=== PATIENT | male | born 1955 | race Caucasian/White ===

== ENCOUNTER 2018-12-16 01:04 | Emergency (ER) | payer BC, SELFPAY ==
[2018-12-16 01:05] VITALS: BP 200/102; PULSE 87; RESP 15; TEMP 36.6; O2SAT 98; BMI 44.2
--- NOTE | 2018-12-16 01:08 | ED.RN ---
CALLED FOR EKG PER RN REQUEST, UNABLE TO PRINT OLD EKGS FOR
--- NOTE | 2018-12-16 01:25 | EKG12_ITS ---
Test Reason : CP Blood Pressure : / mmHG Vent. Rate : 088 BPM Atrial Rate : 088 BPM P-R Int : 162 ms QRS Dur : 090 ms QT Int : 354 ms P-R-T Axes : 050 036 023 degrees QTc Int : 428 ms Normal sinus rhythm Normal ECG Confirmed by ARACELY WILDER, BRITTANY ([id number]), production editor PAIGE STAPLES ([id number] on 12/19/2018 8:17:08 AM Referred By: SHERRY Confirmed By:BRITTANY JESSICA MD
--- NOTE | 2018-12-16 01:25 | RAD_ITS ---
STUDY: X-RAY CHEST REASON FOR EXAM: Male, 63 years old. Chest pain TECHNIQUE: Frontal view COMPARISON: None. FINDINGS: There is suboptimal inspiration. There is discoid atelectasis at the RIGHT lung base. There are mild fibrotic changes. There are NO infiltrates, effusions or pneumothoraces. Normal size heart. Normal mediastinum and franchesca. Normal visualized pulmonary arteries. Normal visualized aortic arch and descending thoracic aorta. Normal visualized thoracic spine. Normal visualized ribs, clavicles, and shoulders. There is no demonstrated abnormality of the visualized soft tissue structures of the upper abdomen. RAD/Chest PA and Lateral IMPRESSION: There is suboptimal inspiration. There is discoid atelectasis at the RIGHT lung base. There are mild fibrotic changes. There are NO infiltrates, effusions or pneumothoraces. Normal size heart. Electronically Signed: Cem Pozo MD at 2:10 EST , Service support ,
[2018-12-16 01:26] VITALS: O2SAT 98
--- NOTE | 2018-12-16 01:27 | ED.DCSUM_ITS ---
- ER Visit Summary Date of Service: 12/16/18 Chief Complaint: [] Chest pain History of Present Illness: The patient is a 63 M emplaning of chest pain for the last 4-1/2 hours. Gradual onset continuous dull heaviness. It is gone currently. He felt little bit short of breath when he laid down to go to bed. He used some Tums with no relief earlier tonight. He had a stress test 15 years ago that was normal. He also had a heart cath in the past that was normal. These were remote however greater than 10 years ago. He does have chronic hypertension on no treatment currently. His blood pressure was 147 systolic at home. Cardiovascular risk factors are only hypertension. Physical Examination: [] Vital signs reviewed General: Well-nourished well-developed Head: Normocephalic atraumatic Eyes: Pupils equal round and reactive to light extraocular movements intact ENT: TMs clear no hemotympanum no trauma Neck: Nontender full range of motion Cardiovascular: Regular rate rhythm no murmurs normal S1-S2 Respiratory: No distress clear to auscultation bilaterally chest nontender Abdomen: Soft nontender nondistended normal bowel sounds no masses Back: Nontender no CVA tenderness Extremities: Nontender active range of motion ?4 extremities no trauma Skin: Normal color no trauma Neuro alert oriented cranial nerves II through XII intact normal strength sensation reflexes Test Results: [] Emergency Department Course and Treatment: [] EKG showed sinus rhythm at a rate of 88. T wave inversion in inferior lead III only. Otherwise nothing acute. Patient given oral aspirin. Lab work and chest x-ray obtained. CBC chemistries troponin negative. Chest x-ray shows right basilar base atelectasis only. Mediastinum normal. Reevaluation he pain-free resting comfortably. I offered admission with a stress test and he declined. I offered a delta troponin at 2 hours and he felt this is unnecessary. His heart score is 2. His blood pressure came down 137 systolic. His RADHA risk score is 0. Patient is comfo rtable following up and he is low risk therefore he will be discharged to do so. He understands if this worsens in any way he should return. I do not think he needs a CT angios chest. I do not think he has had a aortic dissection or PE. Treatment Plan: [] Disposition: [] Impression: [] Chest pain This note was generated with Dragon dictation software. It may contain incorrect words, spelling, and punctuation that were not noted in review of the chart prior to signing ED Disposition - Plan for ED Patient: Referrals: Bharat Mcmanus III, MD [Primary Care Provider] -
[2018-12-16 01:31] LABS: Absolute Lymphocyte Count 3.35 X10^3/ul (0.83-4.51); Absolute Neutrophil Count 3.7 X10^3/uL (2.0-7.7); Basophil# 0.03 X10^3/uL; Basophil% 0.4 % (0-1); Eosinophil# 0.27 X10^3/uL; Eosinophils% 3.4 % (0-5); Hematocrit 45.1 % (40-54); Hemoglobin 15.4 g/dl (13.0-16.5); Lymphocyte # 3.35 X10^3/ul (4.0); Lymphocyte % 42.6 % (19-41); Mean Corp Hgb Conc 34.1 g/gl (32-36); Mean Corpuscular Hgb 29.2 pg (27.0-32.0); Mean Corpuscular Volume 85.4 fL (80-94); Mean Platelet Vol. 9.5 fl (6.2-12.0); Monocyte# 0.53 X10^3/uL; Monocyte% 6.7 % (0-10); Neutrophil # 3.67 X10^3/uL (2.7-7.7); Neutrophil % 46.6 % (47-70); Platelet Count 209 K/mm3 (150-450); RBC Distribution Width CV 13.1 % (11.6-14.6); RBC Distribution Width SD 40.7 fl (35.1-43.9); Red Blood Count 5.28 M/mm3 (4.6-6.2); White Blood Count 7.9 K/mm3 (4.4-11.0)
[2018-12-16 01:32] LABS: POSITIVE COUNT NO; POSITIVE DIFFERENTIAL NO; POSITIVE MORPHOLOGY NO
[2018-12-16 01:44] LABS: Anion Gap 5 (5-15); BUN 17 mg/dL (7-18); BUN/Creat Ratio 14.7 RATIO (10-20); Calcium,Total 9.1 mg/dL (8.5-10.1); Chloride 106 mmol/L (98-107); Creatinine, Serum 1.16 mg/dL (0.70-1.30); EST Glomerular Filtration Rate 68 mL/min (>60); Est Glom Filt Rate - Afr Amer 82 mL/min (>60); Estimated Creatinine Clearance 68.18 ml/min; Glucose 106 mg/dL (74-106); Potassium 3.8 mmol/L (3.5-5.1); Sodium Level 140 mmol/L (136-145)
[2018-12-16 01:52] VITALS: BP 144/86; PULSE 76; RESP 17; O2SAT 93
[2018-12-16] MEDS: Aspirin 81 MG TAB.CHEW 324 MG PO (01:53)
[2018-12-16 02:25] VITALS: BP 144/87; PULSE 80; RESP 12; O2SAT 93
--- NOTE | 2018-12-16 02:31 | ED.DEP ---
ED Disposition - Plan for ED Patient: Disposition: Home or Assisted Living Instructions: ED Chest Pain NonCardiac Referrals: Bharat Mcmanus III, MD [Primary Care Provider] -
[2018-12-16 02:43] VITALS: BP 165/82; PULSE 70; RESP 15; O2SAT 98
--- NOTE | 2018-12-16 02:44 | ED.RN ---
PT GIVEN WRITTEN AND VERBAL DISCHARGE INSTRUCTIONS. PT VERBALIZES UNDERSTANDING AND DENIES ANY FURTHER QUESTIONS. PT IV D/C AND COVERED WITH 2X2 GAUZE AND PAPER TAPE. PT DRESSES SELF AND AMBULATES OUT OF DEPT WITH SPOUSE. PT TO RETURN TO ED FOR ANY NEW OR WORSENED SX. PT TO FOLLOW UP WITH PCP.
== END 2018-12-16 02:45 | disposition home or self-care (01) ==
PROVIDERS: Emergency Provider Emergency Medicine; Family Provider Family Medicine; PCP Family Medicine
DX: R07.9 Chest pain, unspecified (principal); I10 Essential (primary) hypertension; R06.02 Shortness of breath; E66.9 Obesity, unspecified
CPT/HCPCS: 71046; 80048; 84484; 85025; 93005; 99285; A4216

== ENCOUNTER → 2019-04-27 09:58 | Outpatient (CLI) | payer BC, SELFPAY ==
--- NOTE | 2019-04-27 10:19 | EKG12_ITS ---
Test Reason : PRE-OP Blood Pressure : / mmHG Vent. Rate : 066 BPM Atrial Rate : 066 BPM P-R Int : 164 ms QRS Dur : 088 ms QT Int : 388 ms P-R-T Axes : 061 036 028 degrees QTc Int : 406 ms Normal sinus rhythm Normal ECG Confirmed by ARACELY WILDER, BRITTANY ([id number]), index editor SEVERO PARSONS ([id number]) on 04/28/2019 7:48:52 AM Referred By: Rajinder Becerra Confirmed By:BRITTANY JESSICA MD
[2019-04-27 10:47] LABS: Hematocrit 45.9 % (40-54); Hemoglobin 15.4 g/dl (13.0-16.5); Mean Corp Hgb Conc 33.6 g/gl (32-36); Mean Corpuscular Hgb 28.1 pg (27.0-32.0); Mean Corpuscular Volume 83.6 fL (80-94); Platelet Count 228 K/mm3 (150-450); RBC Distribution Width CV 13.3 % (11.6-14.6); RBC Distribution Width SD 40.7 fl (35.1-43.9); Red Blood Count 5.49 M/mm3 (4.6-6.2); White Blood Count 6.6 K/mm3 (4.4-11.0)
[2019-04-27 10:49] LABS: Scan Indicated on CBC? Y/N NO
[2019-04-27 11:03] LABS: Anion Gap 5 (5-15); BUN 19 mg/dL (7-18); BUN/Creat Ratio 17.6 RATIO (10-20); Calcium,Total 9.1 mg/dL (8.5-10.1); Chloride 105 mmol/L (98-107); Creatinine, Serum 1.08 mg/dL (0.70-1.30); EST Glomerular Filtration Rate 73 mL/min (>60); Est Glom Filt Rate - Afr Amer 89 mL/min (>60); Glucose 109 mg/dL (74-106); Potassium 3.9 mmol/L (3.5-5.1); Sodium Level 139 mmol/L (136-145)
== END ==
PROVIDERS: Family Provider Family Medicine; PCP Family Medicine; Referring Provider Physician Assistant Surgical; Visit Provider Physician Assistant Surgical
DX: Z01.810 Encounter for preprocedural cardiovascular examination (principal); Z01.818 Encounter for other preprocedural examination
CPT/HCPCS: 36415; 80048; 85027; 93005

== ENCOUNTER 2019-05-13 06:26 | Day surgery (SDC) | payer BC, SELFPAY ==
[2019-05-13] VITALS (7 sets, daily range): BP systolic 123–150; BP diastolic 71–95; PULSE 71–82; RESP 16; TEMP 36.5–36.9; O2SAT 93–97; BMI 42.5
[2019-05-13] MEDS: Epinephrine (1 mg/ml) 1 MG/ML VIAL (07:26)
--- NOTE | 2019-05-13 08:40 | PCM.OPRPT ---
Report of Operation Date of Procedure: 05/13/19 Pre-Operative Diagnosis: 1. Right knee medial meniscus tear. 2. Right knee chondromalacia. 3. Right knee lateral meniscus tear Post-Operative Diagnosis: 1. Right knee medial meniscus tear. 2. Right knee chondromalacia. 3. Right knee medial plica Surgery/Procedure Performed:: Arthroscopic right knee partial medial meniscectomy, right knee medial compartment chondroplasty. Right knee plica resection Description of Surgical Findings:: Lateral meniscus was probed and visualized was not able to identify the appropriate tear the tissue looked healthy. There was a large medial plica which required debridement once the plica was removed striations were noted on the distal femur. laboratory equipment installer: None Type of Anesthesia:: General Anesthesiologist: Malik Kwon Special Medications: 600 mg clindamycin Estimated Blood Loss (mL): 10 Fluids Replaced: 500 mL crystalloid Description of Procedure: On the date of the procedure, the patient's R lower extremity was marked in the preoperative area. Patient was brought back to the operating room where they were transferred to the bed. Anesthesia assumed control of the C-spine airway and administered anesthetic. All bony prominences were identified and well-padded and the R leg was placed in the arthroscopic leg navarro. The contralateral leg was then draped over the bed and well-padded. There was padding underneath both sciatic nerves. The foot of the bed was then dropped and the R leg was prepped in a sterile fashion. The surgeon then scrubbed. Upon reentering the room, the operative leg was draped in a standard orthopedic fashion. A timeout was called, everyone agreed upon the side, the site, the procedure to be performed, patient's identity and antibiotics given. Incisions were marked out for the medial and lateral infrapatellar portals. Esmarch bandage was then used to exsanguinate the leg and tourniquet was placed at 250 mmHg. At this time, the lateral portal incision was made in a vertical fashion. The trocar was placed into the joint. The camera was then placed and the patellofemoral joint was visualized. The patella did appear to have grade 3 chondral changes. The trochlea appeared to have grade 4 especially over the medial facet chondral changes. We then directed our attention to the medial gutter where there was no foreign body. Then directed our attention to the medial joint compartment. There were grade 3 chondral changes on the medial distal femur, grade 3 chondral changes on the medial tibial plateau. The medial meniscus had large complex tear of the posterior horn and body extending to the anterior half. The medial portal was then placed under direct visualization using a spinal needle an 11 blade scalpel. Once this was done a probe was placed in the joint and the meniscus was probed finding large complex tear which pulled into the joint. We also noted cartilage fibrillation on the distal femur and proximal tibia. The biters and maria r were then used sequentially to debriding get rid of any free edges that could be a source of pain and catching in the meniscus tear. Shaver was also used to debride free cartilage flaps performing her chondroplasty and smoothing out the roughened surfaces. Once we felt medial meniscus tear was adequately debrided, we again visualized the joint and noted the meniscus tear was adequately debrided. Attention was then turned towards the notch where the anterior cruciate ligament was intact. PCL was visualized and appeared intact. Attention was then directed towards the lateral compartment where the lateral distal femur had grade 2 chondral changes, the lateral proximal tibia had grade 2 chondral changes. The lateral meniscus carefully visualized. There was some inner fraying but with a probe was placed in the joint cannot appreciated sizable or appreciable cleavage tear these may have been intrasubstance changes. Based on intraoperative findings we elected not to proceed with any more aggressive meniscectomy.. We then directed our attention to the lateral gutter, which was visualized and no free bodies were noted. Attention was once again directed to the patellofemoral joint where the plica was once again visualized. Shaver was placed in the joint and the plica was resected. Once a plica was resected we could clearly see the striations and grade 4 medial facet of the trochlea chondral changes. At this time the wound was copiously irrigated out with normal saline with epinephrine. The wound was closed with 4-0 nylon. Xeroform was placed over the incision. Sterile dressing was placed. Compressive dressing was placed. Tourniquet was let down. For that there was then placed up. Patient was awakened by anesthesia patient was transferred to the PACU for recovery in stable condition. Postoperative plan: Patient will be made weight-bear as tolerated. Return to activities as tolerated. He will come to the office in 2 weeks for postoperative wound check and suture removal. If he is doing well that time he can follow-up as needed. - Complications NONE - Admit VTE Documentation VTE Present on Admission: No VTE Mechan Device Prophylaxis: SCD's, Thigh High SAMI Hose VTE Pharm Prophylaxis ordered?: Yes
== END 2019-05-13 10:59 | disposition home or self-care (01) ==
LOC: SDC 06:26 → AC 06:29
PROVIDERS: Family Provider Family Medicine; PCP Family Medicine; Referring Provider Specialist; Visit Provider Specialist
PROC: (CPT 29870; principal; 2019-05-13 07:40)
DX: S83.231A Complex tear of medial meniscus, current injury, right knee, initial encounter (principal); S83.281A Other tear of lateral meniscus, current injury, right knee, initial encounter; M94.261 Chondromalacia, right knee; M67.51 Plica syndrome, right knee; M17.0 Bilateral primary osteoarthritis of knee; W17.89XA Other fall from one level to another, initial encounter; Y93.9 Activity, unspecified; Y92.9 Unspecified place or not applicable; Y99.9 Unspecified external cause status; I10 Essential (primary) hypertension
CPT/HCPCS: 29881; 64447; J7120; J2405

== ENCOUNTER → 2023-09-23 | Outpatient (CLI) | payer MEDICARE, BC, SELFPAY ==
--- NOTE | 2023-09-23 15:44 | MRI_ITS ---
STUDY: MRI ORBITS WITH AND WITHOUT CONTRAST REASON FOR EXAM: Male, 68 years old. OPTIC ATROPHY LEFT EYE, COMPRESSIVE OPTIC TRACT LESION - TECHNIQUE: Standardized fat and water weighted pulse sequences were obtained in all 3 orthogonal planes, pre-and post contrast administration. IV 27cc clariscan was administered for the contrast portion of the examination. COMPARISON: None. FINDINGS: Normal bilateral globes. Normal bilateral optic nerve sheath complexes and optic nerves. Normal bilateral intraconal and extraconal spaces. Normal bilateral extraocular muscles. Normal optic chiasm and post-chiasmatic tracts. Normal sella turcica, pituitary gland, infundibular stalk, and hypothalamus. Normal bilateral cavernous sinuses. Normal tectal plate and pineal gland. Normal flow voids within the major intracranial circulation suggesting patency by spin echo criteria. Normal size of the ventricles and extra-axial spaces for the patient''s age. Minimal periventricular white matter disease most likely is chronic small vessel ischemia without evidence for mass effect or restricted diffusion. Normal bilateral basal ganglia. Normal thalami. There is no extra-axial fluid accumulation. Normal midbrain, damari and medulla. Normal cerebellum. Normal basal cisterns. MRI/Orbit Face Neck W/WO Contrast IMPRESSION: Minimal periventricular white matter ischemic changes without evidence for acute infarct. Normal orbits Electronically Signed: Ricki Jeff MD at 17:40 EST ,
[2023-09-23 16:13] LABS: EGFR FINGERSTICK > 60.0000 mL/min (>60)
== END | disposition home or self-care (01) ==
LOC: MRI 15:24
PROVIDERS: PCP Nurse Practitioner Family; Visit Provider Ophthalmology
DX: H47.212 Primary optic atrophy, left eye (principal)
CPT/HCPCS: 70543; A9575

== ENCOUNTER 2025-10-19 19:48 | Emergency (ER) | payer MEDICARE, BC, SELFPAY ==
[2025-10-19] VITALS (7 sets, daily range): BP systolic 158–211; BP diastolic 74–89; PULSE 74–79; RESP 18–20; TEMP 36.6; O2SAT 96–99; BMI 46.3
--- NOTE | 2025-10-19 20:34 | EKG12_ITS ---
Test Reason : DYSRHYTHMIA Blood Pressure : */* mmHG Vent. Rate : 78 BPM Atrial Rate : 78 BPM P-R Int : 166 ms QRS Dur : 144 ms QT Int : 386 ms P-R-T Axes : 61 33 43 degrees QTcB Int : 440 ms Normal sinus rhythm Right bundle branch block Abnormal ECG Confirmed by Casey Martinez ([id number]), digital editor LETICIA RAINES ([id number]) on 10/20/2025 10:26:45 AM Referred By: JOLENE Confirmed By: Casey Martinez
[2025-10-19 20:51] LABS: Hematocrit 43.8 % (40-54); Hemoglobin 14.5 g/dL (13.0-16.5); Immature Granulocytes Count 0.010 X10^3/uL (0.0-0.0); Mean Corp Hgb Conc 33.1 g/dL (32-36); Mean Corpuscular Volume 86.1 fL (80-94); Mean Platelet Vol. 9.7 fl (6.2-12.0); NRBC Flagged by Analyzer 0 % (0-5); Platelet Count 196 K/mm3 (150-450); RBC Distribution Width CV 12.7 % (11.6-14.6); RBC Distribution Width SD 39.8 fl (35.1-43.9); Red Blood Count 5.09 M/mm3 (4.6-6.2); White Blood Count 7.9 K/mm3 (4.4-11.0)
--- NOTE | 2025-10-19 20:51 | RAD_ITS ---
PROCEDURE: CHEST PA AND LATERAL 10/19/2025 REASON FOR EXAM: SOB TECHNIQUE: Procedure Code: RADCXR Modality: DX Procedure: CHEST PA AND LATERAL COMPARISON: None. FINDINGS: Lungs/Pleura: No appreciable focal consolidation, pneumothorax, or pleural effusion. Heart/Mediastinum: Mildly enlarged. No significant vascular congestion. Bones/Soft tissues: Mild degenerative changes of the spine. Left humeral head prosthesis. RAD/Chest PA and Lateral IMPRESSION: Mild cardiomegaly. No acute pulmonary disease. Reading Location: [id number]
[2025-10-19 21:07] LABS: Anion Gap 9 (5-15); BUN 14 mg/dL (4-19); BUN/Creat Ratio 12.3 RATIO (10-20); Calcium,Total 9.0 mg/dL (7.6-11.0); Carbon Dioxide 24.8 mmol/L (21.0-32.0); Chloride 105 mmol/L (98-108); Estimated Creatinine Clearance 91.79 ml/min (50-250); Glucose 136 mg/dL (70-99); Potassium 4.0 mmol/L (3.3-5.1)
--- OUTSIDE RECORDS SUMMARY | 2025-10-19 21:11 | XMS RPT_ITS | CCD ---
Author Organization [facility] Care Team Providers Care Chrome Tanner Name Role Phone Miguelito WILDER, Jose Daniel Ross Unavailable Marietta KAMARA MD, Bharat A Primary Care Provider Marialuisa vailable Marietta KAMARA MD, Frank A Primary Care Provider Marialuisa vailable [facility] AUTHORIZATION MANAGER.Cy SALMERON Primary Care Provider Junaid Belle Unavailable [facility] CHAU, Cy Primary Care Unavailable Junaid Belle Attending Unavailable Trill AUTHORIZATION MANAGER.Cy SALMERON Primary Care Provider Junaid Belle MD Unavailable [phone] LI, ANG Attending Unavailable TRILL, CY C Primary Care Unavailable TRILL, CY C Primary Care Unavailable DENY VEGA Referring Unavailable TRILL, CY C Primary Care Unavailable LI, ANG Attending Unavailable TRILL, CY C Primary Care Unavailable LI, ANG Attending Unavailable TRILL, CY C Primary Care Unavailable LI, ANG Attending Unavailable TRILL, CY C Primary Care Unavailable LI, ANG Attending Unavailable LI, ANG Referring Unavailable TRILL, CY C Primary Care Unavailable TRILL, CY C Referring Unavailable TRILL, CY C Primary Care Unavailable LI, ANG Attending Unavailable LI, ANG Referring Unavailable TRILL, CY C Primary Care Unavailable LI, ANG Attending Unavailable TRILL, CY C Primary Care Unavailable LI, ANG Attending Unavailable TRILL, CY C Primary Care Unavailable LI, ANG Attending Unavailable LI, ANG Referring Unavailable TRILL, CY C Primary Care Unavailable TRILL, CY C Primary Care Unavailable LI, ANG Referring Unavailable TRILL, CY C Primary Care Unavailable TRILL, CY C Primary Care Unavailable LI, ANG Admitting Unavailable LI, ANG Attending Unavailable TRILL, CY C Primary Care Unavailable TRILL, CY C Attending Unavailable TRILL, CY C Referring Unavailable CY NIXON Primary Care Unavailable GLYNN KIMA MELECIO Attending Unavailable CY NIXON Referring Unavailable CY NIXON Primary Care Unavailable CY NIXON Attending Unavailable CY NIXON Primary Care Unavailable CY NIXON Primary Care Unavailable Allergies Allergy Classification Reported Allergen(s) Allergy Type Date of Onset Reaction(s) Facility (1 source) Penicillin G Drug Allergy 0 [facility] Work Phone: (8 sources) Penicillins; Translations: [PENICILLINS] Propensity to adverse reactions 7 [facility] Work Phone: (20 sources) Penicillins Propensity to adverse reactions 7 [facility] Work Phone: (2 sources) Etodolac Drug Allergy 2 Intolerance [facility] (1 source) Penicillins Allergy to substance 9 [facility] (1 source) Etodolac Drug Allergy 2 [facility] Repository (1 source) Penicillins Drug allergy (disorder) 9 [facility] Repository (6 sources) Penicillins Propensity to adverse reactions 7 [facility] Work Phone: Medications Current Medications Medication Drug Class(es) Dates Sig (Normalized) Sig (Original) benoxinate hydrochloride 4 mg/ml / fluorescein sodium 3 mg/ml ophthalmic solution (11 sources) Diagnostic Dye Start: 02-01-2025 End: 02-01-2025 fluorescein-benoxi bhavin 0.3-0.4 % 1 Drop (FLURESS) Start: 02-01-2025 End: 02-01-2025 1 Drop, BOTH EYES, DIRECT ED, Starting on Sat02/01/25 at 1100, Until Sat02/01/25 at 2259, Administer for applanation tonometry. In the event of a Fluress shortage, administer [place]-Fluor 1 drop into both eyes as directed for applanation tonometry Start: 01-18-2025 End: 01-18-2025 fluorescein-benoxinate 0.3-0 .4 % 1 Drop (FLURESS) Start: 12-14-2024 End: 12-15-2024 fluorescein-benoxinate 0.3-0 .4 % 1 Drop (FLURESS) Start: 11-16-2024 End: 11-17-2024 fluorescein-benoxinate 0.3-0 .4 % 1 Drop (FLURESS) Start: 11-16-2024 End: 11-17-2024 1 Drop, BOTH EYES, DIRECT ED, Starting on Sat11/16/24 at 1430, Until Sat11/17/24 at 0229, Administer for applanation tonometry. In the event of a Fluress shortage, administer [place]-Fluor 1 drop into both eyes as directed for applanation tonometry, [facility] MED ORDERS Start: 09-14-2024 End: 09-15-2024 fluorescein-benoxinate 0.3-0 .4 % 1 Drop (FLURESS) Start: 09-14-2024 End: 09-15-2024 1 Drop, BOTH EYES, DIRECT ED, Starting on Sat09/14/24 at 1230, Until Sat09/15/24 at 0029, Administer for applanation tonometry. In the event of a Fluress shortage, administer 1 drop of [place]-Fluor into both eyes as directed for applanation tonometry., OPHT CLINIC MED ORDERS Start: 03-16-2024 End: 03-17-2024 fluorescein-benoxinate 0.3-0 .4 % 1 Drop (FLURESS) Start: 01-20-2024 End: 01-20-2024 fluorescein-benoxinate 0.3-0 .4 % 1 Drop (FLURESS) Start: 12-23-2023 End: 12-23-2023 fluorescein-benoxinate 0.3-0 .4 % 1 Drop (FLURESS) benzonatate 100 mg oral capsule (2 sources) Non-narcotic Antitussive Start: 06-25-2024 End: 07-02-2024 take 1 capsule by mouth every eight hours as needed benzonatate (TESSALON PERLE) 100 mg capsule Take 1 capsule by mouth three times a day as needed for cough for up to 7 days. 21 capsule 06/25/2024 07/02/2024 Active brimonidine tartrate 2 mg/ml ophthalmic solution (20 sources) alpha-Adrenergic Agonist Start: 08-21-2024 End: 06-03-2025 take 1 drop(s) into the eye(s) twice daily brimonidine (ALPHAGAN) 0.2 % ophthalmic solution Use 1 drop in both eyes two times a day. 30 mL 11 06/03/2025 Active Start: 01-20-2024 End: 08-07-2024 take 1 drop(s) into the eye(s) twice daily brimonidine (ALPHAGAN) 0.2 % ophthalmic solution Use 1 Drop in both eyes two times a day. 30 mL 06/01/2024 08/07/2024 Discontinued Start: 09-23-2023 End: 01-20-2024 brimonidine (ALPHAGAN) 0.2 % ophthalmic solution Comment on above: Use 1 Drop in both e yes two times a day. dorzolamide 20 mg/ml / timolol 5 mg/ml ophthalmic solution (20 sources) Carbonic Anhydrase Inhibitor, beta-Adrenergic Jameel Start: 01-20-2024 End: 02-22-2025 take 1 drop(s) into the eye(s) twice daily dorzolamide-timolol (COSOPT) 22.3-6.8 mg/mL ophthalmic solution Use 1 drop in the left eye two times a day. 30 mL 02/22/2025 Active Start: 09-13-2023 End: 01-20-2024 dorzolamide-timolol (COSOPT) 22.3-6.8 mg/mL ophthalmic solution Comment on above: Use 1 Drop in both e yes two times a day. fluvastatin 20 mg oral capsule (20 sources) HMG-CoA Reductase Inhibitor Start: 02-09-20 24 End: 08-02-20 25 take 1 capsule by mouth once daily at bedtime fluvastatin (LESCOL) 20 mg capsule Indications: Hyperlipidemia LDL goal Take 1 capsule by mouth daily at bedtime. 90 capsule 3 08/07/2024 08/02/2025 Active Comment on above: Take 1 capsule by mo [facility] daily at bedtime. Clfpqlto-Cxyg-Goy6-C -Jeremy-Bosw (1 source) Start: 05-11-20 19 Eayubfvz-Vzoj-Xqn7-C- Jeremy-Bosw Active 2 EACH PO DAILY May 10, 2019 11:00pm ibuprofen 200 mg oral tablet (20 sources) Nonsteroidal Anti-inflammatory Drug take 1 tablet by mouth every six hours as needed ibuprofen (MOTRIN) 200 mg tablet Take 200 mg by mouth every 6 hours as needed. Active Comment on above: Take 200 mg by mouth every 6 hours as needed. Inhalational Spacing Device (2 sources) Start: 06-25-20 End: 06-25-20 Inhalational Spacing Device 1 Device one time only for 1 dose. 1 Each 06/25/2024 06/25/2024 Active latanoprost 0.05 mg/ml ophthalmic solution (20 sources) Prostaglandin Analog Start: 12-30-19 End: 02-23-20 take 1 drop(s) into the eye(s) once daily at bedtime latanoprost (XALATAN) 0.005 % ophthalmic solution Use 1 drop in both eyes daily at bedtime. 5 mL 11 02/22/2025 Active Comment on above: Use 1 Drop in both e yes daily at bedtime. lisinopril 20 mg oral tablet (20 sources) Angiotensin Converting Enzyme Inhibitor Start: 10-01-20 End: 08-28-20 take 1 tablet by mouth once daily lisinopril (ZESTRIL) 20 mg tablet Indications: Primary hypertension Take 1 tablet by mouth once daily. 90 tablet 3 09/02/2024 08/28/2025 Active Start: 06-24-2020 End: 02-29-2024 take 1 tablet by mouth once daily lisinopril (ZESTRIL) 10 mg tablet Indications: Primary hypertension Take 1 tablet by mouth once daily. 90 tablet 1 09/02/2023 02/29/2024 Active Comment on above: Take 1 tablet by selwyn once daily. phenylephrine hydrochloride 25 mg/ml ophthalmic solution (4 sources) alpha-1 Adrenergic Agonist Start: 09-14-2024 End: 09-15-2024 PHENYLephrine 2.5 % 1 Drop (AK-DILATE, HANNAH-SYNEPHRINE) Start: 09-14-2024 End: 09-15-2024 1 Drop, BOTH EYES, DIRECT ED, Starting on 09/14/24 at 1230, Until Sat09/15/24 at 0029, Administer for dilation PROTECT FROM LIGHT, OPHT CLINIC MED ORDERS Start: 01-20-2024 End: 01-20-2024 PHENYLephrine 2.5 % 1 Drop ( AK-DILATE, HANNAH-SYNEPHRINE) Start: 12-13-2023 End: 12-14-2023 PHENYLephrine 2.5 % 1 Drop ( AK-DILATE, HANNAH-SYNEPHRINE) polyethylene glycol 3350 [id number] mg / potassium chloride 2970 mg / sodium bicarbonate 6740 mg / sodium chloride 5860 mg / sodium sulfate 42903 mg powder for oral solution (1 source) Osmotic Laxative Start: 03-09-2025 End: 03-09-2025 peg 3350-Electrolytes (GOLYTELY) 236-22.74-6.74 -5.86 gram suspension Indications: Encounter for colorectal cancer screening Take 4,000 mL by mouth one time only for 1 dose. Refer to printed prep instructions from your provider. 4000 mL 03/09/2025 03/09/2025 Active proparacaine hydrochloride 5 mg/ml ophthalmic solution (6 sources) Local Anesthetic Start: 01-18-2025 End: 01-18-2025 proparacaine 0.5 % 1 Drop (ALCAINE) Start: 12-14-2024 End: 12-15-2024 proparacaine 0.5 % 1 Drop (A LCAINE) Start: 11-16-2024 End: 11-17-2024 proparacaine 0.5 % 1 Drop (A LCAINE) Start: 11-16-2024 End: 11-17-2024 1 Drop, BOTH EYES, DIRECT ED, Starting on Sat11/16/24 at 1430, Until Sat11/17/24 at 0229, Administer for pneumo tonometry, tonopen tonometry, or pachymetry. In the event of a proparacaine shortage, administer tetracaine 0.5% ophthalmic drops 1 drop in both eyes as directed for pneumo tonometry, tonopen tonometry, or pachymetry, OPHT CLINIC MED ORDERS Start: 09-14-2024 End: 09-15-2024 proparacaine 0.5 % 1 Drop (A LCAINE) Start: 03-16-2024 End: 03-17-2024 proparacaine 0.5 % 1 Drop (A LCAINE) tamsulosin hydrochloride 0.4 mg oral capsule (20 sources) alpha-Adrenergic Jameel Start: 02-05-2024 End: 08-07-2025 take 1 capsule by mouth once daily at bedtime tamsulosin (FLOMAX) 0.4 mg Indications: Benign prostatic hyperplasia with weak urinary stream Take 1 capsule by mouth daily at bedtime. 90 capsule 3 08/07/2024 08/07/2025 Active Comment on above: Take 1 capsule by [facility] daily at bedtime. tropicamide 10 mg/ml ophthalmic solution (5 sources) Anticholinergic Start: 09-14-2024 End: 09-15-2024 tropicamide 1 % 1 Drop (MYDRIACYL) Start: 09-14-2024 End: 09-15-2024 1 Drop, BOTH EYES, DIRECT ED, Starting on Sat09/14/24 at 1230, Until Sat09/15/24 at 0029, Administer for dilation, OPHT CLINIC MED ORDERS Start: 03-16-2024 End: 03-17-2024 tropicamide 1 % 1 Drop (MYDR IACYL) Start: 01-20-2024 End: 01-20-2024 tropicamide 1 % 1 Drop (MYDR IACYL) Start: 12-13-2023 End: 12-14-2023 tropicamide 1 % 1 Drop (MYDR IACYL) Completed/Discontinued Medications Medication Drug Class(es) Dates Sig (Normalized) Sig (Original) Acetaminophen (2 sources) End: 06-19-2022 acetaminophen (TYLENOL ARTHRITIS ORAL) Take by mouth as needed. 0 06/19/2022 Discontinued acetaminophen (T YLENOL ARTHRITIS ORAL) Take by mouth as needed. 0 Active Comment on above: Take by mouth as nee ded. [id number] 200 actuat albuterol 0.09 mg/actuat metered dose inhaler (4 sources) beta2-Adrenergic Agonist Start: 06-25-20 End: 08-23-20 take 2 puff(s) by inhalation every six hours as needed for wheezing albuterol HFA (PROVENTIL HFA, VENTOLIN HFA) 90 mcg/actuation inhaler Inhale 2 Puffs as instructed every 6 hours as needed for wheezing/shortness of breath. 8 g 06/25/2024 08/23/2024 Discontinued atorvastatin 20 mg oral tablet (2 sources) HMG-CoA Reductase Inhibitor Start: 09-08-20 take 1 tablet by mouth once daily atorvastatin (LIPITOR) 20 mg tablet Take 1 tablet by mouth once daily. 90 tablet 3 09/08/2023 Active Comment on above: Take 1 tablet by selwyn th once daily. bimatoprost 0.1 mg/ml ophthalmic solution (20 sources) Prostaglandin Analog Start: 01-31-20 End: 08-07-20 LUMIGAN 0.01 % drop ophthalmic drops 01/31/2024 08/07/2024 Discontinued Start: 12-23-2023 End: 01-20-2024 take 1 drop(s) into the eye(s) once daily at bedtime bimatoprost (LUMIGAN) 0.01 % drop ophthalmic drops Indications: Chronic angle-closure glaucoma of left eye, severe stage , Chronic angle-closure glaucoma of right eye, moderate stage , Nuclear senile cataract of both eyes Use 1 Drop in both eyes daily at bedtime. 5 mL 11 12/23/2023 01/20/2024 Discontinued (Course of therapy completed) Comment on above: Use 1 Drop in both e yes daily at bedtime. ciprofloxacin 3 mg/ml ophthalmic solution (14 sources) Quinolone Antimicrobial Start: 11-16-19 End: 01-19-20 take 1 drop(s) into the eye(s) four times daily ciprofloxacin HCl (CILOXAN) 0.3 % ophthalmic solution Use 1 Drop in the left eye four times daily. 15 mL 1 12/04/2024 01/18/2025 Discontinued (Course of therapy completed) prednisoLONE acetate 10 mg/ml ophthalmic suspension (20 sources) Corticosteroid Start: 11-16-19 End: 02-23-20 prednisoLONE acetate (PRED FORTE) 1 % ophthalmic suspension Use 1 Drop in the left eye four times daily. For use AFTER surgery. 10 mL 1 11/16/2024 02/22/2025 Discontinued (Course of therapy completed) Start: 11-11-2023 End: 08-07-2024 prednisoLONE acetate (PRED F ORTE) 1 % ophthalmic suspension Use 1 Drop in the right eye four times daily. For use AFTER surgery. 10 mL 1 01/20/2024 08/07/2024 Discontinued Start: 09-05-2023 prednisoLONE a cetate (PRED FORTE) 1 % ophthalmic suspension Comment on above: Use 1 Drop in the le ft eye four times daily. For use AFTER surgery. Use 1 Drop in the ri ght eye four times daily. For use AFTER surgery. rosuvastatin calcium 5 mg oral tablet (6 sources) HMG-CoA Reductase Inhibitor Start: 3 End: 4 take 2 tablets by mouth every week rosuvastatin (CRESTOR) 5 mg tablet Indications: Hyperlipidemia LDL goal Take 2 tablets by mouth one time a week. 0 10/07/2023 02/05/2024 Discontinued (Side Effects) Start: 10-01-2023 End: 10-07-2023 take 1 tablet by mouth once daily at bedtime rosuvastatin (CRESTOR) 5 mg tablet Indications: Hyperlipidemia LDL goal Take 1 tablet by mouth daily at bedtime. 30 tablet 5 10/01/2023 10/07/2023 Discontinued Comment on above: Take 2 tablets by mo uth one time a week. Take 1 tablet by selwyn th daily at bedtime. Problems Active Problems Problem Classification Problem Date Documented Da te Episodic/Chronic Blindness and vision defects (1 source) Blurring of visual image; Translations: [Other visual disturbances] Episodic Cataract (3 sources) Nuclear senile cataract; Translations: [Age-related nuclear cataract, bilateral] 12-23-2023 Chronic Conduction disorders (2 sources) EKG: right bundle branch block; Translations: [Unspecified right bundle-branch block] 02-05-2024 Chronic Disorders of lipid metabolism (20 sources) Hyperlipidemia; Translations: [Hyperlipidemia, unspecified] Onset: 08-20-2016 08-20-2016 Chronic Essential hypertension (20 sources) Benign essential hypertension; Translations: [Essential (primary) hypertension] Onset: 08-17-2008 Resolved: 10-01-2023 Chronic Glaucoma (20 sources) Angle-closure glaucoma; Translations: [Chronic angle-closure glaucoma, left eye, severe stage] Onset: 02-22-2025 12-13-2023 Chronic Hyperplasia of prostate (20 sources) Weak urinary stream due to benign prostatic hypertrophy; Translations: [Benign prostatic hyperplasia with lower urinary tract symptoms] Onset: 02-05-2024 02-05-2024 Chronic Immunizations and screening for infectious disease (1 source) Encounter for immunization; Translations: [Encounter for immunization] Onset: 08-09-2025 Episodic Joint disorders and dislocations; trauma-related (20 sources) Derangement of right knee; Translations: [Unspecified internal derangement of right knee] Onset: 08-22-2022 09-08-2023 Chronic Osteoarthritis (20 sources) Primary osteoarthritis, left shoulder; Translations: [Osteoarthrosis, localized, primary, shoulder region] Onset: 04-21-2020 04-21-2020 Chronic Other aftercare (11 sources) Surgical follow-up; Translations: [Encounter for follow-up examination after completed treatment for conditions other than malignant neoplasm] 12-13-2023 Episodic Other and unspecified benign neoplasm (3 sources) History of polyp of colon; Translations: [History of colonic polyps] 02-05-2025 Episodic Other connective tissue disease (1 source) History of operative procedure on shoulder; Translations: [Presence of left artificial shoulder joint] Onset: 06-24-2020 06-24-2020 Chronic Other connective tissue disease (1 source) Pain in bilateral legs; Translations: [Pain in right leg] 09-28-2023 Episodic Other connective tissue disease (1 source) Myalgia caused by statin; Translations: [Myalgia, unspecified site] 10-07-2023 Episodic Other connective tissue disease (3 sources) Pain in finger of right hand; Translations: [Pain in right finger(s)] 10-02-2024 Episodic Other eye disorders (1 source) Primary optic atrophy, left eye; Translations: [Primary optic atrophy, left eye] Onset: 09-30-2023 Chronic Other injuries and conditions due to external causes (1 source) Injury of finger of right hand; Translations: [Unspecified injury of right wrist, hand and finger(s), subsequent encounter] 02-05-2025 Episodic Other lower respiratory disease (2 sources) Cough; Translations: [Subacute cough] 06-25-2024 Episodic Other nutritional; endocrine; and metabolic disorders (20 sources) Metabolic syndrome X; Translations: [Metabolic syndrome] Onset: 08-17-2008 08-17-2008 Chronic Other nutritional; endocrine; and metabolic disorders (20 sources) Body mass index 40+ - severely obese; Translations: [Morbid (severe) obesity due to excess calories] Onset: 12-13-2023 12-13-2023 Chronic Other nutritional; endocrine; and metabolic disorders (1 source) Dysmetabolic syndrome X; Translations: [Dysmetabolic syndrome X] Onset: 08-17-2008 Chronic Other screening for suspected conditions (not mental disorders or infectious disease) (20 sources) Patient encounter status; Translations: [Encounter for screening for malignant neoplasm of colon] Onset: 06-02-2012 06-02-2012 Episodic Unclassified (1 source) Obesity, Class III, BMI 40-49.9 (morbid obesity) (HCC); Translations: [Obesity, Class III, BMI 40-49.9 (morbid obesity) (HCC)] Onset: 12-13-2023 Unclassified (1 source) History of colonic polyps; Translations: [History of colonic polyps] Onset: 02-05-2025 Past or Other Problems Problem Classification Problem Date Documented Date Episodic/Chronic Diabetes mellitus without complication (20 sources) Impaired fasting glycemia; Translations: [Impaired fasting glucose] Onset: 08-20-2016 05-26-2020 Episodic Genitourinary symptoms and ill-defined conditions (2 sources) Increased frequency of urination; Translations: [Frequency of micturition] Onset: 02-05-2024 09-02-2023 Episodic Other aftercare (1 source) Encounter for follow-up examination after completed treatment for conditions other than malignant neoplasm; Translations: [Postoperative follow-up] Onset: 12-04-2024 Episodic Other and unspecified benign neoplasm (20 sources) Benign neoplasm of colon; Translations: [Benign neoplasm of colon, unspecified] Onset: 06-24-2012 06-24-2012 Episodic Other connective tissue disease (2 sources) Pain in right finger(s); Translations: [Finger pain, right] Onset: 10-03-2024 Episodic Other injuries and conditions due to external causes (1 source) Unspecified injury of right wrist, hand and finger(s), subsequent encounter; Translations: [Injury of finger of right hand, subsequent encounter] Onset: 02-05-2025 Episodic Other nutritional; endocrine; and metabolic disorders (20 sources) Morbid obesity; Translations: [Morbid (severe) obesity due to excess calories] Onset: 08-20-2016 Resolved: 06-12-2017 06-12-2017 Chronic Residual codes; unclassified (20 sources) History of operative procedure on shoulder; Translations: [Other specified postprocedural states] Onset: 06-24-2020 09-02-2023 Episodic Unclassified (1 source) Problem Unclassified (2 sources) Patient encounter status 02-05-2025 Results Test Name Value Interpretation Reference Range [facility] Nurse Visit (KAYC) CECILERICKI ([id number]) 1955 M Date Time Provider Department 09/06/25 10:20 AM NURSE EVERETTE WOODRUFF During your visit today, we recorded the following information about you: Pulse Blood pressure 77/minute 122/74 Jordyn Chaparro MA 09/08/2025 7:32 AM Signed Patient was here for BP check. He confirmed his medication BP: 128/74 HR: 77 A refill request has been sent back but he needs a rx of tamulosin MARIA ELENA Linn Kristin C, APRN.FAVIOLA 09/08/2025 7:32 AM Signed BP looks great, thank you! Rx for Flomax was sent. Cy Nixon APRN.FAVIOLA Allergies As of Date: 09/06/2025 Noted Allergy Reaction PENICILLINS 07/04/2007 4 - Hives Date Reviewed: 09/03/2025 Reviewed by: Cy Nixon APRN.SCALE ATTENDANT - Fully Assessed Primary Visit Diagnosis:Primary hypertension [I10] Prescriptions as of 09/08/2025 - tamsulosin (FLOMAX) 0.4 mg TAKE ONE CAPSULE BY MOUTH AT BEDTIME - prednisoLONE acetate (PRED FORTE) 1 % ophthalmic suspension Use 1 drop in the left eye four times daily. For use AFTER surgery. - fluvastatin (LESCOL) 20 mg capsule Take 1 capsule by mouth daily at bedtime. - brimonidine (ALPHAGAN) 0.2 % ophthalmic solution Use 1 drop in both eyes two times a day. - latanoprost (XALATAN) 0.005 % ophthalmic solution Use 1 drop in both eyes daily at bedtime. - dorzolamide-timolol (COSOPT) 22.3-6.8 mg/mL ophthalmic solution Use 1 drop in the left eye two times a day. - lisinopril (ZESTRIL) 20 mg tablet Take 1 tablet by mouth once daily. - ibuprofen (MOTRIN) 200 mg tablet Take 200 mg by mouth every 6 hours as needed. Meds Comments as of 06/02/2012: Taking no meds 06/02/2012 Problem List As Of Date 09/06/2025 Noted Resolved Essential hypertension, benign [I10] 08/17/2008 10/01/2023 DYSMETABOLIC SYNDROME X [E88.810] 08/17/2008 Special screening for malignant neoplasms, colo*06/02/2012 Benign neoplasm of colon [D12.6] 06/24/2012 Hyperlipidemia LDL goal <130 [E78.5] 08/20/2016 Impaired fasting glucose [R73.01] 08/20/2016 Morbid obesity due to excess calories (HCC) [E6*08/20/2016 06/12/2017 Arthritis of shoulder [M19.019] 05/26/2020 History of left shoulder replacement [Z96.612] 06/24/2020 Diagnosed: 09/02/2023 Unspecified internal derangement of right knee *08/22/2022 Diagnosed: 09/08/2023 Prediabetes [R73.03] 09/08/2023 Primary hypertension [I10] 10/01/2023 Pre-operative examination [Z01.818] 11/29/2023 Obesity, Class III, BMI >= 40 [E66.813] 12/13/2023 Benign prostatic hyperplasia with weak urinary *02/05/2024 Encounter Status:Closed by JORDYN CHAPARRO on 09/08/25 [facility] HISTORY PHYSICALon HISTORY PHYSICAL HNO ID: [id number] Author: CHEYENNE ETIENNE APRN.FAVIOLA Service: ? Author Type: Nurse Practitioner Type: H&P Filed: 08/30/2025 14:06 Note Text: [facility] HISTORY AND PHYSICAL EXAMINATION SERVICE DATE: 08/30/2025 SERVICE TIME: 2:06 PM PRIMARY CARE PHYSICIAN: Cy Nixon APRN.SCALE ATTENDANT Assessment Patient has the following medical conditions which may affect jaquan-operative course: 1. Primary hypertension (I10) - Controlled on lisinopril; no recent headaches, dizziness, or chest pain reported. - Compliant on lisinopril as prescribed. Last 3 Encounter BP Readings: Date: BP: 08/30/2025 148/70 08/09/2025 150/82 03/09/2025 134/80 2. Hyperlipidemia LDL goal <130 (E78.5) - On fluvastatin; no history of coronary artery disease or myocardial infarction. - Compliant on fluvastatin as prescribed. 3. Benign prostatic hyperplasia with weak urinary stream (N40.1) - Managed with Flomax. - Compliant on Flomax as prescribed. 4. Prediabetes (R73.03) - Most recent HbA1c this year was 5.7%. - Patient not currently on any medications. Patient is diet-controlled. 5. Obesity, Class III, BMI 40-49.9 (morbid obesity) (HCC) (E66.813) 6. Dysmetabolic syndrome X (E88.810) - Body mass index is 44.19 kg/m?. ANESTHESIA FINDINGS: Intubation History: No history of difficult intubation. No abnormal airway history Significant Anesthesia Considerations: none Airway History: No history of difficult airway No abnormal airway history Blake Activity Status Index: METS: Walk indoors, such as around the house (1.75 METs) Do light work around the house, such as dusting or washing dishes (2.70 METs) Take care of self; that is eating, dressing, bathing, using the toilet (2.75 METs) Walk a block or two on level ground (2.75 METs) Do moderate work around the house, such as vacuuming, sweeping floors, or carrying in groceries (3.50 METs) Climb a flight of stairs or walk up a hill (5.50 METs) DASI Score: 18.95 Patient denies any chest pain or undue shortness of breath with the above physical activity. Clinical Frailty Scale: 3. Well, with treated comorbid disease STOP-Bang Score: Has or is being treated for high blood pressure BMI greater than 35 kg/m2 Patient over 50 years old Has a large neck Male patient Denies snoring loudly Denies feeling tired, fatigued, or sleepy during the daytime Has not been observed to stop breathing or choking/gasping during sleep STOP-Bang Score: 5 I - PHYSICAL EVALUATION AIRWAY Patient intubated: No. Tracheostomy tube not present Mallampati: II. TM distance: >3 FB. Neck ROM: full ROM without neurological symptoms. Mouth openin FB. Short neck: yes. Thick neck: no Vazquez present: no Microretrognathia/Mi cronagthia/Recessed Chin: No DENTAL Dental findings: teeth intact. II - ANESTHESIA PLAN Anesthetic plan additional comments: *PACC/TCI - anesthesia choice. Informed Consent Prepared for Surgery: optimally prepared for surgery. CONSULTS: Patient does not require consults for optimization at this time Planned Anesthetic: anesthesia choice The Following Tests/Procedures Have Been Initiated: No orders of the defined types were placed in this encounter. REASON FOR VISIT: Ricki Huber is a 70 year old male who is scheduled for Procedure(s): CILIARY BODY DESTRUCTION VIA CYCLOPHOTOCOAGULATIO N, TRANSSCLERAL (Left) at the request of Dr. Steven Blancas for consultation. My final recommendation will be communicated back to the requesting physician by way of shared medical record or letter. Subjective The patient has the following: COVID-19 Immunization Status Upcoming Covid-19 Vaccine () Postponed until 08/09/2026 08/09/2025 Postponed until 08/09/2026 by Perla Magaña MA (Declined at this time) 08/07/2024 Postponed until 08/07/2025 by Perla Magaña MA (Declined at this time) 09/02/2023 Postponed until 09/02/2024 by Denisse Calero MA (Declined at this time) Only the first 3 history entries have been loaded, but more history exists. CHIEF COMPLAINT: pre op HPI: Mi is a 70-year-old male with HTN, HLD, BPH, and left eye glaucoma presenting for a preoperative evaluation. Ricki reports distorted vision in his left eye due to glaucoma and is currently using Cosopt, Xalatan, Alphagan, and Pred Forte eye drops as prescribed by Dr. Blancas. REVIEW OF SYSTEMS: General: No weight loss, malaise or fevers. Neurological: Negative for: delirium, dementia, headaches, impaired sensorium, peripheral neuropathy, seizures, TIA and strokes. Respiratory: Denies any shortness of breath, chest pain, wheezing, or cough. Negative for: asthma, bronchitis, COPD, current cough, bronchodilator used daily for the last 3 months, dyspnea, home oxygen, orthopnea, pneumonia within 6 weeks, tobacco use, URI < 2 weeks and obstructive sleep apnea. Cardiovascular: Vinicio (more content not included)... Normal [facility] CNOVon 08-09-2025 CNOV Office Visit ([facility]) RICKI HUBER ([id number]) 1955 M Date Time Provider Department 08/09/25 11:00 AM CY NIXON During your visit today, we recorded the following information about you: Temperature Pulse Blood pressure Weight 98 degrees 74/minute 150/82 142.9 kg Height 1.753 m Cy Nixon APRN.SCALE ATTENDANT 09/03/2025 10:26 PM Signed Subjective The patient consented to the use of [employer] software for draft documentation of the visit consistent with [facility]?s Notice of Privacy Practices. HPI Yuniel is a 70-year-old male with a history of HTN and HLD, presenting for follow-up. Yuniel reports consistent adherence to his antihypertensive medication, lisinopril 20 mg daily. He has not taken his fluvastatin for the past 2 days due to a lack of refills. He denies experiencing myalgias. He occasionally monitors his BP at home but has not done so recently due to being busy. He reports a recent BP reading of 170/76 mmHg taken by a nurse prior to the visit. He consumed his last cup of coffee around 0900 today. He reports intermittent episodes of feeling weird for a few minutes, which are not associated with pain and resolve spontaneously. He underwent an echocardiogram approximately 1 year ago, which was reported as normal. He has not followed up with a director of diversity and inclusion since then. He denies experiencing chest pain or dyspnea. Yuniel reports frustration with his weight management efforts. Despite consuming salads and chicken for 2-3 days, he has not observed significant weight loss. He has been trying to reduce his intake of bread and red meat, consuming the latter only a couple of days a week. He acknowledges the need for longer-term dietary changes but finds it challenging due to a busy schedule and the monotony of eating the same foods repeatedly. He has not been able to incorporate regular walking into his routine due to time constraints. He also reports ongoing issues with his eyes, noting increased redness and the presence of a little brown spot that moves around. He is scheduled to see Dr. Andersen, an steel turner, next Saturday. I reviewed past medical, surgical, social, and family histories today and updated chart. Allergies, chronic medications, and supplements were also reviewed. 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 Belle/Dr. Zelaya Primary hypertension PAST SURGICAL HISTORY Procedure Laterality Date COLSC FLX W/REMOVAL LESION BY HOT BX FORCEPS 07/13/2016 hyperplastic- 5 year follow up DENTAL SURGERY HX 2018 top implant GONIOTOMY Left 12/13/2023 HEART CATHETERIZATION 11/04/2003 raina PAST SURGICAL HISTORY OF x 2 Left knee surgery REMV CATARACT EXTRACAP,INSERT LENS Left 12/13/2023 phacoemulsification KDB REMV CATARACT EXTRACAP,INSERT LENS Right 02/28/2024 GONIOTOMY - Right with Steven Blancas MD on 02/28/2024 REPAIR UMBILICAL HERNIA 11/13/2012 SHOULDER SURGERY HX Left 2019 total replacement ALLERGIES Penicillins MEDICATIONS brimonidine (ALPHAGAN) 0.2 % ophthalmic solution Use 1 drop in both eyes two times a day. latanoprost (XALATAN) 0.005 % ophthalmic solution Use 1 drop in both eyes daily at bedtime. dorzolamide-timolol (COSOPT) 22.3-6.8 mg/mL ophthalmic solution Use 1 drop in the left eye two times a day. lisinopril (ZESTRIL) 20 mg tablet Take 1 tablet by mouth once daily. tamsulosin (FLOMAX) 0.4 mg Take 1 capsule by mouth daily at bedtime. ibuprofen (MOTRIN) 200 mg tablet Take 200 mg by mouth every 6 hours as needed. prednisoLONE acetate (PRED FORTE) 1 % ophthalmic suspension Use 1 drop in the left eye four times daily. For use AFTER surgery. fluvastatin (LESCOL) 20 mg capsule Take 1 capsule by mouth daily at bedtime. FAMILY HISTORY Problem Relation Age of Onset Heart Mother on mom's side not sure who COPD Mother from COPD age 82 Diabetes Mother on mom's side not sure who Hypertension Father 84 Heart Failure Father Anesthesia Problems Father ponv, mental status change SOCIAL HISTORY[1] Review of Systems Eyes: (+) eye redness, (+) visual floater Cardiovascular: (-) chest pain Musculoskeletal: (-) myalgias Objective BP 150/82 Pulse 74 Temp 98 Ht 5' 9 (1.75m) Wt 315 lb (142.9kg) SpO2 94% BMI 46.50 kg/(m2). Physical Exam Constitutional: General: He is not in acute distress. Appearance: Normal appearance. HENT: Head: Normocephalic and atraumatic. Mouth/Throat: Lips: Roundup. Eyes: General: Lids are normal. Extraocular Movements: Extraocular movements intact. Conjunctiva/sclera: Conjunctivae normal. Pupils: Pupils are equal. Cardiovascular: Rate and Rhythm: Normal rate and regular rhythm. Heart sounds: Normal heart sounds. No murmur heard. Pulmonary: Effort: Pulmonary effort is normal. No respiratory distress. Breath sounds: (more content not included)... [facility] RICKI HUBER ([id number]) 1955 M Date Time Provider Department 03/09/25 3:30 PM SERENITY KIM During your visit today, we recorded the following information about you: Temperature Pulse Blood pressure Weight 98.4 degrees 66/minute 134/80 142 kg Height 1.753 m Serenity Kim MD 03/09/2025 3:29 PM Signed HISTORY AND PHYSICAL Ricki Huber 1955 REFERRING PHYSICIAN: Cy Nixon APRN.* CHIEF COMPLAINT: consult colon cancer screening HPI: The patient is a 70 year old male referred for endoscopy. Ricki presents for screening for colon cancer via colonoscopy. He last had a colonoscopy in 2016 - no adenomatous polyps noted. Colonoscopy in 2011 revealed tubular adenoma. The patient denies blood in stools, denies abdominal pain, and denies changes in bowel habits. The patient notes no colon cancer in immediate family. . 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 Belle/Dr. Zelaya Primary hypertension PAST SURGICAL HISTORY Procedure Laterality Date COLSC FLX W/REMOVAL LESION BY HOT BX FORCEPS 07/13/2016 hyperplastic- 5 year follow up DENTAL SURGERY HX 2018 top implant GONIOTOMY Left 12/13/2023 HEART CATHETERIZATION 11/04/2003 raina PAST SURGICAL HISTORY OF x 2 Left knee surgery REMV CATARACT EXTRACAP,INSERT LENS Left 12/13/2023 phacoemulsification KDB REMV CATARACT EXTRACAP,INSERT LENS Right 02/28/2024 GONIOTOMY - Right with Stevne Blancas MD on 02/28/2024 REPAIR UMBILICAL HERNIA 11/13/2012 SHOULDER SURGERY HX Left 2019 total replacement Current Outpatient Medications Medication Sig latanoprost (XALATAN) 0.005 % ophthalmic solution Use 1 drop in both eyes daily at bedtime. dorzolamide-timolol (COSOPT) 22.3-6.8 mg/mL ophthalmic solution Use 1 drop in the left eye two times a day. brimonidine (ALPHAGAN) 0.2 % ophthalmic solution Use 1 drop in both eyes two times a day. lisinopril (ZESTRIL) 20 mg tablet Take 1 tablet by mouth once daily. fluvastatin (LESCOL) 20 mg capsule Take 1 capsule by mouth daily at bedtime. tamsulosin (FLOMAX) 0.4 mg Take 1 capsule by mouth daily at bedtime. ibuprofen (MOTRIN) 200 mg tablet Take 200 mg by mouth every 6 hours as needed. No current facility-administere d medications for this visit. ALLERGIES: Penicillins PERSONAL HISTORY: Social History Tobacco Use Smoking status: Former Current packs/day: 1.50 Average packs/day: 1.5 packs/day for 10.0 years (15.0 ttl pk-yrs) Types: Cigarettes Smokeless tobacco: Former Tobacco comments: quit 1998 aftyer smoking off and on for seveeral years Vaping Use Vaping status: Never Used Substance Use Topics Alcohol use: Yes Comment: 1-2 week Drug use: No FAMILY HISTORY Problem Relation Age of Onset Heart Mother on mom's side not sure who COPD Mother from COPD age 82 Diabetes Mother on mom's side not sure who Hypertension Father 84 Heart Failure Father REVIEW OF SYSTEMS: General - denies fevers HEENT - denies trauma/infections Resp - denies coughing up blood, denies breathing difficulties Cardiac - denies chest pain GI - see HPI - denies blood in urine, had kidney stone Endocrine - denies diabetes MS -- had left shoulder lsurgery Psych - denies hallucinations PHYSICAL EXAMINATION: General: The patient is 70 year old male, well nourished, well hydrated in no acute distress. The patient is oriented to time, place, and person. VITALS: Blood pressure 134/80, pulse 66, temperature 36.9 ?C (98.4 ?F), height 175.3 cm (5' 9), weight (!) 142 kg (313 lb), SpO2 96%. Body mass index is 46.22 kg/m?. Head: Normal cephalic, atraumatic Eyes: pupils are equally round, sclera are clear/anicteric Neck is supple with no tracheal deviation Cardiac: normal heart sounds, regular Respiratory: Normal respiratory excursion and pattern. Abdominal exam: benign Extremities: no clubbing, cyanosis or edema. Neuro: non focal Psych: normal mood The sensitive examination was discussed with the Patient or Patient's Authorized Pararescue Manager. As applicable, any other physician, advance practice provider, medical student, or other health professional student that will be observing or involved in the sensitive examination for educational or training purposes was discussed with the Patient or Authorized Pararescue Manager. The Patient or Authorized Pararescue Manager has agreed to proceed with the sensitive examination. (Sensitive examination includes inspection and/or palpation of the breasts, pelvis, prostate and anorectal regions) Assessment IMPRESSION: screening for colon cancer PLAN: I have discussed the above with the patient. I have offered colonoscopy , possible biopsies I have explained the procedure to the patient. I have counseled the patient as to the risks of the procedure, (more content not included)... Normal [facility] 02-05-2025 [facility] HU[facility] ([id number]) 1955 M Date Time Provider Department 02/05/25 11:00 AM CY NIXON During your visit today, we recorded the following information about you: Temperature Pulse Blood pressure Weight 98.1 degrees 65/minute 126/82 137.4 kg Height 1.753 m Cy Nixon APRN.CNP 02/05/2025 8:41 PM Signed Ricki Huber is a 70 year old male here for a Medicare wellness visit. Medicare Health Risk Assessment General Health Fair Exercise: Minutes/Day 20 min Exercise: Days/Week 5 days Alcohol: Daily Use 2-3 times a week Alcohol: Drinks/Day 1 or 2 Alcohol: 6 or more drinks Never Feel off balance No Concerns: Teeth/Dentures No Concerns: Sexual function No Troubled by feelings None of the above Frequency: Eating healthy diet More than half the days ADLs requiring help None of the above Safety precautions in home/vehicle No Smoke, vape, chews tobacco No Difficulty hearing No Difficulty seeing No Current Providers Specialists: I have reviewed specialist-related care of the patient in the medical record. Current care team: Patient Care Team: Cy Nixon APRN.CNP as PCP - General (Family Medicine) Junaid Belle MD as Referring (Ophthalmology) Medical/Family history review Reviewed and updated problem list, medical/surgical/fam breanne/social history, medications, and allergies. Opioid use review Opioid Medications (last 90 days) No data to display Anxiety/Depression screening Recommendation: no further intervention at this time Cognitive screening Mini Cog Score: 5 Cognitive screening reviewed and No further action needed (score 3-5). Functional Observation Was the patient's Timed Up AND Go test unsteady or >= 12 seconds? 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 Belle/Dr. Zelaya Primary hypertension PAST SURGICAL HISTORY Procedure Laterality Date COLSC FLX W/REMOVAL LESION BY HOT BX FORCEPS 07/13/2016 hyperplastic- 5 year follow up DENTAL SURGERY HX 2018 top implant GONIOTOMY Left 12/13/2023 HEART CATHETERIZATION 11/04/2003 [place] PAST SURGICAL HISTORY OF x 2 Left knee surgery REMV CATARACT EXTRACAP,INSERT LENS Left 12/13/2023 phacoemulsification KDB REMV CATARACT EXTRACAP,INSERT LENS Right 02/28/2024 GONIOTOMY - Right with Steven Blancas MD on 02/28/2024 REPAIR UMBILICAL HERNIA 11/13/2012 SHOULDER SURGERY HX Left 2019 total replacement ALLERGIES Penicillins MEDICATIONS dorzolamide-timolol (COSOPT) 22.3-6.8 mg/mL ophthalmic solution Use 1 Drop in the left eye two times a day. brimonidine (ALPHAGAN) 0.2 % ophthalmic solution Use 1 Drop in the right eye two times a day. latanoprost (XALATAN) 0.005 % ophthalmic solution Use 1 Drop in both eyes daily at bedtime. prednisoLONE acetate (PRED FORTE) 1 % ophthalmic suspension Use 1 Drop in the left eye four times daily. For use AFTER surgery. (Patient taking differently: Use 1 drop in the left eye two times a day. For use AFTER surgery.) lisinopril (ZESTRIL) 20 mg tablet Take 1 tablet by mouth once daily. fluvastatin (LESCOL) 20 mg capsule Take 1 capsule by mouth daily at bedtime. tamsulosin (FLOMAX) 0.4 mg Take 1 capsule by mouth daily at bedtime. ibuprofen (MOTRIN) 200 mg tablet Take 200 mg by mouth every 6 hours as needed. FAMILY HISTORY Problem Relation Age of Onset Heart Mother on mom's side not sure who COPD Mother from COPD age 82 Diabetes Mother on mom's side not sure who Hypertension Father 84 Heart Failure Father Social History Tobacco Use Smoking status: Former Current packs/day: 1.50 Average packs/day: 1.5 packs/day for 10.0 years (15.0 ttl pk-yrs) Types: Cigarettes Smokeless tobacco: Former Tobacco comments: quit 1998 aftyer smoking off and on for seveeral years Vaping Use Vaping status: Never Used Substance Use Topics Alcohol use: Yes Comment: 1-2 week Drug use: No Measurements BP 126/82 Pulse 65 Temp 36.7 ?C (98.1 ?F) Ht 175.3 cm (5' 9) Wt (!) 137.4 kg (303 lb) SpO2 96% BMI 44.75 kg/m? Vision Screening: Follows with optometry/ophthalmol ogy Assessment/Plan Medicare annual wellness visit, subsequent (Z00.00) - Counseled on healthy diet and regular exercise - Fall avoidance information provided - Personalized prevention plan provided Additional Concerns The following concerns were also discussed with the patient: Dealing with a lot of eye issues - left eye surgery Had a stent placed Has a brown spot in vision Seeing Dr Blancas Eye drops keep changed Decrased peripheral vision (more content not included)... Normal [facility] CBC panel Auto (Bld)on 01-28 Erythrocyte distribution width (RBC) [Ratio] 13.2 % Normal 11.5-15.0 [facility] Comment on above: Order Comment: Speci men Type: BLOOD SPECIMENOrdering Facility: [facility] Address: [address] [place] [address] Performed By: #### 5 8410-2 ####[facility] [id number] [place] [address] [place] Hematocrit (Bld) [Volume fraction] 47.8 % Normal 39.0-51.0 [facility] Comment on above: Order Comment: Speci men Type: BLOOD SPECIMENOrdering Facility: [facility] Address: [address] [place] [address] Performed By: #### 5 8410-2 ####[facility] [id number] [place] [address] [place] Hemoglobin (Bld) [Mass/Vol] 15.6 g/dL Normal 13.0-17.0 [facility] Comment on above: Order Comment: Speci men Type: BLOOD SPECIMENOrdering Facility: [facility] Address: [address] [place] [address] Performed By: #### 5 8410-2 ####[facility] [id number] [place] [address] [place] MCH (RBC) [Entitic mass] 28.1 pg Normal 26.0-34.0 [facility] Comment on above: Order Comment: Speci men Type: BLOOD SPECIMENOrdering Facility: [facility] Address: [address] [place] [address] Performed By: #### 5 8410-2 ####[facility] [id number] [place] [address] [place] MCHC (RBC) [Mass/Vol] 32.6 g/dL Normal 30.5-36.0 [facility] Comment on above: Order Comment: Speci men Type: BLOOD SPECIMENOrdering Facility: [facility] Address: [address] [place] [address] Performed By: #### 5 8410-2 ####[facility] [id number] [place] [address] [place] MCV (RBC) [Entitic vol] 86.1 fL Normal 80.0-100.0 [facility] Comment on above: Order Comment: Speci men Type: BLOOD SPECIMENOrdering Facility: [facility] Address: [address] [place] [address] Performed By: #### 5 8410-2 ####[facility] [id number] [place] [address] [place] Nucleated RBC (Bld) [#/Vol] 10*3/uL Normal <0.01 [facility] Comment on above: Order Comment: Speci men Type: BLOOD SPECIMENOrdering Facility: [facility] Address: [address] [place] [address] Performed By: #### 5 8410-2 ####[facility] [id number] [id number] [address] [place] Platelet mean volume (Bld) [Entitic vol] 9.9 fL Normal 9.0-12.7 [facility] Comment on above: Order Comment: Speci men Type: BLOOD SPECIMENOrdering Facility: [facility] Address: [address] [place] [address] Performed By: #### 5 8410-2 ####[facility] [id number] [place] [address] [place] Platelets (Bld) [#/Vol] 248 10*3/uL Normal 150-400 [facility] Comment on above: Order Comment: Speci men Type: BLOOD SPECIMENOrdering Facility: [facility] Address: [address] [place] [address] Performed By: #### 5 8410-2 ####[facility] [id number] [place] [address] [place] RBC (Bld) [#/Vol] 5.55 10*6/uL Normal 4.20-6.00 [facility] Comment on above: Order Comment: Speci men Type: BLOOD SPECIMENOrdering Facility: [facility] Address: [address] [place] [address] Performed By: #### 5 8410-2 ####[facility] LABCL[facility] [id number] [place] [id number] [place] WBC (Bld) [#/Vol] 6.86 10*3/uL Normal 3.70-11.00 [facility] Comment on above: Order Comment: Speci men Type: BLOOD SPECIMENOrdering Facility: [facility] Address: [address] [place] [address] Performed By: #### 5 8410-2 ####[facility] LABCL[facility] [id number] [address] [address] [place] Comprehensive metabolic 2000 panelon 01-28-2025 Albumin [Mass/Vol] 4.1 g/dL Normal 3.9-4.9 [facility] Comment on above: Order Comment: Speci men Type: BLOOD SPECIMENOrdering Facility: [facility] Address: [address] [place] [address] Performed By: #### 2 4323-8 ####[facility] [id number] [place] [address] [place]#### 91621-8 ####[facility]ORY[facility] [id number] [place] [address] [place] [facility] LABCLIA [id number] [place] [id number] [place] ALP [Catalytic activity/Vol] 74 U/L Normal 38-113 [facility] Comment on above: Order Comment: Speci men Type: BLOOD SPECIMENOrdering Facility: [facility] Address: [address] [place] [address] Performed By: #### 2 4323-8 ####[facility]ORY[facility] [id number] [place] [address] [place]#### 54419-3 ####[facility]ORY[facility] [id number] [place] [address] [place] [facility] LABCLIA [id number] [place] [address] [place] ALT [Catalytic activity/Vol] 16 U/L Normal 10-54 [facility] Comment on above: Order Comment: Speci men Type: BLOOD SPECIMENOrdering Facility: [facility] Address: [address] [place] [id number] Performed By: #### 2 4323-8 ####[facility] [id number] [place] [address] [place]#### 56317-3 ####[facility]ORY[facility] [id number] [place] [id number] [place] [facility] LABCLIA [id number] [place] [id number] [place] Anion gap [Moles/Vol] 8 mmol/L Normal 8-15 [facility] Comment on above: Order Comment: Speci men Type: BLOOD SPECIMENOrdering Facility: [facility] Address: [address] [place] [address] Performed By: #### 2 4323-8 ####[facility] [id number] [place] [address] [place]#### 14796-5 ####[facility] [id number] [address] LABCLIA [id number] [place] [address] [place] AST [Catalytic activity/Vol] 18 U/L Normal 14-40 [facility] Comment on above: Order Comment: Speci men Type: BLOOD SPECIMENOrdering Facility: [facility] Address: [address] [place] [address] Performed By: #### 2 4323-8 ####[facility] LABORATORYCLIA [id number] [place] [address] [place]#### 82504-5 ####[facility] LABORATORYCLIA [id number] [address] LABCLIA [id number] [place] [address] [place] Bilirubin [Mass/Vol] 0.5 mg/dL Normal 0.2-1.3 [facility] Comment on above: Order Comment: Speci men Type: BLOOD SPECIMENOrdering Facility: [facility] Address: [address] [place] [address] Performed By: #### 2 4323-8 ####[facility] LABORATORYCLIA [id number] [place] [address] [place]#### 63720-4 ####[facility] LABORATORYCLIA [id number] [address] LABCLIA [id number] [address] [address] [place] Calcium [Mass/Vol] 9.3 mg/dL Normal 8.5-10.2 [facility] Comment on above: Order Comment: Speci men Type: BLOOD SPECIMENOrdering Facility: [facility] Address: [address] [place] [id number] Performed By: #### 2 4323-8 ####[facility] LABORATORYCLIA [id number] [place] [address] [place]#### 60280-0 ####[facility] LABORATORYCLIA [id number] [place] [address] [place] [facility] LABCLIA [id number] [place] [address] [place] Chloride [Moles/Vol] 101 mmol/L Normal 98-107 [facility] Comment on above: Order Comment: Speci men Type: BLOOD SPECIMENOrdering Facility: [facility] Address: [address] [place] [place] [id number] Performed By: #### 2 4323-8 ####[facility] LABORATORYCLIA [id number] [place] [address] [place]#### 50184-9 ####[facility] LABORATORYCLIA [id number] [place] [address] [place] [facility] LABCLIA [id number] [place] [id number] [place] CO2 [Moles/Vol] 28 mmol/L Normal 22-30 [facility] Comment on above: Order Comment: Speci men Type: BLOOD SPECIMENOrdering Facility: [facility] Address: [address] [place] [place] [id number] Performed By: #### 2 4323-8 ####[facility] LABORATORYCLIA [id number] [place] [address] [place]#### 60084-1 ####[facility] LABORATORYCLIA [id number] [place] [address] LABCLIA [id number] [place] [address] [place] Creatinine [Mass/Vol] 1.02 mg/dL Normal 0.73-1.22 [facility] Comment on above: Order Comment: Speci men Type: BLOOD SPECIMENOrdering Facility: [facility] Address: [address] [place] [address] Performed By: #### 2 4323-8 ####[facility] LABORATORYCLIA [id number] [address] [place]#### 69261-3 ####[facility] LABORATORYCLIA [id number] [address] LABCLIA [id number] [address] STATES [facility] Creatinine and Glomerular filtration rate.predicted panel (S/P/Bld) 80 mL/min/1.73m??? Normal >=60 [facility] Comment on above: Order Comment: Speci men Type: BLOOD SPECIMENOrdering Facility: [facility] Address: [address] [place] [address] Result Comment: Bertha mated Glomerular Filtration Rate (eGFR) is calculated using the 2020 CKD-EPI creatinine equation. This equation utilizes serum creatinine, sex, and age as parameters. The creatinine assay has traceable calibration to isotope dilution-mass spectrometry. Refer to KDIGO guidelines for clinical interpretation. In patients with unstable renal function, e.g. those with acute kidney injury, the eGFR may not accurately reflect actual GFR. Performed By: #### 2 4323-8 ####[facility] LABORATORYCLIA [id number] [place] [address] [place]#### 67915-3 ####[facility] LABORATORYCLIA [id number] [address] LABCLIA [id number] [place] [address] [place] Glucose [Mass/Vol] 128 mg/dL High 74-99 [facility] Comment on above: Order Comment: Chance jefferson Type: BLOOD SPECIMENOrdering Facility: [facility] Address: [address] [place] [address] Result Comment: The [place] Diabetes Association (ADA) provides guidance for cutoff values for fasting glucose and random glucose. The ADA defines fasting as no caloric intake for at least 8 hours. Fasting plasma glucose results between 100 to 125 mg/dL indicate increased risk for diabetes (prediabetes). Fasting plasma glucose results greater than or equal to 126 mg/dL meet the criteria for diagnosis of diabetes. In the absence of unequivocal hyperglycemia, results should be confirmed by repeat testing. In a patient with classic symptoms of hyperglycemia or hyperglycemic crisis, random plasma glucose results greater than or equal to 200 mg/dL meet the criteria for diagnosis of diabetes. Reference: Standards of Medical Care in Diabetes 2016, Spanish Diabetes Association. Diabetes Care. 2016.39(Suppl 1). Performed By: #### 2 4323-8 ####[facility] LABORATORYCLIA [id number] [place] [address] [place]#### 36646-6 ####[facility] LABORATORYCLIA [id number] [address] STATES [facility] LABCLIA [id number] [place] [address] [place] Potassium [Moles/Vol] 4.7 mmol/L Normal 3.7-5.1 [facility] Comment on above: Order Comment: Lindseyreina jefferson Type: BLOOD SPECIMENOrdering Facility: [facility] Address: [address] [place] [id number] Performed By: #### 2 4323-8 ####[facility] LABORATORYCLIA [id number] [place] [address] [place]#### 35050-9 ####[facility] LABORATORYCLIA [id number] [address] STATES [facility] LABCLIA [id number] [place] [address] [place] Protein [Mass/Vol] 6.8 g/dL Normal 6.3-8.0 [facility] Comment on above: Order Comment: Speci men Type: BLOOD SPECIMENOrdering Facility: [facility] Address: [address] [place] [address] Performed By: #### 2 4323-8 ####[facility] LABORATORYCLIA [id number] [place] [address] [place]#### 34669-3 ####[facility] LABORATORYCLIA [id number] [address] LABCLIA [id number] [place] [address] [place] Sodium [Moles/Vol] 137 mmol/L Normal 136-144 [facility] Comment on above: Order Comment: Speci men Type: BLOOD SPECIMENOrdering Facility: [facility] Address: [address] [place] [address] Performed By: #### 2 4323-8 ####[facility] LABORATORYCLIA [id number] [place] [address] [place]#### 94064-4 ####[facility] LABORATORYCLIA [id number] [address] LABCLIA [id number] [place] [address] [place] Urea nitrogen [Mass/Vol] 16 mg/dL Normal 9-24 [facility] Comment on above: Order Comment: Speci men Type: BLOOD SPECIMENOrdering Facility: [facility] Address: [address] [place] [address] Performed By: #### 2 4323-8 ####[facility] LABORATORYCLIA [id number] [place] [address] [place]#### 06166-6 ####[facility] LABORATORYCLIA [id number] [place] [id number] [place] [facility] LABCLIA [id number] [address] OF [facility] HbA1c (Bld)on 01-28-2025 Average glucose Estimated from glycated hemoglobin (Bld) [Mass/Vol] 117 mg/dL Normal [facility] Comment on above: Order Comment: Chance jefferson Type: BLOOD SPECIMENOrdering Facility: [facility] Address: [address] [place] [address] Result Comment: eAG: (Estimated average glucose) is a calculated value from HgbA1c and is used equipment sales representative of the average blood glucose level in the last 2-3 month period. Performed By: #### 5 5454-3 ####[facility] LABCLIA [id number] [address] HbA1c (Bld) [Mass fraction] 5.7 % High 4.3-5.6 [facility] Comment on above: Order Comment: Chance jefferson Type: BLOOD SPECIMENOrdering Facility: [facility] Address: [address] [place] [address] Result Comment: Amer [place] Diabetes Association guidelines indicate that patients with HgbA1c in the range 5.7-6.4% are at increased risk for development of diabetes, and intervention by lifestyle modification may be beneficial. HgbA1c greater or equal to 6.5% is considered diagnostic of diabetes. Performed By: #### 5 5454-3 ####[facility] LABCLIA [id number] [address] [place] Lipid 1996 panelon 5 Cholesterol [Mass/Vol] 169 mg/dL Normal <200 [facility] Comment on above: Order Comment: Chance jefferson Type: BLOOD SPECIMENOrdering Facility: [facility] Address: [address] [place] [address] Result Comment: <200 mg/dL, Desirable 200-239 mg/dL, Borderline high >239 mg/dL, High Performed By: #### 2 4323-8 ####[facility] LABORATORYCLIA [id number] [address] [place]#### 97[address]-7 ####[facility] LABORATORYCLIA [id number] [address] LABCLIA [id number] [facility] [address] [place] Cholesterol in HDL [Mass/Vol] 50 mg/dL Normal >39 [facility] Comment on above: Order Comment: Speci men Type: BLOOD SPECIMENOrdering Facility: [facility] Address: [address] [place] [address] Result Comment: 40-5 9 mg/dL, Acceptable >59 mg/dL, High: Negative risk factor for coronary heart disease <40 mg/dL, Low: Positive risk factor for coronary heart disease Performed By: #### 2 4323-8 ####[facility] LABORATORYCLIA [id number] [place] [address] [place]#### 48006-4 ####[facility] LABORATORYCLIA [id number] [address] LABCLIA [id number] [facility] [place] [address] [place] Cholesterol in LDL [Mass/Vol] 103 mg/dL High <100 [facility] Comment on above: Order Comment: Speci men Type: BLOOD SPECIMENOrdering Facility: [facility] Address: [address] [place] [address] Result Comment: <100 mg/dL, Optimal 100-129 mg/dL, Near optimal/above optimal 130-159 mg/dL, Borderline high 160-189 mg/dL, High >189 mg/dL, Very high Secondary prevention optimal LDL Cholesterol levels are recommended to be < 70 mg/dL Performed By: #### 2 4323-8 ####[facility] LABORATORYCLIA [id number] [place] [address] [place]#### 70453-7 ####[facility] LABORATORYCLIA [id number] [address] LABCLIA [id number] [facility] [place] [place] [address] [place] Cholesterol in LDL/Cholesterol in HDL [Mass ratio] 2.06 {ratio} Normal <2.54 [facility] Comment on above: Order Comment: Speci men Type: BLOOD SPECIMENOrdering Facility: [facility] Address: [address] [place] [address] Result Comment: Keesha godinez: 1. National Cholesterol Education Program ATP III Guideline At-A-Glance Quick Desk Reference: National Heart, Lung, and Blood [place]. National Institutes of Health. 2001: NIH Publication No. 01-3305. 2. An International Atherosclerosis Society position paper: global recommendations for the management of dyslipidemia: executive summary, Atherosclerosis. 2014: 232(2):410-413. Performed By: #### 2 4323-8 ####[facility] LABORATORYCLIA [id number] [address]#### 632[address]-0 ####[facility] LABORATORYCLIA [id number] [address] LABCLIA [id number] [address] STATES [facility] Cholesterol in VLDL [Mass/Vol] 16 mg/dL Normal <30 [facility] Comment on above: Order Comment: Speci men Type: BLOOD SPECIMENOrdering Facility: [facility] Address: [address] [place] [address] Performed By: #### 2 4323-8 ####[facility] LABORATORYCLIA [id number] [place] [address] [place]#### 95848-2 ####[facility] LABORATORYCLIA [id number] [place] [address] [facility] LABCLIA [id number] [address] [place] Cholesterol non HDL [Mass/Vol] 119 mg/dL Normal <130 [facility] Comment on above: Order Comment: Speci men Type: BLOOD SPECIMENOrdering Facility: [facility] Address: [address] [place] [address] Result Comment: <130 mg/dL, Optimal 130-159 mg/dL, Near optimal/above optimal 160-189 mg/dL, Borderline high 190-219 mg/dL, High >219 mg/dL, Very high Secondary prevention optimal non HDL Cholesterol levels are recommended to be <100 mg/dL Performed By: #### 2 4323-8 ####[facility] LABORATORYCLIA [id number] [place] [address] [place]#### 26868-8 ####[facility] LABORATORYCLIA [id number] [address] LABCLIA [id number] [place] [address] [place] Cholesterol.total/Chol esterol in HDL [Mass ratio] 3.38 {ratio} Normal <5.10 [facility] Comment on above: Order Comment: Speci men Type: BLOOD SPECIMENOrdering Facility: [facility] Address: [address] [place] [address] Performed By: #### 2 4323-8 ####[facility] LABORATORYCLIA [id number] [place] [address] [place]#### 43752-0 ####[facility] LABORATORYCLIA [id number] [address] LABCLIA [id number] [address] [place] FASTING TIME 13 hrs Normal [facility] Comment on above: Order Comment: Speci men Type: BLOOD SPECIMENOrdering Facility: [facility] Address: [address] [place] [id number] Performed By: #### 2 4323-8 ####[facility] LABORATORYCLIA [id number] [place] [address] [place]#### 64229-4 ####[facility] LABORATORYCLIA [id number] [address] LABCLIA [id number] [address] Triglyceride [Mass/Vol] 80 mg/dL Normal <150 [facility] Comment on above: Order Comment: Speci men Type: BLOOD SPECIMENOrdering Facility: [facility] Address: [address] [place] [address] Result Comment: <150 mg/dL, Normal 150-199 mg/dL, Borderline high 200-499 mg/dL, High >499 mg/dL, Very high Performed By: #### 2 4323-8 ####[facility] LABORATORYCLIA [id number] [address]#### 790[address]-3 ####[facility] LABORATORYCLIA [id number] [address] LABCLIA [id number] [address] [place] Cassy 01-25-2025 [place] Telephone (KACY) RICKI HUBER ([id number]) 1955 M Date Time Provider Department 01/25/25 CY NIXON During your visit today, we recorded the following information about you: Cy Nixon APRN.CNP 01/25/2025 5:33 PM Signed ----- Message from Cy Nixon APRN.SCALE ATTENDANT sent at 08/10/2024 12:49 PM EDT ----- Due for labs Cy Nixon APRN.CNP 01/25/2025 5:35 PM Signed Please remind patient he is due for labs. SIVAN Peters Julie, MA 01/25/2025 5:40 PM Signed Patient is informed Jordyn Chaparro MA Allergies As of Date: 01/25/2025 Noted Allergy Reaction PENICILLINS 07/04/2007 4 - Hives Date Reviewed: 01/18/2025 Reviewed by: Shruthi Cooley OA - Fully Assessed Reason for Visit: Reminder To Have Labs Drawn [3878] Primary Visit Diagnosis:Primary hypertension [I10] Other Visit Diagnoses:Hyperlipid emia LDL goal <130 [E78.5] Prediabetes [R73.03] Order(s):COMPREHENSI VE METABOLIC PANEL [SQCMP] Order #: [id number] FUTURE COMPLETE BLOOD COUNT [SQCBC] Order #: [id number] FUTURE HEMOGLOBIN A1C [QENNQ4Q] Order #: [id number] FUTURE LIPID PANEL, FASTING [SQLIPB] Order #: [id number] FUTURE Prescriptions as of 01/25/2025 - dorzolamide-timolol (COSOPT) 22.3-6.8 mg/mL ophthalmic solution Use 1 Drop in the left eye two times a day. - brimonidine (ALPHAGAN) 0.2 % ophthalmic solution Use 1 Drop in the right eye two times a day. - latanoprost (XALATAN) 0.005 % ophthalmic solution Use 1 Drop in both eyes daily at bedtime. - prednisoLONE acetate (PRED FORTE) 1 % ophthalmic suspension Use 1 Drop in the left eye four times daily. For use AFTER surgery. - lisinopril (ZESTRIL) 20 mg tablet Take 1 tablet by mouth once daily. - fluvastatin (LESCOL) 20 mg capsule Take 1 capsule by mouth daily at bedtime. - tamsulosin (FLOMAX) 0.4 mg Take 1 capsule by mouth daily at bedtime. - ibuprofen (MOTRIN) 200 mg tablet Take 200 mg by mouth every 6 hours as needed. Meds Comments as of 06/02/2012: Taking no meds 06/02/2012 Problem List As Of Date 01/25/2025 Noted Resolved Essential hypertension, benign [I10] 08/17/2008 10/01/2023 DYSMETABOLIC SYNDROME X [E88.810] 08/17/2008 Special screening for malignant neoplasms, colo*06/02/2012 Benign neoplasm of colon [D12.6] 06/24/2012 Hyperlipidemia LDL goal <130 [E78.5] 08/20/2016 Impaired fasting glucose [R73.01] 08/20/2016 Morbid obesity due to excess calories (HCC) [E6*08/20/2016 06/12/2017 Arthritis of shoulder [M19.019] 05/26/2020 History of left shoulder replacement [Z96.612] 06/24/2020 Diagnosed: 09/02/2023 Unspecified internal derangement of right knee *08/22/2022 Diagnosed: 09/08/2023 Prediabetes [R73.03] 09/08/2023 Primary hypertension [I10] 10/01/2023 Pre-operative examination [Z01.818] 11/29/2023 Obesity, Class III, BMI >= 40 [E66.01] 12/13/2023 Benign prostatic hyperplasia with weak urinary *02/05/2024 Encounter Status:Closed by JORDYN CHAPARRO on 01/25/25 [facility] 12-30-2024 [facility] Telephone ([facility]) RICKI HUBER ([id number]) 1955 M Date Time Provider Department 12/30/24 LEDY KUHN [facility] During your visit today, we recorded the following information about you: Allergies As of Date: 12/30/2024 Noted Allergy Reaction PENICILLINS 07/04/2007 4 - Hives Date Reviewed: 12/14/2024 Reviewed by: Shruthi Cooley, OA - Fully Assessed Prescriptions as of 12/30/2024 - prednisoLONE acetate (PRED FORTE) 1 % ophthalmic suspension Use 1 Drop in the left eye four times daily. - ciprofloxacin HCl (CILOXAN) 0.3 % ophthalmic solution Use 1 Drop in the left eye four times daily. - prednisoLONE acetate (PRED FORTE) 1 % ophthalmic suspension Use 1 Drop in the left eye four times daily. For use AFTER surgery. - ciprofloxacin HCl (CILOXAN) 0.3 % ophthalmic solution Use 1 Drop in the left eye four times daily. AFTER surgery - brimonidine (ALPHAGAN) 0.2 % ophthalmic solution Use 1 Drop in both eyes two times a day. - dorzolamide-timolol (COSOPT) 22.3-6.8 mg/mL ophthalmic solution Use 1 Drop in both eyes two times a day. - lisinopril (ZESTRIL) 20 mg tablet Take 1 tablet by mouth once daily. - fluvastatin (LESCOL) 20 mg capsule Take 1 capsule by mouth daily at bedtime. - tamsulosin (FLOMAX) 0.4 mg Take 1 capsule by mouth daily at bedtime. - latanoprost (XALATAN) 0.005 % ophthalmic solution Use 1 Drop in both eyes daily at bedtime. - ibuprofen (MOTRIN) 200 mg tablet Take 200 mg by mouth every 6 hours as needed. 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 Author Type: Anesthesiologist Type: Anesthesia Postprocedure Evaluation Filed: 12/04/2024 14:23 Note Text: POST ANESTHESIA EVALUATION NOTE : 1955 Procedure Summary Date: 12/04/24 Room / Location: [address] Anesthesia Start: 1141 Anesthesia Stop: 1216 Procedure: AQUEOUS SHUNT TO EXTRAOCULAR EQUATORIAL PLATE RESERVOIR EXTERNAL APPROACH W/GRAFT (Left: Eye) Diagnosis: Chronic angle-closure glaucoma of left eye, severe stage (Chronic angle-closure glaucoma of left eye, severe stage [H40.2223]) Surgeons: Steven Blancas MD Responsible Provider: Aries Isaacs MD Anesthesia Type: MAC ASA Status: 3 Anesthesia Type: MAC Last Vitals Vitals Value Taken Time BP 139/65 12/04/24 1241 Temp 36.7 ?C (98.1 ?F) 12/04/24 1216 Pulse 76 12/04/24 1239 Resp 14 12/04/24 1226 SpO2 93 % 12/04/24 1237 Vitals shown include unfiled device data. Post Anesthesia Patient Status Patient Evaluation: bedside. Anticipated Disposition: phase 2 then home. Neurological Status: aware and responsive. Pulmonary Status: breathing comfortably on room air Airway Control: returned to baseline unsupported. Cardiovascular Status: stable. Pain Management: satisfactory to patient - multimodal analgesia pain management approach Postoperative Hydration: acceptable. Intraoperative Events: no significant anesthesia events Post Operative Nausea/Vomiting Status: no significant post operative nausea or vomiting Recommendation: continue current plan of care. Anesthesia Observations No notable events were associated with this procedure. Documented by Jeannine Horne APRN.HORSE RIDING COACH OR INSTRUCTOR 12/04/2024 12:41 PM EST SIGNATURE: Sara Henriquez MD PATIENT NAME: Ricki Huber DATE: December 04, 2024 TIME: 2:23 PM CSN: [id number] Normal [facility] ANES PRE-OPon 12-04-2024 ANES PRE-OP HNO ID: [id number] Author: ARIES ISAACS MD Service: ? Author Type: Anesthesiologist Type: Anesthesia Preprocedure Evaluation Filed: 12/04/2024 11:57 Note Text: ANESTHESIOLOGY DAY OF SURGERY NOTE : 1955 Procedure Information Anesthesia Start Date/Time: 12/04/24 1141 Procedure: AQUEOUS SHUNT TO EXTRAOCULAR EQUATORIAL PLATE RESERVOIR EXTERNAL APPROACH W/GRAFT (Left: Eye) Location: [place] [address] / [facility] [place] Surgeons: Steven Blancas MD Estimated body mass index is 42.58 kg/m? as calculated from the following: Height as of 11/25/24: 179.1 cm (5' 10.5). Weight as of 11/25/24: 136.5 kg (301 lb). Most recent hematocrit and potassium results: HCT 48.6 09/04/2023 Potassium 4.6 05/06/2024 Relevant Problems CARDIO (+) Primary hypertension Other (+) Arthritis of shoulder I - PHYSICAL EVALUATION AIRWAY Patient intubated: No. Tracheostomy tube not present Mallampati: III. TM distance: >3 FB. Neck ROM: full ROM without neurological symptoms. Mouth opening: adequate. Short neck: no. Thick neck: no II - ANESTHESIA PLAN ASA Score: 3 Anesthetic Plan: MAC NPO Status: adequate Beta Jameel Monitoring Plan Monitoring plan: standard ASA. Post Procedure Analgesic Plan Postoperative analgesic plan: per surgical service. Informed Consent Anesthetic risks, benefits, alternatives, personnel and consent discussed: yes. Patient / Responsible Alliance Party agrees to proceed: yes Patient / Surrogate agrees to blood products: blood products not planned DNR status not reviewed with patient and/or family prior to surgery. Significant changes in the patient condition since the History and Physical, not otherwise documented in primary service progress note: no. Potential Anesthesia issues that may suggest increased risk of complications or contraindication to planned procedure: surgical field avoidance. field avoidance. The anesthetic will be complicated due to field avoidance because the surgical procedure will be around the airway (head, neck, or shoulder girdle). There will be no direct access to the patient's airway therefore increasing the technical difficulty. Vitals Value Taken Time BP 194/86 12/04/24 1028 Pulse 79 12/04/24 1028 Resp 16 12/04/24 1028 Temp 36.4 ?C (97.5 ?F) 12/04/24 1028 SpO2 95 % 12/04/24 1028 Facility-Administere d Medications as of 12/04/2024 Medication Dose Route Frequency lactated ringers iv infusion 30 mL/hr INTRAVENOUS CONTINUOUS [COMPLETED] lidocaine 4% 1 Drop ophthalmic solution (XYLOCAINE) 1 Drop LEFT EYE q 5 MIN [COMPLETED] tropicamide 0.5% - cyclopentolate 0.5% - PHENYLephrine 2.5% ophthalmic syringe 1 Drop LEFT EYE q 5 MIN acetaminophen 650 mg tab(s) (TYLENOL) 650 mg ORAL PRN Povidone-Iodine 5 % ophth soln (BETADINE) X (OR/PROCEDURE) PRN lidocaine-bupivacain e 10-3.75 mg/mL retrobulbar injection X (OR/PROCEDURE) PRN balanced salt (BSS) X (OR/PROCEDURE) PRN sodium hyaluronate 10 mg/mL injection X (OR/PROCEDURE) PRN Outpatient Medications as of 12/04/2024 Medication Sig lisinopril (ZESTRIL) 20 mg tablet Take 1 tablet by mouth once daily. brimonidine (ALPHAGAN) 0.2 % ophthalmic solution Use 1 Drop in both eyes two times a day. dorzolamide-timolol (COSOPT) 22.3-6.8 mg/mL ophthalmic solution Use 1 Drop in both eyes two times a day. fluvastatin (LESCOL) 20 mg capsule Take 1 capsule by mouth daily at bedtime. tamsulosin (FLOMAX) 0.4 mg Take 1 capsule by mouth daily at bedtime. latanoprost (XALATAN) 0.005 % ophthalmic solution Use 1 Drop in both eyes daily at bedtime. ibuprofen (MOTRIN) 200 mg tablet Take 200 mg by mouth every 6 hours as needed. I have interviewed and examined the patient. I have reviewed the medical record and/or the pre-anesthesia evaluation, pertinent labs, and test results. This contains updated information obtained within 48 hours of Surgery/Procedure. SIGNATURE: Omar Garcia MD PATIENT NAME: Ricki Huber DATE: December 04, 2024 TIME: 11:56 AM CSN: [id number] [facility] OPERATIVE NOon 12-04-2024 OPERATIVE NO HNO ID: [id number] Author: STEVEN BLANCAS MD Service: Ophthalmology Author Type: Physician Type: Operative Report Filed: 12/04/2024 12:13 Note Text: OPERATIVE REPORT NAME: Ricki Huber LOG ID: [id number] SURGERY DATE: 12/04/2024 INCISION/PROCEDURE START TIME: 11:48 AM INCISION CLOSE/PROCEDURE END TIME: 12:11 PM Surgeons and Role: * Steven Blancas MD - Primary OPERATION: 1. ClearPath 250-mm glaucoma implant with scleral graft, left eye. ANESTHESIA: MAC, with peribulbar injection of equal parts 2% lidocaine and 0.75% bupivacaine. PREOPERATIVE DIAGNOSIS: severe stage chronic angle closure glaucoma, left eye. POSTOPERATIVE DIAGNOSIS: Same OPERATIVE INDICATIONS: The patient has uncontrolled glaucoma OPERATIVE PROCEDURE: The patient was brought to the operating room and placed on the operating table in the supine position. Monitored intravenous anesthesia was administered by the anesthesia team. Topical tetracaine was instilled to the operative eye. The patient was prepped and draped in the usual fashion. A wire lid speculum was inserted and the microscope was positioned. The scope was turned to facilitate superior approach of tube implant. A 7-0 silk suture was placed through the stroma of the superior cornea and used for downward traction of the eye. Peritomy was made at the limbus using Barak scissors and carried circumferentially for about 3 clock-hours. A subconjunctival and peribulbar injection of 2% lidocaine with 0.75% bupivacaine was given. The superior temporal quadrant was then opened up using Bolanos tenotomy scissors. At this point, the implant was then inspected and flushed, and tube was secured using a 7-0 vicryl ligature placed approximately 2 mm anterior to the plate of the device. Occlusion was then verified with BSS on a cannula. The implant was then brought onto the field. Muscle hooks were used to place the wings of implant underneath the lateral and superior rectus muscles. The eyelets were then sutured to the sclera using 2 interrupted 7-0 silk sutures 7-9 mm posterior to the limbus. Attention was then turned to the tube which was trimmed to length using iris scissors to create a long bevel. The anterior conjunctiva was then dissected off the sclera bluntly. Hemostasis was achieved using cautery. The intended sclerostomy site was cauterized. Using a 23-gauge needle, a tunneled scleral tract was then initiated approximately 3-4 mm posterior to the limbus and then the anterior chamber was entered. The tube was then introduced into the eye using the tube introducer. The tube was placed into the eye without cornea touch. The Supersharp blade was then used to place three venting slits in the tube. The patch graft was then placed over the tube and sutured down with two interrupted vicryl sutures. Tenons and conjunctiva were pulled over the patch graft. Two winged 7-0 vicryl sutures were used for conjunctiva closure. All wounds were tested at the end of procedure and found to be watertight. The anterior chamber was noted to be formed. A subconjunctival injection of dexamethasone and cefazolin was made inferiorly. The traction suture was then removed from the eye. Atropine and erythromycin ointment were applied. The eyelid speculum was removed and the drapes were carefully removed. The eye was patched and shielded. The patient tolerated the procedure well. There were no complications. Postoperative care and discharge medication counseling was discussed with the patient prior to discharge. IMPLANTABLE DEVICES: Implant Name Type Inv. Item Serial No. Manager Mortgage Lot No. LRB No. Used Action Model No. GRAFT TUTOPLAST SCLERA .8X.5CM SOFT TISSUE LOW PROFILE PROCESSED STERILE - [id number] Graft GRAFT TUTOPLAST SCLERA .8X.5CM SOFT TISSUE LOW PROFILE PROCESSED STERILE [id number] Watchwith [id number] Left 1 Implanted [id number] AHMED CLEARPATH VALVELESS GLAUCOMA DRAINAGE DEVICE 250MM2 Implant [id number] Left 1 Implanted [id number] ESTIMATED BLOOD LOSS: Minimal COMPLICATIONS: None DRAINS: None SPECIMENS: None No qualified resident/fellow was available. Steven Blancas M.D. Normal [facility] HISTORY PHYSICALon HISTORY PHYSICAL HNO ID: [id number] Author: DOLLY DESOUZA APRN.FAVIOLA Service: ? Author Type: Nurse Practitioner Type: H&P Filed: 11/25/2024 14:06 Note Text: [facility] HISTORY AND PHYSICAL EXAMINATION SERVICE DATE: 11/25/2024 SERVICE TIME: 2:05 PM PRIMARY CARE PHYSICIAN: Cy Nixon APRN.SCALE ATTENDANT Assessment Patient has the following medical conditions which may affect jaquan-operative course: Hyperlipidemia LDL goal <130 Assessment: c/w statin Primary hypertension Assessment: controlled on rx Last 14 BP Last 14 Encounter BP Readings: Date: BP: 11/25/2024 140/78 11/20/2024 142/72 10/02/2024 160/78 08/07/2024 126/74 06/25/2024 165/95[took BP meds 45 mins ago[ 05/05/2024 110/76 02/28/2024 152/78 02/05/2024 126/74 01/20/2024 133/68 12/13/2023 202/92 11/29/2023 138/84 11/11/2023 127/64 11/06/2023 126/78 10/01/2023 148/78 Benign prostatic hyperplasia with weak urinary stream Assessment: controlled on rx Impaired fasting glucose Assessment: diet controlled Hemoglobin A1C (%) Date Value 09/04/2023 5.9 05/26/2020 5.9 ] History of left shoulder replacement Assessment: hx Obesity, Class III, BMI >= 40 Assessment: Body mass index is 42.58 kg/m?. Blake Activity Status Index: METS: Climb a flight of stairs or walk up a hill (5.50 METs) DASI Score: 5.5 Patient denies any chest pain or undue shortness of breath with the above physical activity. Clinical Frailty Scale: 3. Well, with treated comorbid disease STOP-Bang Score: Snores loudly Has or is being treated for high blood pressure BMI greater than 35 kg/m2 Patient over 50 years old Has a large neck Male patient Denies feeling tired, fatigued, or sleepy during the daytime Has not been observed to stop breathing or choking/gasping during sleep STOP-Bang Score: 6 [id number] Score: Age: 65-74 Sex: male CHF history: No Hypertension history: Yes Stroke/TIA/thromboem bolism history: No Vascular disease history: No Diabetes history: No [id number] Score: 2 ARISCAT Score: Age: 51-80 Preoperative SpO2: 91-95% Respiratory infection in the last month: No Preoperative anemia: No Surgical incision: peripheral Duration of surgery: <2 hrs Emergency procedure: No ARISCAT Score: 11 ANESTHESIA FINDINGS: Intubation History: No history of difficult intubation Significant Anesthesia Considerations: none Airway History: No history of difficult airway I - PHYSICAL EVALUATION AIRWAY Patient intubated: No. Tracheostomy tube not present Mallampati: II. TM distance: >3 FB. Neck ROM: full ROM without neurological symptoms. Mouth opening: adequate. Short neck: no. Thick neck: yes Vazquez present: no Lip Bite Test: I Microretrognathia/Mi cronagthia/Recessed Chin: No DENTAL Dental findings: teeth intact. Dentures, upper: complete. Additional comments: Upper plate implanted. II - ANESTHESIA PLAN Anesthetic Plan: other Beta Jameel Monitoring Plan Post Procedure Analgesic Plan Prepared for Surgery: optimally prepared for surgery. CONSULTS: Patient does not require consults for optimization at this time Planned Anesthetic: other anesthesia choice The Following Tests/Procedures Have Been Initiated: No orders of the defined types were placed in this encounter. REASON FOR VISIT: Ricki Huber is a 69 year old male who is scheduled for Procedure(s): AQUEOUS SHUNT TO EXTRAOCULAR EQUATORIAL PLATE RESERVOIR EXTERNAL APPROACH W/GRAFT (Left) at the request of @[email or web address]@ for consultation. My final recommendation will be communicated back to the requesting physician by way of shared medical record or letter. Subjective The patient has the following: COVID-19 Immunization Status Postponed - Covid-19 Vaccine () Postponed until 08/07/2025 08/07/2024 Postponed until 08/07/2025 by Perla Magaña MA (Declined at this time) 09/02/2023 Postponed until 09/02/2024 by Denisse Calero MA (Declined at this time) 11/12/2022 Imm Admin: COVID-19 vaccine, age 12+ yr, bivalent (MODERNA) Only the first 3 history entries have been loaded, but more history exists. CHIEF COMPLAINT: Pre-op exam HPI: Ricki Huber is a 69 year old seen for PAC due to scheduled above surgery because of severe glaucoma. REVIEW OF SYSTEMS: General: No weight loss, malaise or fevers. Neurological: No history of TIA's, stroke, TRACTOR DISTRIBUTOR tumor, impaired sensorium, hemiplegia, paraplegia or quadraplegia. No neurological symptoms or problems. Respiratory: +former smoker 1.5ppd/15 years Positive for: URI < 2 weeks. Negative for: asthma, COPD, current cough, dyspnea, pneumonia within 6 weeks, tobacco use and obstructive sleep apnea. Cardiovascular: Positive for: hyperlipidemia (on rx) and hypertension (on rx) Negative for: abdominal aortic aneurysm, AICD/PPM, angina, anticoagulation therapy, arrhythmia, atrial fibrillatio (more content not included)... Normal [facility] HISTORY PHYSICALon HISTORY PHYSICAL HNO ID: [id number] Author: DOLLY DESOUZA APRN.SCALE ATTENDANT Service: ? Author Type: Nurse Practitioner Type: H&P Filed: 11/23/2024 11:47 Note Text: Appt cancelled. Pt with states he likely has food poisoning for the last 2 1/2 days. Nausea, vomiting, diarrhea and sweating (feverish/chills). Pt appears acutely ill but not in distress. Reviewed with pt recommended eval/tx at a local [facility]. Pt verbalized understanding. Normal [facility] CNPNon 10-03-2024 [facility]ICKI [facility] ([id number]) 1955 M Date Time Provider Department 10/03/24 DONNA LIANG [facility] During your visit today, we recorded the following information about you: Donna Liang APRN.[facility] 10/03/2024 8:34 AM Signed Please call patient let him know that x-ray was normal. No fractures were noted. Patient does not have to meliza tape his finger anymore. Give it a couple weeks and follow-up with PCP if symptoms are not improved. Marie Melara MA 10/03/2024 8:46 AM Signed Left message for pt to call back. MARIA ELENA Cabrera Ashley 10/03/2024 9:03 AM Signed Patient returned missed call and received the provider's message and voiced understanding. Allergies As of Date: 10/03/2024 Noted Allergy Reaction PENICILLINS 07/04/2007 4 - Hives Date Reviewed: 10/02/2024 Reviewed by: Jeannine Frederick MA - Fully Assessed Reason for Visit: Results [95] Prescriptions as of 10/03/2024 - brimonidine (ALPHAGAN) 0.2 % ophthalmic solution Use 1 Drop in both eyes two times a day. - dorzolamide-timolol (COSOPT) 22.3-6.8 mg/mL ophthalmic solution Use 1 Drop in both eyes two times a day. - lisinopril (ZESTRIL) 20 mg tablet Take 1 tablet by mouth once daily. - fluvastatin (LESCOL) 20 mg capsule Take 1 capsule by mouth daily at bedtime. - tamsulosin (FLOMAX) 0.4 mg Take 1 capsule by mouth daily at bedtime. - latanoprost (XALATAN) 0.005 % ophthalmic solution Use 1 Drop in both eyes daily at bedtime. - ibuprofen (MOTRIN) 200 mg tablet Take 200 mg by mouth every 6 hours as needed. 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] 05/26/2020 History of shoulder surgery [Z98.890] 06/24/2020 Diagnosed: 09/02/2023 Unspecified internal derangement of right knee *08/22/2022 Diagnosed: 09/08/2023 Prediabetes [R73.03] 09/08/2023 Primary hypertension [I10] 10/01/2023 Pre-operative examination [Z01.818] 11/29/2023 Obesity, Class III, BMI >= 40 [E66.01] 12/13/2023 Benign prostatic hyperplasia with weak urinary *02/05/2024 Encounter Status:Closed by NIKKI COX on 10/03/24 Normal [facility] XR DIGIT 3V FRONTAL/LAT/OBL RTon 10-03-2024 XR DIGIT 3V FRONTAL/LAT/OBL RT * * *Final Report* * * DATE OF EXAM: Oct 03 2024 8:16AM WOX [id number] - XR DIGIT 3V FRONTAL/LAT/OBL RT / PROCEDURE REASON: Finger pain, right * * * * Physician Interpretation * * * * EXAMINATION: XR DIGIT 3V FRONTAL/LAT/OBL RT PATIENT/TECHNOLOGIST PROVIDED HISTORY: fell yesterday pain in right 5th finger CLINICAL INFORMATION: 69 years old Male with Finger pain, right TECHNIQUE: XR DIGIT 3V FRONTAL/LAT/OBL RT Laterality: RIGHT Number of different views (projections): 3 COMPARISON: None RESULT: No acute fracture or dislocation. Mild degenerative change 5th DIP joint with tiny corticated ossific density radial aspect of the joint likely due to degenerative change. IMPRESSION: No acute osseous abnormality. [employer]: NATALIE Transcribe Date/Time: Oct 03 2024 8:25A Dictated by : LUCIA CLARKE DO This examination was interpreted and the report reviewed and electronically signed by: LUCIA CLARKE DO on Oct 03 2024 8:27AM EST [id number] Normal [facility] XR Finger - right AP and Lat eral and obliqueon 10-03-2024 IMPRESSION: No acute osseous abnormality. [employer]: NATALIE Transcribe Date/Time: Oct 03 2024 8:25A Dictated by : LUCIA CLARKE DO This examination was interpreted and the report reviewed and electronically signed by: LUCIA CLARKE DO on Oct 03 2024 8:27AM EST DIVISION OF RADIOLOGY * * *Final Report* * * DATE OF EXAM: Oct 03 2024 8:16AM WOX [id number] - XR DIGIT 3V FRONTAL/LAT/OBL RT / PROCEDURE REASON: Finger pain, right * * * * Physician Interpretation * * * * EXAMINATION: XR DIGIT 3V FRONTAL/LAT/OBL RT PATIENT/TECHNOLOGIST PROVIDED HISTORY: fell yesterday pain in right 5th finger CLINICAL INFORMATION: 69 years old Male with Finger pain, right TECHNIQUE: XR DIGIT 3V FRONTAL/LAT/OBL RT Laterality: RIGHT Number of different views (projections): 3 COMPARISON: None RESULT: No acute fracture or dislocation. Mild degenerative change 5th DIP joint with tiny corticated ossific density radial aspect of the joint likely due to degenerative change. DIVISION OF RADIOLOGY Provider, [facility] [place] - 10/03/2024 * * *Final Report* * * DATE OF EXAM: Oct 03 2024 8:16AM WOX [id number] - XR DIGIT 3V FRONTAL/LAT/OBL RT / PROCEDURE REASON: Finger pain, right * * * * Physician Interpretation * * * * EXAMINATION: XR DIGIT 3V FRONTAL/LAT/OBL RT PATIENT/TECHNOLOGIST PROVIDED HISTORY: fell yesterday pain in right 5th finger CLINICAL INFORMATION: 69 years old Male with Finger pain, right TECHNIQUE: XR DIGIT 3V FRONTAL/LAT/OBL RT Laterality: RIGHT Number of different views (projections): 3 COMPARISON: None RESULT: No acute fracture or dislocation. Mild degenerative change 5th DIP joint with tiny corticated ossific density radial aspect of the joint likely due to degenerative change. IMPRESSION IMPRESSION: No acute osseous abnormality. [employer]: PSCB Transcribe Date/Time: Oct 03 2024 8:25A Dictated by : LUCIA CLARKE DO This examination was interpreted and the report reviewed and electronically signed by: LUCIA CLARKE DO on Oct 03 2024 8:27AM EST [facility] Radiology Study observation (narrative) [facility] XR Finger - right AP and Lat eral and obliqueOrdered By: [facility]cf Provider on 10-03-2024 [facility] CNOVon 10-02-2024 CNOV Office Visit (WSTR) RICKI HUBER ([id number]) 1955 M Date Time Provider Department 10/02/24 6:00 PM DENY VEGA [facility] During your visit today, we recorded the following information about you: Temperature Pulse Respiration Blood pressure 98.4 degrees 72/minute 16/minute 160/78 Weight 136.1 kg Deny Vega MD 10/02/2024 6:32 PM Signed Patient presents with: Hand Injury: Right HPI: Right fifth finger injury: Duration: slipped and fell this evening and caught his 5th finger away from the hand Location: right fifth finger flexed without being able to extend again a couple times Character: minimal pain. Associated: finger weakness Pertinent negatives: Denies numbness MEDICATIONS: brimonidine (ALPHAGAN) 0.2 % ophthalmic solution Use 1 Drop in both eyes two times a day. dorzolamide-timolol (COSOPT) 22.3-6.8 mg/mL ophthalmic solution Use 1 Drop in both eyes two times a day. lisinopril (ZESTRIL) 20 mg tablet Take 1 tablet by mouth once daily. fluvastatin (LESCOL) 20 mg capsule Take 1 capsule by mouth daily at bedtime. tamsulosin (FLOMAX) 0.4 mg Take 1 capsule by mouth daily at bedtime. latanoprost (XALATAN) 0.005 % ophthalmic solution Use 1 Drop in both eyes daily at bedtime. ibuprofen (MOTRIN) 200 mg tablet Take 200 mg by mouth every 6 hours as needed. ALLERGIES: ALLERGIES Allergen Reactions Penicillins Hives VITALS: BP 160/78 Pulse 72 Temp 36.9 ?C (98.4 ?F) (Left Tympanic) Resp 16 Wt (!) 136.1 kg (300 lb 0.7 oz) SpO2 96% BMI 44.31 kg/m? PHYSICAL EXAM: GEN: pleasant, alert, no acute distress FINGER: right 5th. Trace edema at the PIP joint. Normal active flexion and extension. Painful but full strength against resistance at DIP, PIP, and MCP joints. Tender proximal phalange. Non-tender still phalange, middle phalange, metacarpals, and other fingers. ASSESSMENT/PLAN: 1. Finger pain, right - ICD9: 729.5, ICD10: M79.644 Possible 5th finger proximal phalange fracture. Extensor tendons intact on exam. - XR DIGIT GENERAL 3V FRONTAL/LAT/OBL RIGHT tomorrow. Meliza taped for splinting. Deny Vega MD Allergies As of Date: 10/02/2024 Noted Allergy Reaction PENICILLINS 07/04/2007 4 - Hives Date Reviewed: 10/02/2024 Reviewed by: Jeannine Frederick MA - Fully Assessed Reason for Visit: Hand Injury [1974] Cmt: Right Primary Visit Diagnosis:Finger pain, right [M79.644] Order(s):XR DIGIT GENERAL 3V FRONTAL/LAT/OBL RIGHT [[id number]] Order #: [id number] FUTURE Prescriptions as of 10/02/2024 - brimonidine (ALPHAGAN) 0.2 % ophthalmic solution Use 1 Drop in both eyes two times a day. - dorzolamide-timolol (COSOPT) 22.3-6.8 mg/mL ophthalmic solution Use 1 Drop in both eyes two times a day. - lisinopril (ZESTRIL) 20 mg tablet Take 1 tablet by mouth once daily. - fluvastatin (LESCOL) 20 mg capsule Take 1 capsule by mouth daily at bedtime. - tamsulosin (FLOMAX) 0.4 mg Take 1 capsule by mouth daily at bedtime. - latanoprost (XALATAN) 0.005 % ophthalmic solution Use 1 Drop in both eyes daily at bedtime. - ibuprofen (MOTRIN) 200 mg tablet Take 200 mg by mouth every 6 hours as needed. 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] 05/26/2020 History of shoulder surgery [Z98.890] 06/24/2020 Diagnosed: 09/02/2023 Unspecified internal derangement of right knee *08/22/2022 Diagnosed: 09/08/2023 Prediabetes [R73.03] 09/08/2023 Primary hypertension [I10] 10/01/2023 Pre-operative examination [Z01.818] 11/29/2023 Obesity, Class III, BMI >= 40 [E66.01] 12/13/2023 Benign prostatic hyperplasia with weak urinary *02/05/2024 Level of Service: OFFICE/OUTPATIENT ESTABLISHED LOW [facility] 20 MIN [[id number]] Encounter Status:Closed by DENY VEGA on 10/02/24 Normal [facility] OCT OPTIC NERVE CIRRUS OU (B OTH EYES)on 09-14-2024 [facility] Radiology Study observation (narrative) [facility] XR Chest PA and Lateralon IMPRESSION: Lines, tubes, and devices: None. Lungs and pleura: Low lung volumes. Prominence of the lung markings in the perihilar and infrahilar regions may be secondary to vascular crowding and atelectasis. No apparent consolidation. No pleural effusion or pneumothorax. Cardiomediastinal silhouette: Stable cardiomediastinal silhouette. Bones and soft tissues: Partially visualized LEFT shoulder arthroplasty. Degenerative changes in the thoracic spine. [employer]: NATALIE Transcribe Date/Time: Jun 25 2024 12:51P Dictated by : LUCIA CLARKE DO This examination was interpreted and the report reviewed and electronically signed by: LUCIA CLARKE DO on Jun 25 2024 12:53PM [facility] DIVISION OF RADIOLOGY * * *Final Report* * * DATE OF EXAM: Jun 25 2024 12:22PM WOX [id number] - XR CHEST 2V FRONTAL/LAT / PROCEDURE REASON: Subacute cough * * * * Physician Interpretation * * * * EXAMINATION: CHEST RADIOGRAPH (2 VIEW FRONTAL & LATERAL) PATIENT/TECHNOLOGIST PROVIDED HISTORY: cough for 3 weeks CLINICAL HISTORY: 69 years old Male with Subacute cough MQ: [id number] EXAM DATE/TIME: 06/25/2024 12:22 PM COMPARISON: Chest radiograph(s) dated 02/05/2024 RESULT/ DIVISION OF RADIOLOGY Provider, [facility] [place] - 06/25/2024 * * *Final Report* * * DATE OF EXAM: Jun 25 2024 12:22PM WOX [id number] - XR CHEST 2V FRONTAL/LAT / PROCEDURE REASON: Subacute cough * * * * Physician Interpretation * * * * EXAMINATION: CHEST RADIOGRAPH (2 VIEW FRONTAL & LATERAL) PATIENT/TECHNOLOGIST PROVIDED HISTORY: cough for 3 weeks CLINICAL HISTORY: 69 years old Male with Subacute cough MQ: XC2_6 EXAM DATE/TIME: 06/25/2024 12:22 PM COMPARISON: Chest radiograph(s) dated 02/05/2024 RESULT/ IMPRESSION IMPRESSION: Lines, tubes, and devices: None. Lungs and pleura: Low lung volumes. Prominence of the lung markings in the perihilar and infrahilar regions may be secondary to vascular crowding and atelectasis. No apparent consolidation. No pleural effusion or pneumothorax. Cardiomediastinal silhouette: Stable cardiomediastinal silhouette. Bones and soft tissues: Partially visualized LEFT shoulder arthroplasty. Degenerative changes in the thoracic spine. [employer]: PSCB Transcribe Date/Time: Jun 25 2024 12:51P Dictated by : LUCIA CLARKE DO This examination was interpreted and the report reviewed and electronically signed by: LUCIA CLARKE DO on Jun 25 2024 12:53PM EST [facility] Radiology Study observation (narrative) [facility] XR Chest PA and LateralOrder ed By: Ccf Provider on 06-25-2024 [facility] OCT MACULA CIRRUS OU (BOTH E YES)on 03-16-2024 [facility] Radiology Study observation (narrative) [facility] Basophil percentageOrdered B y: Junaid Belle on 09-23-2023 Creatinine [Mass/Vol] 1.0 mg/dL 0.70-1.30 [facility] CREATININE FINGERSTICKon Creatinine [Mass/Vol] 1.0 mg/dL Normal 0.70-1.30 [facility] Comment on above: Performed By: #### L 9100.0200 #### [facility] [address] [place], [place], [id number] EGFR WB > 60.0000 Normal >60 [facility] Comment on above: Performed By: #### L 9100.0200 #### [facility] [address] [place], [place], [id number] No Panel InformationOrdered By: Junaid Belle on 09-23-2023 Bedside Estimated GFR (eGFR) > 60.0000 mL/min >60 [facility] Orbit Face Neck W/WO Contras ton 09-23-2023 Orbit Face Neck W/WO Contrast [facility] [place] [address] Orbit Face Neck W/WO Contrast MR#: [id number] Acct: [id number] Name: RICKI HUBER Rep #: [id number] : [id number] M 68 From: Ricki Jeff MD PCP: Cy Nixon NP-C Status: REG CLI Study: Orbit Face Neck W/WO Contrast Date of Exam: Exam# [id number] Ordering Dr: Junaid Belle MD [id number] STUDY: MRI ORBITS WITH AND WITHOUT CONTRAST REASON FOR EXAM: Male, 68 years old. OPTIC ATROPHY LEFT EYE, COMPRESSIVE OPTIC TRACT LESION - TECHNIQUE: Standardized fat and water weighted pulse sequences were obtained in all 3 orthogonal planes, pre-and post contrast administration. IV 27cc clariscan was administered for the contrast portion of the examination. COMPARISON: None. FINDINGS: Normal bilateral globes. Normal bilateral optic nerve sheath complexes and optic nerves. Normal bilateral intraconal and extraconal spaces. Normal bilateral extraocular muscles. Normal optic chiasm and post-chiasmatic tracts. Normal sella turcica, pituitary gland, infundibular stalk, and hypothalamus. Normal bilateral cavernous sinuses. Normal tectal plate and pineal gland. Normal flow voids within the major intracranial circulation suggesting patency by spin echo criteria. Normal size of the ventricles and extra-axial spaces for the patient''s age. Minimal periventricular white matter disease most likely is chronic small vessel ischemia without evidence for mass effect or restricted diffusion. Normal bilateral basal ganglia. Normal thalami. There is no extra-axial fluid accumulation. Normal midbrain, damari and medulla. Normal cerebellum. Normal basal cisterns. MRI/Orbit Face Neck W/WO Contrast IMPRESSION: Minimal periventricular white matter ischemic changes without evidence for acute infarct. Normal orbits Electronically Signed: Ricki Jeff MD at 17:40 EST , CC: YEFRI Nixon; Dr. Junaid Belle MD [employer]: Signed Normal [facility] CBC panel Auto (Bld)on 09-04 Erythrocyte distribution width (RBC) [Ratio] 12.6 % 11.5 - 15.0 % [facility] Hematocrit (Bld) [Volume fraction] 48.6 % 39.0 - 51.0 % [facility] Hemoglobin (Bld) [Mass/Vol] 15.9 g/dL 13.0 - 17.0 g/dL [facility] MCH (RBC) [Entitic mass] 28.3 pg 26.0 - 34.0 pg [facility] MCHC (RBC) [Mass/Vol] 32.7 g/dL 30.5 - 36.0 g/dL [facility] MCV (RBC) [Entitic vol] 86.5 fL 80.0 - 100.0 fL [facility] Nucleated RBC (Bld) [#/Vol] <0.01 k/uL [facility] Platelet mean volume (Bld) [Entitic vol] 9.7 fL 9.0 - 12.7 fL [facility] Platelets (Bld) [#/Vol] 220 10*3/uL 150 - 400 k/uL [facility] RBC (Bld) [#/Vol] 5.62 10*6/uL 4.20 - 6.0 0 m/uL [facility] WBC (Bld) [#/Vol] 7.31 10*3/uL 3.70 - 11. 00 k/uL [facility] Comprehensive metabolic 2000 panelon 09-04-2023 Albumin [Mass/Vol] 4.3 g/dL 3.9 - 4.9 g/dL [facility] ALP [Catalytic activity/Vol] 81 U/L 38 - 113 U/L [facility] ALT [Catalytic activity/Vol] 17 U/L 10 - 54 U/L [facility] Anion gap [Moles/Vol] 9 mmol/L 9 - 18 mmol/L [facility] AST [Catalytic activity/Vol] 16 U/L 14 - 40 U/L [facility] Bilirubin [Mass/Vol] 0.6 mg/dL 0.2 - 1 .3 mg/dL [facility] Calcium [Mass/Vol] 9.4 mg/dL 8.5 - 10. 2 mg/dL [facility] Chloride [Moles/Vol] 101 mmol/L 97 - 10 5 mmol/L [facility] CO2 [Moles/Vol] 27 mmol/L 22 - 30 mmol/L [facility] Creatinine [Mass/Vol] 1.04 mg/dL 0.73 - 1.22 mg/dL [facility] Estimated Glomerular Filtration Rate 79 mL/min/1.73m >=60 mL/min/1.73m [facility] Glucose [Mass/Vol] 126 mg/dL High 74 - 99 mg/dL [facility] Potassium [Moles/Vol] 4.3 mmol/L 3.7 - 5.1 mmol/L [facility] Protein [Mass/Vol] 7.1 g/dL 6.3 - 8.0 g/dL [facility] Sodium [Moles/Vol] 137 mmol/L 136 - 144 mmol/L [facility] Urea nitrogen [Mass/Vol] 18 mg/dL 9 - 24 mg/dL [facility] HbA1c (Bld)on 09-04-2023 Average glucose Estimated from glycated hemoglobin (Bld) [Mass/Vol] 123 mg/dL [facility] HbA1c (Bld) [Mass fraction] 5.9 % High 4.3 - 5.6 % [facility] Lipid 1996 panelon 3 Cholesterol [Mass/Vol] 209 mg/dL High <200 mg/dL [facility] Cholesterol in HDL [Mass/Vol] 49 mg/dL >39 mg/dL [facility] Cholesterol in LDL [Mass/Vol] 138 mg/dL High <100 mg/dL [facility] Cholesterol in LDL/Cholesterol in HDL [Mass ratio] 2.82 {ratio} High <2.54 [facility] Cholesterol in VLDL [Mass/Vol] 22 mg/dL <30 mg/dL [facility] Cholesterol non HDL [Mass/Vol] 160 mg/dL High <130 mg/dL [facility] Cholesterol.total/Chol esterol in HDL [Mass ratio] 4.27 {ratio} <5.10 [facility] Fasting Time 13 hrs [facility] Triglyceride [Mass/Vol] 108 mg/dL <150 mg/dL [facility] PSA/PROSTSPECAG SCRNon 09-04 Prostate specific Ag [Mass/Vol] 1.04 ng/mL <2.60 ng/mL [facility] TSH BLDon 09-04-2023 TSH Qn 1.440 m[IU]/L 0.270 - 4.200 mIU/L [facility] UA DIP, URINE (POC)on 2022 BILIRUBIN UA (POCT) Negative Negative [facility] CLARITY UA (POCT) Clear [facility] COLOR UA (POCT) Yellow [facility] GLUCOSE UA (POCT) Negative Negative mg/dL [facility] Hemoglobin Ql (U) Negative Negative [facility] KETONE UA (POCT) Negative Negative mg/dL [facility] LEUKOCYTES UA (POCT) Negative Negative [facility] NITRITE UA (POCT) Negative Negative [facility] PH UA (POCT) 5.0 4.5 - 8.0 [facility] Protein Ql (U) Negative Negative mg/dL [facility] SPECIFIC GRAVITY UA (POCT) 1.015 1.005 - 1.030 [facility] UROBILINOGEN UA (POCT) 0.2 E.U./dL Bia l E.U./dL [facility] Clinical Lists Update: Prelo ad Extendedon 01-02-2022 Tobacco smoking status Tobacco smoking status Invalid Interpretation Code [facility] Work Phone: Clinical Summary: Luciano recinos 01-02-2022 MC75 OP Visit Invalid Interpretation Code [facility] Work Phone: Clinical Summary: Scanned Hi story Summaryon 01-02-2022 adl form etoh alcohol performance beer Invalid Interpretation Code [facility] Work Phone: Beta HCG ( test) Ql (U) 1 time per year Invalid Interpretation Code [facility] Work Phone: brother(s) of patient alive or I do not have any brothers. My brother(s)' health history is unknown. Invalid Interpretation Code [facility] Work Phone: cause of , mother copd Invalid Interpretation Code [facility] Work Phone: consumes three or more drinks of alcohol (beer, wine, liquor) daily or almost daily less than 1 drink per day Invalid Interpretation Code [facility] Work Phone: Data entered by patient exercise frequency 6 days per week Invalid Interpretation Code [facility] Work Phone: Data entered by patient exercise type walking Invalid Interpretation Code [facility] Work Phone: data entered by patient, alcohol (ethanol or ETOH) use Yes Invalid Interpretation Code [facility] Work Phone: Data entered by patient, allergy list Penicillin I don't have any Environmental Allergies I don't have any Food Allergies Invalid Interpretation Code [facility] Work Phone: data entered by patient, drug (of abuse) use No Invalid Interpretation Code [facility] Work Phone: data entered by patient, Employer Name retired Invalid Interpretation Code [facility] Work Phone: data entered by patient, exercise history Yes Invalid Interpretation Code [facility] Work Phone: data entered by patient, father's medical history Difficulty with anesthesia Heart disease High blood pressure Invalid Interpretation Code [facility] Work Phone: Data entered by patient, history of past surgeries Shoulder replacement - total Invalid Interpretation Code [facility] Work Phone: Data entered by patient, medication list [id number] Invalid Interpretation Code [facility] Work Phone: data entered by patient, mother's medical history COPD Invalid Interpretation Code [facility] Work Phone: data entered by patient, past medical history High blood pressure Invalid Interpretation Code [facility] Work Phone: data entered by patient, social history, current smoker former smoker Invalid Interpretation Code [facility] Work Phone: data entered by patient, social history, former smoker 1995 Invalid Interpretation Code [facility] Work Phone: data entered by patient, social history, marital status Invalid Interpretation Code [facility] Work Phone: father of patient is alive or Alive Invalid Interpretation Code [facility] Work Phone: Housing Type: apartment, house, snf, trailer, none house Invalid Interpretation Code [facility] Work Phone: housing unit size (asthma environmental history, housing) (from single family to don't know) 2 floors Invalid Interpretation Code [facility] Work Phone: mother of patient is alive or Invalid Interpretation Code [facility] Work Phone: Number of dependent children No Invalid Interpretation Code [facility] Work Phone: sister of patient(s) alive or I do not have any sisters. My sister(s)' health history is unknown. Invalid Interpretation Code [facility] Work Phone: ECG B/O MEDICARE ONLY W/INTE RP [facility] Vital Signs Date Time Vital Sign Value Performing Clinician Facility 03-09-2025 15:02-040 Body height 175.3 cm Serenity Kim MD Work Phone: [facility] 03-09-2025 15:020400 Body mass index (BMI) [Ratio] 46.22 kg/m2 Serenity Kim MD Work Phone: [facility] 03-09-2025 [id number] Body temperature 98.4 [degF] Serenity Kim MD Work Phone: [facility] 03-09-2025 15:02-0400 Body weight 141.98 kg Serenity Kim MD Work Phone: [facility] 03-09-2025 15:02-0400 Diastolic blood pressure 80 mm[Hg] Serenity Kim MD Work Phone: [facility] 03-09-2025 15:02-0400 Heart rate 66 /min Serenity Kim MD Work Phone: [facility] 03-09-2025 15:02-0400 SaO2% (BldA) [Mass fraction] 96 % Serenity Kim MD Work Phone: [facility] 03-09-2025 15:02-0400 Systolic blood pressure 134 mm[Hg] Serenity Kim MD Work Phone: [facility] 02-05-2025 10:49-0400 Body height 175.3 cm Cy Tricheyanne AUTHORIZATION MANAGER.SCALE ATTENDANT Work Phone: [facility] 02-05-2025 10:49-0400 Body mass index (BMI) [Ratio] 44.75 kg/m2 Cy Trill AUTHORIZATION MANAGER.SCALE ATTENDANT Work Phone: [facility] 02-05-2025 10:49-0400 Body temperature 98.1 [degF] Cy Trill AUTHORIZATION MANAGER.SCALE ATTENDANT Work Phone: [facility] 02-05-2025 10:49-0400 Body weight 137.44 kg Cy Trill AUTHORIZATION MANAGER.SCALE ATTENDANT Work Phone: [facility] 02-05-2025 10:49-0400 Diastolic blood pressure 82 mm[Hg] Cy Trill AUTHORIZATION MANAGER.SCALE ATTENDANT Work Phone: [facility] 02-05-2025 10:49-0400 Heart rate 65 /min Cy Trill AUTHORIZATION MANAGER.SCALE ATTENDANT Work Phone: [facility] 02-05-2025 10:49-0400 SaO2% (BldA) [Mass fraction] 96 % Cy Trill AUTHORIZATION MANAGER.SCALE ATTENDANT Work Phone: [facility] 02-05-2025 10:49-0400 Systolic blood pressure 126 mm[Hg] Cy Duke FINNEGAN Work Phone: [facility] 11-25-2024 13:47-0500 Body height 179.1 cm Pacc 1 Work Phone: [facility] 11-25-2024 13:47-0500 Body mass index (BMI) [Ratio] 42.58 kg/m2 Pacc 1 Work Phone: [facility] 11-25-2024 13:47-0500 Body temperature 98.1 [degF] Pacc 1 Work Phone: [facility] 11-25-2024 13:47-0500 Body weight 136.53 kg Pacc 1 Work Phone: [facility] 11-25-2024 13:47-0500 Diastolic blood pressure 78 mm[Hg] Pacc 1 Work Phone: [facility] 11-25-2024 13:47-0500 Heart rate 82 /min Pacc 1 Work Phone: [facility] 11-25-2024 13:47-0500 Respiratory rate 14 /min Pacc 1 Work Phone: [facility] 11-25-2024 13:47-0500 SaO2% (BldA) [Mass fraction] 95 % Pacc 1 Work Phone: [facility] 11-25-2024 13:47-0500 Systolic blood pressure 140 mm[Hg] Pacc 1 Work Phone: [facility] 10-02-2024 18:04-0500 Body mass index (BMI) [Ratio] 44.31 kg/m2 Deny Vega MD Work Phone: [facility] 10-02-2024 18:04-0500 Body temperature 98.4 [degF] Deny Vega MD Work Phone: [facility] 10-02-2024 18:04-0500 Body weight 136.1 kg Deny Vega MD Work Phone: [facility] 10-02-2024 18:04-0500 Diastolic blood pressure 78 mm[Hg] Deny Vega MD Work Phone: [facility] 10-02-2024 18:04-0500 Heart rate 72 /min Deny Vega MD Work Phone: [facility] 10-02-2024 18:04-0500 Respiratory rate 16 /min Deny Vega MD Work Phone: [facility] 10-02-2024 18:04-0500 SaO2% (BldA) [Mass fraction] 96 % Deny Vega MD Work Phone: [facility] 10-02-2024 18:04-0500 Systolic blood pressure 160 mm[Hg] Deny Vega MD Work Phone: [facility] 08-07-2024 10:54-0400 Body height 175.3 cm Cy Nixon APRN.SCALE ATTENDANT Work Phone: [facility] 08-07-2024 10:54-0400 Body mass index (BMI) [Ratio] 42.53 kg/m2 Cy Nixon APRN.SCALE ATTENDANT Work Phone: [facility] 08-07-2024 10:54-0400 Body temperature 98.4 [degF] Cy Nixon APRN.SCALE ATTENDANT Work Phone: [facility] 08-07-2024 10:54-0400 Body weight 130.64 kg Cy Nixon APRN.SCALE ATTENDANT Work Phone: [facility] 08-07-2024 10:54-0400 Diastolic blood pressure 74 mm[Hg] Cy Nixon APRN.SCALE ATTENDANT Work Phone: [facility] 08-07-2024 10:54-0400 Heart rate 79 /min Cy Nixon APRN.SCALE ATTENDANT Work Phone: [facility] 08-07-2024 10:54-0400 SaO2% (BldA) [Mass fraction] 98 % Cy Nixon APRN.SCALE ATTENDANT Work Phone: [facility] 08-07-2024 10:54-0400 Systolic blood pressure 126 mm[Hg] Cy Nixon AUTHORIZATION MANAGER.SCALE ATTENDANT Work Phone: [facility] 06-25-2024 12:05-0400 Body mass index (BMI) [Ratio] 43.63 kg/m2 Ricki Martínez AUTHORIZATION MANAGER.SCALE ATTENDANT Work Phone: [facility] 06-25-2024 12:05-0400 Body temperature 98.2 [degF] Ricki Martínez AUTHORIZATION MANAGER.SCALE ATTENDANT Work Phone: [facility] 06-25-2024 12:05-0400 Body weight 134 kg Ricki Martínez AUTHORIZATION MANAGER.SCALE ATTENDANT Work Phone: [facility] 06-25-2024 12:05-0400 Diastolic blood pressure 95 mm[Hg] Ricki Martínez AUTHORIZATION MANAGER.SCALE ATTENDANT Work Phone: [facility] Comment on above: took BP meds 45 mins ago 06-25-2024 12:05-0400 Heart rate 73 /min Ricki Martínez AUTHORIZATION MANAGER.SCALE ATTENDANT Work Phone: [facility] 06-25-2024 12:05-0400 Respiratory rate 20 /min Ricki Martínez AUTHORIZATION MANAGER.SCALE ATTENDANT Work Phone: [facility] 06-25-2024 12:05-0400 SaO2% (BldA) [Mass fraction] 95 % Ricki Martínez AUTHORIZATION MANAGER.SCALE ATTENDANT Work Phone: [facility] 06-25-2024 12:05-0400 Systolic blood pressure 165 mm[Hg] Ricki Martínez AUTHORIZATION MANAGER.SCALE ATTENDANT Work Phone: [facility] Comment on above: took BP meds 45 mins ago 05-05-2024 10:15-0400 Body height 175.3 cm Cy Nixon AUTHORIZATION MANAGER.SCALE ATTENDANT Work Phone: [facility] 05-05-2024 10:15-0400 Body mass index (BMI) [Ratio] 43.86 kg/m2 Cy Nixon AUTHORIZATION MANAGER.SCALE ATTENDANT Work Phone: [facility] 05-05-2024 10:15-0400 Body temperature 97.9 [degF] Cy Trill AUTHORIZATION MANAGER.SCALE ATTENDANT Work Phone: [facility] 05-05-2024 10:15-0400 Body weight 134.72 kg Cy Trill AUTHORIZATION MANAGER.SCALE ATTENDANT Work Phone: [facility] 05-05-2024 10:15-0400 Diastolic blood pressure 76 mm[Hg] Cy Trill AUTHORIZATION MANAGER.SCALE ATTENDANT Work Phone: [facility] 05-05-2024 10:15-0400 Heart rate 74 /min Cy Trill AUTHORIZATION MANAGER.SCALE ATTENDANT Work Phone: [facility] 05-05-2024 10:15-0400 SaO2% (BldA) [Mass fraction] 95 % Cy Trill AUTHORIZATION MANAGER.SCALE ATTENDANT Work Phone: [facility] 05-05-2024 10:15-0400 Systolic blood pressure 110 mm[Hg] Cy Trill AUTHORIZATION MANAGER.SCALE ATTENDANT Work Phone: [facility] 02-05-2024 13:25-0400 Diastolic blood pressure 74 mm[Hg] Cy Trill AUTHORIZATION MANAGER.SCALE ATTENDANT Work Phone: [facility] 02-05-2024 13:25-0400 Systolic blood pressure 126 mm[Hg] Cy Trill AUTHORIZATION MANAGER.SCALE ATTENDANT Work Phone: [facility] 02-05-2024 12:52-0400 Body height 175.3 cm Cy Trill AUTHORIZATION MANAGER.SCALE ATTENDANT Work Phone: [facility] 02-05-2024 12:52-0400 Body temperature 98.01 [degF] Cy Trill AUTHORIZATION MANAGER.SCALE ATTENDANT Work Phone: [facility] 02-05-2024 12:52-0400 Body weight 132.45 kg Cy Trill AUTHORIZATION MANAGER.SCALE ATTENDANT Work Phone: [facility] 02-05-2024 12:52-0400 Heart rate 72 /min Cy Trill AUTHORIZATION MANAGER.SCALE ATTENDANT Work Phone: [facility] 02-05-2024 12:52-0400 SaO2% (BldA) [Mass fraction] 94 % Cy Trill AUTHORIZATION MANAGER.SCALE ATTENDANT Work Phone: [facility] 09-02-2023 15:41-0400 Diastolic blood pressure 86 mm[Hg] Cy Trill AUTHORIZATION MANAGER.SCALE ATTENDANT Work Phone: [facility] 09-02-2023 15:41-0400 Systolic blood pressure 152 mm[Hg] Cy Trill AUTHORIZATION MANAGER.SCALE ATTENDANT Work Phone: [facility] 09-02-2023 15:14-0400 Body height 175.3 cm Cy Trill AUTHORIZATION MANAGER.SCALE ATTENDANT Work Phone: [facility] 09-02-2023 15:14-0400 Body temperature 97.9 [degF] Cy Trill AUTHORIZATION MANAGER.SCALE ATTENDANT Work Phone: [facility] 09-02-2023 15:14-0400 Body weight 142.43 kg Cy Trill AUTHORIZATION MANAGER.SCALE ATTENDANT Work Phone: [facility] 09-02-2023 15:14-0400 Heart rate 72 /min Cy Trill AUTHORIZATION MANAGER.SCALE ATTENDANT Work Phone: [facility] 09-02-2023 15:14-0400 Respiratory rate 18 /min Cy Trill AUTHORIZATION MANAGER.SCALE ATTENDANT Work Phone: [facility] [facility] 09-02-2023 15:14-0400 SaO2% (BldA) [Mass fraction] 97 % Cy Trill AUTHORIZATION MANAGER.SCALE ATTENDANT Work Phone: [facility] 06-19-2022 11:28-0400 Diastolic blood pressure 80 mm[Hg] Jeanette Older AUTHORIZATION MANAGER.SCALE ATTENDANT Work Phone: [facility] 06-19-2022 11:28-0400 Systolic blood pressure 138 mm[Hg] Jeanette Older AUTHORIZATION MANAGER.SCALE ATTENDANT Work Phone: [facility] 06-19-2022 11:17-0400 Body weight 131.54 kg Jeanette Older AUTHORIZATION MANAGER.SCALE ATTENDANT Work Phone: [facility] 06-19-2022 11:17-0400 Heart rate 80 /min Jeanette Older AUTHORIZATION MANAGER.SCALE ATTENDANT Work Phone: [facility] 06-19-2022 11:17-0400 Respiratory rate 18 /min Jeanette Older AUTHORIZATION MANAGER.SCALE ATTENDANT Work Phone: [facility] NEGATED: Highlighted [id number] 13:47-0500 Body height 177.8 cm Chayo Melody AT [facility] Work Phone: NEGATED: Highlighted [id number] 13:47-0500 Body height 178 cm Chayo Alexensky AT [facility] Work Phone: NEGATED: Highlighted [id number] 13:47-0500 Body mass index (BMI) [Ratio] 44.35 kg/m2 Chayora Oliver AT [facility] Work Phone: NEGATED: Highlighted [id number] 13:47-0500 Body weight 139.71 kg Chayo Alexensky AT [facility] Work Phone: NEGATED: Highlighted [id number] 13:47-0500 Body weight 140 kg Chayo Alexensky AT [facility] Work Phone: Encounters Encounter Date Encounter Type Care Provider Facility Start: 09-06-2025 End: 09-06-2025 ambulatory CY NIXON Facility:[facility] Start: 08-30-2025 End: 08-30-2025 ambulatory STEVEN BLANCAS Facility:[facility] Start: 08-16-2025 End: 08-16-2025 ambulatory STEVEN BLANCAS Facility:[facility] Start: 08-09-2025 End: 08-09-2025 ambulatory CY C TRICHEYANNE Facility:[facility] Start: 06-03-2025 End: 06-03-2025 Jamie Blancas MD Work Phone: Ophthalmology Comment on above: Refill Request Start: 03-09-2025 End: 03-09-2025 Patient encounter procedure Serenity Kim MD Work Phone: General Surgery Comment on above: Encounter for colore ctal cancer screening; History of colonic polyps Start: 03-09-2025 End: 03-09-2025 ambulatory SERENITY KIM Facility:[facility] Start: 02-22-2025 End: 02-22-2025 Patient encounter procedure Steven Blancas MD Work Phone: Ophthalmology Comment on above: 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, severe stage (Primary Dx); Chronic angle-closure glaucoma of right eye, moderate stage; Postoperative follow-up Start: 02-22-2025 End: 02-22-2025 ambulatory STEVEN BLANCAS Facility:[facility] Start: 02-05-2025 End: 04-07-2025 Follow-up encounter Cy Nixon APRN.SCALE ATTENDANT Work Phone: [facility] Start: 02-05-2025 End: 02-05-2025 ambulatory CY NIXON Facility:[facility] Start: 02-05-2025 End: 02-05-2025 Patient encounter procedure Cy Nixon AUTHORIZATION MANAGER.SCALE ATTENDANT Work Phone: [facility] Comment on above: Medicare annual well ness visit, subsequent (Primary Dx); Injury of finger of right hand, subsequent encounter; Finger pain, right; Primary hypertension; Hyperlipidemia LDL goal <130; Encounter for colorectal cancer screening; History of colonic polyps Start: 02-01-2025 End: 02-01-2025 ambulatory STEVEN BLANCAS Facility:[facility] Start: 02-01-2025 End: 02-01-2025 Patient encounter procedure Steven Blancas MD Work Phone: Ophthalmology Comment on above: Postoperative follow -up (Primary Dx) Start: 01-28-2025 End: 01-28-2025 ambulatory CY NIXON Facility:[facility] Start: 01-25-2025 End: 01-25-2025 Telephone encounter Cy Nixon APRN.SCALE ATTENDANT Work Phone: [facility] Comment on above: Reminder To Have Lab s Drawn Start: 01-18-2025 End: 01-18-2025 Patient encounter procedure Steven Blancas MD Work Phone: Ophthalmology Comment on above: Postoperative follow -up (Primary Dx); Chronic angle-closure glaucoma of left eye, severe stage Start: 01-18-2025 End: 01-18-2025 ambulatory ANG LI Facility:[facility] Start: 01-04-2025 End: 01-04-2025 ambulatory ANG LI Facility:[facility] Start: 01-04-2025 End: 01-04-2025 Patient encounter procedure Steven Blancas MD Work Phone: Ophthalmology Comment on above: Postoperative follow -up (Primary Dx); Chronic angle-closure glaucoma of left eye, severe stage; Chronic angle-closure glaucoma of right eye, moderate stage Start: 12-30-2024 End: 12-30-2024 Telephone encounter Ledy Kuhn MD Work Phone: Ophthalmology Comment on above: Refill Request Start: 12-14-2024 End: 12-14-2024 ambulatory STEVEN LI Facility:[facility] Start: 12-14-2024 End: 12-14-2024 Patient encounter procedure Steven Blancas MD Work Phone: Ophthalmology Comment on above: Postoperative follow -up (Primary Dx) Start: 12-04-2024 End: 12-04-2024 Patient encounter procedure Steven Blancas MD Work Phone: Ophthalmology Comment on above: Postoperative follow -up (Primary Dx) Start: 12-04-2024 End: 12-04-2024 ambulatory ANG LI Facility:[facility] Start: 12-04-2024 End: 12-04-2024 ambulatory ANG LI Facility:[facility] Start: 11-25-2024 End: 11-25-2024 Admission to establishment Pac [facility] 1 Work Phone: Pre Anesthesia Start: 11-25-2024 End: 11-25-2024 ambulatory CY NIXON Facility:[facility] Start: 11-25-2024 End: 01-22-2025 Anesthesia consultation Pac [place] 1 Work Phone: Pre Anesthesia Comment on above: Hyperlipidemia LDL g oal <130 (Primary Dx); Primary hypertension; Benign prostatic hyperplasia with weak urinary stream; Impaired fasting glucose; History of left shoulder replacement; Obesity, Class III, BMI >= 40 Start: 11-20-2024 ambulatory CY NIXON Facilit y:[facility] Start: 11-16-2024 End: 11-16-2024 ambulatory STEVEN BLANCAS Facility:[facility] Start: 11-16-2024 End: 11-16-2024 Patient encounter procedure Steven Blancas MD Work Phone: Ophthalmology Comment on above: 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, severe stage; Chronic angle-closure glaucoma of right eye, moderate stage Start: 10-03-2024 End: 10-03-2024 Telephone encounter Donna Liang APRN.SCALE ATTENDANT Work Phone: [facility] Comment on above: Results Start: 10-03-2024 End: 10-03-2024 ambulatory DENY VEGA Facility:[facility] Start: 10-03-2024 End: 10-03-2024 Subsequent hospital visit by physician Xr [facility] Work Phone: Radiology Comment on above: Finger pain, right [ M79.644] Start: 10-02-2024 End: 10-02-2024 ambulatory CY NIXON Facility:[facility] Start: 10-02-2024 End: 10-02-2024 Office outpatient visit 15 minutes Deny Vega MD Work Phone: [facility] Comment on above: Finger pain, right ( Primary Dx) Start: 09-14-2024 End: 09-14-2024 ambulatory STEVEN BLANCAS Facility:[facility] Start: 09-14-2024 End: 09-14-2024 Patient encounter procedure Steven Blancas MD Work Phone: Ophthalmology Comment on above: 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, severe stage; Chronic angle-closure glaucoma of right eye, moderate stage Start: 09-02-2024 End: 09-02-2024 Refill Cy Nixon APRN.SCALE ATTENDANT Work Phone: [facility] Comment on above: Refill Request Start: 08-07-2024 End: 08-07-2024 Patient encounter procedure Cy Nixon APRN.SCALE ATTENDANT Work Phone: [facility] Comment on above: Primary hypertension (Primary Dx); Hyperlipidemia LDL goal <130; Benign prostatic hyperplasia with weak urinary stream Start: 07-27-2024 End: 07-28-2024 E-mail encounter from caregiver Beny Middleton MD Work Phone: Cardiology Start: 07-27-2024 End: 07-28-2024 Patient encounter procedure Beny Middleton MD Work Phone: Cardiology Comment on above: Appointment Cancella tion Request Start: 06-25-2024 End: 06-25-2024 Telephone encounter Ricki Martínez APRN.CNP Work Phone: [facility] Comment on above: Results Start: 06-25-2024 End: 06-25-2024 Subsequent hospital visit by physician Xr [facility] Work Phone: Radiology Comment on above: Subacute cough [R05. 2] Start: 06-25-2024 End: 06-25-2024 Office outpatient visit 15 minutes Ricki Martínez APRN.CNP Work Phone: [facility] Comment on above: Subacute cough (Prim caesar Dx) Start: 06-01-2024 Refill Steven Blancas MD Work Phone: Ophthalmology Comment on above: Refill Request Start: 05-11-2024 Telephone encounter Cy Nixon APRN.SCALE ATTENDANT Work Phone: [facility] Comment on above: Results Start: 05-05-2024 End: 05-05-2024 Patient encounter procedure Cy Nixon APRN.SCALE ATTENDANT Work Phone: [facility] Comment on above: Primary hypertension (Primary Dx); Hyperlipidemia LDL goal <130; Prediabetes; Abnormal electrocardiogram (ECG) (EKG); Benign prostatic hyperplasia with weak urinary stream Start: 03-16-2024 End: 03-16-2024 Patient encounter procedure Steven Blancas MD Work Phone: Ophthalmology Comment on above: Postoperative follow -up (Primary Dx); Chronic angle-closure glaucoma of left eye, severe stage; Chronic angle-closure glaucoma of right eye, moderate stage Start: 03-13-2024 Telephone encounter Steven Blancas MD Work Phone: Ophthalmology Comment on above: Patient Question Start: 03-09-2024 Telephone encounter Cy Nixon APRN.SCALE ATTENDANT Work Phone: [facility] Comment on above: Lab Orders Start: 03-02-2024 Refill Cy meyer AUTHORIZATION MANAGER.SCALE ATTENDANT Work Phone: [facility] Comment on above: Refill Request Start: 02-28-2024 End: 02-28-2024 Patient encounter procedure Steven Blancas MD Work Phone: Ophthalmology Comment on above: Postoperative follow -up (Primary Dx); Chronic angle-closure glaucoma of left eye, severe stage; Chronic angle-closure glaucoma of right eye, moderate stage Start: 02-26-2024 Telephone encounter Cy Nixon APRN.SCALE ATTENDANT Work Phone: [facility] Comment on above: Results Start: 02-09-2024 Telephone encounter Cy Nixon APRN.SCALE ATTENDANT Work Phone: [facility] Comment on above: Results (Labs) Start: 02-07-2024 Telephone encounter Cy Nixon APRN.SCALE ATTENDANT Work Phone: [facility] Comment on above: Results Start: 02-05-2024 End: 02-05-2024 Subsequent hospital visit by physician [facility] Comment on above: Right bundle branch block (RBBB) on electrocardiogram (ECG) [I45.10] Start: 02-05-2024 End: 02-05-2024 Patient encounter procedure Cy Nixon APRN.SCALE ATTENDANT Work Phone: [facility] Comment on above: Primary hypertension (Primary Dx); Hyperlipidemia LDL goal <130; Prediabetes; Obesity, Class III, BMI 40-49.9 (morbid obesity) (HCC); Benign prostatic hyperplasia with weak urinary stream; Right bundle branch block (RBBB) on electrocardiogram (ECG); Abnormal electrocardiogram (ECG) (EKG); Nuclear sclerosis of right eye Start: 01-20-2024 End: 01-20-2024 Patient encounter procedure Steven Blancas MD Work Phone: Ophthalmology Comment on above: Postoperative follow -up (Primary Dx); Nuclear sclerosis of right eye; Residual stage of angle-closure glaucoma of right eye Start: 12-23-2023 End: 12-23-2023 Patient encounter procedure Steven Blancas MD Work Phone: Ophthalmology Comment on above: Postoperative follow -up (Primary Dx); Chronic angle-closure glaucoma of left eye, severe stage; Chronic angle-closure glaucoma of right eye, moderate stage; Nuclear senile cataract of both eyes Start: 12-13-2023 End: 12-13-2023 Patient encounter procedure Steven Blancas MD Work Phone: Ophthalmology Comment on above: Postoperative follow -up (Primary Dx); Chronic angle-closure glaucoma of left eye, severe stage; Chronic angle-closure glaucoma of right eye, moderate stage Start: 11-29-2023 Preprocedural examin ation done Steven Blancas MD Work Phone: [facility] Work Phone: Start: 10-06-2023 ambulatory Cy meyer AUTHORIZATION MANAGER.SCALE ATTENDANT Work Phone: [facility] Comment on above: Crestor Start: 09-28-2023 End: 09-28-2023 Patient encounter procedure Amado Solis AUTHORIZATION MANAGER.SCALE ATTENDANT Work Phone: [facility] Comment on above: Pain in both lower e xtremities (Primary Dx) Start: 09-23-2023 End: 09-23-2023 Patient encounter procedure [facility] Work Phone: Start: 09-23-2023 End: 09-23-2023 ambulatory Cy Nixon OPERATIONS MANAGER ASSISTANT [facility] Work Phone: Start: 09-08-2023 Telephone encounter Cymala Nixon APRN.CNP Work Phone: [facility] Comment on above: Results (Labs) Start: 09-04-2023 Telephone encounter Perla Magaña MA [facility] Comment on above: Results Start: 09-02-2023 End: 09-02-2023 Patient encounter procedure Cy Nixon APRN.SCALE ATTENDANT Work Phone: [facility] Comment on above: Primary hypertension (Primary Dx); Hyperlipidemia LDL goal <130; Impaired fasting glucose; Screening for prostate cancer; Urinary frequency; Encounter for immunization Start: 06-19-2022 End: 06-19-2022 Patient encounter procedure Jeanette Agustin EVANS.SCALE ATTENDANT Work Phone: [facility] Comment on above: Essential hypertensi on, benign (Primary Dx); Blurred vision; Hyperlipidemia LDL goal <130; Screening for prostate cancer; Impaired fasting glucose Start: 01-22-2022 Refill Andre Gordon APRN.CNP, [facility] Work Phone: [facility] Comment on above: Refill Request Procedures Date Procedure Procedure Detail Performing Clinician Start: 01-28-2025 Lipid 1996 panel - S dave or Plasma Steven Blancas MD Work Phone: Start: 10-03-2024 Radex fingr minimum 2 views Deny Vega MD Work Phone: Start: 09-14-2024 Computerized ophthal kunal imaging optic nerve Steven Blancas MD Work Phone: Start: 06-25-2024 Radiologic exam ches t 2 views Ricki Martínez APRN.SCALE ATTENDANT Work Phone: Start: 05-06-2024 Lipid 1996 panel - S dave or Plasma Cy Nixon APRN.SCALE ATTENDANT Work Phone: Start: 03-16-2024 Computerized ophthal kunal imaging retina Steven Blancas MD Work Phone: Start: 02-06-2024 Lipid 1996 panel - S dave or Plasma Cy Nixon APRN.SCALE ATTENDANT Work Phone: Start: 02-05-2024 ECG B/O MEDICARE ONL Y W/INTERP Cy Nixon AUTHORIZATION MANAGER.SCALE ATTENDANT Work Phone: Start: 09-23-2023 MRI of orbit, face a nd neck with contrast Start: 09-04-2023 Lipid 1996 panel - S dave or Plasma Perla Magaña MARIA ELENA Start: 09-02-2023 Urnls dip stick/tabl et rgnt auto w/o microscopy Cy Nixon AUTHORIZATION MANAGER.SCALE ATTENDANT Work Phone: Start: 09-02-2023 INFLUENZA VACCINE, P RSV FREE, AGE 65+ YR, HIGH DOSE, QUADRIVALENT (FLUZONE HIGH-DOSE) Cy Nixon AUTHORIZATION MANAGER.SCALE ATTENDANT Work Phone: Start: 06-16-2022 Adult depression screening assessment Jeanette Older AUTHORIZATION MANAGER.SCALE ATTENDANT Work Phone: Start: 01-02-2022 End: 01-02-2022 Arthrocentesis aspir&/inj major jt/bursa w/o us Jose Daniel Farley MD Work Phone: Start: 01-02-2022 End: 01-02-2022 BP scrn no perf at interval Jose Daniel Farley MD Work Phone: Start: 01-02-2022 End: 01-02-2022 Calc BMI abv up austin f/u Jose Daniel Farley MD Work Phone: Start: 01-02-2022 End: 01-02-2022 Current tobacco non-user cad cap copd pv dm Jose Daniel Farley MD Work Phone: Start: 01-02-2022 End: 01-02-2022 Docrev cur meds by elig clin Jose Daniel Farley MD Work Phone: Start: 01-02-2022 End: 01-02-2022 Pain doc pos and plan Jose Daniel Farley MD Work Phone: Start: 01-02-2022 End: 01-02-2022 Patient encounter procedure Jose Daniel Farley MD Work Phone: Start: 01-02-2022 End: 01-02-2022 Triamcinolone acet inj NOS Jose Daniel Farley MD Work Phone: Start: 12-21-2020 Adult depression screening assessment Andre Gordon APRN.FAVIOLA, DNP Work Phone: Start: 06-24-2020 H/O: artificial joint History of left shoulder replacement Pacc 1 Work Phone: Start: 07-13-2016 Colonoscopy Andre ellison APRN.CNP, DNP Work Phone: H/O: artificial joint History of left shoulder replacement [facility] 1 Work Phone: NEGATED: Highlighted rowStart: 01-02-2022 End: 01-02-2022 Documentation of current medications Chayo Oliver AT Plan of Treatment Date Care Activity Detail Author Start: 01-28-2030 Lipid panel Lipid Screening [facility] Start: 05-06-2029 Lipid panel Lipid Screening [facility] Start: 02-05-2029 Lipid panel Lipid Screening [facility] Start: 09-04-2028 Lipid 1996 panel - Serum or Plasma Lipid Screening [facility] Start: 09-04-2028 Lipid panel Lipid Screening [facility] Start: 09-04-2028 Prostate Cancer Screening Discussion Prostate Cancer Screening Discussion [facility] Start: 09-04-2028 Prostate specific antigen measurement Prostate Cancer Screening Discussion [facility] Start: 01-29-2028 Diabetes Screening Diabetes Screening [facility] Start: 05-06-2027 Diabetes Screening Diabetes Screening [facility] Start: 02-05-2027 Diabetes Screening Diabetes Screening [facility] Start: 09-04-2026 Diabetes Screening Diabetes Screening [facility] Start: 03-09-2026 End: 08-16-2026 OCT OPTIC NERVE CIRRUS OU (BOTH EYES) OCT OPTIC NERVE CIRRUS OU (BOTH EYES) [facility] Imaging Routine Chronic angle-closure glaucoma of left eye, severe stage Chronic angle-closure glaucoma of right eye, moderate stage Expected: 03/09/2026, Expires: 08/16/2026 [facility] Work Phone: Comment on above: Expected: 03/09/2026, Expires: Start: 02-05-2026 Annual PCP Team Chronic Disease Visit Annual PCP Team Chronic Disease Visit [facility] Start: 02-05-2026 Medicare Annual Wellness Visit Medicare Annual Wellness Visit [facility] Start: 02-05-2026 RSV Vaccine (1 - Risk 60-74 years 1-dose series) RSV Vaccine (1 - Risk 60-74 years 1-dose series) [facility] Comment on above: Postponed from 2016 (Declined at t his time) Start: 02-05-2026 Shingrix Vaccine (2 of 3) Shingrix Vaccine (2 of 3) [facility] Comment on above: Postponed from 02/06/2017 (Declined at t his time) Start: 02-05-2026 Urine microalbumin profile DTaP,Tdap,Td Vaccine (3 - Td or Tdap) [facility] Comment on above: Postponed from 05/20/2022 (Declined at t his time) Start: 11-03-2025 Advance Directive Discussion Advance Directive Discussion [facility] Comment on above: Postponed from 11/04/2024 (Declined at t his time) Start: 08-16-2025 End: 08-16-2025 Patient encounter procedure 08/16/2025 2:30 PM EDT Office Visit [facility] [address] [place] [address] Steven Blancas MD [address] [place] [address] [facility] [address] [address] Return in about 6 months (around 08/24/2025) for OCT OU. Ophthalmology Comment on above: Return in about 6 months (around 025) for OCT OU. Start: 08-09-2025 End: 08-09-2025 Patient encounter procedure 08/09/2025 11:00 AM EDT Office Visit [facility] [address] [place] [address] Cy Nixon, AUTHORIZATION MANAGER.[facility] [address] [place] [address] 6 mon hyertension, cholesterol [facility] Comment on above: 6 mon hyertension, cholesterol Start: 08-07-2025 Annual PCP Team Chronic Disease Visit Annual PCP Team Chronic Disease Visit [facility] Start: 08-07-2025 Anxiety Screening Anxiety Screening [facility] Comment on above: Postponed from 01/16/1974 (Declined at t his time) Start: 08-07-2025 BP Controlled (<130/80) BP Controlled (<130/80) [facility] Start: 08-07-2025 Covid-19 Vaccine ( season) Covid-19 Vaccine () [facility] Comment on above: Postponed from 07/05/2024 (Declined at t his time) Start: 07-05-2025 Influenza vaccination [facility] Start: 05-26-2025 LIPID SCREEN LIPID SCREEN [facility] Start: 05-26-2025 PROSTATE CANCER SCREENING DISCUSSION PROSTATE CANCER SCREENING DISCUSSION [facility] Start: 05-05-2025 Annual PCP Team Chronic Disease Visit Annual PCP Team Chronic Disease Visit [facility] Start: 05-05-2025 BP Controlled (<130/80) BP Controlled (<130/80) [facility] Start: 05-03-2025 Influenza vaccination Influenza Vaccine (#1) [facility] Comment on above: Postponed from 07/05/2024 (Declined at t his time) Start: 03-31-2025 End: 09-07-2025 OCT OPTIC NERVE CIRRUS OU (BOTH EYES) OCT OPTIC NERVE CIRRUS OU (BOTH EYES) [facility] Imaging Routine Chronic angle-closure glaucoma of left eye, severe stage Chronic angle-closure glaucoma of right eye, moderate stage Expected: 03/31/2025, Expires: 09/07/2025 [facility] Work Phone: Comment on above: Expected: 03/31/2025, Expires: Start: 03-09-2025 End: 03-09-2025 Patient encounter procedure 03/09/2025 3:30 PM EDT Office Visit General Surgery [address] [place], [place] [id number] Serenity Kim MD [address] [place] [id number] colon cancer screening General Surgery Comment on above: colon cancer screening Start: 02-22-2025 End: 02-22-2025 Patient encounter procedure 02/22/2025 11:30 AM EDT Office Visit [facility] [address] [place] [address] Steven Blancas MD [address] [place] [address] Follow-up disposition: Return in about 3 weeks (around 02/22/2025). Ophthalmology Comment on above: Follow-up disposition: Return in about 3 weeks (around 02/22/2025). Start: 02-05-2025 End: 02-05-2025 Patient encounter procedure 02/05/2025 11:00 AM EDT Office Visit [facility] [address] [place], [place] [id number] Cy Nixon APRN.SCALE ATTENDANT [address] [place] [address] well adult exam [facility] Comment on above: well adult exam Start: 02-04-2025 Annual PCP Team Chronic Disease Visit Annual PCP Team Chronic Disease Visit [facility] Start: 02-04-2025 BP Controlled (<130/80) BP Controlled (<130/80) [facility] Start: 02-01-2025 End: 02-01-2025 Patient encounter procedure 02/01/2025 10:30 AM EDT Office Visit [facility] [address] [place] [address] Steven Blancas MD [address] [place] [address] ok to add per Dr[address] Blancas Ophthalmology Comment on above: ok to add per Dr. Blancas Start: 01-28-2025 End: 01-28-2025 ambulatory 01/28/2025 8:00 AM EDT Results Only [facility], [facility] Draw Station [address] [facility] [place] [address] [facility] Draw Station Start: 01-25-2025 End: 08-23-2025 CBC panel - Blood by Automated count COMPLETE BLOOD COUNT Lab Routine Primary hypertension Hyperlipidemia LDL goal <130 Expected: 01/25/2025, Expires: 08/23/2025 [facility] Comment on above: Expected: 01/25/2025, Expires: Start: 01-25-2025 End: 08-23-2025 Comprehensive metabolic 2000 panel - Serum or Plasma COMPREHENSIVE METABOLIC PANEL Lab Routine Primary hypertension Hyperlipidemia LDL goal <130 Expected: 01/25/2025, Expires: 08/23/2025 [facility] Work Phone: Comment on above: Expected: 01/25/2025, Expires: Start: 01-25-2025 End: 08-23-2025 Hemoglobin A1c in Blood HEMOGLOBIN A1C Lab Routine Prediabetes Expected: 01/25/2025, Expires: 08/23/2025 [facility] Comment on above: Expected: 01/25/2025, Expires: Start: 01-25-2025 End: 04-26-2025 Lipid 1996 panel - Serum or Plasma LIPID PANEL, FASTING Lab Routine Primary hypertension Hyperlipidemia LDL goal <130 Expected: 01/25/2025, Expires: 04/26/2025 [facility] Comment on above: Expected: 01/25/2025, Expires: Start: 01-04-2025 End: 01-04-2025 Patient encounter procedure 01/04/2025 2:15 PM EST Office Visit [facility] [address] [place] [address] Steven Blancas MD [address] [place] [id number] 1 month po Ophthalmology Comment on above: 1 month po Start: 12-14-2024 End: 12-14-2024 Patient encounter procedure 12/14/2024 2:15 PM EST Office Visit [facility] [address] [place] [address] Steven Blancas MD [address] [place] [address] 1 week po Ophthalmology Comment on above: 1 week po Start: 12-04-2024 End: 12-04-2024 Admission to same day surgery center 12/04/2024 10:47 AM EST - 12/04/2024 11:49 AM EST Surgery Ophthalmology [address] [address] Steven Blancas MD [address] [place] [address] AQUEOUS SHUNT TO EXTRAOCULAR EQUATORIAL PLATE RESERVOIR EXTERNAL APPROACH W/GRAFT Ophthalmology Comment on above: AQUEOUS SHUNT TO EXTRAOCULAR EQUATORIAL PLATE RESERVOIR EXTERNAL APPROACH W/GRAFT Start: 12-04-2024 End: 12-04-2024 Aqueous shunt extraoc equat plate rsvr w/graft [facility] Start: 12-04-2024 Subsequent hospital visit by physician 12/04/2024 10:47 AM EST Hospital Encounter Ophthalmology [address] [address] Steven Blancas MD [address] [place] [address] Chronic angle-closure glaucoma of left eye, severe stage [H40.2223] Ophthalmology Comment on above: Chronic angle-closure glaucoma of left e ye, severe stage [H40.2223] Start: 11-16-2024 End: 11-16-2024 Patient encounter procedure 11/16/2024 1:45 PM EST Office Visit [facility] [address] [place] [address] Steven Blancas MD [address] [place] [address] Follow-up disposition: Return in about 2 months (around 11/14/2024). Ophthalmology Comment on above: Follow-up disposition: Return in about 2 months (around 11/14/2024). Start: 11-06-2024 Annual PCP Team Chronic Disease Visit Annual PCP Team Chronic Disease Visit [facility] Start: 11-04-2024 Advance Directive Discussion Advance Directive Discussion [facility] Start: 11-03-2024 Advance Directive Discussion Advance Directive Discussion [facility] Comment on above: Postponed from 11/04/2023 (Declined at t his time) Start: 11-03-2024 Behavioral Health Screening Behavioral Health Screening [facility] Comment on above: Postponed from 11/04/2023 (Declined at t his time) Start: 11-03-2024 Depression Assessment Depression Assessment [facility] Comment on above: Postponed from 11/04/2023 (Declined at t his time) Start: 10-01-2024 Annual PCP Team Chronic Disease Visit Annual PCP Team Chronic Disease Visit [facility] Start: 09-14-2024 End: 09-14-2024 Patient encounter procedure 09/14/2024 12:30 PM EST Office Visit [facility] [address] [place] [address] Steven Blancas MD [address] [place] [address] Return in about 6 months (around 09/16/2024) for OCT OU. Ophthalmology Comment on above: Return in about 6 months (around 024) for OCT OU. Start: 09-02-2024 Annual PCP Team Chronic Disease Visit Annual PCP Team Chronic Disease Visit [facility] Start: 09-02-2024 Covid-19 Vaccine (2022- season) Covid-19 Vaccine ( season) [facility] Comment on above: Postponed from 07/05/2023 (Declined at t his time) Start: 09-02-2024 Depression Assessment Depression Assessment [facility] Comment on above: Postponed from 11/04/2022 (Postponed To Appropriate Date) Start: 09-02-2024 RSV Vaccine (1 - 1-dose 60+ series) RSV Vaccine (1 - 1-dose 60+ series) [facility] Comment on above: Postponed from 2016 (Declined at t his time) Start: 09-02-2024 RSV Vaccine (1 - Risk 60-74 years 1-dose series) RSV Vaccine (1 - Risk 60-74 years 1-dose series) [facility] Comment on above: Postponed from 2016 (Declined at t his time) Start: 09-02-2024 Shingrix Vaccine (2 of 3) Shingrix Vaccine (2 of 3) [facility] Comment on above: Postponed from 02/06/2017 (Declined at t his time) Start: 09-02-2024 Urine microalbumin profile DTaP,Tdap,Td Vaccine (3 - Td or Tdap) [facility] Comment on above: Postponed from 05/20/2022 (Declined at t his time) Start: 08-07-2024 End: 08-07-2024 Patient encounter procedure 08/07/2024 11:00 AM EDT Office Visit [facility] [address] [place] [address] Cy Nixon APRN.[facility] [address] [place], [place] [id number] 3 mth f/u htn and cholesterol [facility] Comment on above: 3 mth f/u htn and cholesterol Start: 08-03-2024 End: 08-03-2024 Patient encounter procedure 08/03/2024 9:40 AM EDT Office Visit Cardiology [address] [place] [address] Beny Middleton MD [address] [facility] [place], [place] [id number] Right bundle branch block (RBBB) on electrocardiogram (ECG) [I45.10] Cardiology Comment on above: Right bundle branch block (RBBB) on elec trocardiogram (ECG) [I45.10] Start: 07-05-2024 Covid-19 Vaccine ( season) Covid-19 Vaccine ( season) [facility] Start: 07-05-2024 Covid-19 Vaccine ( season) Covid-19 Vaccine ( season) [facility] Start: 07-05-2024 Influenza vaccination Influenza Vaccine (#1) [facility] Start: 05-06-2024 End: 05-06-2024 ambulatory 05/06/2024 8:45 AM EDT Results Only [facility] Draw Station [address] [place] [address] [facility] Draw Station Start: 05-05-2024 End: 12-01-2024 Comprehensive metabolic 2000 panel - Serum or Plasma COMPREHENSIVE METABOLIC PANEL Lab Routine Hyperlipidemia LDL goal <130 Expected: 05/05/2024, Expires: 12/01/2024 [facility] Work Phone: Comment on above: Expected: 05/05/2024, Expires: Start: 05-05-2024 End: 12-01-2024 Lipid 1996 panel - Serum or Plasma LIPID PANEL BASIC Lab Routine Hyperlipidemia LDL goal <130 Expected: 05/05/2024, Expires: 12/01/2024 [facility] Comment on above: Expected: 05/05/2024, Expires: Start: 05-05-2024 End: 05-05-2024 Patient encounter procedure 05/05/2024 10:20 AM EDT Office Visit [facility] [address] [place] [address] Cy Nixon, AUTHORIZATION MANAGER.[facility] [address] [place] [address] 3 mo follow up Hypertension [facility] Comment on above: 3 mo follow up Hypertension Start: 04-06-2024 End: 04-06-2024 Patient encounter procedure 04/06/2024 2:30 PM EDT Office Visit [facility] [address] [place] [address] Steven Blancas MD [address] [place] [address] 1 month po Ophthalmology Comment on above: 1 month po Start: 02-28-2024 End: 02-28-2024 Patient encounter procedure 02/28/2024 3:45 PM EDT Office Visit [facility] [address] [address] Steven Blancas MD [address] [place] [address] same day po Ophthalmology Comment on above: same day po Start: 02-28-2024 End: 02-28-2024 Admission to same day surgery center 02/28/2024 1:02 PM EDT - 02/28/2024 1:41 PM EDT Surgery Ophthalmology [address] [address] Steven Blancas MD [address] [place] [address] GONIOTOMY Ophthalmology Comment on above: GONIOTOMY Start: 02-28-2024 End: 02-28-2024 Goniotomy GONIOTOMY Nuclear sclerosis of right eye Residual stage of angle-closure glaucoma of right eye 02/28/2024 1:02 PM EDT [facility] Start: 02-28-2024 End: 02-28-2024 Oph bmtry prtl coher intrfrmtry io lens pwr josesito OPHTHALMIC BIOMETRY BY PARTIAL COHERENCE INTERFEROMETRY W/INTRAOCULAR LENS POWER CALCULATION Nuclear sclerosis of right eye Residual stage of angle-closure glaucoma of right eye 02/28/2024 1:02 PM EDT [facility] Start: 02-28-2024 Subsequent hospital visit by physician 02/28/2024 1:02 PM EDT Hospital Encounter Ophthalmology [address] [address] Steven Blancas MD [address] [place] [address] Nuclear sclerosis of right eye [H25.11] Ophthalmology Comment on above: Nuclear sclerosis of right eye [H25.11] Start: 02-28-2024 End: 02-28-2024 Xcapsl ctrc rmvl insj io lens prosth w/o ecp PHACOEMULSIFICATION CATARACT IMPLANT INTRAOCULAR LENS W/O ENDOSCOPIC CYCLOPHOTOCOAGULATION Nuclear sclerosis of right eye Residual stage of angle-closure glaucoma of right eye 02/28/2024 1:02 PM EDT [facility] Start: 02-28-2024 End: 02-28-2024 Goniotomy GONIOTOMY Nuclear sclerosis of right eye Residual stage of angle-closure glaucoma of right eye 02/28/2024 11:46 AM EDT [facility] Start: 02-28-2024 End: 02-28-2024 Oph bmtry prtl coher intrfrmtry io lens pwr josesito OPHTHALMIC BIOMETRY BY PARTIAL COHERENCE INTERFEROMETRY W/INTRAOCULAR LENS POWER CALCULATION Nuclear sclerosis of right eye Residual stage of angle-closure glaucoma of right eye 02/28/2024 11:46 AM EDT [facility] Start: 02-28-2024 End: 02-28-2024 Xcapsl ctrc rmvl insj io lens prosth w/o ecp PHACOEMULSIFICATION CATARACT IMPLANT INTRAOCULAR LENS W/O ENDOSCOPIC CYCLOPHOTOCOAGULATION Nuclear sclerosis of right eye Residual stage of angle-closure glaucoma of right eye 02/28/2024 11:46 AM EDT [facility] Start: 02-05-2024 End: 09-02-2024 Basic metabolic 2000 panel - Serum or Plasma BASIC METABOLIC PNL Lab Routine Primary hypertension Expected: 02/05/2024, Expires: 09/02/2024 [facility] Work Phone: Comment on above: Expected: 02/05/2024, Expires: Start: 02-05-2024 End: 09-02-2024 Lipid 1996 panel - Serum or Plasma LIPID PANEL BASIC Lab Routine Hyperlipidemia LDL goal <130 Expected: 02/05/2024, Expires: 09/02/2024 [facility] Work Phone: Comment on above: Expected: 02/05/2024, Expires: Start: 11-03-2023 Advance Directive Discussion Advance Directive Discussion [facility] Comment on above: Postponed from 11/04/2022 (Declined at t his time) Start: 06-19-2023 ANNUAL PCP TEAM CHRONIC DISEASE VISIT ANNUAL PCP TEAM CHRONIC DISEASE VISIT [facility] Start: 06-16-2023 Adult depression screening assessment DEPRESSION SCREENING [facility] Start: 05-26-2023 DIABETES SCREEN DIABETES SCREEN [facility] Start: 11-04-2022 Advance Directive Discussion Advance Directive Discussion [facility] Start: 07-05-2022 Influenza vaccination INFLUENZA (#1) [facility] Start: 06-19-2022 End: 08-19-2022 Comprehensive metabolic 2000 panel - Serum or Plasma COMP METABOLIC PANEL Lab Routine Essential hypertension, benign Expected: 06/19/2022, Expires: 08/19/2022 [facility] Work Phone: Comment on above: Expected: 06/19/2022, Expires: 2 Start: 06-19-2022 End: 08-19-2022 Hemoglobin A1c in Blood HGB A1C Lab Routine Impaired fasting glucose Expected: 06/19/2022, Expires: 08/19/2022 [facility] Work Phone: Comment on above: Expected: 06/19/2022, Expires: 2 Start: 06-19-2022 End: 08-19-2022 Lipid 1996 panel - Serum or Plasma LIPID PANEL BASIC Lab Routine Essential hypertension, benign Hyperlipidemia LDL goal <130 Expected: 06/19/2022, Expires: 08/19/2022 [facility] Work Phone: Comment on above: Expected: 06/19/2022, Expires: 2 Start: 06-19-2022 End: 08-19-2022 PSA/PROSTSPECAG SCRN PSA/PROSTSPECAG SCRN Lab Routine Screening for prostate cancer Expected: 06/19/2022, Expires: 08/19/2022 [facility] Work Phone: Comment on above: Expected: 06/19/2022, Expires: 2 Start: 06-15-2022 End: 06-15-2022 Patient encounter procedure Appointment [facility] Work Phone: Start: 05-20-2022 Urine microalbumin profile [facility] Start: 01-02-2022 End: 01-02-2022 Patient encounter procedure Appointment [facility] Work Phone: Start: 12-22-2021 ANNUAL PCP TEAM CHRONIC DISEASE VISIT ANNUAL PCP TEAM CHRONIC DISEASE VISIT [facility] Start: 12-21-2021 Adult depression screening assessment DEPRESSION SCREENING [facility] Start: 11-04-2021 ADVANCE DIRECTIVE DISCUSSION ADVANCE DIRECTIVE DISCUSSION [facility] Start: 07-13-2021 Colonoscopy COLONOSCOPY [facility] Start: 07-13-2021 COLORECTAL CANCER SCREENING COLORECTAL CANCER SCREENING [facility] Start: 07-13-2021 Screening for malignant neoplasm of colon [facility] Start: 07-05-2021 Influenza vaccination INFLUENZA (#1) [facility] Start: 01-16-2021 PNEUMOCOCCAL: 65+ (1 - PCV) PNEUMOCOCCAL: 65+ (1 - PCV) [facility] Start: 01-16-2021 PNEUMOVAX AGE 65 AND OVER WITH 5YR LOOKBACK (#1) PNEUMOVAX AGE 65 AND OVER WITH 5YR LOOKBACK (#1) [facility] Start: 02-06-2017 SHINGRIX VACCINE (2 of 3) SHINGRIX VACCINE (2 of 3) [facility] Start: 2016 RSV Vaccine (1 - Risk 60-74 years 1-dose series) RSV Vaccine (1 - Risk 60-74 years 1-dose series) [facility] Start: 01-16-2001 COLOGUARD (FIT-DNA) COLOGUARD (FIT-DNA) [facility] Start: 01-16-[address] COLONOGRAPHY [facility] Start: 01-16-2001 FECAL OCCULT BLOOD FECAL OCCULT BLOOD [facility] Start: 01-16-2001 Screening for malignant neoplasm of colon [facility] Start: 01-16-2001 SIGMOIDOSCOPY SIGMOIDOSCOPY [facility] Start: 01-16-1974 Anxiety Screening Anxiety Screening [facility] Start: 01-16-1974 BP CONTROLLED (<130/80) BP CONTROLLED (<130/80) [facility] Start: 01-16-1974 Depression Screening Depression Screening [facility] Start: 01-16-1961 COVID-19 VACCINE (1) COVID-19 VACCINE (1) [facility] Start: 1955 ABDOMINAL AORTIC ANEURYSM SCREENING ABDOMINAL AORTIC ANEURYSM SCREENING [facility] Start: 1955 Abdominal aortic aneurysm screening Abdominal Aortic Aneurysm Screening [facility] Aqueous shunt extrao c equat plate rsvr w/graft AQUEOUS SHUNT TO EXTRAOCULAR EQUATORIAL PLATE RESERVOIR EXTERNAL APPROACH W/GRAFT Chronic angle-closure glaucoma of left eye, severe stage [facility] End: 09-02-2024 ECG COMPLETE ECG COMPLETE ECG Routine Primary hypertension 1 Occurrences starting 09/02/2023 until 09/02/2024 [facility] Work Phone: Comment on above: 1 Occurrences starting 09/02/2023 until 09/02/2024 End: 02-04-2025 Echocardiography ECHO Cardiology Routine Right bundle branch block (RBBB) on electrocardiogram (ECG) Abnormal electrocardiogram (ECG) (EKG) 1 Occurrences starting 02/05/2024 until 02/04/2025 [facility] Work Phone: Comment on above: 1 Occurrences starting 02/05/2024 until 02/04/2025 Im adm prq id subq/i m njxs 1 vaccine IMADM PRQ ID SUBQ/IM NJXS 1 VACC Immunization/Injection Routine Encounter for immunization Ordered: 09/02/2023 [facility] Work Phone: Comment on above: Ordered: 09/02/2023 End: 03-09-2026 Screening colonoscopy COLONOSCOPY SCREENING Endoscopy Routine Encounter for colorectal cancer screening 1 Occurrences starting 03/09/2025 until 03/09/2026 [facility] Work Phone: Comment on above: 1 Occurrences starting 03/09/2025 until 03/09/2026 UA DIP, URINE (POC) UA DIP, URIN E (POC) Lab Routine Urinary frequency Ordered: 09/02/2023 [facility] Work Phone: Comment on above: Ordered: 09/02/2023 VISUAL FIELD 24-2 OU (BOTH EYES) VISUAL FIELD 24-2 OU (BOTH EYES) [facility] Imaging Routine Chronic angle-closure glaucoma of left eye, severe stage 11/16/2024 3:17 PM EST [facility] Work Phone: End: 03-06-2025 XR Chest PA and Lateral XR CHEST 2V FRONTAL/LAT Radiology Routine Right bundle branch block (RBBB) on electrocardiogram (ECG) 1 Occurrences starting 02/05/2024 until 03/06/2025 [facility] Work Phone: Comment on above: 1 Occurrences starting 02/05/2024 until 03/06/2025 XR Chest PA and Lateral XR CHEST 2V FRONTAL/LAT Radiology Routine Right bundle branch block (RBBB) on electrocardiogram (ECG) 02/05/2024 2:16 PM EDT [facility] Work Phone: End: 11-01-2025 XR Finger - right AP and Lateral and oblique XR DIGIT GENERAL 3V FRONTAL/LAT/OBL RIGHT Radiology STAT Finger pain, right 1 Occurrences starting 10/02/2024 until 11/01/2025 [facility] Work Phone: Comment on above: 1 Occurrences starting 10/02/2024 until 11/01/2025 [facility] Immunizations Immunization Date Immunization Notes Care Provider Fa kyra 09-02-2023 pneumococcal Conjuga te, unspecified formulation Cy Nixon APRN.[employer] Work Phone: [facility] Work Phone: 09-02-2023 influenza (HD-IIV4) vaccine, age 65+ yr, high dose, quadrivalent, PF (FLUZONE HIGH-DOSE) [facility] 09-02-2023 pneumococcal (PCV20) vaccine, 20 valent (PREVNAR 20) [facility] 09-02-2023 influenza virus vaccine, unspecified formulation Cy Nixon APRN.[employer] ATT[employer] Work Phone: [facility] 05-26-2022 COVID-19 original vaccine, full dose, monovalent (MODERNA) Perla Magaña [facility] 10-06-2021 COVID-19 original vaccine, full dose, monovalent (MODERNA) Perla Magaña [facility] 02-16-2021 COVID-19 original vaccine, full dose, monovalent (MODERNA) Perla Magaña [facility] 01-19-2021 COVID-19 original vaccine, full dose, monovalent (MODERNA) Perla Magaña [facility] 08-19-2020 influenza, injectabl e, quadrivalent, preservative free [facility] 08-17-2019 Influenza, injectabl e, Madin Sammie Canine Kidney, preservative free, quadrivalent Andre Gordon APRN.[employer] ATTEND[employer], DNP Work Phone: [facility] Work Phone: 09-27-2018 Influenza, injectabl e, Madin Runnells Canine Kidney, preservative free, quadrivalent Andre Gordon APRN.[facility] Work Phone: [facility] Work Phone: 12-12-2016 zoster vaccine, live Andre Gordon APRN.[facility] Work Phone: [facility] 08-20-2016 influenza, injectabl e, quadrivalent, contains preservative Andre Gordon APRN.[facility] Work Phone: [facility] 05-20-2012 tetanus toxoid, redu seven diphtheria toxoid, and acellular pertussis vaccine, adsorbed Andre Gordon APRN.[facility] Work Phone: [facility] 11-14-2009 novel [id number], preservative-free, injectable Andre Gordon APRN.[facility] Work Phone: [facility] Work Phone: 09-22-2008 influenza virus vaccine, unspecified formulation Andre Gordon APRN.[facility] Work Phone: [facility] 02-06-2000 diphtheria and tetan us toxoids, adsorbed for pediatric use Andre Gordon APRN.[facility] Work Phone: [facility] Work Phone: Payers Date Payer Category Payer Unknown [id number] 2023 Self-pay [id number] 2022 [facility] [id number] 2022 Unknown [id number] 2021 Medicare MEDICARE MEDICAR E A AND B [id number] 2021-[facility] [phone] [place] [address] Medicare [id number] 2021 Medicare [id number] 2021 Medicare [id number] 2016 Unknown ALVIN MONROE PPO [id number] 2016-Present [phone] [address] [place] [address] PPO [id number] 2016 Unknown [id number] 2012 Government (not [facility] care or Medicaid) [facility] [id number] Unknown [id number] Social History Date Type Detail Facility Start: 01-02-2022 End: 01-02-2022 Assertion Unknown if ever smoked [facility] Work Phone: Start: 06-19-2022 End: 06-25-2024 Tobacco smoking status NHIS Ex-smoker [facility] History of tobacco use Cigarette Smoker [facility] Start: 12-22-2020 End: 03-09-2025 Alcohol intake Current drinker of alcohol (finding) [facility] Start: 12-21-2020 End: 06-16-2022 History SDOH Alcohol Frequency 3 [facility] Start: 12-21-2020 End: 06-16-2022 History SDOH Alcohol Std Drinks 1 [facility] Start: 11-07-2012 History SDOH Alcohol Comment 1-2 week [facility] Start: 12-21-2020 End: 06-16-2022 History SDOH Social Connections Get Together 2 [facility] Start: 12-21-2020 End: 06-16-2022 History SDOH Financial 5 [facility] Start: 12-21-2020 Education 12 [facility] Start: 1955 Sex Assigned At Male [facility] History of tobacco use Current smoker [facility] Start: 06-19-2022 End: 09-02-2023 Cigarettes smoked current (pack per day) - Reported 1.5 [facility] Start: 06-19-2022 Tobacco use and exposure Smokeless tobacco non-user [facility] Start: 06-16-2022 History SDOH Alcohol Frequency 4 [facility] Start: 06-16-2022 History SDOH Physical Activity DPW 7 [facility] Start: 06-16-2022 History SDOH Physical Activity MPS 6 [facility] Start: 06-19-2022 Tobacco Comment quit 1998 aftyer smoking off and on for years [facility] Start: 09-02-2023 End: 06-25-2024 Tobacco use and exposure Former smokeless tobacco user [facility] Start: 06-16-2022 End: 09-02-2023 Social connection and isolation panel [facility] Do you belong to any clubs or organizations such as mandaeism groups, unions, fraternal or athletic groups, or school groups? No [facility] Are you now , , , , never or living with a partner? [facility] How often to you hav e a drink containing alcohol? 2-3 time sa week [facility] How many standard dr inks containing alcohol do you have on a typical day? 1 or 2 [facility] How often do you hav e 6 or more drinks on 1 occasion? Never [facility] How hard is it for y ou to pay for the very basics like food, housing, medical care, and heating Not hard at all [facility] Do you feel stress - tense, restless, nervous, or anxious, or unable to sleep at night because your mind is troubled all the time - these days [OSQ] Not at all [facility] (I/We) worried vita er (my/our) food would run out before (I/we) got money to buy more. Never true [facility] Start: 12-30-2020 Gender identity Identifies as male gender (finding) [facility] Start: 12-30-2020 Sexual orientation Heterosexual (finding) [facility] Start: 05-11-2019 Non-smoker [facility] Do you feel stress - tense, restless, nervous, or anxious, or unable to sleep at night because your mind is troubled all the time - these days [OSQ] Only a little [facility] Medical Equipment Procedure Code Equipment Code Equipment Origin al Text Equipment Identifier Dates Mesh Srg Prc 6.4x6.4cm Vntrl - [id number] Start: 11-13-2012 Comment on above: Description: Proceed Ventral Patch Cc60wf.235 Janey on [employer] - [id number] Start: 12-13-2023 [id number].230 Janey on [employer] - [id number] Start: 02-28-2024 Graft Tutoplast Sclera .8x.5cm Soft Tissue Low Profile Processed Sterile - [id number] Start: 12-04-2024 Ahmed Clearpath Valveless Glaucoma Drainage Device [id number] Start: 12-04-2024 Functional Status Date Assessment Result Facility 02-05-2025 Total score [AUDIT-C] 3 02/06/20 11:46 AM Perla Quintana MA [facility] 02-05-2025 Humiliation, Afraid, Rape, and Kick questionnaire [HARK] [facility] 01-21-2015 Are you blind, or do you have serious difficulty seeing, even when wearing glasses No 01/21/2015 9:52 AM Lisha Saleh Ma No [facility] 01-21-2015 Do you have serious difficulty walking or climbing stairs No 01/21/2015 9:52 AM Lisha Saleh Ma No [facility] 01-21-2015 Do you have difficul ty dressing or bathing No 01/21/2015 9:52 AM EDT Joaquín Lisha Medley [facility] 01-21-2015 Because of a physica l, mental, or emotional condition, do you have difficulty doing errands alone such as visiting a physician's office or shopping No 01/21/2015 9:52 AM EDT Lisha Yanes Ma [facility] Mental Status Date Assessment Result Facility 01-21-2015 Because of a physica l, mental, or emotional condition, do you have serious difficulty concentrating, remembering, or making decisions No 01/21/2015 9:52 AM EDT Joaquín MedleyLisha [facility] Clinical Notes 08-20-2016 to 09-07-2025 Telephone Encounter - Blanca Mcmillan - 06/03/2025 10:46 AM EDTTelephone Encounter - Blanca Mcmillan - 06/03/2025 10:46 AM EDTPatient Serenity Regalado MD - 03/09/2025 3:11 PM EDT Note Date & Type Note Facility 09-07-2025 Note HNO ID: [id number] Author: CY NIXON APRN.SCALE ATTENDANT Service: ? Author Type: Nurse Practitioner Type: Progress Notes Filed: 09/08/2025 07:32 Note Text: BP looks great, thank you! Rx for Flomax was sent. Cy Nixon APRN.CNP [facility] 09-06-2025 Note HNO ID: [id number] Author: JORDYN CHAPARRO MA Service: ? Author Type: Capsule Inspector Type: Progress Notes Filed: 09/08/2025 07:32 Note Text: Patient was here for BP check. He confirmed his medication BP: 128/74 HR: 77 A refill request has been sent back but he needs a rx of tamulosin Jordyn Chaparro MA [facility] 08-16-2025 Note HNO ID: [id number] Author: STEVEN BLANCAS MD Service: ? Author Type: Physician Type: Progress Notes Filed: 08/16/2025 15:37 Note Text: Tmax: 45, 47; Pachy: 684, 672 Lasers and Surgeries: OD: 02/28/24 CEIOL + KDB for angle closure and IOP17 on 3 09/2023 LPI OS: 12/04/24 CP250 for IOP18 on 4 12/13/23 CEIOL + KDB for angle closure and IOP13 on max topical 09/2023 LPI Ocular Medication Intol and Non-efficacy: Prior to KDB was on lumigan 11/04, cosopt 2/2, brim 2/2 Prior to CP was on latan 11/04, cosopt 0/2, brim 2/2 Now on latan 11/04, brim 2/2, cosopt 0/2 -HVF 11/2024 OD full OS near complete wipe out, MD -24 -OCT 08/2025 unable to track star left eye also poorly dilates OD full, stable OS diffuse thinning, unable to obtain today # 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, severe left eye - s/p laser peripheral iridotomy (LPI), but still closed, though intraocular pressure controlled on drops - s/p phacoemulsification KDB for angle closure despite patent periperal iridotomy 12/13/23 left eye - s/p CEIOL + KDB for occludable angles right eye 02/28/24 - goal 22 right eye, low teens left eye - s/p CP250 left eye 12/04/24 - left eye intraocular pressure still too high and some interval worsening of vision - rec HEAT TREATER HEAD 270 (nasal and inferior) 8 x 3 left eye - reviewed R/B/A # pseudophakia both eyes - stable I have confirmed and edited as necessary the relevant ophthalmic history, ROS, and the neuro exam findings as obtained by others. I have seen and examined Ricki Huber. I have discussed the case and the management of this patient's care with the Resident/Fellow, if applicable. I also have reviewed and agree with the assessment and plan as stated above and agree with all of its relevant components. [facility] 08-09-2025 Note HNO ID: [id number] Author: PERLA MAGAÑA MA Service: ? Author Type: Capsule Inspector Type: Progress Notes Filed: 09/03/2025 22:26 Note Text: Pt. Given high dose flu with no complaints. Vis given. Perla Magaña MA [facility] 08-09-2025 Note HNO ID: [id number] Author: CY NIXON APRN.SCALE ATTENDANT Service: ? Author Type: Nurse Practitioner Type: Progress Notes Filed: 09/03/2025 22:26 Note Text: Subjective The patient consented to the use of ambient [employer] software for draft documentation of the visit consistent with [facility]?s Notice of Privacy Practices. CAROL Brice is a 70-year-old male with a history of HTN and HLD, presenting for follow-up. Yuniel reports consistent adherence to his antihypertensive medication, lisinopril 20 mg daily. He has not taken his fluvastatin for the past 2 days due to a lack of refills. He denies experiencing myalgias. He occasionally monitors his BP at home but has not done so recently due to being busy. He reports a recent BP reading of 170/76 mmHg taken by a nurse prior to the visit. He consumed his last cup of coffee around 0900 today. He reports intermittent episodes of feeling weird for a few minutes, which are not associated with pain and resolve spontaneously. He underwent an echocardiogram approximately 1 year ago, which was reported as normal. He has not followed up with a director of diversity and inclusion since then. He denies experiencing chest pain or dyspnea. Yuniel reports frustration with his weight management efforts. Despite consuming salads and chicken for 2-3 days, he has not observed significant weight loss. He has been trying to reduce his intake of bread and red meat, consuming the latter only a couple of days a week. He acknowledges the need for longer-term dietary changes but finds it challenging due to a busy schedule and the monotony of eating the same foods repeatedly. He has not been able to incorporate regular walking into his routine due to time constraints. He also reports ongoing issues with his eyes, noting increased redness and the presence of a little brown spot that moves around. He is scheduled to see Dr. Andersen, an steel turner, next Saturday. I reviewed past medical, surgical, social, and family histories today and updated chart. Allergies, chronic medications, and supplements were also reviewed. 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 Belle/Dr. Zelaya Primary hypertension PAST SURGICAL HISTORY Procedure Laterality Date COLSC FLX W/REMOVAL LESION BY HOT BX FORCEPS 07/13/2016 hyperplastic- 5 year follow up DENTAL SURGERY HX 2018 top implant GONIOTOMY Left 12/13/2023 HEART CATHETERIZATION 11/04/2003 raina PAST SURGICAL HISTORY OF x 2 Left knee surgery REMV CATARACT EXTRACAP,INSERT LENS Left 12/13/2023 phacoemulsification KDB REMV CATARACT EXTRACAP,INSERT LENS Right 02/28/2024 GONIOTOMY - Right with Steven Blancas MD on 02/28/2024 REPAIR UMBILICAL HERNIA 11/13/2012 SHOULDER SURGERY HX Left 2019 total replacement ALLERGIES Penicillins MEDICATIONS brimonidine (ALPHAGAN) 0.2 % ophthalmic solution Use 1 drop in both eyes two times a day. latanoprost (XALATAN) 0.005 % ophthalmic solution Use 1 drop in both eyes daily at bedtime. dorzolamide-timolol (COSOPT) 22.3-6.8 mg/mL ophthalmic solution Use 1 drop in the left eye two times a day. lisinopril (ZESTRIL) 20 mg tablet Take 1 tablet by mouth once daily. tamsulosin (FLOMAX) 0.4 mg Take 1 capsule by mouth daily at bedtime. ibuprofen (MOTRIN) 200 mg tablet Take 200 mg by mouth every 6 hours as needed. prednisoLONE acetate (PRED FORTE) 1 % ophthalmic suspension Use 1 drop in the left eye four times daily. For use AFTER surgery. fluvastatin (LESCOL) 20 mg capsule Take 1 capsule by mouth daily at bedtime. FAMILY HISTORY Problem Relation Age of Onset Heart Mother on mom's side not sure who COPD Mother from COPD age 82 Diabetes Mother on mom's side not sure who Hypertension Father 84 Heart Failure Father Anesthesia Problems Father ponv, mental status change SOCIAL HISTORY[1] Review of Systems Eyes: (+) eye redness, (+) visual floater Cardiovascular: (-) chest pain Musculoskeletal: (-) myalgias Objective BP 150/82 Pulse 74 Temp 98 Ht 5' 9 (1.75m) Wt 315 lb (142.9kg) SpO2 94% BMI 46.50 kg/(m2). Physical Exam Constitutional: General: He is not in acute distress. Appearance: Normal appearance. HENT: Head: Normocephalic and atraumatic. Mouth/Throat: Lips: Roundup. Eyes: General: Lids are normal. Extraocular Movements: Extraocular movements intact. Conjunctiva/sclera: Conjunctivae normal. Pupils: Pupils are equal. Cardiovascular: Rate and Rhythm: Normal rate and regular rhythm. Heart sounds: Normal heart sounds. No murmur heard. Pulmonary: Effort: Pulmonary effort is normal. No respiratory distress. Breath sounds: Normal breath sounds. Musculoskeletal: Cervical back: Normal range of motion. Right lower leg: No edema. Left lower leg: No edema. Skin: General: Skin is warm and dry. Findings: No rash. Neurological: General: No focal deficit present. Mental Status: He is alert and oriented t (more content not included)... [facility] 06-03-2025 Telephone encounter Note pt request Steven Blancas MD filed at 02/22/2025 11:46 AM Status: Signed Tmax: 45, 47; Pachy: 684, 672 Lasers and Surgeries: OD:02/28/24 CEIOL + KDB for angle closure and IOP17 on 09/2023 LPI OS: 12/04/24 CP250 for IOP18 on 12/13/23 CEIOL + KDB for angle closure and IOP13 on max topical 09/2023 LPI Ocular Medication Intol and Non-efficacy: Prior to KDB was on lumigan 1/, cosopt 2/2, brim 2/2 Prior to CP was on latan 1/, cosopt 0/2, brim 2/2 Now on latan 1/1, brim 2/2, cosopt 0/2 -HVF 11/2024 OD full OS near complete wipe out, -24 -OCT 09/2024 OD full OS diffuse thinning, similar to prior # 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 I have seen and examined Ricki Huber. I have discussed the case and the management of this patient's care with the Resident/Fellow, if applicable. I also have reviewed and agree with the assessment and plan as stated above and agree with all of its relevant components. [facility] Work Phone: 06-03-2025 Miscellaneous Notes pt request Steven Blancas MD filed at 02/22/2025 11:46 AM Status: Signed Tmax: 45, 47; Pachy: 684, 672 Lasers and Surgeries: OD:02/28/24 CEIOL + KDB for angle closure and IOP17 on 09/2023 LPI OS: 12/04/24 CP250 for IOP18 on 12/13/23 CEIOL + KDB for angle closure and IOP13 on max topical 09/2023 LPI Ocular Medication Intol and Non-efficacy: Prior to KDB was on lumigan 11/04, cosopt 2/2, brim 2/2 Prior to CP was on latan 11/04, cosopt 0/2, brim 2/2 Now on latan /, brim 2/2, cosopt 0/2 -HVF 11/2024 OD full OS near complete wipe out, -24 -OCT 09/2024 OD full OS diffuse thinning, similar to prior # 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 I have seen and examined Ricki Huber. I have discussed the case and the management of this patient's care with the Resident/Fellow, if applicable. I also have reviewed and agree with the assessment and plan as stated above and agree with all of its relevant components. documented in this encounter [facility] 03-09-2025 Instructions Serenity Kim MD - 03/09/2025 3:14 PM EDT COLONOSCOPY BOWEL PREPARATION INSTRUCTIONS GOLYTELY/NULYTELY/TRILYTE/COLYTE Your doctor has scheduled you for a colonoscopy. To have a successful colonoscopy, you must have a clean colon, that is empty. A clean colon allows your doctor to see the entire colon & diagnose issues like polyps or cancer. For doctors, a clean colon is like driving on a cameron day; a dirty colon like driving in a storm. It is very important that you follow these instructions exactly, or your colonoscopy might not be as effective, could be canceled, and you may need to do the bowel prep and the colonoscopy again. TRANSPORTATION REQUIREMENTS You are receiving IV sedation. For your safety, a responsible adult escort must accompany you to and from your procedure: Your adult escort MUST be present with you at check-in for your colonoscopy. Your adult escort MUST remain in the endoscopy area until you are discharged. Your adult escort MUST transport you home once you are discharged. You are NOT allowed to operate any form of transportation (i.e. drive a car, bicycle, etc.) or leave the Endoscopy Center ALONE. It is not safe to do so. If you cannot meet these requirements, your procedure will be canceled. MEDICATION REQUIREMENTS For your safety, certain medications will need to be stopped or adjusted before you can have your procedure: BLOOD THINNERS: If you take blood thinners, such as Coumadin (warfarin), Plavix (clopidogrel), Ticlid (ticlopidine hydrochloride), Agrylin (anagrelide), Xarelto (Rivaroxaban), Pradaxa (Dabigatran), Eliquis (Apixaban), or Effient (Prasugrel), contact the physician who is prescribing these medications at least 2 weeks prior to your procedure to discuss any necessary adjustments. DIABETES: If you take medications for diabetes, your dosage may need to be adjusted. If you are being treated for diabetes with insulin, diabetic pills, or other injectable medications do not take your REGULAR dose after midnight on the day of your procedure. If you are taking any other types of insulin such as Lantus, Humalog, NPH (long-acting insulin), or 70/30 insulin, take half your normal dose the day before your procedure. DIABETES/WEIGHT MANAGEMENT: If you take medications for weight-loss, your dosage may need to be adjusted Contact the doctor who prescribes this medication for further instructions. If you take medications for weight-loss like semaglutide (Ozempic, Wegovy, Rybelsus), dulaglutide (Trulicity), liraglutide (Victoza, Saxenda), exenatide (Byetta, Bydureon), or lixisenatide (Adylyxin), stop your medication 1 week prior to your procedure. If you take medications like canagliflozin (Invokana), dapagliflozin (Farxiga, Forxiga), empagliflozin (Jardiance), stop your medication 3 days prior to your procedure. If you take ertugliflozin (Steglatro) stop your medication 4 days prior to your procedure. IRON: If you take iron pills, STOP them 1 week BEFORE your procedure, may resume after. OTHER MEDS: May take all other medications (including aspirin, antibiotics, water pills / diuretics like Lasix or Metolozone, blood pressure meds, etc.) at their usual scheduled time with a sip of water. DIET REQUIREMENTS The day before your colonoscopy, you may have a clear liquid diet (see below). The day of your colonoscopy, you may continue a clear liquid diet until 4 hours before your colonoscopy. Within 4 hours of your colonoscopy, take only any medications (as above) with a sip of water. Clear Liquid Diet Broth (chicken, beef or vegetable broth or bullion. Just the broth, no solids). Water Coffee or Tea (NO milk or creamer), but sugar and sugar substitutes are allowed. Clear liquids including clear, yellow, green, blue (NO red, NO orange, NO purple) Sodas / soft drinks Gatorade or other sports drinks Ozzy-Aid or flavored drinks Plain Jell-O or other gelatins Fruit juice (strained; no-pulp) Popsicles or hard candy BOWEL PREPARATION (GOLYTELY/NULYTELY/TRILYTE/COLYTE) Split Dosing Bowel Prep: This means drinking your bowel prep in two doses. Split dosing helps clean your colon better and makes it less likely that your procedure will be canceled. Fill your prescription for Golytely/Nulytely/Trilyte/Colyte: The afternoon before your colonoscopy, mix the solution and refrigerate. You may add the flavor pack (if present) that came with the bowel preparation. Do not add ice, sugar, or other flavorings to the solution. You will drink your prep in two doses, by several hours. Drink both halves the day prior to the procedure Bowel prep can work differently from person to person. Some people's bowels move slowly and they may need different instructions. Please see your doctor in office or virtually for personalized bowel prep instructions if you have: Medical condition that needs special accommodations Had a poor bowel prep results or failed bowel prep attempts in the past. Had difficulty with anesthesia during the procedure. FREQUENTLY ASKED QUESTIONS Q: What if I suffer from constipation? A: Recommend taking extra laxatives to resolve your constipation days prior to entering the bowel prep day. Q: What if have had prior poor preps results in past? A: Contact your physician as you will likely need additional bowel prep instructions. Q: What if I have motility issues like Parkinson's, MS (multiple sclerosis), wheelchair dependent, etc.? or on medications that slow bowel emptying (narcotics, gabapentin, anticholinergic medications etc.) A: Contact your physician as you will likely need extra time and additional laxatives to complete your bowel prep. Q: What if I cannot drink large volume of liquid? A: Start your prep 2-3 hours earlier to allow yourself more time to complete the entire prep. Q: What if I can't finish my bowel prep? A: If you cannot finish your entire bowel prep, it is likely that your colonoscopy will need to be rescheduled due to poor prep quality. Q: What if I had bariatric surgery? Do I still have to complete the entire prep? A: Yes, gastric bypass surgery involves the stomach & small bowel. You may need to drink smaller amounts, slower (may need more time to complete your bowel prep). Gastric bypass does not alter the length of your colon so you will need to complete the entire bowel prep, it may just take longer time to complete it. Q: What if I am on dialysis? A: Please consult your machine feeder floorperson prior to scheduling to get instructions pertinent to you. In general, dialysis patients take the Golytely bowel prep and have the procedure same day of their dialysis (colonoscopy in AM, dialysis in PM). Q: How do I know if something is considered as clear liquid diet? A: If you can pour it in a glass and you can see through it, it is considered clear liquid Q: Can I eat nuts, seeds, beans, popcorn, dried fruits, vegetables & fruits that have skin peel? A: No, you will need to not eat these items starting 5 days prior to procedure. Q: Can I take Uber/Lyft/taxi/bus home? A: An adult MUST be present with you at check-in for your colonoscopy and remain in the endoscopy area until you are discharged. You can take Uber home only if this adult escort is with you at check in, remain in the endoscopy area until you are discharged, and takes the Uber with you to home. Q: Can I sleep it off here and drive myself home? A: No, you must have an adult with you at time of procedure check in, remain in the endoscopy center during your procedure, and drive you home. You cannot drive a vehicle after your procedure the rest of the day. D MEDICATIONS - Take lisinopril on the morning of the procedure with sips of water documented in this encounter [facility] 03-09-2025 Note HNO ID: [id number] Author: SERENITY KIM MD Service: ? Author Type: Physician Type: Progress Notes Filed: 03/09/2025 15:29 Note Text: HISTORY AND PHYSICAL Ricki Huber 1955 REFERRING PHYSICIAN: Cy Nixon APRN.* CHIEF COMPLAINT: consult colon cancer screening HPI: The patient is a 70 year old male referred for endoscopy. Ricki presents for screening for colon cancer via colonoscopy. He last had a colonoscopy in 2016 - no adenomatous polyps noted. Colonoscopy in 2011 revealed tubular adenoma. The patient denies blood in stools, denies abdominal pain, and denies changes in bowel habits. The patient notes no colon cancer in immediate family. . 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 Belle/Dr. Zelaya Primary hypertension PAST SURGICAL HISTORY Procedure Laterality Date COLSC FLX W/REMOVAL LESION BY HOT BX FORCEPS 07/13/2016 hyperplastic- 5 year follow up DENTAL SURGERY HX 2018 top implant GONIOTOMY Left 12/13/2023 HEART CATHETERIZATION 11/04/2003 raina PAST SURGICAL HISTORY OF x 2 Left knee surgery REMV CATARACT EXTRACAP,INSERT LENS Left 12/13/2023 phacoemulsification KDB REMV CATARACT EXTRACAP,INSERT LENS Right 02/28/2024 GONIOTOMY - Right with Steven Blancas MD on 02/28/2024 REPAIR UMBILICAL HERNIA 11/13/2012 SHOULDER SURGERY HX Left 2019 total replacement Current Outpatient Medications Medication Sig latanoprost (XALATAN) 0.005 % ophthalmic solution Use 1 drop in both eyes daily at bedtime. dorzolamide-timolol (COSOPT) 22.3-6.8 mg/mL ophthalmic solution Use 1 drop in the left eye two times a day. brimonidine (ALPHAGAN) 0.2 % ophthalmic solution Use 1 drop in both eyes two times a day. lisinopril (ZESTRIL) 20 mg tablet Take 1 tablet by mouth once daily. fluvastatin (LESCOL) 20 mg capsule Take 1 capsule by mouth daily at bedtime. tamsulosin (FLOMAX) 0.4 mg Take 1 capsule by mouth daily at bedtime. ibuprofen (MOTRIN) 200 mg tablet Take 200 mg by mouth every 6 hours as needed. No current facility-administered medications for this visit. ALLERGIES: Penicillins PERSONAL HISTORY: Social History Tobacco Use Smoking status: Former Current packs/day: 1.50 Average packs/day: 1.5 packs/day for 10.0 years (15.0 ttl pk-yrs) Types: Cigarettes Smokeless tobacco: Former Tobacco comments: quit 1998 aftyer smoking off and on for seveeral years Vaping Use Vaping status: Never Used Substance Use Topics Alcohol use: Yes Comment: 1-2 week Drug use: No FAMILY HISTORY Problem Relation Age of Onset Heart Mother on mom's side not sure who COPD Mother from COPD age 82 Diabetes Mother on mom's side not sure who Hypertension Father 84 Heart Failure Father REVIEW OF SYSTEMS: General - denies fevers HEENT - denies trauma/infections Resp - denies coughing up blood, denies breathing difficulties Cardiac - denies chest pain GI - see HPI - denies blood in urine, had kidney stone Endocrine - denies diabetes MS -- had left shoulder lsurgery Psych - denies hallucinations PHYSICAL EXAMINATION: General: The patient is 70 year old male, well nourished, well hydrated in no acute distress. The patient is oriented to time, place, and person. VITALS: Blood pressure 134/80, pulse 66, temperature 36.9 ?C (98.4 ?F), height 175.3 cm (5' 9), weight (!) 142 kg (313 lb), SpO2 96%. Body mass index is 46.22 kg/m?. Head: Normal cephalic, atraumatic Eyes: pupils are equally round, sclera are clear/anicteric Neck is supple with no tracheal deviation Cardiac: normal heart sounds, regular Respiratory: Normal respiratory excursion and pattern. Abdominal exam: benign Extremities: no clubbing, cyanosis or edema. Neuro: non focal Psych: normal mood The sensitive examination was discussed with the Patient or Patient's Authorized Pararescue Manager. As applicable, any other physician, advance practice provider, medical student, or other health professional student that will be observing or involved in the sensitive examination for educational or training purposes was discussed with the Patient or Authorized Pararescue Manager. The Patient or Authorized Pararescue Manager has agreed to proceed with the sensitive examination. (Sensitive examination includes inspection and/or palpation of the breasts, pelvis, prostate and anorectal regions) Assessment IMPRESSION: screening for colon cancer PLAN: I have discussed the above with the patient. I have offered colonoscopy , possible biopsies I have explained the procedure to the patient. I have counseled the patient as to the risks of the procedure, including but not limited to: infection, bleeding, injury to any intrabdominal organs such as liver/spleen, perforation of the GI tract, inability to complete the procedure, complications of anesthesia, etc. - the patient understands. The patient wishes to proceed. I have answered all ques (more content not included)... [facility] 03-09-2025 History of Present illness Narrative HISTORY AND PHYSICAL Ricki Huber 1955 REFERRING PHYSICIAN: Cy Nixon APRN.* CHIEF COMPLAINT: consult colon cancer screening HPI: The patient is a 70 year old male referred for endoscopy. Ricki presents for screening for colon cancer via colonoscopy. He last had a colonoscopy in 2016 - no adenomatous polyps noted. Colonoscopy in 2011 revealed tubular adenoma. The patient denies blood in stools, denies abdominal pain, and denies changes in bowel habits. The patient notes no colon cancer in immediate family. . 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 Belle/Dr. Zelaya Primary hypertension PAST SURGICAL HISTORY Procedure Laterality Date COLSC FLX W/REMOVAL LESION BY HOT BX FORCEPS 07/13/2016 hyperplastic- 5 year follow up DENTAL SURGERY HX 2018 top implant GONIOTOMY Left 12/13/2023 HEART CATHETERIZATION 11/04/2003 [place]ina PAST SURGICAL HISTORY OF x 2 Left knee surgery REMV CATARACT EXTRACAP,INSERT LENS Left 12/13/2023 phacoemulsification KDB REMV CATARACT EXTRACAP,INSERT LENS Right 02/28/2024 GONIOTOMY - Right with Steven Blancas MD on 02/28/2024 REPAIR UMBILICAL HERNIA 11/13/2012 SHOULDER SURGERY HX Left 2019 total replacement Current Outpatient Medications Medication Sig latanoprost (XALATAN) 0.005 % ophthalmic solution Use 1 drop in both eyes daily at bedtime. dorzolamide-timolol (COSOPT) 22.3-6.8 mg/mL ophthalmic solution Use 1 drop in the left eye two times a day. brimonidine (ALPHAGAN) 0.2 % ophthalmic solution Use 1 drop in both eyes two times a day. lisinopril (ZESTRIL) 20 mg tablet Take 1 tablet by mouth once daily. fluvastatin (LESCOL) 20 mg capsule Take 1 capsule by mouth daily at bedtime. tamsulosin (FLOMAX) 0.4 mg Take 1 capsule by mouth daily at bedtime. ibuprofen (MOTRIN) 200 mg tablet Take 200 mg by mouth every 6 hours as needed. No current facility-administered medications for this visit. ALLERGIES: Penicillins PERSONAL HISTORY: Social History Tobacco Use Smoking status: Former Current packs/day: 1.50 Average packs/day: 1.5 packs/day for 10.0 years (15.0 ttl pk-yrs) Types: Cigarettes Smokeless tobacco: Former Tobacco comments: quit 1998 aftyer smoking off and on for seveeral years Vaping Use Vaping status: Never Used Substance Use Topics Alcohol use: Yes Comment: 1-2 week Drug use: No FAMILY HISTORY Problem Relation Age of Onset Heart Mother on mom's side not sure who COPD Mother from COPD age 82 Diabetes Mother on mom's side not sure who Hypertension Father 84 Heart Failure Father REVIEW OF SYSTEMS: General - denies fevers HEENT - denies trauma/infections Resp - denies coughing up blood, denies breathing difficulties Cardiac - denies chest pain GI - see HPI - denies blood in urine, had kidney stone Endocrine - denies diabetes MS -- had left shoulder lsurgery Psych - denies hallucinations PHYSICAL EXAMINATION: General: The patient is 70 year old male, well nourished, well hydrated in no acute distress. The patient is oriented to time, place, and person. VITALS: Blood pressure 134/80, pulse 66, temperature 36.9 C (98.4 F), height 175.3 cm (5' 9), weight (!) 142 kg (313 lb), SpO2 96%. Body mass index is 46.22 kg/m . Head: Normal cephalic, atraumatic Eyes: pupils are equally round, sclera are clear/anicteric Neck is supple with no tracheal deviation Cardiac: normal heart sounds, regular Respiratory: Normal respiratory excursion and pattern. Abdominal exam: benign Extremities: no clubbing, cyanosis or edema. Neuro: non focal Psych: normal mood The sensitive examination was discussed with the Patient or Patient's Authorized Pararescue Manager. As applicable, any other physician, advance practice provider, medical student, or other health professional student that will be observing or involved in the sensitive examination for educational or training purposes was discussed with the Patient or Authorized Pararescue Manager. The Patient or Authorized Pararescue Manager has agreed to proceed with the sensitive examination. (Sensitive examination includes inspection and/or palpation of the breasts, pelvis, prostate and anorectal regions) Assessment IMPRESSION: screening for colon cancer PLAN: I have discussed the above with the patient. I have offered colonoscopy , possible biopsies I have explained the procedure to the patient. I have counseled the patient as to the risks of the procedure, including but not limited to: infection, bleeding, injury to any intrabdominal organs such as liver/spleen, perforation of the GI tract, inability to complete the procedure, complications of anesthesia, etc. - the patient understands. The patient wishes to proceed. I have answered all questions to the patient s satisfaction and the patient has no further questions. I have educated the patient as to the colon cleansing regimen and I have prescribed Golytely for the colon cleansing solution. The patient will be scheduled for the procedure at [facility]. Diagnoses: (Z12.11, Z12.12) Encounter for colorectal cancer screening (Z86.0100) History of colonic polyps I have confirmed and edited as necessary, the PFSH and ROS obtained by others. Consultation requested by Cy Nixon for an opinion regarding patient's screening for colon cancer. My final recommendations will be communicated back to the requesting physician by way of shared Medical record or letter to requesting physician via US mail. Medical Decision Making: Risk: Low: Low risk from testing/treatment Medical Decision Making Level: 2 - Straightforward Serenity Kim MD documented in this encounter [facility] 02-22-2025 Instructions Steven Blancas MD - 02/22/2025 11:45 AM EDT You will be dilated on your next visit. This will likely make your vision blurry for several hours, and you should strongly consider bringing a charter bus driver. documented in this encounter [facility] 02-22-2025 History of Present illness Narrative Tmax: 45, 47; Pachy: 684, 672 Lasers and Surgeries: OD: 02/28/24 CEIOL + KDB for angle closure and IOP17 on 3 09/2023 LPI OS: 12/04/24 CP250 for IOP18 on 4 12/13/23 CEIOL + KDB for angle closure and IOP13 on max topical 09/2023 LPI Ocular Medication Intol and Non-efficacy: Prior to KDB was on lumigan 11/04, cosopt 2/2, brim 2/2 Prior to CP was on latan 11/04, cosopt 0/2, brim 2/2 Now on latan 11/04, brim 2/2, cosopt 0/2 -HVF 11/2024 OD full OS near complete wipe out, -24 -OCT 09/2024 OD full OS diffuse thinning, similar to prior # 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 I have seen and examined Ricki Jonah Huber. I have discussed the case and the management of this patient's care with the Resident/Fellow, if applicable. I also have reviewed and agree with the assessment and plan as stated above and agree with all of its relevant components. documented in this encounter [facility] 02-22-2025 Note HNO ID: [id number] Author: STEVEN BLANCAS MD Service: ? Author Type: Physician Type: Progress Notes Filed: 02/22/2025 11:46 Note Text: Tmax: 45, 47; Pachy: 684, 672 Lasers and Surgeries: OD: 02/28/24 CEIOL + KDB for angle closure and IOP17 on 09/2023 LPI OS: 12/04/24 CP250 for IOP18 on 12/13/23 CEIOL + KDB for angle closure and IOP13 on max topical 09/2023 LPI Ocular Medication Intol and Non-efficacy: Prior to KDB was on lumigan 11/04, cosopt 2/2, brim 2/2 Prior to CP was on latan 1/, cosopt 0/2, brim 2/2 Now on latan 1/, brim 2/2, cosopt 0/2 -HVF 11/2024 OD full OS near complete wipe out, MD -24 -OCT 09/2024 OD full OS diffuse thinning, similar to prior # 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 I have seen and examined Ricki Huber. I have discussed the case and the management of this patient's care with the Resident/Fellow, if applicable. I also have reviewed and agree with the assessment and plan as stated above and agree with all of its relevant components. [facility] 02-05-2025 Note HNO ID: [id number] Author: CY NIXON APRN.SCALE ATTENDANT Service: ? Author Type: Nurse Practitioner Type: Progress Notes Filed: 02/05/2025 20:41 Note Text: Ricki Huber is a 70 year old male here for a Medicare wellness visit. Medicare Health Risk Assessment General Health Fair Exercise: Minutes/Day 20 min Exercise: Days/Week 5 days Alcohol: Daily Use 2-3 times a week Alcohol: Drinks/Day 1 or 2 Alcohol: 6 or more drinks Never Feel off balance No Concerns: Teeth/Dentures No Concerns: Sexual function No Troubled by feelings None of the above Frequency: Eating healthy diet More than half the days ADLs requiring help None of the above Safety precautions in home/vehicle No Smoke, vape, chews tobacco No Difficulty hearing No Difficulty seeing No Current Providers Specialists: I have reviewed specialist-related care of the patient in the medical record. Current care team: Patient Care Team: Cy Nixon APRN.SCALE ATTENDANT as PCP - General (Family Medicine) Junaid Belle MD as Referring (Ophthalmology) Medical/Family history review Reviewed and updated problem list, medical/surgical/family/social history, medications, and allergies. Opioid use review Opioid Medications (last 90 days) No data to display Anxiety/Depression screening Recommendation: no further intervention at this time Cognitive screening Mini Cog Score: 5 Cognitive screening reviewed and No further action needed (score 3-5). Functional Observation Was the patient's Timed Up AND Go test unsteady or >= 12 seconds? 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 Belle/Dr. Zelaya Primary hypertension PAST SURGICAL HISTORY Procedure Laterality Date COLSC FLX W/REMOVAL LESION BY HOT BX FORCEPS 07/13/2016 hyperplastic- 5 year follow up DENTAL SURGERY HX 2018 top implant GONIOTOMY Left 12/13/2023 HEART CATHETERIZATION 11/04/2003 [place] PAST SURGICAL HISTORY OF x 2 Left knee surgery REMV CATARACT EXTRACAP,INSERT LENS Left 12/13/2023 phacoemulsification KDB REMV CATARACT EXTRACAP,INSERT LENS Right 02/28/2024 GONIOTOMY - Right with Steven Blancas MD on 02/28/2024 REPAIR UMBILICAL HERNIA 11/13/2012 SHOULDER SURGERY HX Left 2019 total replacement ALLERGIES Penicillins MEDICATIONS dorzolamide-timolol (COSOPT) 22.3-6.8 mg/mL ophthalmic solution Use 1 Drop in the left eye two times a day. brimonidine (ALPHAGAN) 0.2 % ophthalmic solution Use 1 Drop in the right eye two times a day. latanoprost (XALATAN) 0.005 % ophthalmic solution Use 1 Drop in both eyes daily at bedtime. prednisoLONE acetate (PRED FORTE) 1 % ophthalmic suspension Use 1 Drop in the left eye four times daily. For use AFTER surgery. (Patient taking differently: Use 1 drop in the left eye two times a day. For use AFTER surgery.) lisinopril (ZESTRIL) 20 mg tablet Take 1 tablet by mouth once daily. fluvastatin (LESCOL) 20 mg capsule Take 1 capsule by mouth daily at bedtime. tamsulosin (FLOMAX) 0.4 mg Take 1 capsule by mouth daily at bedtime. ibuprofen (MOTRIN) 200 mg tablet Take 200 mg by mouth every 6 hours as needed. FAMILY HISTORY Problem Relation Age of Onset Heart Mother on mom's side not sure who COPD Mother from COPD age 82 Diabetes Mother on mom's side not sure who Hypertension Father 84 Heart Failure Father Social History Tobacco Use Smoking status: Former Current packs/day: 1.50 Average packs/day: 1.5 packs/day for 10.0 years (15.0 ttl pk-yrs) Types: Cigarettes Smokeless tobacco: Former Tobacco comments: quit 1998 aftyer smoking off and on for seveeral years Vaping Use Vaping status: Never Used Substance Use Topics Alcohol use: Yes Comment: 1-2 week Drug use: No Measurements BP 126/82 Pulse 65 Temp 36.7 ?C (98.1 ?F) Ht 175.3 cm (5' 9) Wt (!) 137.4 kg (303 lb) SpO2 96% BMI 44.75 kg/m? Vision Screening: Follows with optometry/ophthalmology Assessment/Plan Medicare annual wellness visit, subsequent (Z00.00) - Counseled on healthy diet and regular exercise - Fall avoidance information provided - Personalized prevention plan provided Additional Concerns The following concerns were also discussed with the patient: Dealing with a lot of eye issues - left eye surgery Had a stent placed Has a brown spot in vision Seeing Dr Blancas Eye drops keep changed Decrased peripheral vision left side PHYSICAL EXAM BP 126/82 Pulse 65 Temp 36.7 ?C (98.1 ?F) Ht 175.3 cm (5' 9) Wt (!) 137.4 kg (303 lb) SpO2 96% BMI 44.75 kg/m? GENERAL: well appearing, alert, in no acute distress CARDIOVASCULAR: regular rate and rhythm. No murmur, rubs or gallops. PULMONARY: cl (more content not included)... [facility] 02-05-2025 History of Present illness Narrative Images from the original note were not included. Ricki Huber is a 70 year old male here for a Medicare wellness visit. Medicare Health Risk Assessment General Health Fair Exercise: Minutes/Day 20 min Exercise: Days/Week 5 days Alcohol: Daily Use 2-3 times a week Alcohol: Drinks/Day 1 or 2 Alcohol: 6 or more drinks Never Feel off balance No Concerns: Teeth/Dentures No Concerns: Sexual function No Troubled by feelings None of the above Frequency: Eating healthy diet More than half the days ADLs requiring help None of the above Safety precautions in home/vehicle No Smoke, vape, chews tobacco No Difficulty hearing No Difficulty seeing No Current Providers Specialists: I have reviewed specialist-related care of the patient in the medical record. Current care team: Patient Care Team: Cy Nixon APRN.CNP as PCP - General (Family Medicine) Junaid Belle MD as Referring (Ophthalmology) Medical/Family history review Reviewed and updated problem list, medical/surgical/family/social history, medications, and allergies. Opioid use review Opioid Medications (last 90 days) No data to display Anxiety/Depression screening Recommendation: no further intervention at this time Cognitive screening Mini Cog Score: 5 Cognitive screening reviewed and No further action needed (score 3-5). Functional Observation Was the patient's Timed Up & Go test unsteady or >= 12 seconds? 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 Belle/Dr. Zelaya Primary hypertension PAST SURGICAL HISTORY Procedure Laterality Date COLSC FLX W/REMOVAL LESION BY HOT BX FORCEPS 07/13/2016 hyperplastic- 5 year follow up DENTAL SURGERY HX 2018 top implant GONIOTOMY Left 12/13/2023 HEART CATHETERIZATION 11/04/2003 [place]ina PAST SURGICAL HISTORY OF x 2 Left knee surgery REMV CATARACT EXTRACAP,INSERT LENS Left 12/13/2023 phacoemulsification KDB REMV CATARACT EXTRACAP,INSERT LENS Right 02/28/2024 GONIOTOMY - Right with Steven Blancas MD on 02/28/2024 REPAIR UMBILICAL HERNIA 11/13/2012 SHOULDER SURGERY HX Left 2019 total replacement ALLERGIES Penicillins MEDICATIONS dorzolamide-timolol (COSOPT) 22.3-6.8 mg/mL ophthalmic solution Use 1 Drop in the left eye two times a day. brimonidine (ALPHAGAN) 0.2 % ophthalmic solution Use 1 Drop in the right eye two times a day. latanoprost (XALATAN) 0.005 % ophthalmic solution Use 1 Drop in both eyes daily at bedtime. prednisoLONE acetate (PRED FORTE) 1 % ophthalmic suspension Use 1 Drop in the left eye four times daily. For use AFTER surgery. (Patient taking differently: Use 1 drop in the left eye two times a day. For use AFTER surgery.) lisinopril (ZESTRIL) 20 mg tablet Take 1 tablet by mouth once daily. fluvastatin (LESCOL) 20 mg capsule Take 1 capsule by mouth daily at bedtime. tamsulosin (FLOMAX) 0.4 mg Take 1 capsule by mouth daily at bedtime. ibuprofen (MOTRIN) 200 mg tablet Take 200 mg by mouth every 6 hours as needed. FAMILY HISTORY Problem Relation Age of Onset Heart Mother on mom's side not sure who COPD Mother from COPD age 82 Diabetes Mother on mom's side not sure who Hypertension Father 84 Heart Failure Father Social History Tobacco Use Smoking status: Former Current packs/day: 1.50 Average packs/day: 1.5 packs/day for 10.0 years (15.0 ttl pk-yrs) Types: Cigarettes Smokeless tobacco: Former Tobacco comments: quit 1998 aftyer smoking off and on for seveeral years Vaping Use Vaping status: Never Used Substance Use Topics Alcohol use: Yes Comment: 1-2 week Drug use: No Measurements BP 126/82 Pulse 65 Temp 36.7 C (98.1 F) Ht 175.3 cm (5' 9) Wt (!) 137.4 kg (303 lb) SpO2 96% BMI 44.75 kg/m Vision Screening: Follows with optometry/ophthalmology Assessment/Plan Medicare annual wellness visit, subsequent (Z00.00) - Counseled on healthy diet and regular exercise - Fall avoidance information provided - Personalized prevention plan provided Additional Concerns The following concerns were also discussed with the patient: Dealing with a lot of eye issues - left eye surgery Had a stent placed Has a brown spot in vision Seeing Dr Blancas Eye drops keep changed Decrased peripheral vision left side PHYSICAL EXAM BP 126/82 Pulse 65 Temp 36.7 C (98.1 F) Ht 175.3 cm (5' 9) Wt (!) 137.4 kg (303 lb) SpO2 96% BMI 44.75 kg/m GENERAL: well appearing, alert, in no acute distress CARDIOVASCULAR: regular rate and rhythm. No murmur, rubs or gallops. PULMONARY: clear to auscultation, no wheezing, rhonchi, or crackles Latest Ref Rng 09/04/2023 02/06/2024 05/06/2024 01/28/2025 Protein, Total 6.3 - 8.0 g/dL 7.1 6.6 6.8 Albumin 3.9 - 4.9 g/dL 4.3 3.9 4.1 Calcium 8.5 - 10.2 mg/dL 9.4 9.4 9.3 9.3 Bilirubin, Total 0.2 - 1.3 mg/dL 0.6 0.5 0.5 Alkaline Phosphatase 38 - 113 U/L 81 83 74 AST 14 - 40 U/L 16 16 18 ALT 10 - 54 U/L 17 18 16 Glucose 74 - 99 mg/dL 126 (H) 118 (H) 118 (H) 128 (H) BUN 9 - 24 mg/dL 18 16 15 16 Creatinine 0.73 - 1.22 mg/dL 1.04 0.90 0.99 1.02 Sodium 136 - 144 mmol/L 137 141 139 137 Potassium 3.7 - 5.1 mmol/L 4.3 4.3 4.6 4.7 Chloride 98 - 107 mmol/L 101 106 (H) 104 101 CO2 22 - 30 mmol/L 27 25 26 28 Anion Gap 8 - 15 mmol/L 9 10 9 8 eGFR >=60 mL/min/1.73m 79 93 83 80 WBC 3.70 - 11.00 k/uL 7.31 6.86 RBC 4.20 - 6.00 m/uL 5.62 5.55 Hemoglobin 13.0 - 17.0 g/dL 15.9 15.6 Hematocrit 39.0 - 51.0 % 48.6 47.8 MCV 80.0 - 100.0 fL 86.5 86.1 MCH 26.0 - 34.0 pg 28.3 28.1 MCHC 30.5 - 36.0 g/dL 32.7 32.6 RDW-CV 11.5 - 15.0 % 12.6 13.2 Platelet Count 150 - 400 k/uL 220 248 MPV 9.0 - 12.7 fL 9.7 9.9 Absolute nRBC <0.01 k/uL <0.01 <0.01 Cholesterol, Total <200 mg/dL 171 169 Triglyceride <150 mg/dL 65 80 HDL Cholesterol >39 mg/dL 47 50 Non HDL Cholesterol <130 mg/dL 124 119 Fasting Time hrs 14 13 VLDL Cholesterol <30 mg/dL 13 16 TC:HDL Ratio <5.10 3.64 3.38 LDL Cholesterol <100 mg/dL 111 (H) 103 (H) LDL:HDL Ratio <2.54 2.36 2.06 Hemoglobin A1C 4.3 - 5.6 % 5.9 (H) 5.7 (H) Estimated Average Glucose mg/dL 123 117 TSH 0.270 - 4.200 mIU/L 1.440 ASSESSMENT/PLAN: 1. Medicare annual wellness visit, subsequent - ICD9: V70.0, ICD10: Z00.00 (primary diagnosis) - Counseled on healthy diet and regular exercise - Colorectal cancer screening - ordered colonoscopy - Follow up for annual exam in one year 2. Injury of finger of right hand, subsequent encounter - ICD9: V58.89, 959.5, ICD10: S69.91XD 3. Finger pain, right - ICD9: 729.5, ICD10: M79.644 X-ray was negative for fracture Offered ortho hand referral, he defers for now Follow up for worsening or persistent symptoms. 4. Primary hypertension - ICD9: 401.9, ICD10: I10 - Controlled - Continue current medications - Recommend home blood pressure monitoring, to bring results to next visit - Encouraged sodium restriction, DASH or Mediterranean diet - Recommend regular aerobic exercise 5. Hyperlipidemia LDL goal <130 - ICD9: 272.4, ICD10: E78.5 - Controlled - Continue current medications - Counseled on healthy diet and regular exercise 6. Encounter for colorectal cancer screening - ICD9: V76.51, V76.41, ICD10: Z12.11, Z12.12 - CONSULT TO GENERAL SURGERY 7. History of colonic polyps - ICD9: V12.72, ICD10: Z86.0100 - CONSULT TO GENERAL SURGERY FU 6 months Cy Nixon APRN.SCALE ATTENDANT documented in this encounter [facility] 02-05-2025 Instructions Cy Nixon APRN.CNP - 02/05/2025 11:12 AM EDT Screening schedule The following prevention plan is recommended: Abdominal Aortic Aneurysm Screening Never done Depression Screening Never done BP Controlled (<130/80) Never done Colorectal Cancer Screening due on 07/13/2021 WHAT YOU CAN DO TO PREVENT FALLS Many falls can be prevented. By making some changes, you can lower your chances of falling. Four things YOU can do to prevent falls for you* and your caregiver 1. Begin a regular exercise program Exercise is one of the most important ways to lower your chances of falling. It makes you stronger and helps you feel better. Exercises that improve balance and coordination (like Jonatan Chi) are the most helpful. Lack of exercise leads to weakness and increases your chances of falling. Ask your doctor or health care provider about the best type of exercise program for you. 2. Have your health care provider review your medicines Have your doctor or pharmacist review all the medicines you take, even [id number] medicines. As you get older, the way medicines work in your body can change. Some medicines, or combinations of medicines, can make you sleepy or dizzy and can cause you to fall. 3. Have your vision checked Have your eyes checked by an eye doctor at least once a year. You may be wearing the wrong glasses or have a condition like glaucoma or cataracts that limits your vision. Poor vision can increase your chances of falling. 4. Make your home safer About half of all falls happen at home. To make your home safer: Remove things you can trip over (like papers, books, clothes, and shoes) from stairs and places where you walk. Remove small throw rugs or use double-sided tape to keep the rugs from slipping. Keep items you use often in cabinets you can reach easily without using a step stool. Have grab bars put in next to your toilet and in the tub or shower. Use non-slip mats in the bathtub and on shower floors. Improve the lighting in your home. As you get older, you need brighter lights to see well. Hang light-weight curtains or shades to reduce glare. Have handrails and lights put in on all staircases. Wear shoes both inside and outside the house. Avoid going barefoot or wearing slippers. For more information, contact: Centers for Disease Control and Prevention www.cdc.gov/injury * This information may not apply if you have certain medical conditions. documented in this encounter [facility] 02-01-2025 Instructions Steven Blancas MD - 02/01/2025 11:02 AM EDT Medication Eye # times daily Latanoprost (green cap) BOTH 1x daily (bedtime) Cosopt or dorzolamide + timolol (dark navy blue cap) LEFT 2x daily Brimonidine (purple cap) BOTH 2x daily Prednisolone (pink or white cap) LEFT 2x daily for 2 weeks 1x daily for 2 weeks Then stop *please remember to wait at least 3 minutes between different drops in the same eye. 01/18/25 documented in this encounter [facility] 02-01-2025 Note HNO ID: [id number] Author: STEVEN BLANCAS MD Service: ? Author Type: Physician Type: Progress Notes Filed: 02/01/2025 11:04 Note Text: Tmax: 45, 47; Pachy: 684, 672 Lasers and Surgeries: OD: 02/28/24 CEIOL + KDB for angle closure and IOP17 on 09/2023 LPI OS: 12/04/24 CP250 for IOP18 on 4 12/13/23 CEIOL + KDB for angle closure and IOP13 on max topical 09/2023 LPI Ocular Medication Intol and Non-efficacy: Prior to KDB was on lumigan 1/, cosopt 2/2, brim 2/2 Prior to CP was on latan 1/1, cosopt 0/2, brim 2/2 Now on latan 1/1, brim 2/0, cosopt 0/2, Predforte 0/2 -HVF 11/2024 OD full OS near complete wipe outMD -24 -OCT 09/2024 OD full OS diffuse thinning, similar to prior # 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, severe left eye - s/p laser peripheral iridotomy (LPI), but still closed, though intraocular pressure controlled on drops - s/p phacoemulsification KDB for angle closure despite patent periperal iridotomy 12/13/23 left eye - 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 I have seen and examined Ricki Meyer Huber. I have discussed the case and the management of this patient's care with the Resident/Fellow, if applicable. I also have reviewed and agree with the assessment and plan as stated above and agree with all of its relevant components. [facility] 02-01-2025 History of Present illness Narrative Tmax: 45, 47; Pachy: 684, 672 Lasers and Surgeries: OD: 02/28/24 CEIOL + KDB for angle closure and IOP17 on 09/2023 LPI OS: 12/04/24 CP250 for IOP18 on 4 12/13/23 CEIOL + KDB for angle closure and IOP13 on max topical 09/2023 LPI Ocular Medication Intol and Non-efficacy: Prior to KDB was on lumigan 1/, cosopt 2/2, brim 2/2 Prior to CP was on latan 1/, cosopt 0/2, brim 2/2 Now on latan 1/1, brim 2/0, cosopt 0/2, Predforte 0/2 -HVF 11/2024 OD full OS near complete wipe out, -24 -OCT 09/2024 OD full OS diffuse thinning, similar to prior # 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, severe left eye - s/p laser peripheral iridotomy (LPI), but still closed, though intraocular pressure controlled on drops - s/p phacoemulsification KDB for angle closure despite patent periperal iridotomy 12/13/23 left eye - 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 I have seen and examined Ricki Huber. I have discussed the case and the management of this patient's care with the Resident/Fellow, if applicable. I also have reviewed and agree with the assessment and plan as stated above and agree with all of its relevant components. documented in this encounter [facility] 01-25-2025 Telephone encounter Note Patient is informed Jordyn Chaparro MA [facility] 01-25-2025 Miscellaneous Notes Patient is informed Jordyn Chaparro MA Please remind patient he is due for labs. Cy Nixon APRN.CNP ----- Message from Cy Nixon APRN.CNP sent at 08/10/2024 12:49 PM EDT ----- Due for labs documented in this encounter [facility] 01-25-2025 Telephone encounter Note Please remind patient he is due for labs. Cy Nixon APRN.SCALE ATTENDANT [facility] 01-25-2025 Telephone encounter Note ----- Message from Cy Nixon APRN.SCALE ATTENDANT sent at 08/10/2024 12:49 PM EDT ----- Due for labs [facility] 01-18-2025 Instructions Steven Blancas MD - 01/18/2025 11:54 AM EDT Medication Eye # times daily Latanoprost (green cap) BOTH 1x daily (bedtime) Cosopt or dorzolamide + timolol (dark navy blue cap) LEFT 2x daily Brimonidine (purple cap) RIGHT 2x daily Prednisolone (pink or white cap) LEFT 2x daily *please remember to wait at least 3 minutes between different drops in the same eye. 01/18/25 documented in this encounter [facility] 01-18-2025 Note HNO ID: [id number] Author: STEVEN BLANCAS MD Service: ? Author Type: Physician Type: Progress Notes Filed: 01/18/2025 12:04 Note Text: Tmax: 45, 47; Pachy: 684, 672 Lasers and Surgeries: OD: 02/28/24 CEIOL + KDB for angle closure and IOP17 on 09/2023 LPI OS: 12/04/24 CP250 for IOP18 on 12/13/23 CEIOL + KDB for angle closure and IOP13 on max topical 09/2023 LPI Ocular Medication Intol and Non-efficacy: Prior to KDB was on lumigan 1/, cosopt 2/2, brim 2/2 Prior to CP was on latan 1, cosopt 0/2, brim 2/2 Now on latan 1, brim 2/0, cosopt 0/2, Predforte 0/2, cipro 0/4 Next on latan 1, brim 2/0, cosopt 0/2, Predforte 0/2 -HVF 11/2024 OD full OS near complete wipe out, MD -24 -OCT 09/2024 OD full OS diffuse thinning, similar to prior # 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, severe left eye - s/p laser peripheral iridotomy (LPI), but still closed, though intraocular pressure controlled on drops - s/p phacoemulsification KDB for angle closure despite patent periperal iridotomy 12/13/23 left eye - 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 I have seen and examined Ricki Huber. I have discussed the case and the management of this patient's care with the Resident/Fellow, if applicable. I also have reviewed and agree with the assessment and plan as stated above and agree with all of its relevant components. [facility] 01-18-2025 History of Present illness Narrative Tmax: 45, 47; Pachy: 684, 672 Lasers and Surgeries: OD: 02/28/24 CEIOL + KDB for angle closure and IOP17 on 09/2023 LPI OS: 12/04/24 CP250 for IOP18 on 12/13/23 CEIOL + KDB for angle closure and IOP13 on max topical 09/2023 LPI Ocular Medication Intol and Non-efficacy: Prior to KDB was on lumigan 11/04, cosopt 2/2, brim 2/2 Prior to CP was on latan 11/04, cosopt 0/2, brim 2/2 Now on latan 11/04, brim 2/0, cosopt 0/2, Predforte 0/2, cipro 0/4 Next on latan 11/04, brim 2/0, cosopt 0/2, Predforte 0/2 -HVF 11/2024 OD full OS near complete wipe out, MD -24 -OCT 09/2024 OD full OS diffuse thinning, similar to prior # 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, severe left eye - s/p laser peripheral iridotomy (LPI), but still closed, though intraocular pressure controlled on drops - s/p phacoemulsification KDB for angle closure despite patent periperal iridotomy 12/13/23 left eye - 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 I have seen and examined Ricki Huber. I have discussed the case and the management of this patient's care with the Resident/Fellow, if applicable. I also have reviewed and agree with the assessment and plan as stated above and agree with all of its relevant components. documented in this encounter [facility] 01-04-2025 Note HNO ID: [id number] Author: STEVEN BLANCAS MD Service: ? Author Type: Physician Type: Progress Notes Filed: 01/04/2025 14:55 Note Text: Tmax: 45, 47; Pachy: 684, 672 Lasers and Surgeries: OD: 02/28/24 CEIOL + KDB for angle closure and IOP17 on 09/2023 LPI OS: 12/04/24 CP250 for IOP18 on 12/13/23 CEIOL + KDB for angle closure and IOP13 on max topical 09/2023 LPI Ocular Medication Intol and Non-efficacy: Prior to KDB was on lumigan 11/04, cosopt 2/2, brim 2/2 Prior to CP was on latan 11/04, cosopt 0/2, brim 2/2 Now on latan 1/, brim 2/2, Predforte 0/2, cipro 0/4, pamela 0/1 Next on latan 1/1, brim 2/2, Predforte 0/2, cipro 0/4 -HVF 11/2024 OD full OS near complete wipe out, MD -24 -OCT 09/2024 OD full OS diffuse thinning, similar to prior # 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, severe left eye - s/p laser peripheral iridotomy (LPI), but still closed, though intraocular pressure controlled on drops - s/p phacoemulsification KDB for angle closure despite patent periperal iridotomy 12/13/23 left eye - 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 I have seen and examined Ricki Huber. I have discussed the case and the management of this patient's care with the Resident/Fellow, if applicable. I also have reviewed and agree with the assessment and plan as stated above and agree with all of its relevant components. [facility] 01-04-2025 History of Present illness Narrative Tmax: 45, 47; Pachy: 684, 672 Lasers and Surgeries: OD: 02/28/24 CEIOL + KDB for angle closure and IOP17 on 3 09/2023 LPI OS: 12/04/24 CP250 for IOP18 on 12/13/23 CEIOL + KDB for angle closure and IOP13 on max topical 09/2023 LPI Ocular Medication Intol and Non-efficacy: Prior to KDB was on lumigan 1, cosopt 2/2, brim 2/2 Prior to CP was on latan 1, cosopt 0/2, brim 2/2 Now on latan 1, brim 2/2, Predforte 0/2, cipro 0/4, pamela 0/1 Next on latan 1/, brim 2/2, Predforte 0/2, cipro 0/4 -HVF 11/2024 OD full OS near complete wipe out, -24 -OCT 09/2024 OD full OS diffuse thinning, similar to prior # 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, severe left eye - s/p laser peripheral iridotomy (LPI), but still closed, though intraocular pressure controlled on drops - s/p phacoemulsification KDB for angle closure despite patent periperal iridotomy 12/13/23 left eye - 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 I have seen and examined Ricki Huber. I have discussed the case and the management of this patient's care with the Resident/Fellow, if applicable. I also have reviewed and agree with the assessment and plan as stated above and agree with all of its relevant components. documented in this encounter [facility] 12-30-2024 Telephone encounter Note Patient's request for medication is as follows: Requested Prescriptions Pending Prescriptions Disp Refills latanoprost (XALATAN) 0.005 % ophthalmic solution 5 mL 11 Sig: Use 1 Drop in both eyes daily at bedtime. Prescription(s) as above. Please process accordingly. Georgette Temple [facility] [place] Steven Blancas MD filed at 12/14/2024 3:32 PM Status: Signed Tmax: 45, 47; Pachy: 684, 672 Lasers and Surgeries: OD:02/28/24 CEIOL + KDB for angle closure and IOP17 on 09/2023 LPI OS: 12/04/24 CP250 for IOP18 on 4 12/13/23 CEIOL + KDB for angle closure and IOP13 on max topical 09/2023 LPI Ocular Medication Intol and Non-efficacy: Prior to KDB was on lumigan 11/04, cosopt 2/2, brim 2/2 Prior to CP was on latan 11/04, cosopt 0/2, brim 2/2 Now on latan 11/04, brim 2/0, Predforte 0/4, ciprof 0/4, emycin bren 0/1 Next on latan 1, brim 2/2, Predforte 0/4 on taper, cipro 0/4, emycin bren 0/1 -HVF 11/2024 OD full OS near complete wipe out, MD -24 -OCT 09/2024 OD full OS diffuse thinning, similar to prior # 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 I have seen and examined Ricki Huber. I have discussed the case and the management of this patient's care with the Resident/Fellow, if applicable. I also have reviewed and agree with the assessment and plan as stated above and agree with all of its relevant components. [facility] 12-30-2024 Miscellaneous Notes Patient's request for medication is as follows: Requested Prescriptions Pending Prescriptions Disp Refills latanoprost (XALATAN) 0.005 % ophthalmic solution 5 mL 11 Sig: Use 1 Drop in both eyes daily at bedtime. Prescription(s) as above. Please process accordingly. Georgette Temple [facility] [place] Steven Blancas MD filed at 12/14/2024 3:32 PM Status: Signed Tmax: 45, 47; Pachy: 684, 672 Lasers and Surgeries: OD:02/28/24 CEIOL + KDB for angle closure and IOP17 on 3 09/2023 LPI OS: 12/04/24 CP250 for IOP18 on 4 12/13/23 CEIOL + KDB for angle closure and IOP13 on max topical 09/2023 LPI Ocular Medication Intol and Non-efficacy: Prior to KDB was on lumigan 1/, cosopt 2/2, brim 2/2 Prior to CP was on latan 1, cosopt 0/2, brim 2/2 Now on latan 1/1, brim 2/0, Predforte 0/4, ciprof 0/4, emycin bren 0/1 Next on latan 11/04, brim 2/2, Predforte 0/4 on taper, cipro 0/4, emycin bren 0/1 -HVF 11/2024 OD full OS near complete wipe out, MD -24 -OCT 09/2024 OD full OS diffuse thinning, similar to prior # 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 I have seen and examined Ricki Huber. I have discussed the case and the management of this patient's care with the Resident/Fellow, if applicable. I also have reviewed and agree with the assessment and plan as stated above and agree with all of its relevant components. documented in this encounter [facility] 12-14-2024 Instructions Steven Blancas MD - 12/14/2024 3:31 PM EST Medication Eye # times daily Latanoprost (green cap) BOTH 1x daily (bedtime) Cosopt or dorzolamide + timolol (dark navy blue cap) STOP 2x daily Brimonidine (purple cap) BOTH 2x daily Erythromycin ointment (tube) LEFT 1x daily (bedtime) Ofloxacin (munoz cap) LEFT 4x daily Prednisolone (pink or white cap) LEFT 4x daily for 1 week, 3x daily for 1 week, 2x daily for 1 week, 1x daily for 1 week, then stop *please remember to wait at least 3 minutes between different drops in the same eye. 12/04/24 documented in this encounter [facility] 12-14-2024 History of Present illness Narrative Tmax: 45, 47; Pachy: 684, 672 Lasers and Surgeries: OD: 02/28/24 CEIOL + KDB for angle closure and IOP17 on 09/2023 LPI OS: 12/04/24 CP250 for IOP18 on 12/13/23 CEIOL + KDB for angle closure and IOP13 on max topical 09/2023 LPI Ocular Medication Intol and Non-efficacy: Prior to KDB was on lumigan 1/, cosopt 2/2, brim 2/2 Prior to CP was on latan 1/1, cosopt 0/2, brim 2/2 Now on latan 1/1, brim 2/0, Predforte 0/4, ciprof 0/4, emycin bren 0/1 Next on latan 1/1, brim 2/2, Predforte 0/4 on taper, cipro 0/4, emycin bren 0/1 -F 11/2024 OD full OS near complete wipe outMD -24 -OCT 09/2024 OD full OS diffuse thinning, similar to prior # 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 I have seen and examined Ricki Huber. I have discussed the case and the management of this patient's care with the Resident/Fellow, if applicable. I also have reviewed and agree with the assessment and plan as stated above and agree with all of its relevant components. documented in this encounter [facility] 12-14-2024 Note HNO ID: [id number] Author: STEVEN BLANCAS MD Service: ? Author Type: Physician Type: Progress Notes Filed: 12/14/2024 15:32 Note Text: Tmax: 45, 47; Pachy: 684, 672 Lasers and Surgeries: OD: 02/28/24 CEIOL + KDB for angle closure and IOP17 on 09/2023 LPI OS: 12/04/24 CP250 for IOP18 on 12/13/23 CEIOL + KDB for angle closure and IOP13 on max topical 09/2023 LPI Ocular Medication Intol and Non-efficacy: Prior to KDB was on lumigan 1/, cosopt 2/2, brim 2/2 Prior to CP was on latan 1, cosopt 0/2, brim 2/2 Now on latan 1/1, brim 2/0, Predforte 0/4, ciprof 0/4, emycin bren 0/1 Next on latan /, brim 2/2, Predforte 0/4 on taper, cipro 0/4, emycin bren 0/1 -HVF 11/2024 OD full OS near complete wipe out, MD -24 -OCT 09/2024 OD full OS diffuse thinning, similar to prior # 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 I have seen and examined Ricki Huber. I have discussed the case and the management of this patient's care with the Resident/Fellow, if applicable. I also have reviewed and agree with the assessment and plan as stated above and agree with all of its relevant components. [facility] 12-04-2024 Instructions Steven Blancas MD - 12/04/2024 1:46 PM EST Medication Eye # times daily Latanoprost (green cap) BOTH 1x daily (bedtime) Cosopt or dorzolamide + timolol (dark navy blue cap) STOP 2x daily Brimonidine (purple cap) RIGHT 2x daily Erythromycin ointment (tube) LEFT 1x daily (bedtime) Ofloxacin (munoz cap) LEFT 4x daily Prednisolone (pink or white cap) LEFT 4x daily for 2 weeks, 3x daily for 1 week, 2x daily for 1 week, 1x daily for 1 week, then stop *please remember to wait at least 3 minutes between different drops in the same eye. 12/04/24 documented in this encounter [facility] 12-04-2024 Note HNO ID: [id number] Author: STEVEN BLANCAS MD Service: ? Author Type: Physician Type: Progress Notes Filed: 12/04/2024 13:48 Note Text: Tmax: 45, 47; Pachy: 684, 672 Lasers and Surgeries: OD: 02/28/24 CEIOL + KDB for angle closure and IOP17 on 09/2023 LPI OS: 12/04/24 CP250 for IOP18 on 4 12/13/23 CEIOL + KDB for angle closure and IOP13 on max topical 09/2023 LPI Ocular Medication Intol and Non-efficacy: Prior to KDB was on lumigan 11/04, cosopt 2/2, brim 2/2 Prior to CP was on latan 11/04, cosopt 0/2, brim 2/2 Next on latan 11/04, brim 2/0, Predforte 0, ciprof 0, emycin bren -HVF 11/2024 OD full OS near complete wipe out, MD -24 -OCT 09/2024 OD full OS diffuse thinning, similar to prior # 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 I have seen and examined Ricki Huber. I have discussed the case and the management of this patient's care with the Resident/Fellow, if applicable. I also have reviewed and agree with the assessment and plan as stated above and agree with all of its relevant components. [facility] 12-04-2024 History of Present illness Narrative Tmax: 45, 47; Pachy: 684, 672 Lasers and Surgeries: OD: 02/28/24 CEIOL + KDB for angle closure and IOP17 on 09/2023 LPI OS: 12/04/24 CP250 for IOP18 on 4 12/13/23 CEIOL + KDB for angle closure and IOP13 on max topical 09/2023 LPI Ocular Medication Intol and Non-efficacy: Prior to KDB was on lumigan 1, cosopt 2/2, brim 2/2 Prior to CP was on latan 11/04, cosopt 0/2, brim 2/2 Next on latan 1, brim 2/0, Predforte 0/4, ciprof 0/4, emycin bren 0 -HVF 11/2024 OD full OS near complete wipe out, MD -24 -OCT 09/2024 OD full OS diffuse thinning, similar to prior # 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 I have seen and examined Ricki Huber. I have discussed the case and the management of this patient's care with the Resident/Fellow, if applicable. I also have reviewed and agree with the assessment and plan as stated above and agree with all of its relevant components. documented in this encounter [facility] 11-25-2024 History and physical note Images from the original note were not included. [facility] HISTORY AND PHYSICAL EXAMINATION SERVICE DATE: 11/25/2024 SERVICE TIME: 2:05 PM PRIMARY CARE PHYSICIAN: Cy Nixon APRN.SCALE ATTENDANT Assessment Patient has the following medical conditions which may affect jaquan-operative course: Hyperlipidemia LDL goal <130 Assessment: c/w statin Primary hypertension Assessment: controlled on rx Last 14 BP Last 14 Encounter BP Readings: Date: BP: 11/25/2024 140/78 11/20/2024 142/72 10/02/2024 160/78 08/07/2024 126/74 06/25/2024 165/95[took BP meds 45 mins ago[ 05/05/2024 110/76 02/28/2024 152/78 02/05/2024 126/74 01/20/2024 133/68 12/13/2023 202/92 11/29/2023 138/84 11/11/2023 127/64 11/06/2023 126/78 10/01/2023 148/78 Benign prostatic hyperplasia with weak urinary stream Assessment: controlled on rx Impaired fasting glucose Assessment: diet controlled Hemoglobin A1C (%) Date Value 09/04/2023 5.9 05/26/2020 5.9 ] History of left shoulder replacement Assessment: hx Obesity, Class III, BMI >= 40 Assessment: Body mass index is 42.58 kg/m . Blake Activity Status Index: METS: Climb a flight of stairs or walk up a hill (5.50 METs) DASI Score: 5.5 Patient denies any chest pain or undue shortness of breath with the above physical activity. Clinical Frailty Scale: 3. Well, with treated comorbid disease STOP-Bang Score: Snores loudly Has or is being treated for high blood pressure BMI greater than 35 kg/m^2 Patient over 50 years old Has a large neck Male patient Denies feeling tired, fatigued, or sleepy during the daytime Has not been observed to stop breathing or choking/gasping during sleep STOP-Bang Score: 6 [id number] Score: Age: 65-74 Sex: male CHF history: No Hypertension history: Yes Stroke/TIA/thromboembolism history: No Vascular disease history: No Diabetes history: No [id number] Score: 2 ARISCAT Score: Age: 51-80 Preoperative SpO2: 91-95% Respiratory infection in the last month: No Preoperative anemia: No Surgical incision: peripheral Duration of surgery: <2 hrs Emergency procedure: No ARISCAT Score: 11 ANESTHESIA FINDINGS: Intubation History: No history of difficult intubation Significant Anesthesia Considerations: none Airway History: No history of difficult airway I - PHYSICAL EVALUATION AIRWAY Patient intubated: No. Tracheostomy tube not present Mallampati: II. TM distance: >3 FB. Neck ROM: full ROM without neurological symptoms. Mouth opening: adequate. Short neck: no. Thick neck: yes Vazquez present: no Lip Bite Test: I Microretrognathia/Micronagthia/Rec essed Chin: No DENTAL Dental findings: teeth intact. Dentures, upper: complete. Additional comments: Upper plate implanted. II - ANESTHESIA PLAN Anesthetic Plan: other Beta Jameel Monitoring Plan Post Procedure Analgesic Plan Prepared for Surgery: optimally prepared for surgery. CONSULTS: Patient does not require consults for optimization at this time Planned Anesthetic: other anesthesia choice The Following Tests/Procedures Have Been Initiated: No orders of the defined types were placed in this encounter. REASON FOR VISIT: Ricki Huber is a 69 year old male who is scheduled for Procedure(s): AQUEOUS SHUNT TO EXTRAOCULAR EQUATORIAL PLATE RESERVOIR EXTERNAL APPROACH W/GRAFT (Left) at the request of @[email or web address]@ for consultation. My final recommendation will be communicated back to the requesting physician by way of shared medical record or letter. Subjective The patient has the following: COVID-19 Immunization Status Postponed - Covid-19 Vaccine () Postponed until 08/07/2025 08/07/2024 Postponed until 08/07/2025 by Perla Magaña MA (Declined at this time) 09/02/2023 Postponed until 09/02/2024 by Denisse Calero MA (Declined at this time) 11/12/2022 Imm Admin: COVID-19 vaccine, age 12+ yr, bivalent (MODERNA) Only the first 3 history entries have been loaded, but more history exists. CHIEF COMPLAINT: Pre-op exam HPI: Ricki Huber is a 69 year old seen for PAC due to scheduled above surgery because of severe glaucoma. REVIEW OF SYSTEMS: General: No weight loss, malaise or fevers. Neurological: No history of TIA's, stroke, TRACTOR DISTRIBUTOR tumor, impaired sensorium, hemiplegia, paraplegia or quadraplegia. No neurological symptoms or problems. Respiratory: +former smoker 1.5ppd/15 years Positive for: URI < 2 weeks. Negative for: asthma, COPD, current cough, dyspnea, pneumonia within 6 weeks, tobacco use and obstructive sleep apnea. Cardiovascular: Positive for: hyperlipidemia (on rx) and hypertension (on rx) Negative for: abdominal aortic aneurysm, AICD/PPM, angina, anticoagulation therapy, arrhythmia, atrial fibrillation, CAD, chest pain, CHF, congenital heart defect, DVT/PE, recent [place], murmur/valvular heart disease, PTCA, PVD, open heart surgery and valve surgery. GI: No history of GI symptoms or problems. No history of esophageal varices, recent ascites, or ETOH greater than 2 drinks per day. : Positive for: BPH (on rx). Negative for: urinary incontinence, nephrolithiasis, renal failure and urinary tract infection. Endocrine: +prediabetes, diet controlled. No history of diabetes. Has not taken steroids within the past 30 days. No history of endocrinological symptoms or problems. Hematology: No history of bleeding or clotting disorder. Patient is not taking anti-coagulation or platelet medications. No history of hematological symptoms or problems. Oncology: No history of CA metastasis, chemo within 30 days, or radiotherapy within 90 days. No history of oncological symptoms or problems. Psych: No history of psychiatric symptoms or problems. Musculoskeletal: +left shoulder replacement. Negative for joint pain or swelling, back pain or muscle pain. Skin: Negative for lesions, rash and itching. Implanted Devices: No implanted devices. 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 Belle/Dr. Zelaya Primary hypertension PAST SURGICAL HISTORY Procedure Laterality Date COLSC FLX W/REMOVAL LESION BY HOT BX FORCEPS 07/13/2016 hyperplastic- 5 year follow up DENTAL SURGERY HX 2018 top implant GONIOTOMY Left 12/13/2023 HEART CATHETERIZATION 11/04/2003 raina PAST SURGICAL HISTORY OF x 2 Left knee surgery REMV CATARACT EXTRACAP,INSERT LENS Left 12/13/2023 phacoemulsification KDB REMV CATARACT EXTRACAP,INSERT LENS Right 02/28/2024 GONIOTOMY - Right with Steven Blancas MD on 02/28/2024 REPAIR UMBILICAL HERNIA 11/13/2012 SHOULDER SURGERY HX Left 2019 total replacement FAMILY HISTORY Problem Relation Age of Onset Heart Mother on mom's side not sure who COPD Mother from COPD age 82 Diabetes Mother on mom's side not sure who Hypertension Father 84 Heart Failure Father Social History Tobacco Use Smoking status: Former Current packs/day: 1.50 Average packs/day: 1.5 packs/day for 10.0 years (15.0 ttl pk-yrs) Types: Cigarettes Smokeless tobacco: Former Tobacco comments: quit 1998 aftyer smoking off and on for years Vaping Use Vaping status: Never Used Substance Use Topics Alcohol use: Yes Comment: 1-2 week Drug use: No Prior to Admission medications as of 11/25/24 1350 Medication Sig Last Dose Taking prednisoLONE acetate (PRED FORTE) 1 % ophthalmic suspension Use 1 Drop in the left eye four times daily. For use AFTER surgery. Taking Yes ciprofloxacin HCl (CILOXAN) 0.3 % ophthalmic solution Use 1 Drop in the left eye four times daily. AFTER surgery Taking Yes brimonidine (ALPHAGAN) 0.2 % ophthalmic solution Use 1 Drop in both eyes two times a day. Taking Yes dorzolamide-timolol (COSOPT) 22.3-6.8 mg/mL ophthalmic solution Use 1 Drop in both eyes two times a day. Taking Yes lisinopril (ZESTRIL) 20 mg tablet Take 1 tablet by mouth once daily. Taking Yes fluvastatin (LESCOL) 20 mg capsule Take 1 capsule by mouth daily at bedtime. Taking Yes tamsulosin (FLOMAX) 0.4 mg Take 1 capsule by mouth daily at bedtime. Taking Yes latanoprost (XALATAN) 0.005 % ophthalmic solution Use 1 Drop in both eyes daily at bedtime. Taking Yes ibuprofen (MOTRIN) 200 mg tablet Take 200 mg by mouth every 6 hours as needed. Taking Yes Medication Comments documented by Carmela Zacarias LPN on 06/02/2012 at 0806. Taking no meds 06/02/2012 ALLERGIES Allergen Reactions Penicillins Hives Objective PHYSICAL EXAM: General: alert and oriented (x3), healthy appearance and morbidly obese. Pertinent negatives noted - not distressed. Skin: normal color, no rash or lesions. HEENT: EOM intact and pupils equal round. Pertinent negatives noted - no carotid bruit. Cardiovascular: regular rate and rhythm, normal S1 and S2, no rub, murmurs, or gallop. Respiratory: normal breath sounds, no wheezes or crackles. No chest wall deformity or tenderness. Abdomen: soft. Pertinent negatives noted - not tender. Extremities: no deformity, no edema or tenderness, no joint swelling or clubbing. Neurological: normal cognition and motor skills. Gait normal. No weakness or sensory deficit. PAIN ASSESSMENT: VITALS: BP 140/78 Pulse 82 Temp (Src) 98.1 (Temporal) Resp 14 Ht 5' 10.5 (1.79m) Wt 301 lb (136.5kg) SpO2 95% BMI 42.56 kg/(m^2). Diagnostic tests reviewed for today's visit: Lab Value Units Date High Low HB No results within date range. HCT No results within date range. WBC No results within date range. PLT No results within date range. NA No results within date range. K No results within date range. GLUC No results within date range. BUN No results within date range. CREAT No results within date range. PTSEC No results within date range. INR No results within date range. APTT No results within date range. ALT No results within date range. AST No results within date range. TBILI No results within date range. TSH No results within date range. Lab Value Units Date High Low HCGQT No results within date range. UHCG No results within date range. HCG, BODY* No results within date range. Lab Value Units Date High Low ABORHD No results within date range. ABSCREEN No results within date range. Hemoglobin A1C (%) Date Value 09/04/2023 5.9 05/26/2020 5.9 08/20/2016 5.7 No results found for this or any previous visit (from the past 8760 hour(s)). Recent Results (from the past 76785 hour(s)) ECHO Collection Time: 02/25/24 8:51 AM Impression CONCLUSIONS: - Technically difficult exam due to body habitus. - Exam indication: Abnormal ECG - The left ventricle is normal in size. Left ventricular systolic function is normal. EF = 59 5% (2D 4-ch.) Normal left ventricular diastolic function. - The right ventricle is normal in size. Right ventricular systolic function is normal. - There are no significant valvular abnormalities. - Definity unavailable. - The patient has not had a prior CC echocardiographic exam for comparison. * * * Final * * * Instructions Given to Patient: Instructions located in the after visit summary. Patient given verbal and written preop instructions and voices comprehension and compliance. SIGNATURE: Dolly Desouza APRN.CNP PATIENT NAME: Ricki Huber DATE: November 25, 2024 TIME: 1:51 PM PAGER/CONTACT #: [facility] 11-25-2024 History and physical note Images from the original note were not included. [facility] HISTORY AND PHYSICAL EXAMINATION SERVICE DATE: 11/25/2024 SERVICE TIME: 2:05 PM PRIMARY CARE PHYSICIAN: Cy Nixon APRN.CNP Assessment Patient has the following medical conditions which may affect jaquan-operative course: Hyperlipidemia LDL goal <130 Assessment: c/w statin Primary hypertension Assessment: controlled on rx Last 14 BP Last 14 Encounter BP Readings: Date: BP: 11/25/2024 140/78 11/20/2024 142/72 10/02/2024 160/78 08/07/2024 126/74 06/25/2024 165/95[took BP meds 45 mins ago[ 05/05/2024 110/76 02/28/2024 152/78 02/05/2024 126/74 01/20/2024 133/68 12/13/2023 202/92 11/29/2023 138/84 11/11/2023 127/64 11/06/2023 126/78 10/01/2023 148/78 Benign prostatic hyperplasia with weak urinary stream Assessment: controlled on rx Impaired fasting glucose Assessment: diet controlled Hemoglobin A1C (%) Date Value 09/04/2023 5.9 05/26/2020 5.9 ] History of left shoulder replacement Assessment: hx Obesity, Class III, BMI >= 40 Assessment: Body mass index is 42.58 kg/m . Blake Activity Status Index: METS: Climb a flight of stairs or walk up a hill (5.50 METs) DASI Score: 5.5 Patient denies any chest pain or undue shortness of breath with the above physical activity. Clinical Frailty Scale: 3. Well, with treated comorbid disease STOP-Bang Score: Snores loudly Has or is being treated for high blood pressure BMI greater than 35 kg/m^2 Patient over 50 years old Has a large neck Male patient Denies feeling tired, fatigued, or sleepy during the daytime Has not been observed to stop breathing or choking/gasping during sleep STOP-Bang Score: 6 [id number] Score: Age: 65-74 Sex: male CHF history: No Hypertension history: Yes Stroke/TIA/thromboembolism history: No Vascular disease history: No Diabetes history: No [id number] Score: 2 ARISCAT Score: Age: 51-80 Preoperative SpO2: 91-95% Respiratory infection in the last month: No Preoperative anemia: No Surgical incision: peripheral Duration of surgery: <2 hrs Emergency procedure: No ARISCAT Score: 11 ANESTHESIA FINDINGS: Intubation History: No history of difficult intubation Significant Anesthesia Considerations: none Airway History: No history of difficult airway I - PHYSICAL EVALUATION AIRWAY Patient intubated: No. Tracheostomy tube not present Mallampati: II. TM distance: >3 FB. Neck ROM: full ROM without neurological symptoms. Mouth opening: adequate. Short neck: no. Thick neck: yes Vazquez present: no Lip Bite Test: I Microretrognathia/Micronagthia/Rec essed Chin: No DENTAL Dental findings: teeth intact. Dentures, upper: complete. Additional comments: Upper plate implanted. II - ANESTHESIA PLAN Anesthetic Plan: other Beta Jameel Monitoring Plan Post Procedure Analgesic Plan Prepared for Surgery: optimally prepared for surgery. CONSULTS: Patient does not require consults for optimization at this time Planned Anesthetic: other anesthesia choice The Following Tests/Procedures Have Been Initiated: No orders of the defined types were placed in this encounter. REASON FOR VISIT: Ricki Huber is a 69 year old male who is scheduled for Procedure(s): AQUEOUS SHUNT TO EXTRAOCULAR EQUATORIAL PLATE RESERVOIR EXTERNAL APPROACH W/GRAFT (Left) at the request of @[email or web address]@ for consultation. My final recommendation will be communicated back to the requesting physician by way of shared medical record or letter. Subjective The patient has the following: COVID-19 Immunization Status Postponed - Covid-19 Vaccine ( season) Postponed until 08/07/2025 08/07/2024 Postponed until 08/07/2025 by Perla Magaña MA (Declined at this time) 09/02/2023 Postponed until 09/02/2024 by Denisse Calero MA (Declined at this time) 11/12/2022 Imm Admin: COVID-19 vaccine, age 12+ yr, bivalent (MODERNA) Only the first 3 history entries have been loaded, but more history exists. CHIEF COMPLAINT: Pre-op exam HPI: Ricki Huber is a 69 year old seen for PAC due to scheduled above surgery because of severe glaucoma. REVIEW OF SYSTEMS: General: No weight loss, malaise or fevers. Neurological: No history of TIA's, stroke, TRACTOR DISTRIBUTOR tumor, impaired sensorium, hemiplegia, paraplegia or quadraplegia. No neurological symptoms or problems. Respiratory: +former smoker 1.5ppd/15 years Positive for: URI < 2 weeks. Negative for: asthma, COPD, current cough, dyspnea, pneumonia within 6 weeks, tobacco use and obstructive sleep apnea. Cardiovascular: Positive for: hyperlipidemia (on rx) and hypertension (on rx) Negative for: abdominal aortic aneurysm, AICD/PPM, angina, anticoagulation therapy, arrhythmia, atrial fibrillation, CAD, chest pain, CHF, congenital heart defect, DVT/PE, recent [place], murmur/valvular heart disease, PTCA, PVD, open heart surgery and valve surgery. GI: No history of GI symptoms or problems. No history of esophageal varices, recent ascites, or ETOH greater than 2 drinks per day. : Positive for: BPH (on rx). Negative for: urinary incontinence, nephrolithiasis, renal failure and urinary tract infection. Endocrine: +prediabetes, diet controlled. No history of diabetes. Has not taken steroids within the past 30 days. No history of endocrinological symptoms or problems. Hematology: No history of bleeding or clotting disorder. Patient is not taking anti-coagulation or platelet medications. No history of hematological symptoms or problems. Oncology: No history of CA metastasis, chemo within 30 days, or radiotherapy within 90 days. No history of oncological symptoms or problems. Psych: No history of psychiatric symptoms or problems. Musculoskeletal: +left shoulder replacement. Negative for joint pain or swelling, back pain or muscle pain. Skin: Negative for lesions, rash and itching. Implanted Devices: No implanted devices. 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 Belle/Dr. Zelaya Primary hypertension PAST SURGICAL HISTORY Procedure Laterality Date COLSC FLX W/REMOVAL LESION BY HOT BX FORCEPS 07/13/2016 hyperplastic- 5 year follow up DENTAL SURGERY HX 2018 top implant GONIOTOMY Left 12/13/2023 HEART CATHETERIZATION 11/04/2003 raina PAST SURGICAL HISTORY OF x 2 Left knee surgery REMV CATARACT EXTRACAP,INSERT LENS Left 12/13/2023 phacoemulsification KDB REMV CATARACT EXTRACAP,INSERT LENS Right 02/28/2024 GONIOTOMY - Right with Steven Blancas MD on 02/28/2024 REPAIR UMBILICAL HERNIA 11/13/2012 SHOULDER SURGERY HX Left 2019 total replacement FAMILY HISTORY Problem Relation Age of Onset Heart Mother on mom's side not sure who COPD Mother from COPD age 82 Diabetes Mother on mom's side not sure who Hypertension Father 84 Heart Failure Father Social History Tobacco Use Smoking status: Former Current packs/day: 1.50 Average packs/day: 1.5 packs/day for 10.0 years (15.0 ttl pk-yrs) Types: Cigarettes Smokeless tobacco: Former Tobacco comments: quit 1998 aftyer smoking off and on for seveeral years Vaping Use Vaping status: Never Used Substance Use Topics Alcohol use: Yes Comment: 1-2 week Drug use: No Prior to Admission medications as of 11/25/24 1350 Medication Sig Last Dose Taking prednisoLONE acetate (PRED FORTE) 1 % ophthalmic suspension Use 1 Drop in the left eye four times daily. For use AFTER surgery. Taking Yes ciprofloxacin HCl (CILOXAN) 0.3 % ophthalmic solution Use 1 Drop in the left eye four times daily. AFTER surgery Taking Yes brimonidine (ALPHAGAN) 0.2 % ophthalmic solution Use 1 Drop in both eyes two times a day. Taking Yes dorzolamide-timolol (COSOPT) 22.3-6.8 mg/mL ophthalmic solution Use 1 Drop in both eyes two times a day. Taking Yes lisinopril (ZESTRIL) 20 mg tablet Take 1 tablet by mouth once daily. Taking Yes fluvastatin (LESCOL) 20 mg capsule Take 1 capsule by mouth daily at bedtime. Taking Yes tamsulosin (FLOMAX) 0.4 mg Take 1 capsule by mouth daily at bedtime. Taking Yes latanoprost (XALATAN) 0.005 % ophthalmic solution Use 1 Drop in both eyes daily at bedtime. Taking Yes ibuprofen (MOTRIN) 200 mg tablet Take 200 mg by mouth every 6 hours as needed. Taking Yes Medication Comments documented by Carmela Zacarias LPN on 06/02/2012 at 0806. Taking no meds 06/02/2012 ALLERGIES Allergen Reactions Penicillins Hives Objective PHYSICAL EXAM: General: alert and oriented (x3), healthy appearance and morbidly obese. Pertinent negatives noted - not distressed. Skin: normal color, no rash or lesions. HEENT: EOM intact and pupils equal round. Pertinent negatives noted - no carotid bruit. Cardiovascular: regular rate and rhythm, normal S1 and S2, no rub, murmurs, or gallop. Respiratory: normal breath sounds, no wheezes or crackles. No chest wall deformity or tenderness. Abdomen: soft. Pertinent negatives noted - not tender. Extremities: no deformity, no edema or tenderness, no joint swelling or clubbing. Neurological: normal cognition and motor skills. Gait normal. No weakness or sensory deficit. PAIN ASSESSMENT: VITALS: BP 140/78 Pulse 82 Temp (Src) 98.1 (Temporal) Resp 14 Ht 5' 10.5 (1.79m) Wt 301 lb (136.5kg) SpO2 95% BMI 42.56 kg/(m^2). Diagnostic tests reviewed for today's visit: Lab Value Units Date High Low HB No results within date range. HCT No results within date range. WBC No results within date range. PLT No results within date range. NA No results within date range. K No results within date range. GLUC No results within date range. BUN No results within date range. CREAT No results within date range. PTSEC No results within date range. INR No results within date range. APTT No results within date range. ALT No results within date range. AST No results within date range. TBILI No results within date range. TSH No results within date range. Lab Value Units Date High Low HCGQT No results within date range. UHCG No results within date range. HCG, BODY* No results within date range. Lab Value Units Date High Low ABORHD No results within date range. ABSCREEN No results within date range. Hemoglobin A1C (%) Date Value 09/04/2023 5.9 05/26/2020 5.9 08/20/2016 5.7 No results found for this or any previous visit (from the past 8760 hour(s)). Recent Results (from the past 77686 hour(s)) ECHO Collection Time: 02/25/24 8:51 AM Impression CONCLUSIONS: - Technically difficult exam due to body habitus. - Exam indication: Abnormal ECG - The left ventricle is normal in size. Left ventricular systolic function is normal. EF = 59 5% (2D 4-ch.) Normal left ventricular diastolic function. - The right ventricle is normal in size. Right ventricular systolic function is normal. - There are no significant valvular abnormalities. - Definity unavailable. - The patient has not had a prior [facility] echocardiographic exam for comparison. * * * Final * * * Instructions Given to Patient: Instructions located in the after visit summary. Patient given verbal and written preop instructions and voices comprehension and compliance. SIGNATURE: Dolly Desouza APRN.CNP PATIENT NAME: Ricki Huber DATE: November 25, 2024 TIME: 1:51 PM PAGER/CONTACT #: documented in this encounter [facility] 11-25-2024 Instructions Dolyl Desouza APRN.CNP - 11/25/2024 1:50 PM EST Images from the original note were not included. [facility] PATIENT PREOPERATIVE INSTRUCTIONS No ref. provider found has scheduled you for your procedure at this surgery center: [facility]: [phone] --[facility] [place], [address] [place] [address]. Please read below carefully for your personalized instructions. Dietary Restrictions: - No solid food after midnight. - You may have 12 ounces of clear liquids (water, clear juices such as apple juice or gatorade, carbonated beverages, clear tea, black coffee, jello) until 2 hours before scheduled arrival at facility. Medications: Unless instructed differently below, stay on all of your medications until your surgery. If you start any new medications after today's visit, please contact your surgeon. Pre-Surgery Med Instructions Medication Instructions prednisoLONE acetate (PRED FORTE) 1 % ophthalmic suspension Take the day of surgery with a small sip of water ciprofloxacin HCl (CILOXAN) 0.3 % ophthalmic solution Take the day of surgery with a small sip of water brimonidine (ALPHAGAN) 0.2 % ophthalmic solution Take the day of surgery with a small sip of water dorzolamide-timolol (COSOPT) 22.3-6.8 mg/mL ophthalmic solution Take the day of surgery with a small sip of water lisinopril (ZESTRIL) 20 mg tablet Take the day of surgery with a small sip of water fluvastatin (LESCOL) 20 mg capsule Take the day of surgery with a small sip of water tamsulosin (FLOMAX) 0.4 mg Take the day of surgery with a small sip of water latanoprost (XALATAN) 0.005 % ophthalmic solution Take the day of surgery with a small sip of water ibuprofen (MOTRIN) 200 mg tablet Stop 7 days before surgery If you take any medications for erectile dysfunction-Cialis (Tadalafil), Levitra, Staxyn (Vardenafil) Viagra (Sildenenafil please do not take these for 48 hours before surgery. If you start any new medications after today's visit, please contact the surgeon's office. If you are currently using a [id number] injectable or oral medication for diabetes or weight loss such as Dulaglutide (Trulicity), Exenatide (Byetta, Bydureon), Liraglutide (Victoza, Saxenda), Semaglutide (Ozempic, Wegovy, Rybelsus), or Tirzepatide (Mounjaro), the medicine should be stopped at least 7 days before surgery. These medicines can cause food to remain in your stomach for a very long time and increase the risks from surgery and anesthesia. Not stopping the medication for a long enough time may result in your surgery being rescheduled. Blood Thinning Medications: - Stop NSAIDS (Ibuprofen, Advil, Aleve, Motrin, Celebrex, Mobic, etc.) 7 days before surgery, as directed by your surgeon. - Stop Aspirin 7 days before surgery, as directed by your surgeon. - Stop ALL herbal and dietary supplements 7 days before surgery. - You may take Tylenol (Acetaminophen) or any of your pain medications that do not contain aspirin or NSAIDS as needed. Important Reminders: - Candy, mints, and tobacco products are NOT permitted the morning of surgery. - Hearing aids, dentures and glasses may be worn the morning of surgery. - NO jewelry, body piercings, makeup, hairpins or contacts are to be worn the day of surgery. If you develop symptoms such as a fever, cold, or flu, or have other changes to your health within TWO DAYS of scheduled surgery or the morning of surgery, please contact the surgery center above. Personal Belongings: -Please have photo ID and insurance cards. -If you do not have a copy of advance directives on file with us, please bring a copy with you on the day of surgery. - Leave ALL valuables and money at home or with family members. - Please bring high-quality footwear, such as sneakers, to the hospital for ambulating post-surgery. For Outpatient Procedures: - YOU MUST HAVE A RESPONSIBLE SAMPLE EXAMINER TAKE YOU HOME. A DONATION WORKER OR REAL ESTATE FIRM MANAGER CANNOT BE MADE A RESPONSIBLE SAMPLE EXAMINER. - We recommend that a responsible person stays with you overnight to take care of you. - You cannot stay in a hotel alone after outpatient surgery. You will not be permitted to have your surgery, if you do not have someone to take care of you. Arrival Time for Surgery: - The Surgery Center or hospital where you are having surgery will call the afternoon before surgery (or Saturday for Saturday surgery) with a scheduled arrival time. - If you have not heard by 4 pm, please contact the surgery center above. Please be aware that emergency situations arise, which may delay or change your surgical time. If this happens, we will notify you as soon as possible and regret any inconvenience. If you already have an Advance Directive, please fax a copy to [phone] or email to for it to be added to your chart. If you do not have an Advance Directive, you can find the appropriate form and more information at [email or web address]. We recommend that you complete the Advance Directive form found on the website and bring it with you the day of your surgery. It can be witnessed and scanned into your chart that day. Dolly Desouza APRN.FAVIOLA documented in this encounter [facility] 11-16-2024 Instructions Steven Blancas MD - 11/16/2024 2:37 PM EST Images from the original note were not included. I have requested that you be scheduled for eye surgery. Please call my hospitality intern. She will call you in the next few days if she doesn't hear from you. Nereida (hospitality intern): [phone] Dr. Steven Blancas's office: [phone] if you have any questions. There will be a visit at 1 day, 1 week, 3 weeks, 6 weeks, 10 weeks after surgery. Additional visits may be necessary depending on the healing process. What is a tube-shunt? A tube-shunt is a glaucoma drainage device that is surgically implanted to lower the pressure within the eye (intraocular pressure) for the treatment of glaucoma. It consists of a tube attached to a plate (Figure 1), which allows fluid to drain from the inside of the eye to the outer layers of the eye to be resorbed ultimately by veins and lymphs. The tube and plate are covered by your own tissues and by donor tissue. The tube stays in the eye to lower the eye pressure intermediate. However, 15% of patients produce more fluid than the capacity of one tube and may need a second tube implanted or another glaucoma procedure in the future. Figure 1. [place] Tube-shunt Why is this device implanted? A glaucoma tube-shunt is implanted when glaucoma eye drops (and sometimes laser treatments) have failed to effectively lower the intraocular pressure. The main goal of the implant is to allow fluid to leave the eye so that the intraocular pressure will decrease and, therefore, prevent further vision loss from glaucoma. How is the procedure done? Before the day of surgery You will have a brief physical examination that may include an electrocardiogram (a heart tracing) and blood work. This will be scheduled for you. If you are having cataract surgery at the same time, measurements of your eyes will be taken for calculating the correct power lens implant. Preparing for surgery On the day of surgery you will go to the surgical suite on the first floor of [facility]. You will check in at the desk and the nurses will take you into the pre-op area. The nurse will begin an intravenous (IV) line in one of your veins. Medication is given through the IV that will make you feel quite relaxed; in fact you will probably fall asleep for a few minutes. You will be given numbing medicine on and around your eye (local anesthesia). You be partially awake but relaxed through the entire procedure. You will hear us talking but shouldn t feel any pain. You will be encouraged to let us know if you are feeling anxiety, pain, or any other discomfort so we can work to keep you comfortable. In rare cases, we may put you totally asleep (general anesthesia) if you have claustrophobia or are very nervous about being awake during surgery. Usually, being awake is preferable because it is less stressful for the body than general anesthesia and the recovery is much quicker. Once the eye is numb, the entire area around the eye is carefully cleaned with a special soap. Drapes are placed over your face leaving the operative eye exposed (you won t be able to see much out of that eye due to the numbing medicine). Plenty of oxygen will be flowing underneath the drape and the anesthesiologist will be constantly monitoring the amount of air that you have to breathe, as well as your heart rhythm and blood pressure. If you are on blood thinners, it is generally ok to continue taking these medications, but do let your eye surgeon know. Although blood thinners can raise the risk of bleeding during or after surgery, in general we ask you stay on them to avoid blood clots that could cause you to have a heart attack or stroke. The surgery The operation is done with you lying on your back. We are looking through a microscope that is suspended over your face. The figure below shows a sketch of a tube surgery. We use a special speculum to help you hold your eyelids open. We then make an incision in the conjunctiva, a clear, thin tissue that coats the surface of the white of the eye. Figure 2 A) The tube-shunt is placed under the surface tissue of the eye (conjunctiva). It is sutured into place. B) A patch graft of human sclera or cornea covers the tube. This may be visible as a fleshy or white fullness once the blood clears. The plate is fastened to the sclera, which is the white of the eye (Figure 2A). The tube is inserted in front of the iris, which is the colored part of the eye. A small piece of donor cornea (clear) or sclera (white) is then placed over the tube (Figure 2B). We use this tissue because it is very tough and very well tolerated. The conjunctiva is then put back into place to cover everything. How long is the surgery? The surgery usually takes about 40 to 60 min. When the surgery is completed we will placed some ointment in the eye and may put a patch over the eye. What do I do after surgery? If you have a patch there is nothing for you to do the day of surgery except continue any medications in your other (non-operative) eye. You should leave the patch in place. We want you to maintain a fairly normal level of activity but refrain from bending with your head below your heart, lifting more than 10-15 lbs., or straining. If you tend to be constipated it is good to take a stool softener to keep from straining on the toilet. Most eyes are very comfortable after surgery. Slight scratching from the sutures is common, but these sutures will dissolve. If you have discomfort you should take acetaminophen (Tylenol) and non-steroidal anti-inflammatory (NSAIDS) pain medicines such as ibuprofen or Aleve. What to expect after implant surgery The tube is tied off with a dissolvable suture to disable it for the early post-operative period. The suture dissolves spontaneously in about five to six weeks. By that time, a fibrous tissue will have formed over the plate creating resistance to fluid leaving the eye and preventing the pressure from dropping too low. You will likely be on some or all of your current glaucoma medications until the tube opens. When the tube opens you may have blurry vision and floaters. This is a normal phenomenon and will clear up within a few days. Once the tube is open, some of your glaucoma eye drops may gradually be discontinued. However, most people with tube implants will need some eye drops to help the tube control their pressure in the long run. Postoperatively, you will be unable to see the tube in your eye because it is small and clear. We can see it easily during your examination (Figure 4). FIGURE 4. Tube in front of the iris inside the eye You may, however, notice a small white or clear fullness underneath your eyelid after the blood and inflammation have cleared (Figure 5). This is the donor tissue that is overlying your tube. FIGURE 5. Tissue covering tube The day after surgery On the morning after the surgery we will remove your patch, check your vision, check your pressure, and tube implant. You should expect your vision to be somewhat blurry for a while after surgery. We will then begin you on steroid and antibiotic eye drops, listed below. Medications You will probably be given prednisolone acetate to be used 4 times a day while you are awake. This is a steroid drop that helps to prevent the eye from scarring shut the new drainage bleb that was just created. This will be gradually weaned as the eye heals. It is best to pick this medication up before surgery; the prescription should have been sent to your pharmacy. An antibiotic drop such as ofloxacin, is also used four times a day when you are awake. Typically this drop will be stopped after 7 days. We will give you this medication on the day of surgery. Eye protection The surgery is delicate, so you need to be gentle with the eye for the first few weeks. We want you to keep your eye protected at all times during the first three weeks after surgery. You can wear glasses or sunglasses during the daytime and wear the metal shield that we provide at bedtime. Postoperative concerns The surgery is delicate, so you need to be gentle with the eye for the first few week or two. We want you to keep your eye protected at all times during the first week after surgery. You can wear glasses or sunglasses during the daytime and wear the metal shield that we provide at bedtime. What do the postoperative visits consist of? We measure your vision and eye pressure and make sure the eye is healing appropriately. We will discuss any adjustments in your medications. The eye pressure may be good, too high, or too low right after surgery. Over time we try to coax the healing process to produce a well-controlled eye pressure for you. What if the tube surgery fails? Some patients feel that surgery is the last resort and that, if it fails, they are out of options. This is certainly not true. Other glaucoma surgeries are available that can work even after tube implant fails. Are there any long-term lifestyle adjustments? Most people after a tube shunt lead a life that is no different than it was before the surgery. However, there are a few things for you to be aware of over the intermediate. First, and most important, people with tube implants should always avoid eye rubbing as it can cause the implant to damage the eye. If you ever get an eye infection or redness, discharge, or pain in the eye, it is important for you to be examined very soon by an eye doctor. Swimming Patients who have tube surgeries should not swim with their eyes open under water. Water in lakes and pools is not especially clean, and if you get an infection in your eye it can be very serious. Patients who must swim with their head in the water should wear goggles. Contact lenses We discourage people with tube implants from wearing contact lenses, especially soft contact lenses, after tube shunt placement. For people who need contact lenses, rigid gas permeable lenses are an option and should be fitted by an ndt inspector with a knowledge of fitting contact lenses in eyes with tube implants. Are there any other complications? The most common problem is eye pressure not as low as we want it to be. Although high eye pressure commonly improves during the healing process, sometimes it can stay high. Much less commonly, the pressure go too low and stay too low. If the pressure stays too high, or if it is low causing blurring of the vision, additional measures will be required to increase the pressure. There is an increased risk of developing a cataract earlier in the eye after surgery if you haven t already had cataract surgery. There is a small risk of damage to the cornea after years of having a tube, but often this can be caught early and repaired. After any eye surgery the eyelid can become droopier, or you may experience double vision. Serious complications are uncommon and consist of bleeding and infection. 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 I have seen and examined Ricki Huber. I have discussed the case and the management of this patient's care with the Resident/Fellow, if applicable. I also have reviewed and agree with the assessment and plan as stated above and agree with all of its relevant components. documented in this encounter [facility] 11-16-2024 Note HNO ID: [id number] Author: STEVEN BLANCAS MD Service: ? 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 I have seen and examined Ricki Huber. I have discussed the case and the management of this patient's care with the Resident/Fellow, if applicable. I also have reviewed and agree with the assessment and plan as stated above and agree with all of its relevant components. [facility] 10-03-2024 Telephone encounter Note Patient returned missed call and received the provider's message and voiced understanding. [facility] 10-03-2024 Miscellaneous Notes Patient returned missed call and received the provider's message and voiced understanding. Left message for pt to call back. Marie Melara MA Please call patient let him know that x-ray was normal. No fractures were noted. Patient does not have to meliza tape his finger anymore. Give it a couple weeks and follow-up with PCP if symptoms are not improved. documented in this encounter [facility] 10-03-2024 Telephone encounter Note Left message for pt to call back. Marie Melara MA [facility] 10-03-2024 Telephone encounter Note Please call patient let him know that x-ray was normal. No fractures were noted. Patient does not have to meliza tape his finger anymore. Give it a couple weeks and follow-up with PCP if symptoms are not improved. [facility] Work Phone: 10-03-2024 History of Present illness Narrative Radiology Service Progress Note PATIENT NAME: Ricki Huber DATE OF SERVICE: October 03, 2024 TIME: 8:09 AM PATIENT IDENTITY VERIFICATION COMPLETED USING TWO (2) IDENTIFIERS: Name and Date of confirmed by patient verbally. FALL SCREENING: Has the patient had 2 falls in the last year or 1 fall with injury or currently using an Ambulatory Assistive Device (Walker, Cane, Wheelchair, Crutches, etc.)? No PATIENT GENDER DATA: Male PATIENT RELEVANT IMPLANT DATA REVIEWED: Not Applicable PATIENT PRESENTS WITH AN IMPLANTABLE OR ATTACHED JAVA ENTERPRISE ARCHITECT: No RADIOLOGY DEPARTMENT: General X-ray: Exam(s) Completed: Upper Extremity X-Ray(s): Fingers/Thumb, right PERIPHERAL IV DATA: Not applicable SIGNED BY: CIRILO Britton) October 03, 2024 8:09 AM documented in this encounter [facility] 10-03-2024 Note HNO ID: [id number] Author: ALBINO CÁRDENAS RT(R) Service: Radiology Author Type: Technologist Type: Progress Notes Filed: 10/03/2024 08:16 Note Text: Radiology Service Progress Note PATIENT NAME: Ricki Huber DATE OF SERVICE: October 03, 2024 TIME: 8:09 AM PATIENT IDENTITY VERIFICATION COMPLETED USING TWO (2) IDENTIFIERS: Name and Date of confirmed by patient verbally. FALL SCREENING: Has the patient had 2 falls in the last year or 1 fall with injury or currently using an Ambulatory Assistive Device (Walker, Cane, Wheelchair, Crutches, etc.)? No PATIENT GENDER DATA: Male PATIENT RELEVANT IMPLANT DATA REVIEWED: Not Applicable PATIENT PRESENTS WITH AN IMPLANTABLE OR ATTACHED JAVA ENTERPRISE ARCHITECT: No RADIOLOGY DEPARTMENT: General X-ray: Exam(s) Completed: Upper Extremity X-Ray(s): Fingers/Thumb, right PERIPHERAL IV DATA: Not applicable SIGNED BY: RT Tobi(R) October 03, 2024 8:09 AM [facility] 10-02-2024 History of Present illness Narrative Patient presents with: Hand Injury: Right HPI: Right fifth finger injury: Duration: slipped and fell this evening and caught his 5th finger away from the hand Location: right fifth finger flexed without being able to extend again a couple times Character: minimal pain. Associated: finger weakness Pertinent negatives: Denies numbness MEDICATIONS: brimonidine (ALPHAGAN) 0.2 % ophthalmic solution Use 1 Drop in both eyes two times a day. dorzolamide-timolol (COSOPT) 22.3-6.8 mg/mL ophthalmic solution Use 1 Drop in both eyes two times a day. lisinopril (ZESTRIL) 20 mg tablet Take 1 tablet by mouth once daily. fluvastatin (LESCOL) 20 mg capsule Take 1 capsule by mouth daily at bedtime. tamsulosin (FLOMAX) 0.4 mg Take 1 capsule by mouth daily at bedtime. latanoprost (XALATAN) 0.005 % ophthalmic solution Use 1 Drop in both eyes daily at bedtime. ibuprofen (MOTRIN) 200 mg tablet Take 200 mg by mouth every 6 hours as needed. ALLERGIES: ALLERGIES Allergen Reactions Penicillins Hives VITALS: BP 160/78 Pulse 72 Temp 36.9 C (98.4 F) (Left Tympanic) Resp 16 Wt (!) 136.1 kg (300 lb 0.7 oz) SpO2 96% BMI 44.31 kg/m PHYSICAL EXAM: GEN: pleasant, alert, no acute distress FINGER: right 5th. Trace edema at the PIP joint. Normal active flexion and extension. Painful but full strength against resistance at DIP, PIP, and MCP joints. Tender proximal phalange. Non-tender still phalange, middle phalange, metacarpals, and other fingers. ASSESSMENT/PLAN: 1. Finger pain, right - ICD9: 729.5, ICD10: M79.644 Possible 5th finger proximal phalange fracture. Extensor tendons intact on exam. - XR DIGIT GENERAL 3V FRONTAL/LAT/OBL RIGHT tomorrow. Meliza taped for splinting. Deny Vega MD documented in this encounter [facility] 10-02-2024 Note HNO ID: [id number] Author: DENY VEGA MD Service: ? Author Type: Physician Type: Progress Notes Filed: 10/02/2024 18:32 Note Text: Patient presents with: Hand Injury: Right HPI: Right fifth finger injury: Duration: slipped and fell this evening and caught his 5th finger away from the hand Location: right fifth finger flexed without being able to extend again a couple times Character: minimal pain. Associated: finger weakness Pertinent negatives: Denies numbness MEDICATIONS: brimonidine (ALPHAGAN) 0.2 % ophthalmic solution Use 1 Drop in both eyes two times a day. dorzolamide-timolol (COSOPT) 22.3-6.8 mg/mL ophthalmic solution Use 1 Drop in both eyes two times a day. lisinopril (ZESTRIL) 20 mg tablet Take 1 tablet by mouth once daily. fluvastatin (LESCOL) 20 mg capsule Take 1 capsule by mouth daily at bedtime. tamsulosin (FLOMAX) 0.4 mg Take 1 capsule by mouth daily at bedtime. latanoprost (XALATAN) 0.005 % ophthalmic solution Use 1 Drop in both eyes daily at bedtime. ibuprofen (MOTRIN) 200 mg tablet Take 200 mg by mouth every 6 hours as needed. ALLERGIES: ALLERGIES Allergen Reactions Penicillins Hives VITALS: BP 160/78 Pulse 72 Temp 36.9 ?C (98.4 ?F) (Left Tympanic) Resp 16 Wt (!) 136.1 kg (300 lb 0.7 oz) SpO2 96% BMI 44.31 kg/m? PHYSICAL EXAM: GEN: pleasant, alert, no acute distress FINGER: right 5th. Trace edema at the PIP joint. Normal active flexion and extension. Painful but full strength against resistance at DIP, PIP, and MCP joints. Tender proximal phalange. Non-tender still phalange, middle phalange, metacarpals, and other fingers. ASSESSMENT/PLAN: 1. Finger pain, right - ICD9: 729.5, ICD10: M79.644 Possible 5th finger proximal phalange fracture. Extensor tendons intact on exam. - XR DIGIT GENERAL 3V FRONTAL/LAT/OBL RIGHT tomorrow. Meliza taped for splinting. Deny Vega MD [facility] 09-14-2024 Note Date of Procedure 09/14/2024. 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 Start time: 12:54 PM. Stop time: 12:54 PM. NFL Interpretation Right Eye Normal. Left Eye Diffuse loss. Interval Change Right Eye Stable. Left Eye Stable. 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, severe left eye - s/p laser peripheral iridotomy (LPI), but still closed, though intraocular pressure controlled on drops - s/p phacoemulsification KDB for angle closure despite patent periperal iridotomy 12/13/23 left eye - s/p CEIOL + KDB for occludable angles right eye 02/28/24 - refilled cosopt and emphasized on restarting this as intraocular pressure 20 left eye - goal 22 right eye, low teens left eye - prefers over the counter readers, OCT mac compact - vision limited left eye by glaucoma - follow 2 months, visual acuity, intraocular pressure # pseudophakia both eyes - stable I have confirmed and edited as necessary the relevant ophthalmic history, ROS, and the neuro exam findings as obtained by others. I have seen and examined Ricki Huber. I have discussed the case and the management of this patient's care with the Resident/Fellow, if applicable. I also have reviewed and agree with the assessment and plan as stated above and agree with all of its relevant components. documented in this encounter [facility] 09-14-2024 Note HNO ID: [id number] Author: STEVEN BLANCAS MD Service: ? Author Type: Physician Type: Progress Notes Filed: 09/14/2024 13:10 Note Text: Tmax: 45, 47; Pachy: 684, 672 Lasers and Surgeries: OD: 02/28/24 CEIOL + KDB for angle closure and IOP17 on 3 09/2023 LPI OS: 12/13/23 CEIOL + KDB for angle closure and IOP13 on max topical 09/2023 LPI Ocular Medication Intol and Non-efficacy: Prior to KDB was on lumigan 11/04, cosopt 2/2, brim 2/2 Now on latan 11/04, cosopt 0/2 (didn't use, no refill), brim 2/2 Next on latan 11/04, cosopt 0/2, brim 2/2 -HVF 11/2023 OD full OS near complete wipe out, -24 -OCT 09/2024 OD full OS diffuse thinning, similar to prior # 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, severe left eye - s/p laser peripheral iridotomy (LPI), but still closed, though intraocular pressure controlled on drops - s/p phacoemulsification KDB for angle closure despite patent periperal iridotomy 12/13/23 left eye - s/p CEIOL + KDB for occludable angles right eye 02/28/24 - refilled cosopt and emphasized on restarting this as intraocular pressure 20 left eye - goal 22 right eye, low teens left eye - prefers over the counter readers, OCT mac compact - vision limited left eye by glaucoma - follow 2 months, visual acuity, intraocular pressure # pseudophakia both eyes - stable I have confirmed and edited as necessary the relevant ophthalmic history, ROS, and the neuro exam findings as obtained by others. I have seen and examined Ricki Huber. I have discussed the case and the management of this patient's care with the Resident/Fellow, if applicable. I also have reviewed and agree with the assessment and plan as stated above and agree with all of its relevant components. [facility] 09-02-2024 Telephone encounter Note Patient requesting refills: Last office visit 08/07/2024. Last refill 03/02/2024 nov 02/05/2025 Requested Prescriptions Pending Prescriptions Disp Refills lisinopril (ZESTRIL) 20 mg tablet 90 tablet 1 Sig: Take 1 tablet by mouth once daily. Please review and advise. Perla Magaña MA [facility] 09-02-2024 Miscellaneous Notes Patient requesting refills: Last office visit 08/07/2024. Last refill 03/02/2024 02/05/2025 Requested Prescriptions Pending Prescriptions Disp Refills lisinopril (ZESTRIL) 20 mg tablet 90 tablet 1 Sig: Take 1 tablet by mouth once daily. Please review and advise. Perla Magaña MA documented in this encounter [facility] 08-07-2024 History of Present illness Narrative Subjective Ricki Huber is a 69 year old male here today for HTN, HPL follow-up. I reviewed past medical, surgical, social, and family histories today and updated chart. Allergies, chronic medications, and supplements were also reviewed. Hypertension Pertinent negatives include no chest pain, headaches, palpitations or shortness of breath. Feeling well today. Denies chest pains, palpitations, headache, dizziness, leg swelling, and vision changes. Diet - not as much bread/pasta Eating healthier overall Caffeine - rarely has pop Exercise - He gets out and walks 2 miles per day Some hip pain - chiropractor helps him there Not out of breath, does stairs just fine Father last month Very busy Was referred to see cardiology for abnormal EKG but he cancelled it because his ECHO was normal PAST MEDICAL HISTORY Diagnosis Date Glaucoma, 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 Belle/Dr. Zelaya Primary hypertension PAST SURGICAL HISTORY Procedure Laterality Date COLSC FLX W/REMOVAL LESION BY HOT BX FORCEPS 07/13/2016 hyperplastic- 5 year follow up DENTAL SURGERY HX 2018 top implant GONIOTOMY Left 12/13/2023 HEART CATHETERIZATION 11/04/2003 raina PAST SURGICAL HISTORY OF x 2 Left knee surgery REMV CATARACT EXTRACAP,INSERT LENS Left 12/13/2023 phacoemulsification KDB REMV CATARACT EXTRACAP,INSERT LENS Right 02/28/2024 GONIOTOMY - Right with Steven Blancas MD on 02/28/2024 REPAIR UMBILICAL HERNIA 11/13/2012 SHOULDER SURGERY HX Left 2019 total replacement ALLERGIES Penicillins MEDICATIONS albuterol HFA (PROVENTIL HFA, VENTOLIN HFA) 90 mcg/actuation inhaler Inhale 2 Puffs as instructed every 6 hours as needed for wheezing/shortness of breath. lisinopril (ZESTRIL) 20 mg tablet Take 1 tablet by mouth once daily. fluvastatin (LESCOL) 20 mg capsule Take 1 capsule by mouth daily at bedtime. tamsulosin (FLOMAX) 0.4 mg Take 1 capsule by mouth daily at bedtime. latanoprost (XALATAN) 0.005 % ophthalmic solution Use 1 Drop in both eyes daily at bedtime. dorzolamide-timolol (COSOPT) 22.3-6.8 mg/mL ophthalmic solution Use 1 Drop in both eyes two times a day. ibuprofen (MOTRIN) 200 mg tablet Take 200 mg by mouth every 6 hours as needed. brimonidine (ALPHAGAN) 0.2 % ophthalmic solution Use 1 Drop in both eyes two times a day. (Patient not taking: Reported on 08/07/2024) LUMIGAN 0.01 % drop ophthalmic drops (Patient not taking: Reported on 06/25/2024) prednisoLONE acetate (PRED FORTE) 1 % ophthalmic suspension Use 1 Drop in the right eye four times daily. For use AFTER surgery. (Patient not taking: Reported on 06/25/2024) FAMILY HISTORY Problem Relation Age of Onset Heart Mother on mom's side not sure who COPD Mother from COPD age 82 Diabetes Mother on mom's side not sure who Hypertension Father 84 Heart Failure Father Social History Tobacco Use Smoking status: Former Current packs/day: 1.50 Average packs/day: 1.5 packs/day for 10.0 years (15.0 ttl pk-yrs) Types: Cigarettes Smokeless tobacco: Former Tobacco comments: quit 1998 aftyer smoking off and on for seveeral years Substance Use Topics Alcohol use: Yes Comment: 1-2 week Drug use: No Review of Systems Constitutional: Positive for fatigue. Negative for appetite change, chills, fever and unexpected weight change. HENT: Negative for congestion, ear pain, rhinorrhea and sore throat. Eyes: Negative for pain, discharge, itching and visual disturbance. Respiratory: Negative for cough, shortness of breath and wheezing. Cardiovascular: Negative for chest pain, palpitations and leg swelling. Gastrointestinal: Negative for abdominal pain, constipation, diarrhea, nausea and vomiting. Genitourinary: Negative for difficulty urinating. Musculoskeletal: Positive for arthralgias. Skin: Negative for rash. Neurological: Negative for dizziness, tremors, weakness and headaches. Psychiatric/Behavioral: Negative for dysphoric mood and sleep disturbance. The patient is not nervous/anxious. Objective BP 126/74 Pulse 79 Temp 98.4 Ht 5' 9 (1.75m) Wt 288 lb (130.6kg) SpO2 98% BMI 42.51 kg/(m^2). Physical Exam Constitutional: Appearance: Normal appearance. He is well-developed. He is not diaphoretic. HENT: Head: Normocephalic and atraumatic. Right Ear: Hearing, tympanic membrane, ear canal and external ear normal. Left Ear: Hearing, tympanic membrane, ear canal and external ear normal. Nose: Nose normal. Mouth/Throat: Lips: Roundup. Mouth: Mucous membranes are moist. Pharynx: Oropharynx is clear. Eyes: General: Lids are normal. Conjunctiva/sclera: Conjunctivae normal. Pupils: Pupils are equal, round, and reactive to light. Neck: Vascular: Normal carotid pulses. No carotid bruit or JVD. Cardiovascular: Rate and Rhythm: Normal rate and regular rhythm. Pulses: Carotid pulses are 2+ on the right side and 2+ on the left side. Radial pulses are 2+ on the right side and 2+ on the left side. Dorsalis pedis pulses are 2+ on the right side and 2+ on the left side. Heart sounds: Normal heart sounds. No murmur heard. Pulmonary: Effort: Pulmonary effort is normal. Breath sounds: Normal breath sounds. No wheezing, rhonchi or rales. Abdominal: General: Bowel sounds are normal. Palpations: Abdomen is soft. Tenderness: There is no abdominal tenderness. Musculoskeletal: General: Normal range of motion. Cervical back: Normal range of motion and neck supple. Right lower leg: No edema. Left lower leg: No edema. Lymphadenopathy: Cervical: No cervical adenopathy. Skin: General: Skin is warm and dry. Findings: No rash. Neurological: General: No focal deficit present. Mental Status: He is alert and oriented to person, place, and time. Cranial Nerves: No cranial nerve deficit. Sensory: Sensation is intact. Motor: Motor function is intact. Coordination: Coordination is intact. Gait: Gait is intact. Psychiatric: Attention and Perception: Attention and perception normal. Mood and Affect: Mood and affect normal. Speech: Speech normal. Behavior: Behavior normal. Behavior is cooperative. Thought Content: Thought content normal. Judgment: Judgment normal. Latest Ref Rng 09/04/2023 02/06/2024 05/06/2024 Protein, Total 6.3 - 8.0 g/dL 7.1 6.6 Albumin 3.9 - 4.9 g/dL 4.3 3.9 Calcium 8.5 - 10.2 mg/dL 9.4 9.4 9.3 Bilirubin, Total 0.2 - 1.3 mg/dL 0.6 0.5 Alkaline Phosphatase 38 - 113 U/L 81 83 AST 14 - 40 U/L 16 16 ALT 10 - 54 U/L 17 18 Glucose 74 - 99 mg/dL 126 (H) 118 (H) 118 (H) BUN 9 - 24 mg/dL 18 16 15 Creatinine 0.73 - 1.22 mg/dL 1.04 0.90 0.99 Sodium 136 - 144 mmol/L 137 141 139 Potassium 3.7 - 5.1 mmol/L 4.3 4.3 4.6 Chloride 98 - 107 mmol/L 101 106 (H) 104 CO2 22 - 30 mmol/L 27 25 26 Anion Gap 8 - 15 mmol/L 9 10 9 eGFR >=60 mL/min/1.73m 79 93 83 WBC 3.70 - 11.00 k/uL 7.31 RBC 4.20 - 6.00 m/uL 5.62 Hemoglobin 13.0 - 17.0 g/dL 15.9 Hematocrit 39.0 - 51.0 % 48.6 MCV 80.0 - 100.0 fL 86.5 MCH 26.0 - 34.0 pg 28.3 MCHC 30.5 - 36.0 g/dL 32.7 RDW-CV 11.5 - 15.0 % 12.6 Platelet Count 150 - 400 k/uL 220 MPV 9.0 - 12.7 fL 9.7 Absolute nRBC <0.01 k/uL <0.01 Cholesterol, Total <200 mg/dL 209 (H) 211 (H) 171 Triglyceride <150 mg/dL 108 110 65 HDL Cholesterol >39 mg/dL 49 41 47 Non HDL Cholesterol <130 mg/dL 160 (H) 170 (H) 124 Fasting Time hrs 13 12 14 VLDL Cholesterol <30 mg/dL 22 22 13 TC:HDL Ratio <5.10 4.27 5.15 (H) 3.64 LDL Cholesterol <100 mg/dL 138 (H) 148 (H) 111 (H) LDL:HDL Ratio <2.54 2.82 (H) 3.61 (H) 2.36 Hemoglobin A1C 4.3 - 5.6 % 5.9 (H) Estimated Average Glucose mg/dL 123 PSA Screening <2.60 ng/mL 1.04 TSH 0.270 - 4.200 mIU/L 1.440 ASSESSMENT/PLAN: 1. Primary hypertension - ICD9: 401.9, ICD10: I10 (primary diagnosis) - Controlled - Continue current medications - Recommend home blood pressure monitoring, to bring results to next visit - Encouraged sodium restriction, DASH or Mediterranean diet - Recommend regular aerobic exercise 2. Hyperlipidemia LDL goal <130 - ICD9: 272.4, ICD10: E78.5 - Controlled - Continue current medications - Counseled on healthy diet and regular exercise - FLUVASTATIN 20 MG CAPSULE 3. Benign prostatic hyperplasia with weak urinary stream - ICD9: 600.01, 788.62, ICD10: N40.1, R39.12 - TAMSULOSIN 0.4 MG CAPSULE FU 6 months Cy Nixon APRN.SCALE ATTENDANT documented in this encounter [facility] 06-25-2024 Telephone encounter Note Spoke with patient. Given message from provider's office. Patient verbalizes understanding. Latonia Tariq RN [facility] 06-25-2024 Miscellaneous Notes Spoke with patient. Given message from provider's office. Patient verbalizes understanding. Latonia Tariq RN Left message for patient to return call. Isela Cote LPN No acute findings noted on x-ray. 2 medications sent to [facility]. Take medications as prescribed. Follow-up with PCP symptoms or not improving some 10 days. Ricki Martínez APRN.FAVIOLA documented in this encounter [facility] 06-25-2024 Telephone encounter Note Left message for patient to return call. Isela Cote LPN [facility] 06-25-2024 Telephone encounter Note No acute findings noted on x-ray. 2 medications sent to [facility]. Take medications as prescribed. Follow-up with PCP symptoms or not improving some 10 days. Ricki Martínez APRN.SCALE ATTENDANT [facility] 06-25-2024 History of Present illness Narrative Radiology Service Progress Note PATIENT NAME: Ricki Huber DATE OF SERVICE: June 25, 2024 TIME: 12:18 PM PATIENT IDENTITY VERIFICATION COMPLETED USING TWO (2) IDENTIFIERS: Name and Date of confirmed by patient verbally. FALL SCREENING: Has the patient had 2 falls in the last year or 1 fall with injury or currently using an Ambulatory Assistive Device (Walker, Cane, Wheelchair, Crutches, etc.)? No PATIENT GENDER DATA: Male PATIENT RELEVANT IMPLANT DATA REVIEWED: Not Applicable PATIENT PRESENTS WITH AN IMPLANTABLE OR ATTACHED JAVA ENTERPRISE ARCHITECT: No RADIOLOGY DEPARTMENT: General X-ray: Exam(s) Completed: Chest X-Ray PERIPHERAL IV DATA: Not applicable SIGNED BY: RT Tobi(R) June 25, 2024 12:18 PM documented in this encounter [facility] 06-25-2024 History of Present illness Narrative Subjective HPI Nontoxic-appearing male presents urgent care chief complaint COVID-19 concerns. Duration of symptoms 3 weeks. Associated symptoms dry cough. States was sick similar signs symptoms as his. And then his father became sick. His father took a COVID test and he is positive. Has used some OTC medications this has been somewhat helpful. No significant pain. Does feel well. Denies any fever body aches chills productive cough chest pain shortness of breath pleuritic pain hemoptysis history of DVT PE history of leg swelling or tenderness nausea vomiting abdominal pain change in bowel or bladder habits. Past medical history prescription medication use and allergies reviewed. BP 165/95 Pulse 73 Temp 36.8 C (98.2 F) Resp 20 Wt 134 kg (295 lb 6.7 oz) SpO2 95% BMI 43.63 kg/m .Patient presents with: Cough: Previous illness, unsure if covid or not x 3 weeks ago, has had cough since x 3 weeks PAST MEDICAL HISTORY 09/2023: Glaucoma, narrow-angle Comment: Dr. Belle/Dr. Zelaya No date: Primary hypertension PAST SURGICAL HISTORY 07/13/2016: COLSC FLX W/REMOVAL LESION BY HOT BX FORCEPS Comment: hyperplastic- 5 year follow up 2018: DENTAL SURGERY HX Comment: top implant 12/13/2023: GONIOTOMY; Left 11/04/2003: HEART CATHETERIZATION Comment: raina x 2: PAST SURGICAL HISTORY OF Comment: Left knee surgery 12/13/2023: REMV CATARACT EXTRACAP,INSERT LENS; Left Comment: phacoemulsification KDB 02/28/2024: REMV CATARACT EXTRACAP,INSERT LENS; Right Comment: GONIOTOMY - Right with Steven Blancas MD on 02/28/2024 11/13/2012: REPAIR UMBILICAL HERNIA 2019: SHOULDER SURGERY HX; Left Comment: total replacement ALLERGIES Penicillins MEDICATIONS brimonidine (ALPHAGAN) 0.2 % ophthalmic solution Use 1 Drop in both eyes two times a day. dorzolamide-timolol (COSOPT) 22.3-6.8 mg/mL ophthalmic solution Use 1 Drop in both eyes two times a day. lisinopril (ZESTRIL) 20 mg tablet Take 1 tablet by mouth once daily. fluvastatin (LESCOL) 20 mg capsule Take 1 capsule by mouth daily at bedtime. LUMIGAN 0.01 % drop ophthalmic drops tamsulosin (FLOMAX) 0.4 mg Take 1 capsule by mouth daily at bedtime. latanoprost (XALATAN) 0.005 % ophthalmic solution Use 1 Drop in both eyes daily at bedtime. prednisoLONE acetate (PRED FORTE) 1 % ophthalmic suspension Use 1 Drop in the right eye four times daily. For use AFTER surgery. (Patient not taking: Reported on 06/25/2024) ibuprofen (MOTRIN) 200 mg tablet Take 200 mg by mouth every 6 hours as needed. FAMILY HISTORY Problem Relation Age of Onset Heart Mother on mom's side not sure who COPD Mother from COPD age 82 Diabetes Mother on mom's side not sure who Hypertension Father 84 Heart Failure Father Social History Tobacco Use Smoking status: Former Current packs/day: 1.50 Average packs/day: 1.5 packs/day for 10.0 years (15.0 ttl pk-yrs) Types: Cigarettes Smokeless tobacco: Former Tobacco comments: quit 1998 aftyer smoking off and on for seveeral years Substance Use Topics Alcohol use: Yes Comment: 1-2 week Drug use: No Review of Systems Constitutional: Negative for chills, fever and malaise/fatigue. HENT: Negative for congestion, ear discharge, ear pain, sinus pain and sore throat. Eyes: Negative for blurred vision, pain, discharge and redness. Respiratory: Positive for cough. Negative for hemoptysis, sputum production, shortness of breath, wheezing and stridor. Cardiovascular: Negative for chest pain. Gastrointestinal: Negative for abdominal pain, diarrhea, nausea and vomiting. Musculoskeletal: Negative for myalgias. Skin: Negative for itching and rash. Neurological: Negative for dizziness and headaches. Objective Physical Exam Constitutional: General: He is not in acute distress. Appearance: He is not diaphoretic. HENT: Head: Normocephalic. Jaw: No trismus, tenderness, swelling or pain on movement. Mouth/Throat: Mouth: Mucous membranes are moist. Pharynx: Oropharynx is clear. Uvula midline. No pharyngeal swelling, oropharyngeal exudate, posterior oropharyngeal erythema or uvula swelling. Eyes: Conjunctiva/sclera: Conjunctivae normal. Pupils: Pupils are equal, round, and reactive to light. Cardiovascular: Rate and Rhythm: Normal rate and regular rhythm. Heart sounds: Normal heart sounds. Pulmonary: Effort: Pulmonary effort is normal. No tachypnea, accessory muscle usage or respiratory distress. Breath sounds: Normal breath sounds. No stridor. No wheezing, rhonchi or rales. Abdominal: General: There is no distension. Palpations: Abdomen is soft. Tenderness: There is no abdominal tenderness. There is no guarding or rebound. Musculoskeletal: Cervical back: Normal range of motion and neck supple. No edema, erythema, rigidity or tenderness. No pain with movement. Normal range of motion. Lymphadenopathy: Cervical: No cervical adenopathy. Skin: General: Skin is warm and dry. Neurological: Mental Status: He is alert and oriented to person, place, and time. ASSESSMENT/PLAN: 1. Subacute cough - ICD9: 786.2, ICD10: R05.2 - XR CHEST 2V FRONTAL/LAT IMPRESSION: Lines, tubes, and devices: None. Lungs and pleura: Low lung volumes. Prominence of the lung markings in the perihilar and infrahilar regions may be secondary to vascular crowding and atelectasis. No apparent consolidation. No pleural effusion or pneumothorax. Cardiomediastinal silhouette: Stable cardiomediastinal silhouette. Bones and soft tissues: Partially visualized LEFT shoulder arthroplasty. Degenerative changes in the thoracic spine. No acute findings noted on x-ray. Treat conservatively at this point. Supportive therapy medication sent in the pharmacy. Will follow-up with PCP 7 to 10 days symptoms or not improving. Patient was educated on supportive therapies. Patient will follow up with primary care provider as needed. Patient was instructed to immediately proceed to emergency room for any new, worsening, or symptoms lasting longer than anticipated. The patient's clinical presentation is otherwise unremarkable at this time. Based on exam and clinical finding, the patient is stable for discharge. Plan of care was discussed with patient. Patient verbalizes understanding and agrees to plan of care. This note was generated using [employer] software. It may contain errors in wording, punctuation, or spelling. Ricki Martínez APRN.FAVIOLA documented in this encounter [facility] 05-11-2024 Telephone encounter Note Patient received his my chart message. Perla Magaña MA [facility] 05-11-2024 Miscellaneous Notes Patient received his my chart message. Perla Magaña MA ----- Message from Cy Nixon APRN.CNP sent at 05/10/2024 11:55 PM EDT ----- Cholesterol is looking much better. Glucose remains in prediabetes range. Continue low fat, low carb diet. Continue current medications. Cy Nixon APRN.CNP documented in this encounter [facility] 05-11-2024 Telephone encounter Note ----- Message from Cy Nixon APRN.CNP sent at 05/10/2024 11:55 PM EDT ----- Cholesterol is looking much better. Glucose remains in prediabetes range. Continue low fat, low carb diet. Continue current medications. Cy Nixon APRN.SCALE ATTENDANT [facility] 05-05-2024 History of Present illness Narrative Subjective Ricki Huber is a 69 year old male here today for follow-up HTN, HPL. I reviewed past medical, surgical, social, and family histories today and updated chart. Allergies, chronic medications, and supplements were also reviewed. HPI Feeling well today overall. Denies chest pains, palpitations, headache, dizziness, leg swelling, and vision changes. Taking care of his Dad - age 91 and has heart failure Has to care for his home/yard Diet - trouble following diet because he's been busy taking care of his dad Caffeine - rarely has pop Exercise - walking Tobacco use - quit smoking 1996 Alcohol use - occasional Medication compliance - never forgets Medication side effects - none Sleeping much better since his prostate pill kicked in - Flomax Occasionally gets up around 3 am to void but most of the time sleeps through the night Stream is stronger Cholesterol - Could not tolerate Crestor Started fluvastatin in February PAST MEDICAL HISTORY Diagnosis Date Glaucoma, 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 Belle/Dr. Zelaya Primary hypertension PAST SURGICAL HISTORY Procedure Laterality Date COLSC FLX W/REMOVAL LESION BY HOT BX FORCEPS 07/13/2016 hyperplastic- 5 year follow up DENTAL SURGERY HX 2018 top implant GONIOTOMY Left 12/13/2023 HEART CATHETERIZATION 11/04/2003 raina PAST SURGICAL HISTORY OF x 2 Left knee surgery REMV CATARACT EXTRACAP,INSERT LENS Left 12/13/2023 phacoemulsification KDB REMV CATARACT EXTRACAP,INSERT LENS Right 02/28/2024 GONIOTOMY - Right with Steven Blancas MD on 02/28/2024 REPAIR UMBILICAL HERNIA 11/13/2012 SHOULDER SURGERY HX Left 2019 total replacement ALLERGIES Penicillins MEDICATIONS lisinopril (ZESTRIL) 20 mg tablet Take 1 tablet by mouth once daily. fluvastatin (LESCOL) 20 mg capsule Take 1 capsule by mouth daily at bedtime. LUMIGAN 0.01 % drop ophthalmic drops tamsulosin (FLOMAX) 0.4 mg Take 1 capsule by mouth daily at bedtime. latanoprost (XALATAN) 0.005 % ophthalmic solution Use 1 Drop in both eyes daily at bedtime. brimonidine (ALPHAGAN) 0.2 % ophthalmic solution Use 1 Drop in both eyes two times a day. dorzolamide-timolol (COSOPT) 22.3-6.8 mg/mL ophthalmic solution Use 1 Drop in both eyes two times a day. prednisoLONE acetate (PRED FORTE) 1 % ophthalmic suspension Use 1 Drop in the right eye four times daily. For use AFTER surgery. ibuprofen (MOTRIN) 200 mg tablet Take 200 mg by mouth every 6 hours as needed. FAMILY HISTORY Problem Relation Age of Onset Heart Mother on mom's side not sure who COPD Mother from COPD age 82 Diabetes Mother on mom's side not sure who Hypertension Father 84 Heart Failure Father Social History Tobacco Use Smoking status: Former Packs/day: 1.50 Years: 10.00 Additional pack years: 0.00 Total pack years: 15.00 Types: Cigarettes Smokeless tobacco: Former Tobacco comments: quit 1998 aftyer smoking off and on for ee years Substance Use Topics Alcohol use: Yes Comment: 1-2 week Drug use: No Review of Systems Constitutional: Negative for appetite change, chills, fatigue, fever and unexpected weight change. HENT: Negative for congestion, ear pain, rhinorrhea and sore throat. Eyes: Positive for redness and visual disturbance. Negative for pain, discharge and itching. Respiratory: Negative for cough, shortness of breath and wheezing. Cardiovascular: Negative for chest pain, palpitations and leg swelling. Gastrointestinal: Negative for abdominal pain, constipation, diarrhea, nausea and vomiting. Genitourinary: Negative for difficulty urinating. Musculoskeletal: Negative for arthralgias. Skin: Negative for rash. Neurological: Negative for dizziness, tremors, weakness and headaches. Psychiatric/Behavioral: Negative for dysphoric mood and sleep disturbance. The patient is not nervous/anxious. Objective BP 110/76 Pulse 74 Temp 97.9 Ht 5' 9 (1.75m) Wt 297 lb (134.7kg) SpO2 95% BMI 43.84 kg/(m^2). Physical Exam Constitutional: Appearance: Normal appearance. He is well-developed. He is not diaphoretic. HENT: Head: Normocephalic and atraumatic. Right Ear: Hearing, tympanic membrane, ear canal and external ear normal. Left Ear: Hearing, tympanic membrane, ear canal and external ear normal. Nose: Nose normal. Mouth/Throat: Lips: Roundup. Mouth: Mucous membranes are moist. Pharynx: Oropharynx is clear. Eyes: General: Lids are normal. Conjunctiva/sclera: Right eye: Right conjunctiva is injected. Left eye: Left conjunctiva is injected. Pupils: Pupils are equal, round, and reactive to light. Neck: Vascular: Normal carotid pulses. No carotid bruit or JVD. Cardiovascular: Rate and Rhythm: Normal rate and regular rhythm. Pulses: Carotid pulses are 2+ on the right side and 2+ on the left side. Radial pulses are 2+ on the right side and 2+ on the left side. Dorsalis pedis pulses are 2+ on the right side and 2+ on the left side. Heart sounds: Normal heart sounds. No murmur heard. Pulmonary: Effort: Pulmonary effort is normal. Breath sounds: Normal breath sounds. No wheezing, rhonchi or rales. Abdominal: General: Bowel sounds are normal. Palpations: Abdomen is soft. Tenderness: There is no abdominal tenderness. Musculoskeletal: Cervical back: Normal range of motion and neck supple. Right lower leg: No edema. Left lower leg: No edema. Lymphadenopathy: Cervical: No cervical adenopathy. Skin: General: Skin is warm and dry. Findings: No rash. Neurological: General: No focal deficit present. Mental Status: He is alert and oriented to person, place, and time. Cranial Nerves: No cranial nerve deficit. Sensory: Sensation is intact. Motor: Motor function is intact. Coordination: Coordination is intact. Gait: Gait is intact. Psychiatric: Attention and Perception: Attention and perception normal. Mood and Affect: Mood and affect normal. Speech: Speech normal. Behavior: Behavior normal. Behavior is cooperative. Thought Content: Thought content normal. Judgment: Judgment normal. ECHO CONCLUSIONS: - Technically difficult exam due to body habitus. - Exam indication: Abnormal ECG - The left ventricle is normal in size. Left ventricular systolic function is normal. EF = 59 5% (2D 4-ch.) Normal left ventricular diastolic function. - The right ventricle is normal in size. Right ventricular systolic function is normal. - There are no significant valvular abnormalities. - Definity unavailable. - The patient has not had a prior [facility] echocardiographic exam for comparison. Latest Ref Rng 09/04/2023 02/06/2024 Protein, Total 6.3 - 8.0 g/dL 7.1 Albumin 3.9 - 4.9 g/dL 4.3 Calcium 8.5 - 10.2 mg/dL 9.4 9.4 Bilirubin, Total 0.2 - 1.3 mg/dL 0.6 Alkaline Phosphatase 38 - 113 U/L 81 AST 14 - 40 U/L 16 ALT 10 - 54 U/L 17 Glucose 74 - 99 mg/dL 126 (H) 118 (H) BUN 9 - 24 mg/dL 18 16 Creatinine 0.73 - 1.22 mg/dL 1.04 0.90 Sodium 136 - 144 mmol/L 137 141 Potassium 3.7 - 5.1 mmol/L 4.3 4.3 Chloride 97 - 105 mmol/L 101 106 (H) CO2 22 - 30 mmol/L 27 25 Anion Gap 9 - 18 mmol/L 9 10 eGFR >=60 mL/min/1.73m 79 93 WBC 3.70 - 11.00 k/uL 7.31 RBC 4.20 - 6.00 m/uL 5.62 Hemoglobin 13.0 - 17.0 g/dL 15.9 Hematocrit 39.0 - 51.0 % 48.6 MCV 80.0 - 100.0 fL 86.5 MCH 26.0 - 34.0 pg 28.3 MCHC 30.5 - 36.0 g/dL 32.7 RDW-CV 11.5 - 15.0 % 12.6 Platelet Count 150 - 400 k/uL 220 MPV 9.0 - 12.7 fL 9.7 Absolute nRBC <0.01 k/uL <0.01 Cholesterol, Total <200 mg/dL 209 (H) 211 (H) Triglyceride <150 mg/dL 108 110 HDL Cholesterol >39 mg/dL 49 41 Non HDL Cholesterol <130 mg/dL 160 (H) 170 (H) Fasting Time hrs 13 12 VLDL Cholesterol <30 mg/dL 22 22 TC:HDL Ratio <5.10 4.27 5.15 (H) LDL Cholesterol <100 mg/dL 138 (H) 148 (H) LDL:HDL Ratio <2.54 2.82 (H) 3.61 (H) Hemoglobin A1C 4.3 - 5.6 % 5.9 (H) Estimated Average Glucose mg/dL 123 PSA Screening <2.60 ng/mL 1.04 TSH 0.270 - 4.200 mIU/L 1.440 ASSESSMENT/PLAN: 1. Primary hypertension - ICD9: 401.9, ICD10: I10 (primary diagnosis) - Controlled - Continue current medications - lisinopril 20 mg daily - Recommend home blood pressure monitoring, to bring results to next visit - Encouraged sodium restriction, DASH or Mediterranean diet - Recommend regular aerobic exercise - Follow up in 3 months for hypertension visit 2. Hyperlipidemia LDL goal <130 - ICD9: 272.4, ICD10: E78.5 - Control undetermined, due for labs - Continue current medications - fluvastatin 20 mg daily - Counseled on healthy diet and regular exercise - COMPREHENSIVE METABOLIC PANEL - LIPID PANEL BASIC 3. Prediabetes - ICD9: 790.29, ICD10: R73.03 Counseled patient on nutrition and exercise. 4. Abnormal electrocardiogram (ECG) (EKG) - ICD9: 794.31, ICD10: R94.31 New RBBB ECHO was normal Referred to cardiology for further evaluation, needs to schedule 5. Benign prostatic hyperplasia with weak urinary stream - ICD9: 600.01, 788.62, ICD10: N40.1, R39.12 Symptoms greatly improved on Flomax Cy Nixon APRN.SCALE ATTENDANT documented in this encounter [facility] 03-16-2024 Instructions Steven Blancas MD - 03/16/2024 3:58 PM EDT You will be dilated on your next visit. This will likely make your vision blurry for several hours, and you should strongly consider bringing a charter bus driver. documented in this encounter [facility] 03-16-2024 Note Date of Procedure 03/16/2024. Wet Pan Mixer Information Fine Arts Model: ROSY. Start time: 3:30 PM. Stop time: 3:38 PM. Interpretation Right Eye Normal without fluid. Left Eye Normal without fluid. 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, severe left eye - s/p laser peripheral iridotomy (LPI), but still closed, though intraocular pressure controlled on drops - s/p phacoemulsification KDB for angle closure despite patent periperal iridotomy 12/13/23 left eye - s/p CEIOL + KDB for occludable angles right eye 02/28/24 - 3 drop per above - goal 22 right eye, low teens left eye - prefers over the counter readers, OCT mac compact - vision limited left eye by glaucoma - follow 6 months, dilate, OCT retinal nerve fiber layer # pseudophakia both eyes - stable I have confirmed and edited as necessary the relevant ophthalmic history, ROS, and the neuro exam findings as obtained by others. I have seen and examined Ricki Huber. I have discussed the case and the management of this patient's care with the Resident/Fellow, if applicable. I also have reviewed and agree with the assessment and plan as stated above and agree with all of its relevant components. documented in this encounter [facility] 03-16-2024 Telephone encounter Note Images from the original note were not included. scheduled patient Steven Blancas MD You; Blanca Mcmillan7 minutes ago (11:54 AM) Please help make sooner appointment. [facility] Work Phone: 03-16-2024 Miscellaneous Notes Images from the original note were not included. scheduled patient Steven Blancas MD You; Blanca Mcmillan7 minutes ago (11:54 AM) Please help make sooner appointment. patient calling with an update? he is now having a lot of little black floaters in his right eye along with the previous message [phone] Patient calling [phone] Wanted to know if this was normal About 1-1/2 weeks after surgery noticing bright lights bother him in the am and at night with other car lights he sees, sees halo or stars around it the lights. Will this clear up? 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, severe left eye - s/p laser peripheral iridotomy (LPI), but still closed, though intraocular pressure controlled on drops - s/p phacoemulsification KDB for angle closure despite patent periperal iridotomy 2/9/24 left eye - s/p CEIOL + KDB for occludable angles right eye 02/28/24 - POD0 drop per above - goal 22 right eye, low teens left eye - follow 04/06, refract, dilate both eyes - vision limited left eye by glaucoma # pseudophakia both eyes - stable documented in this encounter [facility] 03-16-2024 Telephone encounter Note patient calling with an update? he is now having a lot of little black floaters in his right eye along with the previous message [phone] [facility] Work Phone: 03-13-2024 Telephone encounter Note Patient calling [phone] Wanted to know if this was normal About 1-1/2 weeks after surgery noticing bright lights bother him in the am and at night with other car lights he sees, sees halo or stars around it the lights. Will this clear up? 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, severe left eye - s/p laser peripheral iridotomy (LPI), but still closed, though intraocular pressure controlled on drops - s/p phacoemulsification KDB for angle closure despite patent periperal iridotomy 12/13/23 left eye - s/p CEIOL + KDB for occludable angles right eye 02/28/24 - POD0 drop per above - goal 22 right eye, low teens left eye - follow 04/06, refract, dilate both eyes - vision limited left eye by glaucoma # pseudophakia both eyes - stable [facility] 03-09-2024 Telephone encounter Note ----- Message from Perla Magaña MA sent at 09/09/2023 8:48 AM EST ----- Remind pt. FLP after starting atorvastatin. Perla Magaña MA [facility] 03-09-2024 Miscellaneous Notes ----- Message from Perla Magaña MA sent at 09/09/2023 8:48 AM EST ----- Remind pt. FLP after starting atorvastatin. Perla Magaña MA documented in this encounter [facility] 03-02-2024 Telephone encounter Note pharm requesting refills: Last office visit 02/05/2024. Last refill 10/01/2023 nov 05/05/2024 Requested Prescriptions Pending Prescriptions Disp Refills lisinopril (ZESTRIL) 20 mg tablet 90 tablet 1 Sig: Take 1 tablet by mouth once daily. Please review and advise. Perla Magaña MA [facility] 03-02-2024 Miscellaneous Notes pharm requesting refills: Last office visit 02/05/2024. Last refill 10/01/2023 nov 05/05/2024 Requested Prescriptions Pending Prescriptions Disp Refills lisinopril (ZESTRIL) 20 mg tablet 90 tablet 1 Sig: Take 1 tablet by mouth once daily. Please review and advise. Perla Magaña MA documented in this encounter [facility] 02-28-2024 Instructions Steven Blancas MD - 02/28/2024 1:13 PM EDT Medication Eye # times daily Latanoprost (green cap) BOTH 1x daily (bedtime) Cosopt or dorzolamide + timolol (dark navy blue cap) LEFT 2x daily Brimonidine (purple cap) BOTH 2x daily Prednisolone (pink or white cap) RIGHT 6x daily for 1 week, 4x daily for 1 week, 3x daily for 1 week, 2x daily for 1 week, 1x daily for 1 week, then stop *please remember to wait at least 3 minutes between different drops in the same eye. 02/28/24 documented in this encounter [facility] 02-28-2024 History of Present illness Narrative Tmax: 45, 47; Pachy: 684, 672 Lasers and Surgeries: OD: 02/28/24 CEIOL + KDB for angle closure and IOP17 on 3 09/2023 LPI OS: 12/13/23 CEIOL + KDB for angle closure and IOP13 on max topical 09/2023 LPI Ocular Medication Intol and Non-efficacy: Prior to KDB was on lumigan 1/, cosopt 2/2, brim 2/2 Now on latan 1/1, cosopt 2/2, brim 2/2 Next on latan 1/1, cosopt 0/2, brim 2/2, Predforte 6/0 -HVF 11/2023 OD full OS near complete wipe out, -24 -OCT 11/2023 OD full OS diffuse thinning, av 61 # 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 I have seen and examined Ricki Huber. I have discussed the case and the management of this patient's care with the Resident/Fellow, if applicable. I also have reviewed and agree with the assessment and plan as stated above and agree with all of its relevant components. documented in this encounter [facility] 02-26-2024 Telephone encounter Note Pt. Notified. Perla Magaña MA [facility] 02-26-2024 Telephone encounter Note ----- Message from Cy Nixon APRN.SCALE ATTENDANT sent at 02/26/2024 10:25 AM EDT ----- Please notify patient results are normal. Thank you. Cy Nixon APRN.SCALE ATTENDANT [facility] 02-26-2024 Miscellaneous Notes Pt. Notified. Perla Magaña MA ----- Message from Cy Nixon APRN.CNP sent at 02/26/2024 10:25 AM EDT ----- Please notify patient results are normal. Thank you. Cy Nixon APRN.CNP documented in this encounter [facility] 02-10-2024 Miscellaneous Notes Patient notified. Perla Magaña MA Cholesterol is elevated. Risk for heart disease is high. I would like him to try fluvastatin for cholesterol BMP normal besides mild elevated of glucose, continue working on low carb diet Cy Nixon APRN.CNP The 10-year ASCVD risk score (Nir MAYERS, et al., 2019) is: 20.1% Values used to calculate the score: Age: 69 years Sex: Male Is Non- : No Diabetic: No Tobacco smoker: No Systolic Blood Pressure: 126 mmHg Is BP treated: Yes HDL Cholesterol: 41 mg/dL Total Cholesterol: 211 mg/dL documented in this encounter [facility] 02-07-2024 Miscellaneous Notes Patient notified. Perla Magaña MA ----- Message from Cy Nixon APRN.CNP sent at 02/07/2024 1:05 PM EDT ----- Please notify patient results are normal. Thank you. Cy Nixon APRN.CNP documented in this encounter [facility] 02-05-2024 History of Present illness Narrative Radiology Service Progress Note PATIENT NAME: Ricki Huber DATE OF SERVICE: February 05, 2024 TIME: 2:17 PM PATIENT IDENTITY VERIFICATION COMPLETED USING TWO (2) IDENTIFIERS: Name and Date of confirmed by patient verbally. FALL SCREENING: Has the patient had 2 falls in the last year or 1 fall with injury or currently using an Ambulatory Assistive Device (Walker, Cane, Wheelchair, Crutches, etc.)? No PATIENT GENDER DATA: Male PATIENT RELEVANT IMPLANT DATA REVIEWED: Not Applicable PATIENT PRESENTS WITH AN IMPLANTABLE OR ATTACHED JAVA ENTERPRISE ARCHITECT: No RADIOLOGY DEPARTMENT: General X-ray: Exam(s) Completed: Chest X-Ray PERIPHERAL IV DATA: Not applicable SIGNED BY: RT Samir(R) February 05, 2024 2:17 PM documented in this encounter [facility] 02-05-2024 History of Present illness Narrative Subjective Ricki Huber is a 69 year old male here today for HTN follow-up. I reviewed past medical, surgical, social, and family histories today and updated chart. Allergies, chronic medications, and supplements were also reviewed. HPI Feeling well today. Denies chest pains, palpitations, headache, dizziness, leg swelling, and vision changes. Had left eye surgery 12/13/[address] Blancas - rose, cataract Planned for right eye surgery on 02/27 Diet - he decreased his meat intake Lost 35 lbs but now is stuck Eating fruit, vegetables Eats wheat spaghetti, wheat bread Drinks a lot of water Caffeine - rarely has pop Exercise - walking Tobacco use - quit smoking 1996 Alcohol use - occasional Medication compliance - never forgets - lisinopril Medication side effects - none Was on Crestor 5 mg 3 x week - legs were hurting really bad, tight, couldn't sleep. 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 Belle/Dr. Zelaya Primary hypertension PAST SURGICAL HISTORY Procedure Laterality Date COLSC FLX W/REMOVAL LESION BY HOT BX FORCEPS 07/13/2016 hyperplastic- 5 year follow up DENTAL SURGERY HX 2018 top implant GONIOTOMY Left 12/13/2023 HEART CATHETERIZATION 11/04/2003 raina PAST SURGICAL HISTORY OF x 2 Left knee surgery REMV CATARACT EXTRACAP,INSERT LENS Left 12/13/2023 phacoemulsification KDB REPAIR UMBILICAL HERNIA 11/13/2012 SHOULDER SURGERY HX Left 2019 total replacement ALLERGIES Penicillins MEDICATIONS latanoprost (XALATAN) 0.005 % ophthalmic solution Use 1 Drop in both eyes daily at bedtime. brimonidine (ALPHAGAN) 0.2 % ophthalmic solution Use 1 Drop in both eyes two times a day. dorzolamide-timolol (COSOPT) 22.3-6.8 mg/mL ophthalmic solution Use 1 Drop in both eyes two times a day. rosuvastatin (CRESTOR) 5 mg tablet Take 2 tablets by mouth one time a week. lisinopril (ZESTRIL) 20 mg tablet Take 1 tablet by mouth once daily. ibuprofen (MOTRIN) 200 mg tablet Take 200 mg by mouth every 6 hours as needed. LUMIGAN 0.01 % drop ophthalmic drops prednisoLONE acetate (PRED FORTE) 1 % ophthalmic suspension Use 1 Drop in the right eye four times daily. For use AFTER surgery. (Patient not taking: Reported on 02/05/2024) FAMILY HISTORY Problem Relation Age of Onset Heart Mother on mom's side not sure who COPD Mother from COPD age 82 Diabetes Mother on mom's side not sure who Hypertension Father 84 Heart Failure Father Social History Tobacco Use Smoking status: Former Packs/day: 1.50 Years: 10.00 Additional pack years: 0.00 Total pack years: 15.00 Types: Cigarettes Smokeless tobacco: Former Tobacco comments: quit 1998 aftyer smoking off and on for years Substance Use Topics Alcohol use: Yes Comment: 1-2 week Drug use: No Review of Systems Constitutional: Negative for appetite change, chills, fatigue, fever and unexpected weight change. HENT: Negative for congestion, ear pain, rhinorrhea and sore throat. Eyes: Negative for pain, discharge, itching and visual disturbance. Respiratory: Negative for cough, shortness of breath and wheezing. Cardiovascular: Negative for chest pain, palpitations and leg swelling. Gastrointestinal: Negative for abdominal pain, constipation, diarrhea, nausea and vomiting. Genitourinary: Positive for frequency and urgency. Musculoskeletal: Negative for arthralgias. Skin: Negative for rash. Neurological: Negative for dizziness, tremors, weakness and headaches. Psychiatric/Behavioral: Negative for dysphoric mood and sleep disturbance. The patient is not nervous/anxious. Objective BP 138/66 Pulse 72 Temp 98 Ht 5' 9 (1.75m) Wt 292 lb (132.5kg) SpO2 94% BMI 43.10 kg/(m^2). BP Recheck 126 74 Physical Exam Constitutional: Appearance: Normal appearance. He is well-developed. He is obese. He is not diaphoretic. HENT: Head: Normocephalic and atraumatic. Right Ear: Hearing, tympanic membrane, ear canal and external ear normal. Left Ear: Hearing, tympanic membrane, ear canal and external ear normal. Nose: Nose normal. Mouth/Throat: Lips: Roundup. Mouth: Mucous membranes are moist. Pharynx: Oropharynx is clear. Eyes: General: Lids are normal. Conjunctiva/sclera: Conjunctivae normal. Pupils: Pupils are equal, round, and reactive to light. Neck: Vascular: Normal carotid pulses. No carotid bruit or JVD. Cardiovascular: Rate and Rhythm: Normal rate and regular rhythm. Pulses: Carotid pulses are 2+ on the right side and 2+ on the left side. Radial pulses are 2+ on the right side and 2+ on the left side. Heart sounds: Normal heart sounds. No murmur heard. Pulmonary: Effort: Pulmonary effort is normal. Breath sounds: Normal breath sounds. No wheezing, rhonchi or rales. Abdominal: General: Bowel sounds are normal. Palpations: Abdomen is soft. Tenderness: There is no abdominal tenderness. Musculoskeletal: General: Normal range of motion. Cervical back: Normal range of motion and neck supple. Right lower leg: No edema. Left lower leg: No edema. Lymphadenopathy: Cervical: No cervical adenopathy. Skin: General: Skin is warm and dry. Findings: No rash. Neurological: General: No focal deficit present. Mental Status: He is alert and oriented to person, place, and time. Cranial Nerves: No cranial nerve deficit. Sensory: Sensation is intact. Motor: Motor function is intact. Coordination: Coordination is intact. Gait: Gait is intact. Psychiatric: Attention and Perception: Attention and perception normal. Mood and Affect: Mood and affect normal. Speech: Speech normal. Behavior: Behavior normal. Behavior is cooperative. Thought Content: Thought content normal. Judgment: Judgment normal. Latest Ref Rng 09/04/2023 Protein, Total 6.3 - 8.0 g/dL 7.1 Albumin 3.9 - 4.9 g/dL 4.3 Calcium 8.5 - 10.2 mg/dL 9.4 Bilirubin, Total 0.2 - 1.3 mg/dL 0.6 Alkaline Phosphatase 38 - 113 U/L 81 AST 14 - 40 U/L 16 ALT 10 - 54 U/L 17 Glucose 74 - 99 mg/dL 126 (H) BUN 9 - 24 mg/dL 18 Creatinine 0.73 - 1.22 mg/dL 1.04 Sodium 136 - 144 mmol/L 137 Potassium 3.7 - 5.1 mmol/L 4.3 Chloride 97 - 105 mmol/L 101 CO2 22 - 30 mmol/L 27 Anion Gap 9 - 18 mmol/L 9 eGFR >=60 mL/min/1.73m 79 WBC 3.70 - 11.00 k/uL 7.31 RBC 4.20 - 6.00 m/uL 5.62 Hemoglobin 13.0 - 17.0 g/dL 15.9 Hematocrit 39.0 - 51.0 % 48.6 MCV 80.0 - 100.0 fL 86.5 MCH 26.0 - 34.0 pg 28.3 MCHC 30.5 - 36.0 g/dL 32.7 RDW-CV 11.5 - 15.0 % 12.6 Platelet Count 150 - 400 k/uL 220 MPV 9.0 - 12.7 fL 9.7 Absolute nRBC <0.01 k/uL <0.01 Cholesterol, Total <200 mg/dL 209 (H) Triglyceride <150 mg/dL 108 HDL Cholesterol >39 mg/dL 49 Non HDL Cholesterol <130 mg/dL 160 (H) Fasting Time hrs 13 VLDL Cholesterol <30 mg/dL 22 TC:HDL Ratio <5.10 4.27 LDL Cholesterol <100 mg/dL 138 (H) LDL:HDL Ratio <2.54 2.82 (H) Hemoglobin A1C 4.3 - 5.6 % 5.9 (H) Estimated Average Glucose mg/dL 123 PSA Screening <2.60 ng/mL 1.04 TSH 0.270 - 4.200 mIU/L 1.440 ASSESSMENT/PLAN: 1. Primary hypertension - ICD9: 401.9, ICD10: I10 (primary diagnosis) - Controlled - Continue current medications - lisinopril 20 mg daily - Recommend home blood pressure monitoring, to bring results to next visit - Encouraged sodium restriction, DASH or Mediterranean diet - Recommend regular aerobic exercise - ECG B/O MEDICARE ONLY W/INTERP - BASIC METABOLIC PNL - CONSULT TO CARDIOLOGY 2. Hyperlipidemia LDL goal <130 - ICD9: 272.4, ICD10: E78.5 - Control undetermined, due for labs Could not tolerate Crestor - Counseled on healthy diet and regular exercise - LIPID PANEL BASIC - CONSULT TO CARDIOLOGY 3. Prediabetes - ICD9: 790.29, ICD10: R73.03 Counseled patient on nutrition and exercise. 4. Obesity, Class III, BMI 40-49.9 (morbid obesity) (HCC) - ICD9: 278.01, ICD10: E66.01 Counseled patient on nutrition and exercise. 5. Benign prostatic hyperplasia with weak urinary stream - ICD9: 600.01, 788.62, ICD10: N40.1, R39.12 Start Flomax 0.4 mg at bedtime. Discussed medication action, dosing, side effects, risks, and benefits. Patient verbalizes understanding. - TAMSULOSIN 0.4 MG CAPSULE 6. Right bundle branch block (RBBB) on electrocardiogram (ECG) - ICD9: 426.4, ICD10: I45.10 New finding/change from previous EKG done in 2008, 2012 Patient is asymptomatic Will check CXR, ECHO, referral placed to director of diversity and inclusion for further evaluation - XR CHEST 2V FRONTAL/LAT - ECHO - CONSULT TO CARDIOLOGY 7. Abnormal electrocardiogram (ECG) (EKG) - ICD9: 794.31, ICD10: R94.31 - ECHO - CONSULT TO CARDIOLOGY 8. Nuclear sclerosis of right eye - ICD9: 366.16, ICD10: H25.11 Patient planned for surgery 02/28/[address] Blancas Overall he is low risk for perioperative complications He does have a new RBBB on EKG today, he is asymptomatic FU 3 months Cy Nixon APRN.SCALE ATTENDANT documented in this encounter [facility] 01-20-2024 Instructions Steven Blancas MD - 01/20/2024 11:23 AM EDT Images from the original note were not included. Cataract surgery with intraocular lens implant, goniotomy right eye To schedule surgery please call hospitality intern Nereida Paz: [phone], or the General Footwear Production Machine Operator documented in this encounter [facility] 01-20-2024 History of Present illness Narrative New from [facility] Tmax: 45, 47; Pachy: 684, 672 Lasers and Surgeries: OD: 09/2023 LPI OS: 12/13/23 CEIOL + KDB for angle closure and IOP13 on max topical 09/2023 LPI Ocular Medication Intol and Non-efficacy: Prior to KDB was on lumigan 11/04, cosopt 2/2, brim 2/2 Now on lumigan 11/04, cosopt 2/2, brim 2/0, Predforte 0/ Next on latan 11/04, cosopt 2/2, brim 2/2 -HVF 11/2023 OD full OS near complete wipe out, MD -24 -OCT 11/2023 OD full OS diffuse thinning, av 61 # 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, severe left eye - s/p laser peripheral iridotomy (LPI), but still closed, though intraocular pressure controlled on drops - s/p phacoemulsification KDB for angle closure despite patent periperal iridotomy 12/13/23 left eye - rec CEIOL + KDB for occludable angles right eye - phenyl, mannitol - vision limited left eye by glaucoma # pseudophakia left eye - stable Cataract Presurgical Documentation Cataract: Right eye (OD) Current Visual Acuity Right Eye Distance SC 20/20 Left Eye Distance SC 20/40 Best Corrected Vision Right Eye 20/20 -1 Best Corrected Vision Left Eye 20/50 +1 Glare Testing: Right Eye High 20/60 Visual Function: Ricki Huber states that the decline in vision from the cataract impedes his abilities as listed in the HPI, as well as other activities of daily living. Ricki Huber has confirmed that he is no longer able to function adequately on a day-to-day basis because of his current visual condition. Further, it is my medical opinion that the cataract is the primary cause, or at least a significantly contributory cause of his visual dysfunction. With uncomplicated cataract surgery and lens implantation, it is my expectation that his visual function and quality of life will improve, significantly. The risks, benefits, alternatives, personnel and complications of cataract surgery with lens implantation were discussed with Ricki Huber in detail. he appeared to understand and asked that I proceed with plans for surgery. I have confirmed and edited as necessary the relevant ophthalmic history, ROS, and the neuro exam findings as obtained by others. I have seen and examined Ricki Huber. I have discussed the case and the management of this patient's care with the Resident/Fellow, if applicable. I also have reviewed and agree with the assessment and plan as stated above and agree with all of its relevant components. Steven Blancas MD documented in this encounter [facility] 12-23-2023 Instructions Steven Blancas MD - 12/23/2023 12:09 PM EST Medication Eye # times daily Latanoprost (green cap) BOTH 1x daily (bedtime) Cosopt or dorzolamide + timolol (dark navy blue cap) BOTH 2x daily Brimonidine (purple cap) RIGHT 2x daily Prednisolone (pink or white cap) LEFT 6x daily for 1 week, 4x daily for 1 week, 3x daily for 1 week, 2x daily for 1 week, 1x daily for 1 week, then stop *please remember to wait at least 3 minutes between different drops in the same eye. 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 I have seen and examined Ricki Huber. I have discussed the case and the management of this patient's care with the Resident/Fellow, if applicable. I also have reviewed and agree with the assessment and plan as stated above and agree with all of its relevant components. Steven Blancas MD documented in this encounter [facility] 12-13-2023 Instructions Steven Blancas MD - 12/13/2023 12:59 PM EST Medication Eye # times daily Latanoprost (green cap) RIGHT 1x daily (bedtime) Cosopt or dorzolamide + timolol (dark navy blue cap) BOTH 2x daily Brimonidine (purple cap) RIGHT 2x daily Prednisolone (pink or white cap) LEFT 6x daily for 1 week, 4x daily for 1 week, 3x daily for 1 week, 2x daily for 1 week, 1x daily for 1 week, then stop *please remember to wait at least 3 minutes between different drops in the same eye. 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 I have seen and examined Ricki Huber. I have discussed the case and the management of this patient's care with the Resident/Fellow, if applicable. I also have reviewed and agree with the assessment and plan as stated above and agree with all of its relevant components. Steven Blancas MD documented in this encounter [facility] 09-28-2023 History of Present illness Narrative Triaged patient at [facility]. Here today with bilat leg pain starting after taking lipitor. Missed medication 1 day last week and pain was better that night. Reports new to lipitor. I discussed methods to improve medication adherence. Ok to hold medication for few days, has appointment coming up early this week documented in this encounter [facility] 09-09-2023 Miscellaneous Notes Patient read his my chart message. Perla Magaña MA Reminder placed. Perla Magaña MA Blood sugar is elevated in the prediabetes range - low carb diet, increase activity Cholesterol is elevated and he has high risk for heart attack and stroke. I would like to start medication to reduce his risk - See Rx atorvastatin. Recheck lipids in 6 months PSA, TSH, kidney and liver function normal CBC normal Cy Nixon APRN.FAVIOLA documented in this encounter [facility] 09-04-2023 Miscellaneous Notes Patient has read his my chart message. Perla Magaña MA ----- Message from Cy Nixno APRN.FAVIOLA sent at 09/03/2023 10:28 PM EDT ----- Please notify patient results are normal. Thank you. Cy Nixon APRN.SCALE ATTENDANT documented in this encounter [facility] 09-02-2023 Nurse Note Immunizations were given as ordered. Vaccination information sheet(s) given. Denisse Calero MA documented in this encounter [facility] 09-02-2023 History of Present illness Narrative This note was created using [employer]. Subjective Ricki Huber is a 68 year old male here today for hypertension follow-up visit. I reviewed past medical, surgical, social, and family histories today and updated chart. Allergies, chronic medications, and supplements were also reviewed. He is a new patient. Former PCP Dr Mcmanus retired He is having blurry vision - started a few months ago No chest pain, dyspnea, or dizziness Occasional headache - relates to neck Diet - not very good Eats at restaurants on the weekends Eats sandwiches Meat Pasta about once a week Eats snack foods Can go 2 days without eating and does not lose weight Water mostly Caffeine - coffee in the morning 3 cups per day Exercise - no regular routine Tobacco use - Quit 1996 Alcohol use - beer occasionally Medication compliance - has been out of medications for about a year Medication side effects - none Home blood pressure readings - checks at home 138-145/90-98 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 Went to [facility] in 2019 - bone on bone and had total shoulder replacement Right heel pain - started after he started walking again Diagnosed with plantar fasciitis He is having urinary frequency - goes 25-30 times per day Mom's side of the family has heart issues/diabetes. She recently from COPD. Sensation of incomplete bladder emptying? no Frequent small amounts of urine? yes Urinating twice within a 2 hour time period? yes Urinary urgency? yes Weak stream? Yes - sometimes, not very often Dribbling? no Push/strain to get urine out? no Nocturia > 2 x night? no Incontinence of urine? no Sexual dysfunction, difficulty with erection? Yes Problem with getting and maintaining erection Still gets spontaneous erection in the PAST MEDICAL HISTORY Diagnosis Date NEGATIVE MEDICAL HISTORY PAST SURGICAL HISTORY Procedure Laterality Date COLSC FLX W/REMOVAL LESION BY HOT BX FORCEPS 07/13/2016 hyperplastic- 5 year follow up DENTAL SURGERY HX 2018 top implant HEART CATHETERIZATION 11/04/2003 raina PAST SURGICAL HISTORY OF x 2 Left knee surgery REPAIR UMBILICAL HERNIA 11/13/2012 SHOULDER SURGERY HX Left 2019 total replacement ALLERGIES Penicillins MEDICATIONS ibuprofen (MOTRIN) 200 mg tablet Take 200 mg by mouth every 6 hours as needed. lisinopril (ZESTRIL, PRINIVIL) 10 mg tablet Take 1 tablet by mouth once daily. (Patient not taking: Reported on 09/02/2023) FAMILY HISTORY Problem Relation Age of Onset Heart Mother on mom's side not sure who None Mother Diabetes Mother on mom's side not sure who Hypertension Father 84 Heart Failure Father Social History Tobacco Use Smoking status: Former Packs/day: 1.50 Years: 10.00 Additional pack years: 0.00 Total pack years: 15.00 Types: Cigarettes Smokeless tobacco: Former Tobacco comments: quit 1998 aftyer smoking off and on for sevee years Substance Use Topics Alcohol use: Yes Comment: 1-2 week Drug use: No Review of Systems Constitutional: Negative for appetite change, chills, fatigue, fever and unexpected weight change. HENT: Negative for congestion, ear pain, rhinorrhea and sore throat. Eyes: Positive for visual disturbance. Negative for pain, discharge and itching. Respiratory: Negative for cough, shortness of breath and wheezing. Cardiovascular: Negative for chest pain, palpitations and leg swelling. Gastrointestinal: Negative for abdominal pain, constipation, diarrhea, nausea and vomiting. Musculoskeletal: Positive for arthralgias. Skin: Negative for rash. Neurological: Negative for dizziness, tremors, weakness and headaches. Psychiatric/Behavioral: Negative for dysphoric mood and sleep disturbance. The patient is not nervous/anxious. Objective BP 140/86 Pulse 72 Temp 36.6 C (97.9 F) Resp 18 Ht 175.3 cm (5' 9) Wt (!) 142.4 kg (314 lb) SpO2 97% BMI 46.37 kg/m 152 86 Physical Exam Constitutional: Appearance: Normal appearance. He is well-developed. He is not diaphoretic. HENT: Head: Normocephalic and atraumatic. Right Ear: Hearing, tympanic membrane, ear canal and external ear normal. Left Ear: Hearing, tympanic membrane, ear canal and external ear normal. Nose: Nose normal. Mouth/Throat: Lips: Roundup. Mouth: Mucous membranes are moist. Pharynx: Oropharynx is clear. Eyes: General: Lids are normal. Conjunctiva/sclera: Conjunctivae normal. Pupils: Pupils are equal, round, and reactive to light. Neck: Vascular: Normal carotid pulses. No carotid bruit or JVD. Cardiovascular: Rate and Rhythm: Normal rate and regular rhythm. Pulses: Carotid pulses are 2+ on the right side and 2+ on the left side. Radial pulses are 2+ on the right side and 2+ on the left side. Heart sounds: Normal heart sounds. No murmur heard. Pulmonary: Effort: Pulmonary effort is normal. Breath sounds: Normal breath sounds. No wheezing, rhonchi or rales. Abdominal: General: Bowel sounds are normal. Palpations: Abdomen is soft. Tenderness: There is no abdominal tenderness. Musculoskeletal: General: Normal range of motion. Cervical back: Normal range of motion and neck supple. Right lower le+ Edema present. Left lower le+ Edema present. Lymphadenopathy: Cervical: No cervical adenopathy. Skin: General: Skin is warm and dry. Findings: No rash. Neurological: General: No focal deficit present. Mental Status: He is alert and oriented to person, place, and time. Cranial Nerves: No cranial nerve deficit. Sensory: Sensation is intact. Motor: Motor function is intact. Coordination: Coordination is intact. Gait: Gait is intact. Psychiatric: Attention and Perception: Attention and perception normal. Mood and Affect: Mood and affect normal. Speech: Speech normal. Behavior: Behavior normal. Behavior is cooperative. Thought Content: Thought content normal. Judgment: Judgment normal. Component Latest Ref Rng & Units 09/02/2023 GLUCOSE UA (POCT) Negative mg/dL Negative BILIRUBIN UA (POCT) Negative Negative KETONE UA (POCT) Negative mg/dL Negative SPECIFIC GRAVITY UA (POCT) 1.005 - 1.030 1.015 HEMOGLOBIN/BLOOD UA (POCT) Negative Negative PH UA (POCT) 4.5 - 8.0 5.0 PROTEIN UA (POCT) Negative mg/dL Negative UROBILINOGEN UA (POCT) Normal E.U./dL 0.2 NITRITE UA (POCT) Negative Negative LEUKOCYTES UA (POCT) Negative Negative COLOR UA (POCT) Yellow CLARITY UA (POCT) Clear ASSESSMENT/PLAN: 1. Primary hypertension - ICD9: 401.9, ICD10: I10 (primary diagnosis) - Uncontrolled Restart lisinopril 10 mg daily - Recommend home blood pressure monitoring, to bring results to next visit - Encouraged sodium restriction, DASH or Mediterranean diet - Recommend regular aerobic exercise - Smoking cessation encouraged; discussed risks to health and quitting strategies. Patient is contemplative - Reviewed risks of hypertension and principles of treatment - CBC - COMP METABOLIC PANEL - LIPID PANEL BASIC - TSH BLD - LISINOPRIL 10 MG TABLET - ECG COMPLETE 2. Hyperlipidemia LDL goal <130 - ICD9: 272.4, ICD10: E78.5 - Control undetermined, due for labs - Counseled on healthy diet and regular exercise - CBC - COMP METABOLIC PANEL - LIPID PANEL BASIC - TSH BLD 3. Impaired fasting glucose - ICD9: 790.21, ICD10: R73.01 - HGB A1C 4. Screening for prostate cancer - ICD9: V76.44, ICD10: Z12.5 - Risks/benefits of prostate cancer screening discussed. screening PSA ordered - PSA/PROSTSPECAG SCRN 5. Urinary frequency - ICD9: 788.41, ICD10: R35.0 UA negative - UA DIP, URINE (POC) 6. Encounter for immunization - ICD9: V03.89, ICD10: Z23 - INFLUENZA VACCINE, PRSV FREE, AGE 65+ YR, HIGH DOSE, QUADRIVALENT (FLUZONE HIGH-DOSE) - PNEUMOCOCCAL VACCINE (PREVNAR 20) - IMADM PRQ ID SUBQ/IM NJXS 1 VACC FU 1 month Cy Nixon APRN.CNP documented in this encounter [facility] 06-19-2022 Instructions Jeanette Velez APRN.CNP - 06/19/2022 11:37 AM EDT Follow-up with eye doctor concerning blurred vision documented in this encounter [facility] 06-19-2022 History of Present illness Narrative CC Patient presents with: Hypertension HPI Ricki Huber is a 67 year old male who presents to the office for blood pressure. His visit today is for follow-up. Patient was last seen for this approximately over one year ago Medication changes: No Taking all medications as prescribed: No, he has been out of Lisinopril for about 6 months Side effects: No Home BP's: Yes 140's-160's/70's-80's Reports intermittent blurred vision. Last eye appointment was over two years ago. Denies: headache, chest pain, palpitations, dyspnea, and peripheral edema. Last 4 Encounter BP Readings: Date: BP: 06/19/2022 153/85 12/22/2020 138/86 12/10/2020 188/94 06/09/2020 139/85[BP Andrea average[ Last 3 Encounter Wt Readings: Date: Wt: 06/19/2022 131.5 kg (290 lb) 12/22/2020 138.3 kg (305 lb) 12/10/2020 144.7 kg (319 lb) Exercise: likes to exercise by walking every day about 2 miles. Lost about 28 lbs in the past 6 weeks Diet: Watch for salt, fat, cholesterol: Yes. Caffeine: 2-3 servings daily Water intake: 8-10 glasses a day Alcohol intake: rarely . Smoking: No REVIEW OF SYSTEMS See HPI PAST MEDICAL HISTORY Diagnosis Date NEGATIVE MEDICAL HISTORY PAST SURGICAL HISTORY Procedure Laterality Date COLSC FLX W/REMOVAL LESION BY HOT BX FORCEPS 07/13/16 hyperplastic- 5 year follow up HEART CATHETERIZATION 2003 raina PAST SURGICAL HISTORY OF x 2 Left knee surgery REPAIR UMBILICAL HERNIA 11/13/12 ALLERGIES Penicillins MEDICATIONS lisinopril (ZESTRIL, PRINIVIL) 10 mg tablet Take 1 tablet by mouth once daily. acetaminophen (TYLENOL ARTHRITIS ORAL) Take by mouth as needed. FAMILY HISTORY Problem Relation Age of Onset None Mother Hypertension Father 84 Social History Tobacco Use Smoking status: Former Packs/day: 1.50 Years: 10.00 Pack years: 15.00 Types: Cigarettes Smokeless tobacco: Never Tobacco comments: quit 1998 aftyer smoking off and on for Substance Use Topics Alcohol use: Yes Comment: 1-2 week Drug use: No PHYSICAL EXAM BP 138/80 Pulse 80 Resp 18 Wt 131.5 kg (290 lb) BMI 41.02 kg/m General Appearance: well appearing, in no acute distress, alert Lungs: Lungs clear to auscultation. No wheezing, rhonchi, rales. Heart: RRR without murmur, gallop, or rubs. No ectopy DATA REVIEWED: Most recent labs ASSESSMENT/PLAN: 1. Essential hypertension, benign - ICD9: 401.1, ICD10: I10 (primary diagnosis) - suboptimal control - Begin Lisinopril 10 mg daily - Continue regular aerobic exercise. - Recommend home blood pressure monitoring, to bring results in on next visit - follow-up in 6-8 weeks for BP recheck and transfer care (previous PCP Dr. Mcmanus) - Goal of BP <130/80 - LISINOPRIL 10 MG TABLET - LIPID PANEL BASIC - COMP METABOLIC PANEL 2. Blurred vision - ICD9: 368.8, ICD10: H53.8 Follow-up with ophthalmology 3. Hyperlipidemia LDL goal <130 - ICD9: 272.4, ICD10: E78.5 - to be determined upon return of lab results - LIPID PANEL BASIC 4. Screening for prostate cancer - ICD9: V76.44, ICD10: Z12.5 - PSA/PROSTSPECAG SCRN 5. Impaired fasting glucose - ICD9: 790.21, ICD10: R73.01 - HGB A1C Prescription instructions reviewed with patient as applicable. Potential red flag symptoms discussed with the patient. Reviewed appropriate action plan to take if red flag symptoms occur. Patient agreeable to treatment plan Jeanette Velez APRN.CNP documented in this encounter [facility] 01-31-2022 Miscellaneous Notes Pt notified via [employer]. Francisca Ayala Ma Left a message for pt to call the office and ask to speak to a triage nurse. Anjali Hall LPN Message left for pt to call back. Francisca Ayala Ma Let patient know refill denied. Has no been seen in over a year and has never established with a new provider since Dr. Mcmanus retired last year. Last office visit: 12/22/20 F/u scheduled: none Pt needs to establish care with new provider. Francisca Ayala Ma documented in this encounter [facility] 01-02-2022 Instructions CompletedPatient advised to follow-up with Primary Care Physician for BMI management. [facility] Work Phone: 1(112) [phone] History of Past illness Narrative* Problem Noted Date Resolved Date Morbid obesity due to excess calories 08/20/2016 06/12/2017 documented as of this encounter (statuses as of 01/31/2022) [facility] History of Past illness Narrative* Problem Noted Date Resolved Date Morbid obesity due to excess calories 08/20/2016 06/12/2017 documented as of this encounter (statuses as of 06/19/2022) [facility] History of Past illness Narrative* Problem Noted Date Diagnosed Date Resolved Date Morbid obesity due to excess calories 08/20/2016 06/12/2017 documented as of this encounter (statuses as of 09/04/2023) [facility] History of Past illness Narrative* Problem Noted Date Diagnosed Date Resolved Date Morbid obesity due to excess calories 08/20/2016 06/12/2017 documented as of this encounter (statuses as of 09/09/2023) [facility] History of Past illness Narrative* Problem Noted Date Diagnosed Date Resolved Date Morbid obesity due to excess calories 08/20/2016 06/12/2017 documented as of this encounter (statuses as of 09/10/2023) [facility] History of Past illness Narrative* Problem Noted Date Diagnosed Date Resolved Date Morbid obesity due to excess calories 08/20/2016 06/12/2017 documented as of this encounter (statuses as of 09/28/2023) [facility] History of Past illness Narrative* Problem Noted Date Diagnosed Date Resolved Date Morbid obesity due to excess calories 08/20/2016 06/12/2017 Essential hypertension, benign 08/17/2008 10/01/2023 documented as of this encounter (statuses as of 10/08/2023) [facility] History of Past illness Narrative* Problem Noted Date Diagnosed Date Resolved Date Morbid obesity due to excess calories 08/20/2016 06/12/2017 Essential hypertension, benign 08/17/2008 10/01/2023 documented as of this encounter (statuses as of 12/13/2023) [facility] History of Past illness Narrative* Problem Noted Date Diagnosed Date Resolved Date Morbid obesity due to excess calories 08/20/2016 06/12/2017 Essential hypertension, benign 08/17/2008 10/01/2023 documented as of this encounter (statuses as of 12/23/2023) [facility] History of Past illness Narrative* Problem Noted Date Diagnosed Date Resolved Date Morbid obesity due to excess calories 08/20/2016 06/12/2017 Essential hypertension, benign 08/17/2008 10/01/2023 documented as of this encounter (statuses as of 01/20/2024) [facility] History of Past illness Narrative* Problem Noted Date Diagnosed Date Resolved Date Morbid obesity due to excess calories 08/20/2016 06/12/2017 Essential hypertension, benign 08/17/2008 10/01/2023 documented as of this encounter (statuses as of 02/06/2024) [facility] History of Past illness Narrative* Problem Noted Date Diagnosed Date Resolved Date Morbid obesity due to excess calories 08/20/2016 06/12/2017 Essential hypertension, benign 08/17/2008 10/01/2023 documented as of this encounter (statuses as of 02/06/2024) [facility] History of Past illness Narrative* Problem Noted Date Diagnosed Date Resolved Date Morbid obesity due to excess calories 08/20/2016 06/12/2017 Essential hypertension, benign 08/17/2008 10/01/2023 documented as of this encounter (statuses as of 02/10/2024) [facility] History of Past illness Narrative* Problem Noted Date Diagnosed Date Resolved Date Morbid obesity due to excess calories 08/20/2016 06/12/2017 Essential hypertension, benign 08/17/2008 10/01/2023 documented as of this encounter (statuses as of 02/07/2024) [facility] may be information available, but it has not been provided by the sender.[facility] Work Phone: Evaluation note* Diagnosis Essential hypertension, benign [facility] Diagnosis Essential hypertension, benign- Primary Blurred vision Other specified visual disturbances Hyperlipidemia LDL goal <130 Other and unspecified hyperlipidemia Screening for prostate cancer Special screening for malignant neoplasm of prostate Impaired fasting glucose [facility] Diagnosis Primary hypertension- Primary Unspecified essential hypertension Hyperlipidemia LDL goal <130 Other and unspecified hyperlipidemia Impaired fasting glucose Screening for prostate cancer Special screening for malignant neoplasm of prostate Urinary frequency Encounter for immunization Need for other specified prophylactic vaccination against single bacterial disease [facility]* Diagnosis Prediabetes- Primary Other abnormal glucose Hyperlipidemia LDL goal <130 Other and unspecified hyperlipidemia [facility] Diagnosis Pain in both lower extremities- Primary documented [facility] this encounter [facility] noteNo assessment information availableW[facility] Work Phone: Evaluation note* Diagnosis Myalgia due to statin- Primary Hyperlipidemia LDL goal <130 Other and unspecified hyperlipidemia [facility]* Diagnosis Postoperative follow-up- Primary Follow-up examination, following unspecified surgery Chronic angle-closure glaucoma of left eye, severe stage Chronic angle-closure glaucoma Chronic angle-closure glaucoma of right eye, moderate stage Chronic angle-closure glaucoma [facility]* Diagnosis Postoperative follow-up- Primary Follow-up examination, following unspecified surgery Chronic angle-closure glaucoma of left eye, severe stage Chronic angle-closure glaucoma Chronic angle-closure glaucoma of right eye, moderate stage Chronic angle-closure glaucoma Nuclear senile cataract of both eyes [facility]* Diagnosis Postoperative follow-up- Primary Follow-up examination, following unspecified surgery Nuclear sclerosis of right eye Residual stage of angle-closure glaucoma of right eye Residual stage of angle-closure glaucoma [facility]* Diagnosis Primary hypertension- Primary Unspecified essential hypertension Hyperlipidemia LDL goal <130 Other and unspecified hyperlipidemia Prediabetes Other abnormal glucose Obesity, Class III, BMI 40-49.9 (morbid obesity) (HCC) Morbid obesity Benign prostatic hyperplasia with weak urinary stream Right bundle branch block (RBBB) on electrocardiogram (ECG) Abnormal electrocardiogram (ECG) (EKG) Nuclear sclerosis of right eye Nuclear sclerosis of right eye Residual stage of angle-closure glaucoma of right eye Residual stage of angle-closure glaucoma [facility] Right bundle branch block (RBBB) on electrocardiogram (ECG) Nuclear sclerosis of right eye Residual stage of angle-closure glaucoma of right eye Residual stage of angle-closure glaucoma [facility] Diagnosis Hyperlipidemia LDL goal <130- Primary Other and unspecified hyperlipidemia Nuclear sclerosis of right eye Residual stage of angle-closure glaucoma of right eye Residual stage of angle-closure glaucoma [facility]* Diagnosis Postoperative follow-up- Primary Follow-up examination, following unspecified surgery Chronic angle-closure glaucoma of left eye, severe stage Chronic angle-closure glaucoma Chronic angle-closure glaucoma of right eye, moderate stage Chronic angle-closure glaucoma [facility] Diagnosis Primary hypertension Unspecified essential hypertension [facility]* Diagnosis Postoperative follow-up- Primary Follow-up examination, following unspecified surgery Chronic angle-closure glaucoma of left eye, severe stage Chronic angle-closure glaucoma Chronic angle-closure glaucoma of right eye, moderate stage Chronic angle-closure glaucoma [facility] Diagnosis Primary hypertension- Primary Unspecified essential hypertension Hyperlipidemia LDL goal <130 Other and unspecified hyperlipidemia Prediabetes Other abnormal glucose Abnormal electrocardiogram (ECG) (EKG) Benign prostatic hyperplasia with weak urinary stream [facility]* Diagnosis Subacute cough- Primary Cough Subacute cough Cough [facility]* Diagnosis Subacute cough Cough [facility] Diagnosis Primary hypertension- Primary Unspecified essential hypertension Hyperlipidemia LDL goal <130 Other and unspecified hyperlipidemia Benign prostatic hyperplasia with weak urinary stream [facility] Diagnosis Primary hypertension Unspecified essential hypertension [facility] Diagnosis Chronic angle-closure glaucoma of left eye, severe stage Chronic angle-closure glaucoma Chronic angle-closure glaucoma of right eye, moderate stage Chronic angle-closure glaucoma [facility]* Diagnosis Finger pain, right- Primary Pain in limb [facility] Diagnosis Finger pain, right Pain in limb [facility] Diagnosis Chronic angle-closure glaucoma of left eye, severe stage Chronic angle-closure glaucoma Chronic angle-closure glaucoma of right eye, moderate stage Chronic angle-closure glaucoma [facility]* Diagnosis Hyperlipidemia LDL goal <130- Primary Other and unspecified hyperlipidemia Primary hypertension Unspecified essential hypertension Benign prostatic hyperplasia with weak urinary stream Impaired fasting glucose History of left shoulder replacement Obesity, Class III, BMI >= 40 Morbid obesity Chronic angle-closure glaucoma of left eye, severe stage Chronic angle-closure glaucoma * Assessment & Plan Note - Dolly Desouza APRN.CNP - 11/25/2024 2:03 PM EST Associated Problem(s): Obesity, Class III, BMI >= 40 Assessment: Body mass index is 42.58 kg/m . * Assessment & Plan Note - Dolly Desouza APRN.CNP - 11/25/2024 2:03 PM EST Associated Problem(s): History of left shoulder replacement Assessment: hx * Assessment & Plan Note - Dolly Desouza APRN.CNP - 11/25/2024 2:02 PM EST Associated Problem(s): Impaired fasting glucose Assessment: diet controlled Hemoglobin A1C (%) Date Value 09/04/2023 5.9 05/26/2020 5.9 ] * Assessment & Plan Note - Dolly Desouza APRN.CNP - 11/25/2024 2:02 PM EST Associated Problem(s): Benign prostatic hyperplasia with weak urinary stream Assessment: controlled on rx * Assessment & Plan Note - Dolly Desouza APRN.CNP - 11/25/2024 2:02 PM EST Associated Problem(s): Primary hypertension Assessment: controlled on rx Last 14 BP Last 14 Encounter BP Readings: Date: BP: 11/25/2024 140/78 11/20/2024 142/72 10/02/2024 160/78 08/07/2024 126/74 06/25/2024 165/95[took BP meds 45 mins ago[ 05/05/2024 110/76 02/28/2024 152/78 02/05/2024 126/74 01/20/2024 133/68 12/13/2023 202/92 11/29/2023 138/84 11/11/2023 127/64 11/06/2023 126/78 10/01/2023 148/78 * Assessment & Plan Note - Dolly Desouza APRN.CNP - 11/25/2024 2:02 PM EST Associated Problem(s): Hyperlipidemia LDL goal <130 Assessment: c/w statin [facility] Diagnosis Hyperlipidemia LDL goal <130- Primary Other and unspecified hyperlipidemia Primary hypertension Unspecified essential hypertension Benign prostatic hyperplasia with weak urinary stream Impaired fasting glucose History of left shoulder replacement Obesity, Class III, BMI >= 40 Morbid obesity Postoperative follow-up- Primary Follow-up examination, following unspecified surgery [facility] Diagnosis Hyperlipidemia LDL goal <130- Primary Other and unspecified hyperlipidemia Primary hypertension Unspecified essential hypertension Benign prostatic hyperplasia with weak urinary stream Impaired fasting glucose History of left shoulder replacement Obesity, Class III, BMI >= 40 Morbid obesity Postoperative follow-up- Primary Follow-up examination, following unspecified surgery [facility] Diagnosis Hyperlipidemia LDL goal <130- Primary Other and unspecified hyperlipidemia Primary hypertension Unspecified essential hypertension Benign prostatic hyperplasia with weak urinary stream Impaired fasting glucose History of left shoulder replacement Obesity, Class III, BMI >= 40 Morbid obesity Postoperative follow-up- Primary Follow-up examination, following unspecified surgery Chronic angle-closure glaucoma of left eye, severe stage Chronic angle-closure glaucoma Chronic angle-closure glaucoma of right eye, moderate stage Chronic angle-closure glaucoma [facility]* Diagnosis Hyperlipidemia LDL goal <130- Primary Other and unspecified hyperlipidemia Primary hypertension Unspecified essential hypertension Benign prostatic hyperplasia with weak urinary stream Impaired fasting glucose History of left shoulder replacement Obesity, Class III, BMI >= 40 Morbid obesity Postoperative follow-up- Primary Follow-up examination, following unspecified surgery Chronic angle-closure glaucoma of left eye, severe stage Chronic angle-closure glaucoma [facility]* Diagnosis Hyperlipidemia LDL goal <130- Primary Other and unspecified hyperlipidemia Primary hypertension Unspecified essential hypertension Benign prostatic hyperplasia with weak urinary stream Impaired fasting glucose History of left shoulder replacement Obesity, Class III, BMI >= 40 Morbid obesity Primary hypertension- Primary Unspecified essential hypertension Hyperlipidemia LDL goal <130 Other and unspecified hyperlipidemia Prediabetes Other abnormal glucose documented in this encounter [facility] note* Diagnosis Hyperlipidemia LDL goal <130- Primary Other and unspecified hyperlipidemia Primary hypertension Unspecified essential hypertension Benign prostatic hyperplasia with weak urinary stream Impaired fasting glucose History of left shoulder replacement Obesity, Class III, BMI >= 40 Morbid obesity Postoperative follow-up- Primary Follow-up examination, following unspecified surgery [facility]* Diagnosis Hyperlipidemia LDL goal <130- Primary Other and unspecified hyperlipidemia Primary hypertension Unspecified essential hypertension Benign prostatic hyperplasia with weak urinary stream Impaired fasting glucose History of left shoulder replacement Obesity, Class III, BMI >= 40 Morbid obesity Medicare annual wellness visit, subsequent- Primary Routine general medical examination at a health care facility Injury of finger of right hand, subsequent encounter Finger pain, right Pain in limb Primary hypertension Unspecified essential hypertension Hyperlipidemia LDL goal <130 Other and unspecified hyperlipidemia Encounter for colorectal cancer screening Special screening for malignant neoplasms, colon History of colonic polyps Personal history of colonic polyps [facility]* Diagnosis Hyperlipidemia LDL goal <130- Primary Other and unspecified hyperlipidemia Primary hypertension Unspecified essential hypertension Benign prostatic hyperplasia with weak urinary stream Impaired fasting glucose History of left shoulder replacement Obesity, Class III, BMI >= 40 Morbid obesity Chronic angle-closure glaucoma of left eye, severe stage- Primary Chronic angle-closure glaucoma Chronic angle-closure glaucoma of right eye, moderate stage Chronic angle-closure glaucoma Postoperative follow-up Follow-up examination, following unspecified surgery documented in this encounter [facility] note* Diagnosis Hyperlipidemia LDL goal <130- Primary Other and unspecified hyperlipidemia Primary hypertension Unspecified essential hypertension Benign prostatic hyperplasia with weak urinary stream Impaired fasting glucose History of left shoulder replacement Obesity, Class III, BMI >= 40 Morbid obesity Encounter for colorectal cancer screening Special screening for malignant neoplasms, colon History of colonic polyps Personal history of colonic polyps documented in this encounter [facility] for referral (narrative)* Outpatient Procedure (Routine) - Pending Review Specialty Diagnoses / Procedures Referred By Contac t Referred To [facility] Diagnoses Primary hypertension Procedures ECG COMPLETE ECG ROUTINE ECG W/LEAST 12 LDS W/I&R Cy Nixon APRN.CNP [address] [place] [address] [facility] [place] [address] [place] [address] Referral ID Status Reason Start Date Expiration Date Visits Requested Visits Authorized [id number] Pending Review Auto-Generat ed Referral 3 09/01/2024 1 1 [facility] for referral (narrative)* Diagnostic Procedure Only (Urgent) - New Request Specialty Diagnoses / Procedures Referred By Contac t Referred To Contact XR IMAGING Diagnoses Finger pain, right Procedures XR DIGIT GENERAL 3V FRONTAL/LAT/OBL RIGHT RADEX FINGR MINIMUM 2 VIEWS Deny Vega MD [address] [place] [id number] [place] [address] Referral ID Status Reason Start Date Expiration Date Visits Requested Visits Authorized [id number] New Request Auto-Generat ed Referral 4 11/01/2025 1 1 [facility] for referral (narrative)* Diagnostic Procedure Only (Urgent) - Closed Specialty Diagnoses / Procedures Referred By Contac t Referred To Contact XR IMAGING Diagnoses Finger pain, right Procedures XR DIGIT GENERAL 3V FRONTAL/LAT/OBL RIGHT RADEX FINGR MINIMUM 2 VIEWS Deny Vega MD [address] [place] [place] [id number] [place] [address] Referral ID Status Reason Start Date Expiration Date V isits Requested Visits Authorized [id number] Closed Auto-Generate d Referral 10/02/2024 11/01/2025 1 1 [facility] Diagnostic Procedure Only (Urgent) - Closed Specialty Diagnoses / Procedures Referred By Contac t Referred To Contact XR IMAGING Diagnoses Finger pain, right Procedures XR DIGIT GENERAL 3V FRONTAL/LAT/OBL RIGHT RADEX FINGR MINIMUM 2 VIEWS Deny Vega MD [address] [place] [address] [place] [address] Referral ID Status Reason Start Date Expiration Date V isits Requested Visits Authorized [id number] Closed Auto-Generate d Referral 10/02/2024 11/01/2025 1 1 [facility] Chief Complaint Chief Complaint Description Start Date left shoulder post Left tota l shoulderbiceps tenodesis on 06/20/2020 Preliminary chief co mplaint data, not yet signed by the author as of Advance Directives No Advanced Directives Records FoundDocuments on File Type Date 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 Advance Directive(s) 07/13/2016 12:12 PM Advance Directive Response Recorded Date/ Time Living Will No May 11, 2019 2 :43pm Power of Electrocardiograph Repairer No May 11, 2019 2:43pm Family History There may be information available, but it has not been provided by the sender.No Family History Records FoundNo Family History Records FoundNo Family History Records Found Chief Complaint and Reason for Visit Chief Complaint PRIMARY OPTIC ATROPH Y LEFT EYE Summary Purpose Reason for Referral Specialty Diagnoses / Procedures Referred By Contact Referred To Contact Cardiology / [facility] Diagnoses Primary hypertension Hyperlipidemia LDL goal <130 Right bundle branch block (RBBB) on electrocardiogram (ECG) Abnormal electrocardiogram (ECG) (EKG) Procedures CONSULT TO CARDIOLOGY OFFICE/OUTPATIENT [facility] MDM 60 MINUTES Cy Nixon, CRISTINA.SCALE ATTENDANT [address] [place] [address] Beny Middleton MD [address] [facility] [address] Referral ID Status Reason Start Date Expiration Date Visits Requested Visits Authorized [id number] Authorized PCP Requested Referral 02/05/2024 02/04/2025 1 1 Specialty Diagnoses / Procedures Referred By June tapia [facility] Diagnoses Right bundle branch block (RBBB) on electrocardiogram (ECG) Abnormal electrocardiogram (ECG) (EKG) Procedures ECHO ECHO TTHRC R-T 2D W/WOM-MODE COMPL SPEC&COLR D Cy Nixon, CRISTINA.SCALE ATTENDANT [address] [place] [address] [facility] [place] [address] [place] [address] Referral ID Status Reason Start Date Expiration Date Visits Requested Visits Authorized [id number] Pending Review Auto-Generat ed Referral 02/05/2024 02/04/2025 1 1 Additional Source Comments Reason for Visit (unrecogniz ed section and content) Reason For Visit Description Postop - subsequent visit Preliminary reason f or visit data, not yet signed by the author as of left shoulder post Left tota l shoulderbiceps tenodesis on 06/20/2020 Reason Comments Refill Request Reason Comments Hypertension Reason Comments Results Reason Comments New Patient Establish care previ ous pcp was Dr. Mcmanus. Thinks he may be a diabetic because has developed frequent urination and it has gotten worse in the last 3-4 weeks and his vision is blurry for the last 4-5 months, has not seen an eye doctor. Has been trying to lose weight but when he loses a little it comes right back. Had a left shoulder replacement. Has plantar fascitis in his right foot. Has a knot in his right arm where he got his last covid booster Reason Comments Results Labs Reason Comments Post-op (Ophthalmology) Left Eye Reason Comments Hypertension Has eye surgery 02/27 Reason Comments Pseudophakia Reason Onset Date Comments Refill Request 03/02/2024 Reason Comments Lab Orders Reason Comments Patient Question Reason Comments Chronic angle closure glaucoma Reason Onset Date Comments Refill Request 06/01/2024 Reason Comments Cough Previous illness, un sure if covid or not x 3 weeks ago, has had cough since x 3 weeks Reason Comments Hypertension Hyperlipidemia Reason Onset Date Comments Refill Request 09/02/2024 Reason Comments Hand Injury Right Reason Comments Chronic angle closure glaucoma 2 month V F Reason Comments Consult Reason Onset Date Comments Refill Request 12/30/2024 Reason Comments Post-op (Ophthalmology) Left Eye Follow Up For IOP check Reason Comments Reminder To Have Labs Drawn Reason Comments Post-op (Ophthalmology) Left Eye Follow Up For Reason Comments Medicare Wellness Exam Reason Comments Angle Closure Glaucoma Follow Up Reason Comments consult colon cancer screening Specialty Diagnoses / Procedures Referred By June tapia Referred To Contact General Surgery Diagnoses Encounter for colorectal cancer screening History of colonic polyps Procedures CONSULT TO GENERAL SURGERY OFFICE/OUTPATIENT [facility] MDM 60 MINUTES Cy Nixon APRN.SCALE ATTENDANT [address] [place] [address] Phone: tel: fax: Referral ID Status Reason Start Date Expiration Date V isits Requested Visits Authorized [id number] Closed PCP Requested Referral 02/05/2025 02/05/2026 1 1 Reason Onset Date Comments Refill Request 06/03/2025 Source Comments (unrecognize d section and content) In the event this informatio n is protected by the Federal Confidentiality of Alcohol and Drug Abuse Patient Records regulations: The Federal rules restrict any use of the information to criminally investigate or prosecute any alcohol or drug abuse patient.[facility] the event this information is protected by the Federal Confidentiality of Alcohol and Drug Abuse Patient Records regulations: The Federal rules restrict any use of the information to criminally investigate or prosecute any alcohol or drug abuse patient.[facility]In the event this information is protected by the Federal Confidentiality of Alcohol and Drug Abuse Patient Records regulations: The Federal rules restrict any use of the information to criminally investigate or prosecute any alcohol or drug abuse patient.[facility] HospitalIn the event this information is protected by the Federal Confidentiality of Alcohol and Drug Abuse Patient Records regulations: The Federal rules restrict any use of the information to criminally investigate or prosecute any alcohol or drug abuse patient.[facility] HospitalIn the event this information is protected by the Federal Confidentiality of Alcohol and Drug Abuse Patient Records regulations: The Federal rules restrict any use of the information to criminally investigate or prosecute any alcohol or drug abuse patient.[facility] HospitalIn the event this information is protected by the Federal Confidentiality of Alcohol and Drug Abuse Patient Records regulations: The Federal rules restrict any use of the information to criminally investigate or prosecute any alcohol or drug abuse patient.[facility] HospitalIn the event this information is protected by the Federal Confidentiality of Alcohol and Drug Abuse Patient Records regulations: The Federal rules restrict any use of the information to criminally investigate or prosecute any alcohol or drug abuse patient.[facility] HospitalIn the event this information is protected by the Federal Confidentiality of Alcohol and Drug Abuse Patient Records regulations: The Federal rules restrict any use of the information to criminally investigate or prosecute any alcohol or drug abuse patient.[facility] HospitalIn the event this information is protected by the Federal Confidentiality of Alcohol and Drug Abuse Patient Records regulations: The Federal rules restrict any use of the information to criminally investigate or prosecute any alcohol or drug abuse patient.[facility] HospitalIn the event this information is protected by the Federal Confidentiality of Alcohol and Drug Abuse Patient Records regulations: The Federal rules restrict any use of the information to criminally investigate or prosecute any alcohol or drug abuse patient.[facility] HospitalIn the event this information is protected by the Federal Confidentiality of Alcohol and Drug Abuse Patient Records regulations: The Federal rules restrict any use of the information to criminally investigate or prosecute any alcohol or drug abuse patient.[facility] HospitalIn the event this information is protected by the Federal Confidentiality of Alcohol and Drug Abuse Patient Records regulations: The Federal rules restrict any use of the information to criminally investigate or prosecute any alcohol or drug abuse patient.[facility] HospitalIn the event this information is protected by the Federal Confidentiality of Alcohol and Drug Abuse Patient Records regulations: The Federal rules restrict any use of the information to criminally investigate or prosecute any alcohol or drug abuse patient.[facility] HospitalIn the event this information is protected by the Federal Confidentiality of Alcohol and Drug Abuse Patient Records regulations: The Federal rules restrict any use of the information to criminally investigate or prosecute any alcohol or drug abuse patient.[facility] HospitalIn the event this information is protected by the Federal Confidentiality of Alcohol and Drug Abuse Patient Records regulations: The Federal rules restrict any use of the information to criminally investigate or prosecute any alcohol or drug abuse patient.[facility] HospitalIn the event this information is protected by the Federal Confidentiality of Alcohol and Drug Abuse Patient Records regulations: The Federal rules restrict any use of the information to criminally investigate or prosecute any alcohol or drug abuse patient.[facility] HospitalIn the event this information is protected by the Federal Confidentiality of Alcohol and Drug Abuse Patient Records regulations: The Federal rules restrict any use of the information to criminally investigate or prosecute any alcohol or drug abuse patient.[facility] HospitalIn the event this information is protected by the Federal Confidentiality of Alcohol and Drug Abuse Patient Records regulations: The Federal rules restrict any use of the information to criminally investigate or prosecute any alcohol or drug abuse patient.[facility] HospitalIn the event this information is protected by the Federal Confidentiality of Alcohol and Drug Abuse Patient Records regulations: The Federal rules restrict any use of the information to criminally investigate or prosecute any alcohol or drug abuse patient.[facility] HospitalIn the event this information is protected by the Federal Confidentiality of Alcohol and Drug Abuse Patient Records regulations: The Federal rules restrict any use of the information to criminally investigate or prosecute any alcohol or drug abuse patient.[facility] HospitalIn the event this information is protected by the Federal Confidentiality of Alcohol and Drug Abuse Patient Records regulations: The Federal rules restrict any use of the information to criminally investigate or prosecute any alcohol or drug abuse patient.[facility] HospitalIn the event this information is protected by the Federal Confidentiality of Alcohol and Drug Abuse Patient Records regulations: The Federal rules restrict any use of the information to criminally investigate or prosecute any alcohol or drug abuse patient.[facility] HospitalIn the event this information is protected by the Federal Confidentiality of Alcohol and Drug Abuse Patient Records regulations: The Federal rules restrict any use of the information to criminally investigate or prosecute any alcohol or drug abuse patient.[facility] HospitalIn the event this information is protected by the Federal Confidentiality of Alcohol and Drug Abuse Patient Records regulations: The Federal rules restrict any use of the information to criminally investigate or prosecute any alcohol or drug abuse patient.[facility] HospitalIn the event this information is protected by the Federal Confidentiality of Alcohol and Drug Abuse Patient Records regulations: The Federal rules restrict any use of the information to criminally investigate or prosecute any alcohol or drug abuse patient.[facility] HospitalIn the event this information is protected by the Federal Confidentiality of Alcohol and Drug Abuse Patient Records regulations: The Federal rules restrict any use of the information to criminally investigate or prosecute any alcohol or drug abuse patient.[facility] HospitalIn the event this information is protected by the Federal Confidentiality of Alcohol and Drug Abuse Patient Records regulations: The Federal rules restrict any use of the information to criminally investigate or prosecute any alcohol or drug abuse patient.[facility] HospitalIn the event this information is protected by the Federal Confidentiality of Alcohol and Drug Abuse Patient Records regulations: The Federal rules restrict any use of the information to criminally investigate or prosecute any alcohol or drug abuse patient.[facility] HospitalIn the event this information is protected by the Federal Confidentiality of Alcohol and Drug Abuse Patient Records regulations: The Federal rules restrict any use of the information to criminally investigate or prosecute any alcohol or drug abuse patient.[facility] HospitalIn the event this information is protected by the Federal Confidentiality of Alcohol and Drug Abuse Patient Records regulations: The Federal rules restrict any use of the information to criminally investigate or prosecute any alcohol or drug abuse patient.[facility] HospitalIn the event this information is protected by the Federal Confidentiality of Alcohol and Drug Abuse Patient Records regulations: The Federal rules restrict any use of the information to criminally investigate or prosecute any alcohol or drug abuse patient.[facility] HospitalIn the event this information is protected by the Federal Confidentiality of Alcohol and Drug Abuse Patient Records regulations: The Federal rules restrict any use of the information to criminally investigate or prosecute any alcohol or drug abuse patient.[facility] HospitalIn the event this information is protected by the Federal Confidentiality of Alcohol and Drug Abuse Patient Records regulations: The Federal rules restrict any use of the information to criminally investigate or prosecute any alcohol or drug abuse patient.[facility] HospitalIn the event this information is protected by the Federal Confidentiality of Alcohol and Drug Abuse Patient Records regulations: The Federal rules restrict any use of the information to criminally investigate or prosecute any alcohol or drug abuse patient.[facility] HospitalIn the event this information is protected by the Federal Confidentiality of Alcohol and Drug Abuse Patient Records regulations: The Federal rules restrict any use of the information to criminally investigate or prosecute any alcohol or drug abuse patient.[facility] HospitalIn the event this information is protected by the Federal Confidentiality of Alcohol and Drug Abuse Patient Records regulations: The Federal rules restrict any use of the information to criminally investigate or prosecute any alcohol or drug abuse patient.[facility] HospitalIn the event this information is protected by the Federal Confidentiality of Alcohol and Drug Abuse Patient Records regulations: The Federal rules restrict any use of the information to criminally investigate or prosecute any alcohol or drug abuse patient.[facility] HospitalIn the event this information is protected by the Federal Confidentiality of Alcohol and Drug Abuse Patient Records regulations: The Federal rules restrict any use of the information to criminally investigate or prosecute any alcohol or drug abuse patient.[facility] HospitalIn the event this information is protected by the Federal Confidentiality of Alcohol and Drug Abuse Patient Records regulations: The Federal rules restrict any use of the information to criminally investigate or prosecute any alcohol or drug abuse patient.[facility] HospitalIn the event this information is protected by the Federal Confidentiality of Alcohol and Drug Abuse Patient Records regulations: The Federal rules restrict any use of the information to criminally investigate or prosecute any alcohol or drug abuse patient.[facility] HospitalIn the event this information is protected by the Federal Confidentiality of Alcohol and Drug Abuse Patient Records regulations: The Federal rules restrict any use of the information to criminally investigate or prosecute any alcohol or drug abuse patient.[facility] HospitalIn the event this information is protected by the Federal Confidentiality of Alcohol and Drug Abuse Patient Records regulations: The Federal rules restrict any use of the information to criminally investigate or prosecute any alcohol or drug abuse patient.[facility] HospitalIn the event this information is protected by the Federal Confidentiality of Alcohol and Drug Abuse Patient Records regulations: The Federal rules restrict any use of the information to criminally investigate or prosecute any alcohol or drug abuse patient.[facility] HospitalIn the event this information is protected by the Federal Confidentiality of Alcohol and Drug Abuse Patient Records regulations: The Federal rules restrict any use of the information to criminally investigate or prosecute any alcohol or drug abuse patient.[facility] HospitalIn the event this information is protected by the Federal Confidentiality of Alcohol and Drug Abuse Patient Records regulations: The Federal rules restrict any use of the information to criminally investigate or prosecute any alcohol or drug abuse patient.[facility] HospitalIn the event this information is protected by the Federal Confidentiality of Alcohol and Drug Abuse Patient Records regulations: The Federal rules restrict any use of the information to criminally investigate or prosecute any alcohol or drug abuse patient.[facility] HospitalIn the event this information is protected by the Federal Confidentiality of Alcohol and Drug Abuse Patient Records regulations: The Federal rules restrict any use of the information to criminally investigate or prosecute any alcohol or drug abuse patient.[facility] HospitalIn the event this information is protected by the Federal Confidentiality of Alcohol and Drug Abuse Patient Records regulations: The Federal rules restrict any use of the information to criminally investigate or prosecute any alcohol or drug abuse patient.[facility] Care Teams (unrecognized sec tion and content) Chrome Tanner Relationship Specialty Start Date End Date Bharat Mcmanus III, MD [place]ESS PCP - General 06/14/03 Chrome Tanner Relationship Specialty Start Date End Date Bharat Mcmanus III, MD [place]DRESS PCP - General 06/14/03 Chrome Tanner Relationship Specialty Start Date End Date Cy Nixon, AUTHORIZATION MANAGER.SCALE ATTENDANT [address] [place], [place] [id number] PCP - General Family Medicine 09/02/23 Chrome Tanner Relationship Specialty Start Date End Date Cy Nixon AUTHORIZATION MANAGER.SCALE ATTENDANT [address] [place], [place] [id number] PCP - General Family Medicine 09/02/23 Chrome Tanner Relationship Specialty Start Date End Date Cy Nixon AUTHORIZATION MANAGER.SCALE ATTENDANT [address] [place] [address] PCP - General Family Medicine 09/02/23 Chrome Tanner Relationship Specialty Start Date End Date Cy Nixon AUTHORIZATION MANAGER.SCALE ATTENDANT [address] [place] [address] PCP - General Family Medicine 09/02/23 Junaid Belle [address] [place] [address] Referring Ophthalmology 09/24/23 Team Status: Active Member Role Status Dates Dr. Bharat Mcmanus III, MD Family Provider Active Cy Nixon OPERATIONS MANAGER ASSISTANT, OPERATIONS MANAGER ASSISTANT-C Primary Care Provider Active Team Status: Inactive Member Role Status Dates Dr. Junaid Belle MD Attending Provider Active Cy Nixon OPERATIONS MANAGER ASSISTANT, OPERATIONS MANAGER ASSISTANT-C Primary Care Provider Active Chrome Tanner Relationship Specialty Start Date End Date Cy Nixon AUTHORIZATION MANAGER.SCALE ATTENDANT [address] [place], [place] [id number] PCP - General Family Medicine 09/02/23 Junaid Belle [address] [place], [place] [address] Referring Ophthalmology 09/24/23 Chrome Tanner Relationship Specialty Start Date End Date Cy Nixon APRN.SCALE ATTENDANT [address] [place] [address] PCP - General Family Medicine 09/02/23 Junaid Belle [address] [place], [place] [address] Referring Ophthalmology 09/24/23 Chrome Tanner Relationship Specialty Start Date End Date Cy Nixon APRN.SCALE ATTENDANT [address] [place] [id number] PCP - General Family Medicine 09/02/23 Junaid Belle [address] [place] [address] Referring Ophthalmology 09/24/23 Chrome Tanner Relationship Specialty Start Date End Date Cy Nixon AUTHORIZATION MANAGER.SCALE ATTENDANT [address] [place] [address] [place] [address] PCP - General Family Medicine 09/02/23 Junaid Belle [address] [place] [address] Referring Ophthalmology 09/24/23 Chrome Tanner Relationship Specialty Start Date End Date Cy Nixon, AUTHORIZATION MANAGER.SCALE ATTENDANT [address] [facility] [place] [address] PCP - General Family Medicine 09/02/23 Junaid Belle [address] [place] [address] Referring Ophthalmology 09/24/23 Chrome Tanner Relationship Specialty Start Date End Date Cy Nixon APRN.SCALE ATTENDANT [address] [facility] [place] [address] PCP - General Family Medicine 09/02/23 Junaid Belle [address] [place] [address] Referring Ophthalmology 09/24/23 Chrome Tanner Relationship Specialty Start Date End Date Cy Nixon AUTHORIZATION MANAGER.SCALE ATTENDANT [address] [facility] [place] [address] PCP - General Family Medicine 09/02/23 Junaid Belle [address] [place] [address] Referring Ophthalmology 09/24/23 Chrome Tanner Relationship Specialty Start Date End Date Cy Nixon, AUTHORIZATION MANAGER.SCALE ATTENDANT [address] [place] [place] [address] PCP - General Family Medicine 09/02/23 Junaid Belle [address] [place] [address] Referring Ophthalmology 09/24/23 Chrome Tanner Relationship Specialty Start Date End Date Cy Nixon, AUTHORIZATION MANAGER.SCALE ATTENDANT [address] [place] [place] [address] PCP - General Family Medicine 09/02/23 Junaid Belle [address] [place] [address] Referring Ophthalmology 09/24/23 Chrome Tanner Relationship Specialty Start Date End Date Cy Nixon APRN.SCALE ATTENDANT [address] [facility] [place] [address] PCP - General Family Medicine 09/02/23 Junaid Belle [address] [place] [address] Referring Ophthalmology 09/24/23 Chrome Tanner Relationship Specialty Start Date End Date Cy Nixon APRN.SCALE ATTENDANT [address] [place] [address] [place] [address] PCP - General Family Medicine 09/02/23 Junaid Belle [address] [place] [address] Referring Ophthalmology 09/24/23 Chrome Tanner Relationship Specialty Start Date End Date Cy Nixon AUTHORIZATION MANAGER.SCALE ATTENDANT [address] [place] [address] [place] [address] PCP - General Family Medicine 09/02/23 Junaid Belle [address] [place] [address] Referring Ophthalmology 09/24/23 Chrome Tanner Relationship Specialty Start Date End Date Cy Nixon AUTHORIZATION MANAGER.SCALE ATTENDANT [address] [place] [address] [place] [address] PCP - General Family Medicine 09/02/23 Junaid Belle MD [address] [place] [address] Referring Ophthalmology 09/24/23 Chrome Tanner Relationship Specialty Start Date End Date Cy Nixon AUTHORIZATION MANAGER.SCALE ATTENDANT [address] [facility] [place] [address] PCP - General Family Medicine 09/02/23 Junaid Belle MD [address] [place], [place] [address] Referring Ophthalmology 09/24/23 Chrome Tanner Relationship Specialty Start Date End Date Cy Nixon AUTHORIZATION MANAGER.SCALE ATTENDANT [place] Antonia [facility] [place] [address] PCP - General Family Medicine 09/02/23 Junaid Belle MD [address] [place] [address] Referring Ophthalmology 09/24/23 Chrome Tanner Relationship Specialty Start Date End Date Cy Nixon AUTHORIZATION MANAGER.SCALE ATTENDANT [place]ia [facility] [place] [address] PCP - General Family Medicine 09/02/23 Junaid Belle MD [address] [place] [address] Referring Ophthalmology 09/24/23 Chrome Tanner Relationship Specialty Start Date End Date Cy Nixon AUTHORIZATION MANAGER.SCALE ATTENDANT [address] [facility] [place] [id number] PCP - General Family Medicine 09/02/23 Junaid Belle MD [address] [place] [address] Referring Ophthalmology 09/24/23 Chrome Tanner Relationship Specialty Start Date End Date Cy Nixon AUTHORIZATION MANAGER.SCALE ATTENDANT [address] [facility], [place] [id number] PCP - General Family Medicine 09/02/23 Junaid Belle MD [address] [place] [address] Referring Ophthalmology 09/24/23 Chrome Tanner Relationship Specialty Start Date End Date Cy Nixon AUTHORIZATION MANAGER.SCALE ATTENDANT [address] [facility], [place] [id number] PCP - General Family Medicine 09/02/23 Junaid Belle MD [address] [place] [address] Referring Ophthalmology 09/24/23 Chrome Tanner Relationship Specialty Start Date End Date Cy Nixon AUTHORIZATION MANAGER.SCALE ATTENDANT [address] [facility], [place] [id number] PCP - General Family Medicine 09/02/23 Junaid Belle MD [address] [place] [address] Referring Ophthalmology 09/24/23 Chrome Tanner Relationship Specialty Start Date End Date Cy Nixon AUTHORIZATION MANAGER.SCALE ATTENDANT [address] [facility], [place] [id number] PCP - General Family Medicine 09/02/23 Junaid Belle MD [address] [place] [address] Referring Ophthalmology 09/24/23 Chrome Tanner Relationship Specialty Start Date End Date Trill, Cy C, AUTHORIZATION MANAGER.SCALE ATTENDANT [address] [place] [address] PCP - General Family Medicine 09/02/23 Junaid Belle MD [address] [place] [address] Referring Ophthalmology 09/24/23 Chrome Tanner Relationship Specialty Start Date End Date Cy Nixon AUTHORIZATION MANAGER.SCALE ATTENDANT [address] [place] [address] PCP - General Family Medicine 09/02/23 Junaid Belle MD [address] [place], [place] [id number] Referring Ophthalmology 09/24/23 Chrome Tanner Relationship Specialty Start Date End Date Cy Nixon AUTHORIZATION MANAGER.SCALE ATTENDANT [address] [facility], [place] [phone] PCP - General Family Medicine 09/02/23 Junaid Belle MD [address] [place] [address] Referring Ophthalmology 09/24/23 Chrome Tanner Relationship Specialty Start Date End Date Cy Nixon AUTHORIZATION MANAGER.SCALE ATTENDANT [address] [place] [place] [address] PCP - General Family Medicine 09/02/23 Junaid Belle MD [address] [place] [place] [address] Referring Ophthalmology 09/24/23 Chrome Tanner Relationship Specialty Start Date End Date Cy Nixon AUTHORIZATION MANAGER.SCALE ATTENDANT [address] [facility] [place] [address] PCP - General Family Medicine 09/02/23 Junaid Belle MD [address] [place] [address] Referring Ophthalmology 09/24/23 Chrome Tanner Relationship Specialty Start Date End Date Cy Nixon AUTHORIZATION MANAGER.SCALE ATTENDANT [address] [place] [place] [address] PCP - General Family Medicine 09/02/23 Junaid Belle MD [address] [place], [place] [id number] Referring Ophthalmology 09/24/23 Chrome Tanner Relationship Specialty Start Date End Date Cy Nixon, AUTHORIZATION MANAGER.SCALE ATTENDANT [address] [facility], [place] [phone] PCP - General Family Medicine 09/02/23 Junaid Belle MD [address] [place], [place] [address] Referring Ophthalmology 09/24/23 Chrome Tanner Relationship Specialty Start Date End Date Cy Nixon AUTHORIZATION MANAGER.SCALE ATTENDANT [address] [place] [place] [address] PCP - General Family Medicine 09/02/23 Junaid Belle MD [address] [place] [address] Referring Ophthalmology 09/24/23 Goals (unrecognized section and content) Goals may be documented in a n alternate section (unrecognized sect ion and content) No Status Records FoundNo Status Records FoundNo Status Records Found INFORMATION SOURCE (unrecogn ized section and content) DATE CREATED AUTHOR 10/01/2023 [facility] DATE CREATED AUTHOR AUTHOR'S ORGANIZ ATION 08/31/2025 [facility] DATE CREATED AUTHOR AUTHOR'S ORGANIZ ATION 09/09/2025 [facility] Active Administered Medications - up to 3 most recent administrations Administered Medications (un recognized section and content) Medication Order MAR Action Action Date Dose Rate Site PHENYLephrine 2.5 % 1 Drop (AK-DILATE, HANNAH-SYNEPHRINE) 1 Drop, LEFT EYE, DIRECTED, Starting on Sat12/13/23 at 1300, Until 12/14/23 at 0059, Administer for dilation PROTECT FROM LIGHT Given 12/13/2023 1:00 PM EST 1 Drop tropicamide 1 % 1 Drop (MYDRIACYL) 1 Drop, LEFT EYE, DIRECTED, Starting on Sat12/13/23 at 1300, Until 12/14/23 at 0059, Administer for dilation Given 12/13/2023 1:00 PM EST 1 Drop Active Administered Medications - up to 3 most recent administrations Medication Order MAR Action Action Date Dose Rate Site fluorescein-benoxinate 0.3-0.4 % 1 Drop (FLURESS) 1 Drop, BOTH EYES, DIRECTED, Starting on 12/23/23 at 1130, Until 12/23/23 at 2329, Administer for applanation tonometry. In the event of a Fluress shortage, administer 1 drop of [place]-Fluor into both eyes as directed for applanation tonometry. Given 12/23/2023 11:30 AM EST 1 Drop Active Administered Medications - up to 3 most recent administrations Medication Order MAR Action Action Date Dose Rate Site fluorescein-benoxinate 0.3-0.4 % 1 Drop (FLURESS) 1 Drop, BOTH EYES, DIRECTED, Starting on Sat01/20/24 at 1030, Until 01/20/24 at 2229, Administer for applanation tonometry. In the event of a Fluress shortage, administer 1 drop of [place]-Fluor into both eyes as directed for applanation tonometry. Given 01/20/2024 10:30 AM EDT 1 Drop PHENYLephrine 2.5 % 1 Drop (AK-DILATE, HANNAH-SYNEPHRINE) 1 Drop, BOTH EYES, DIRECTED, Starting on 01/20/24 at 1030, Until Sat01/20/24 at 2229, Administer for dilation PROTECT FROM LIGHT Given 01/20/2024 10:30 AM EDT 1 Drop tropicamide 1 % 1 Drop (MYDRIACYL) 1 Drop, BOTH EYES, DIRECTED, Starting on Sat01/20/24 at 1030, Until Sat01/20/24 at 2229, Administer for dilation Given 01/20/2024 10:30 AM EDT 1 Drop FOR RECORDS PERTAINING TO PATIENTS WHO ARE OR HAVE BEEN ENROLLED IN A CHEMICAL DEPENDENCY/SUBSTANCEABUSE PROGRAM, SOME INFORMATION MAY BE OMITTED. This clinical summary was aggregated from multiple sources. Caution should be exercised in using it in the provision of clinical care. This summary normalizes information from multiple sources, and as a consequence, information in this document may materially change the coding, format and clinical context of patient data. In addition, data may be omitted in some cases. CLINICAL DECISIONS SHOULD BE BASED ON THE PRIMARY CLINICAL RECORDS. [facility]. provides no warranty or guarantee of the accuracy or completeness of information in this document.
[2025-10-19 21:40] LABS: Pro- Brain NATRIURETIC PEPTIDE 61 pg/mL (<=900); Troponin T High Sensitivity 8 ng/L (<=22)
--- NOTE | 2025-10-19 23:06 | ED.VIS.DYS ---
HPI History of Present Illness Chief Complaint: Shortness of Breath Narrative Narrative: Patient is a 70-year-old male presenting to the emergency department for intermittent shortness of breath at night and while lying flat. Patient states that he has had chest cold symptoms for the past 4 days. He states that over the past 2 days he has had the shortness of breath at the previously stated times. He denies any fevers or chills. Endorses some mild congestion intermittently. Denies any sore throat. Denies any chest pain, abdominal pain, nausea, vomiting, diaphoresis. Denies any lower extremity edema. States he drove to [place] in August but it was a 4 to 5-[address] drive. Denies any history of DVT or PE history. Denies any history of cardiac or pulmonary issues. Denies any recent hospitalizations or surgeries. He is not on any oral anticoagulation. Denies any smoking history for over 30 years. [facility] Medical History no medical history Home Medications ?Medication ?Instructions ?Recorded ?Last Taken ?Type brimonidine 0.2 % eye drops 1 drp ophthalmic (eye) BID 10/19/25 10/19/25 History dorzolamide 22.3 mg-timolol 6.8 1 drp ophthalmic (eye) BID 10/19/25 10/19/25 History mg/mL eye drops fluvastatin 20 mg capsule 20 mg PO DAILY 10/19/25 10/18/25 History latanoprost 0.005 % eye drops 1 drp ophthalmic (eye) QHS 10/19/25 10/18/25 History lisinopril 20 mg tablet 20 mg PO DAILY 10/19/25 10/19/25 History prednisolone acetate 1 % eye See Taper ophthalmic (eye) .COMPLEX 10/19/25 10/19/25 History drops,suspension tamsulosin 0.4 mg capsule 0.4 mg PO QHS 10/19/25 10/18/25 History Allergy/AdvReac Type Severity Reaction Status Date / Time etodolac Allergy TIGHTNESS Verified 10/19/25 19:51 IN CHEST Penicillins Allergy Hives Verified 10/19/25 19:51 Family History no significant family his Surgical History no surgical history Social History Smoking Status: Former smoker ROS ROS ED ROS Narrative see HPI EXAM Physical Exam Narrative Exam Narrative: Vital signs: Reviewed General: Alert and orientedx3. No acute distress. Well appearing, nontoxic. HEENT: Head is normocephalic and atraumatic, sinuses nontender, pupils equal round and reactive. Nares are patent. Oropharynx and throat exams normal. Neck: Supple without lymphadenopathy nontender Cardiovascular: Regular rate and rhythm, no murmurs. No rubs or gallops. Normal S1 and S2 Respiratory: Decreased lung sounds at the bases due to body habitus. Clear to auscultation bilaterally. No wheezes, rales, rhonchi Abdominal: Soft and nontender. Normal bowel sounds. No guarding or rebound. Nonsurgical abdomen Extremities: No lower extremity edema. No tenderness. No bruising. Normal range of motion. Normal sensation. Skin: No rash or redness. The rest of the physical exam is unremarkable Const Vital Signs: 10/19/25 19:48 10/19/25 20:46 10/19/25 20:48 Temperature 97.9 F 97.9 F Temperature Source Oral Oral Pulse Rate 79 79 Respiratory Rate 20 H 18 Respiratory Effort Normal Non-Labored Respiratory Depth Normal Respiratory Pattern Normal Blood Pressure 211/89 H 160/86 H Blood Pressure Mean 129 110 Pulse Ox 97 96 Oxygen Delivery Method Room Air Room Air Room Air 10/19/25 21:00 10/19/25 21:48 10/19/25 22:28 Temperature 97.9 F 97.9 F Temperature Source Oral Pulse Rate 74 76 76 Respiratory Rate 20 H 18 Respiratory Effort Respiratory Depth Respiratory Pattern Blood Pressure 165/82 H 178/82 H 158/74 H Blood Pressure Mean 109 114 102 Pulse Ox 96 99 98 Oxygen Delivery Method Room Air Room Air MDM MDM MDM Narrative Medical decision making narrative: Patient is a 70-year-old male presenting to the emergency department for intermittent dyspnea. Patient was seen and examined. Patient is hypertensive on arrival at 211/89 however on recheck after he had been sitting 160/86. Resting in bed comfortably, no acute distress. Clinical impression: ACS, URI, pneumonia, CHF, less likely pulmonary embolism, no tachycardia, hypoxia no significant risk factors. Intermittent symptoms is not consistent with PE. Considered hypertensive emergency given initial blood pressure however on recheck after he had been sitting his blood pressure was much more appropriate and do not think this is the cause of his symptoms however cardiac workup and chest x-ray were ordered given the patient's symptoms already. CBC with no leukocytosis and a normal hemoglobin. BMP with no significant abnormalities. Troponin within normal limits. I do not think he requires a second troponin given he said his symptoms for 2 days and I would expect this to be elevated if it was truly ACS. BMP within normal limits. Chest x-ray reviewed by myself shows cardiomegaly, no pulmonary vascular congestion. No opacities, pneumothorax or wide mediastinum. Radiology read in agreement. Patient ambulated with pulse ox and was saturating 97%. He was updated on the negative workup. I did on the findings of some mild cardiomegaly with no findings of heart failure on labs or imaging. Did recommend that he follow-up with his primary care doctor for possible sleep study given his symptoms are usually at night and when he is lying down to go to sleep. Consider CONSTANTINE given his BMI. Patient discharged from the Emergency Department. I do not feel that the patient's evaluation reveals any acute reason for admission at this time. I instructed them to either follow-up with their primary care physician or promptly return to the Emergency Department for reevaluation should symptoms worsen or new symptoms develop. I explained what symptoms would indicate the need to return to the emergency department. Shared decision making was used. The patient voiced understanding of the treatment plan and is agreeable with it. Clinical impression Dyspnea History & Record Review Discussion w/independent historian: Patient Lab Data Attestation: I reviewed the patient's lab results. Labs: Laboratory Results - last 24 hr 10/19/25 20:43 WBC 7.9 RBC 5.09 Hgb 14.5 Hct 43.8 MCV 86.1 MCH 28.5 MCHC 33.1 RDW Std Deviation 39.8 RDW Coeff of Andrea 12.7 Plt Count 196 MPV 9.7 Immature Gran % (Auto) 0.100 Neut % (Auto) 63.1 Lymph % (Auto) 26.2 Gray % (Auto) 7.1 Eos % (Auto) 3.0 Baso % (Auto) 0.5 Absolute Neuts (auto) 5.0 Absolute Lymphs (auto) 2.07 Nucleated RBC % 0 Sodium 139 Potassium 4.0 Chloride 105 Carbon Dioxide 24.8 Anion Gap 9 BUN 14 Creatinine 1.10 Estim Creat Clear Calc 91.79 Est GFR (MDRD) Non-Af 73 BUN/Creatinine Ratio 12.3 Glucose 136 H Calcium 9.0 Troponin T High Sens 8 NT pro BNP II 61 Radiography Chest X-Ray - ED: 2 View, Read by ED Physician, No Acute Disease and Cardiomegaly Diagnostic Testing: Clinical Impression(s) from Imaging Studies Chest X-Ray 10/19/25 20:51 IMPRESSION: Mild cardiomegaly. No acute pulmonary disease. Reading Location: [facility] Discharge Plan Triage Chief Complaint: Shortness of Breath ED Provider: Nettie Webb Dx/Rx/DC Orders Clinical Impression: Dyspnea Instructions: ED Dyspnea Prescriptions: No Action latanoprost 0.005 % drops 1 drp ophthalmic (eye) QHS Rx Instructions: both eyes lisinopril 20 mg tablet 20 mg PO DAILY prednisolone acetate 1 % drops,suspension See Taper ophthalmic (eye) .COMPLEX Taper: Prednisone Taper 3 drp DAILY for 7 Days 2 drp DAILY for 3 Days 1 drp DAILY for 3 Days Patient Comments: starts 2 drops on Rx Instructions: left eye tamsulosin 0.4 mg capsule 0.4 mg PO QHS brimonidine 0.2 % drops 1 drp ophthalmic (eye) BID Rx Instructions: left eye fluvastatin 20 mg capsule 20 mg PO DAILY dorzolamide-timolol 22.3-6.8 mg/mL drops 1 drp ophthalmic (eye) BID Rx Instructions: both eyes Primary Care Provider: Justine Wall NP Referrals: Justine Wall NP, [facility] OFFICER-C [Primary Care Provider, Medical] - As soon as possible Activity Restrictions/Additional Instructions: Your evaluation in the Emergency Department did not reveal any acute reason for admission. However, I want to emphasize that you may be early in the course of a disease process or illness even if it is not present. For this reason you should follow-up within 24 hours for reevaluation with either your primary care physician or if necessary back here in the Emergency Department. You should return to the Emergency Department immediately if your symptoms worsen or new symptoms develop. Print Language: Japanese Disposition Disposition: Home, Self Care Discharge Date/Time: 10/19/25 22:51
== END 2025-10-19 22:51 | disposition home or self-care (01) ==
PROVIDERS: Emergency Provider Student in an Organized Health Care Education/Training Program; PCP Nurse Practitioner Family; Visit Provider Student in an Organized Health Care Education/Training Program
DX: R06.02 Shortness of breath (principal); Z87.891 Personal history of nicotine dependence
CPT/HCPCS: 71046; 80048; 83880; 84484; 85025; 87631; 93005; 99284; A4216